=== PATIENT | female | born 2005 | race African-American/Black ===

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

== ENCOUNTER 2025-07-11 02:07 | Emergency (ER) | payer SELFPAY ==
[2025-07-11 02:10] VITALS: BP 130/85; PULSE 83; RESP 16; TEMP 36.4; O2SAT 99
--- NOTE | 2025-07-11 03:34 | ED_ITS ---
HPI - Nausea/Vomiting/Diarrhea General Chief complaint: Nausea/Vomiting/Diarrhea Stated complaint: N/V S/P FINISHING CHEMO FOR LEUKIMIA Time Seen by Provider: 07/11/25 03:14 Source: patient Mode of arrival: ambulatory Limitations: no limitations History of Present Illness HPI Narrative: Patient is a 20-year-old female presents to the emergency department, nausea and vomiting and diarrhea. Patient states she had been feeling too well over the past few days with a nonspecific headache and did not think too much of the until this evening when she started to nausea nonbloody nonbilious emesis, watery diarrhea. Denies any known sick contacts. Denies any no fevers. Notes that she just completed treatment for AML, is known to [facility] and completed chemotherapy at the end of June. Related Data Allergies Allergy/AdvReac Type Severity Reaction Status Date / Time No Known Allergies Allergy Verified 10/02/22 13:20 Review of Systems 2 Review of Systems: A 10 system review of systems was completed on the patient and is negative except for what is stated in the HPI. Nursing and ancillary documentation was reviewed. [facility] Past Medical History Medical History (Updated 07/11/25 @ 06:09 by Sami Simeon DO) No active medical problems Social History Social History (Updated 10/02/22 @ 16:23 by Winter Ashton PA-C) Smoking status: Never smoker Substance use: current Substance use type: marijuana Exam 2 Narrative: CONST: No acute distress. Well nourished. HENMT: Head is normocephalic and atraumatic. Moist mucous membranes. No posterior oropharynx erythema. EYES: No scleral icterus. No conjunctival injection or pallor. PERRL. NECK: No meningeal signs. RESP: Able to speak in full sentences. Normal respiratory effort. CTAB. CARDIO: Regular rate. Regular rhythm. 2+ DP and radial pulses bilaterally. GI: Nondistended. No tenderness to palpation. Soft. : No CVA tenderness to palpation. SKIN: No rashes or lesions noted on exposed skin. NEURO: Oriented x3. Moves all extremities. EXTREM/MSK/BACK: No pedal edema. PSYCH: Normal affect. Course Vital Signs Vital signs: Vital Signs Temperature 97.6 F 07/11/25 02:10 Pulse Rate 83 07/11/25 02:10 Respiratory Rate 16 07/11/25 02:10 Blood Pressure 130/85 07/11/25 02:10 Pulse Oximetry 99 07/11/25 02:10 Oxygen Delivery Room Air 07/11/25 02:10 Temperature 97.6 F 07/11/25 02:10 Pulse Rate 66 07/11/25 06:23 Respiratory Rate 17 07/11/25 06:23 Blood Pressure 121/84 07/11/25 06:23 Pulse Oximetry 100 07/11/25 06:23 Oxygen Delivery Room Air 07/11/25 02:10 [facility] Narrative Medical decision making narrative: Patient presents with the above complaint. Initial vitals are remarkable for no significant abnormalities. Physical examination as noted above. Plan discussed: laboratory analysis, IV fluids, Compazine, Benadryl, Zofran, continues cardiac monitoring, continuous pulse oximetry. Patient was reassessed at the bedside. No changes in physical exam. Patient is in no acute distress. Patient notes her symptoms have resolved, tolerating oral intake, no headache, no abdominal pain, vital signs stable, feels well at this time. The patient has remained stable throughout the entire ED visit. Counseled patient regarding diagnostic results and potential diagnosis. Anticipatory guidance provided. Patient instructed to follow up with PCP within 1 week. Patient counseled on: false reassurance from an emergency department evaluation; no current evidence of a medical emergency; return immediately for any new, recurrent, worsening, concerning, or refractory symptoms. Patient prescribed Zofran, Bentyl. Prescription sent to preferred pharmacy. Medications discussed with patient. Additional verbal and printed discharge instructions were given and discussed with the patient. Patient verbally acknowledges understanding of condition and discharge instructions. All questions were answered to the patient's satisfaction. Patient is in agreement with the plan of care. The patient is stable for discharge and was discharged without incident. Differential Diagnosis Differential Diagnosis: Metabolic derangement, electrolyte derangement, gastroenteritis, food-borne illness, viral syndrome, dehydration, UTI. Medical Records I have reviewed the following patient records and this information was taken into consideration when formulating the assessment and plan.: previous ER visits Lab Data [facility] Lab Attestation statement: I personally reviewed the patient's lab results. Lab results narrative: CBC reveals no significant abnormalities. Comprehensive metabolic panel is without any significant abnormalities. Lactic acid 1.4. Magnesium 2.1. Lipase 111. TSH 3.21. Influenza a and COVID and RSV testing are negative. Urinalysis has a cloudy appearance and otherwise without any significant abnormalities. test is negative. 07/11/25 03:50 07/11/25 03:50 Labs: Lab Results 07/11/25 07/11/25 07/11/25 Range/Units 03:50 03:51 05:22 WBC 6.0 (4.5-10.0) K/mm3 RBC 4.47 (4.2-5.4) M/mm3 Hgb 12.5 (12.0-15.0) g/dL Hct 40.0 (37.0-47.0) % MCV 89.5 (80-100) fl MCH 28.0 (26-34) pg MCHC 31.3 L (32-36) g/dl RDW 13.0 (11.5-14.5) % Plt Count 200 (150-375) k/mm3 MPV 11.6 H (7.4-10.4) fl Immature Gran % (Auto) 0.5 (0-0.5) % Neut % (Auto) 73.9 H (45.5-73.1) % Lymph % (Auto) 15.6 L (18.3-44.2) % [place] % (Auto) 7.5 (2.6-8.5) % Eos % (Auto) 2.5 (0-4.4) % Baso % (Auto) 0.0 L (0.2-1.2) % Lymph # (Auto) 0.94 (0.9-3.2) K/mm3 [place] # (Auto) 0.5 (0.1-0.6) K/mm3 Eos # (Auto) 0.2 (0-0.3) K/mm3 Baso # (Auto) 0.0 (0.0-0.1) K/mm3 Abs Immat Gran (auto) 0.03 (0.00-0.031) K/mm3 Absolute Neuts (auto) 4.5 (1.3-6.7) K/mm3 Absolute Nucleated RBC 0.000 (0.0-0.012) K/mm3 Nucleated RBC % 0.0 (0.0-0.2) % Sodium 138 (137-145) mmol/L Potassium 4.5 (3.4-5.0) mmol/L Chloride 108 H (98-107) mmol/L Carbon Dioxide 24 (22-30) mmol/L Anion Gap 6 (4-12) mmol/L BUN 11 (7-17) mg/dL Creatinine 0.68 L (0.7-1.0) mg/dL Estim Creat Clear Calc 138 ml/min Estimated GFR > 60 (59 - ) Glucose 99 (65-110) mg/dL Lactic Acid 1.4 (0.7-2.0) mmol/L Calcium 9.8 (8.4-10.2) mg/dL Magnesium 2.1 (1.6-2.3) mg/dL Total Bilirubin 0.5 (0.2-1.3) mg/dL AST 25 (14-36) U/L ALT 19 (6-35) U/L Alkaline Phosphatase 94 (38-126) U/L Total Protein 9.2 H (6.3-8.2) g/dL Albumin 4.8 (3.5-5.1) g/dL Lipase 111 (23-300) U/L TSH (Reflex) 3.210 (0.465-4.68) uIU/mL Urine Color (Yellow) Urine Appearance (Clear) Urine pH (5.0-9.0) Ur Specific [place] (1.001-1.035) Urine Protein (Negative) mg/dL Urine Glucose (UA) (Negative) mg/dL Urine Ketones (Negative) mg/dL Ur Blood (Man) (Negative) Urine Nitrate (Negative) Urine Bilirubin (Negative) Urine Urobilinogen (<2.0) mg/dL Leukocyte Esterase Rfl (Negative) MATILDE/UL Urine RBC (0-2) /hpf Urine WBC (0-3) /hpf Ur Squamous Epith Cells (Few) /hpf Urine Bacteria /hpf Urine Casts POC Urine HCG, Qual Negative (Negative) Influenza A (RT-PCR) Negative (Negative) Influenza B (RT-PCR) Negative (Negative) RSV (RT-PCR) Negative (Negative) SARS-CoV-2 RNA (RT-PCR) Negative (Negative) 07/11/25 Range/Units 05:23 WBC (4.5-10.0) K/mm3 RBC (4.2-5.4) M/mm3 Hgb (12.0-15.0) g/dL Hct (37.0-47.0) % MCV (80-100) fl MCH (26-34) pg MCHC (32-36) g/dl RDW (11.5-14.5) % Plt Count (150-375) k/mm3 MPV (7.4-10.4) fl Immature Gran % (Auto) (0-0.5) % Neut % (Auto) (45.5-73.1) % Lymph % (Auto) (18.3-44.2) % [place] % (Auto) (2.6-8.5) % Eos % (Auto) (0-4.4) % Baso % (Auto) (0.2-1.2) % Lymph # (Auto) (0.9-3.2) K/mm3 [place] # (Auto) (0.1-0.6) K/mm3 Eos # (Auto) (0-0.3) K/mm3 Baso # (Auto) (0.0-0.1) K/mm3 Abs Immat Gran (auto) (0.00-0.031) K/mm3 Absolute Neuts (auto) (1.3-6.7) K/mm3 Absolute Nucleated RBC (0.0-0.012) K/mm3 Nucleated RBC % (0.0-0.2) % Sodium (137-145) mmol/L Potassium (3.4-5.0) mmol/L Chloride (98-107) mmol/L Carbon Dioxide (22-30) mmol/L Anion Gap (4-12) mmol/L BUN (7-17) mg/dL Creatinine (0.7-1.0) mg/dL Estim Creat Clear Calc ml/min Estimated GFR (59 - ) Glucose (65-110) mg/dL Lactic Acid (0.7-2.0) mmol/L Calcium (8.4-10.2) mg/dL Magnesium (1.6-2.3) mg/dL Total Bilirubin (0.2-1.3) mg/dL AST (14-36) U/L ALT (6-35) U/L Alkaline Phosphatase (38-126) U/L Total Protein (6.3-8.2) g/dL Albumin (3.5-5.1) g/dL Lipase (23-300) U/L TSH (Reflex) (0.465-4.68) uIU/mL Urine Color Yellow (Yellow) Urine Appearance Cloudy H (Clear) Urine pH 5.0 (5.0-9.0) Ur Specific [place] 1.021 (1.001-1.035) Urine Protein Negative (Negative) mg/dL Urine Glucose (UA) Negative (Negative) mg/dL Urine Ketones Negative (Negative) mg/dL Ur Blood (Man) Negative (Negative) Urine Nitrate Negative (Negative) Urine Bilirubin Negative (Negative) Urine Urobilinogen 0.2 (<2.0) mg/dL Leukocyte Esterase Rfl Negative (Negative) MATILDE/UL Urine RBC 0-2 (0-2) /hpf Urine WBC 0-5 (0-3) /hpf Ur Squamous Epith Cells Moderate (Few) /hpf Urine Bacteria Rare /hpf Urine Casts 0-2 POC Urine HCG, Qual (Negative) Influenza A (RT-PCR) (Negative) Influenza B (RT-PCR) (Negative) RSV (RT-PCR) (Negative) SARS-CoV-2 RNA (RT-PCR) (Negative) Discharge Plan Discharge Clinical Impression: Gastroenteritis Patient Disposition: Home Condition: Stable Instructions: Antibiotic Form, Gastroenteritis (ED), Acute Nausea and Vomiting (ED), Acute Diarrhea (ED) Additional Instructions: Take the nausea medications as needed, Bentyl as needed for any abdominal discomfort in the rise. Follow-up with your primary care physician the next few days for reassessment. Return immediately to the emergency department for any new or concerning symptoms especially fever, needed keep anything down a, weakness, numbness, bloody bowel movements, or any emergent concerns for life, limb, eyesight. Patient Language: Zambian Prescriptions: New dicyclomine 10 mg capsule 10 mg PO QID PRN (Reason: abdominal pain) Qty: 20 0RF ondansetron 4 mg tablet,disintegrating 4 mg PO Q8H PRN (Reason: nausea and vomiting) Qty: 14 0RF Follow-up/Referrals: PHYSICIAN,ADULT SERVICES LIBRARIAN [Primary Care Provider, Internal Medicine] Time of Disposition: 06:15
--- OUTSIDE RECORDS SUMMARY | 2025-07-11 03:34 | XMS_ITS | Encounter Summary ---
Author Organization [facility] Healthcare Address [address] [place] [address] Care Team Providers Care Cotton Farmer Name Role Phone No, Physician Primary Care Provider [phone] Claire Cueva MD Primary Care Provid er Jess Cm INTER [employer] ROLL CUTTER Unavailable [phone] Marycarmen Garibay Unavailable Unavailable Gracy Stevens MD Unavailable Donna Dyson INTER F[employer] ROLL CUTTER Unavailable + Jessica Ayers NP Primary Care Provi natan April Morataya PhD Unavailable [phone] Encounter Details Date Type Department Care Team (Late st Contact Info) Description 07/01/2023 Telephone [facility] Interventional [place] [address] Cecy Bryan RN Social History Tobacco Use Types Packs/Day Years Used Date Smoking Tobacco: Never Smokeless Tobacco: Never Humiliation, Afraid, Rape, and Kick questionnair e Answer Date Recorded Within the last year, have y ou been afraid of your partner or ex-partner? No 03/06/2023 Within the last year, have y ou been humiliated or emotionally abused in other ways by your partner or ex-partner? No Within the last year, have y ou been kicked, hit, slapped, or otherwise physically hurt by your partner or ex-partner? No 03/06/2023 Within the last year, have y ou been raped or forced to have any kind of sexual activity by your partner or ex-partner? No 03/06/2023 AUDIT-C Answer Date Recorded Q1: How often do you have a drink containing alcohol? Never 03/06/2023 Q2: How many drinks containi ng alcohol do you have on a typical day when you are drinking? Patient does not drink Q3: How often do you have si x or more drinks on one occasion? Never 03/06/2023 Overall Financial Resource Strain (CARDIA) Answe r Date Recorded How hard is it for you to pa y for the very basics like food, housing, medical care, and heating? Somewhat hard 06/01/2023 Hunger Vital Sign Answer Date Recorded Within the past 12 months, y ou worried that your food would run out before you got the money to buy more. Sometimes true Within the past 12 months, t he food you bought just didn't last and you didn't have money to get more. Sometimes true PRAPARE - Transportation Answer Date Re corded In the past 12 months, has l ack of transportation kept you from medical appointments or from getting medications? No 05/11 In the past 12 months, has l ack of transportation kept you from meetings, work, or from getting things needed for daily living? Yes 06/01/2023 Housing Stability Vital Sign Answer Grzegorz e Recorded In the last 12 months, was t here a time when you were not able to pay the mortgage or rent on time? Yes 06/01/2023 In the last 12 months, how many places have you lived? 2 06/01/2023 In the last 12 months, was t here a time when you did not have a steady place to sleep or slept in a fdc (including now)? No 06/01/2023 Adolescent Education Answer Date Record ed Getting School Help Needed Yes 03/06 Adolescent Substance Use Answer Date Re corded Problems with Alcohol or Marijuana No 03/06/2023 Use of Non-Prescription Medicines No 03/06/2023 Tobacco or E-Cigarette Use No 03/06 Comments No Sex and Gender Information Value Date Recorded Sex Assigned at Not on file Legal Sex Female 7:37 PM HUMAN RESOURCES LEADER Gender Identity Female 05/09/2024 4:50 PM CDT Sexual Orientation Straight 05/09/2024 4: 50 PM CDT documented as of this encounter Functional Status documented as of this encounter Miscellaneous Notes * Telephone Encounter - Cecy Bryan RN - 02/15/2024 12:38 PM CDT documented in this encounter Plan of Treatment Not on file documented as of this encounter Visit Diagnoses Not on filedocumented in this encounter Additional Health Concerns Infection Onset Date Last Indicated Resolved Time COVID: Suspected 08/22/2023 08/22/2023 08/22/2023 5:59 PM HUMAN RESOURCES LEADER RSV, droplet 08/22/2023 08/22/2023 08/29/2023 3:05 AM HUMAN RESOURCES LEADER Varicella/Zoster, contact + airborne Comment:08/30/2023 IP Review - Pt with possible exposure to chickenpox on 08/22/23. Pt received varizig. Will need airborne and contact isolation through 09/19/23. Jimena Hernandez RN 08/30/2023 08/30/2023 09/20/2023 3:[address] COVID: Suspected 09/24/2023 09/24/2023 09/24/2023 10:47 AM HUMAN RESOURCES LEADER Coronavirus, droplet 09/24/2023 09/24/202310/01/ 024 3:05 AM HUMAN RESOURCES LEADER COVID: Suspected 11/05/2023 11/05/2023 11/05/2023 4:01 PM CDT C. difficile suspected 11/28/2023 11/28/202311/28 9:40 AM CDT COVID: Suspected 12/23/2023 12/23/2023 12/23/2023 3:33 PM CDT Rhino/Enterovirus 12/23/2023 12/23/2023 12/30/2023 3:05 AM CDT COVID: Suspected 01/12/2024 01/12/2024 01/12/2024 10:41 PM CDT Rhino/Enterovirus 01/12/2024 01/12/2024 01/19/2024 3:05 AM CDT Rhino/Enterovirus 01/25/2024 01/25/2024 02/01/2024 3:05 AM CDT Norovirus suspected 02/06/2024 02/06/2024 02/06/20 12:45 PM CDT Rotavirus suspected 02/06/2024 02/06/2024 02/06/20 9:42 PM CDT C. difficile suspected 02/06/2024 02/06/202402/05 2:59 PM CDT C. difficile suspected 02/11/2024 02/11/202402/10 9:44 PM CDT Norovirus suspected 02/11/2024 02/11/2024 02/11/20 7:04 PM CDT Rotavirus suspected 02/12/2024 02/12/2024 02/14/20 3:05 AM CDT COVID: Suspected 09/15/2024 09/15/2024 09/15/2024 1:05 PM HUMAN RESOURCES LEADER Influenza, adult 09/15/2024 09/15/2024 09/22/2024 3:05 AM HUMAN RESOURCES LEADER documented as of this encounter Care Teams Cotton Farmer Relationship Specialty Start Date End Date No, Physician PCP - General 04/07/22 07/16/23 Claire Cueva MD [address] [facility] [place] [address] PCP - General Pediatric Hematology and Oncology 07/17/23 04/20/24 [place] [address] [place] [address] PCP - General Pediatrics 04/21/24 Jess Cm NP [address] [place] [address] Nurse Practitioner Pediatric Hematology and Oncology 07/17/23 10/13/23 Marycarmen Garibay Registered Nurse 07/17/23 Gracy Stevens MD [address] [place] [facility] [address] [place] [address] Fellow Pediatric Hematology and Oncology 07/17/23 Donna Dyson NP [address] [place] [facility] [address] [place] [address] Nurse Practitioner Pediatric Hematology and Oncology 10/06/23 April Morataya, PhD [address] [facility] [id number] [place], [place] [id number] Psychologist Psychology 12/07/24 documented as of this encounter
--- OUTSIDE RECORDS SUMMARY | 2025-07-11 03:35 | XMS_ITS ---
Author Organization [facility], Former[facility] ospital Address [address] [place] [address] Care Team Providers Care Office Service Coordinator Name Role Phone Marycarmen Garibay Unavailable Unavailable Gracy Stevens MD Unavailable Donna Dyson NP Unavailable + Jessica Ayers CLAIM REVIEW MEDICAL DIRECTOR Primary Care Provi natan April Morataya PhD Unavailable [phone] Active Problems Problem Noted Date Diagnosed Date Elevated TSH 06/20/2025 Assessment & Plan (06/20/2025 1:30 PM BEHAVIORAL HEALTH CARE MANAGER): Suyapa has been experiencing weight gain, decreased energy, loss of appetite and depressed mood. Her TSH is slightly elevated today at 4.51 and normal free T4 (1.43). We are going to refer Suyapa to endocrinology. If thyroid supplement were to be started, her main concern will be compliance. Recommendations: - Referral to endocrinology Vitamin B12 deficiency (non anemic) 06/20/2025 Assessment & Plan (06/20/2025 1:33 PM BEHAVIORAL HEALTH CARE MANAGER): Today Suyapa was found to have low vitamin B12 levels at 161. Her vitamin B12 deficiency is most likely from poor diet that is not rich in meat or vegetables. We will start vitamin B12 supplementation. Recommendation: - Start Vitamin B12 supplementation Need for immunization against influenza 05/18/20 25 Acute management of gastrostomy 12/09/2024 Central line complication 09/02/2024 Assessment & Plan (10/03/2024 11:53 AM BEHAVIORAL HEALTH CARE MANAGER): Suyapa's port is not longer functioning and will be taken out. All her chemotherapy will be given through IV. Scheduled for Port Removal on October 19, 2024. Assessment & Plan (09/02/2024 3:08 PM BEHAVIORAL HEALTH CARE MANAGER): Suyapa's port is not giving blood return today. After TPA, it flushes successfully, but still without blood return. Recommend going to IR for a dye study of the port, but Suyapa refuses today. Discussed the importance of having port evaluated soon. Will schedule Suyapa to see IR tomorrow for evaluation of port and dye study; if needed, will consult surgery for further recommendations Sweating increase 08/05/2024 Assessment & Plan (08/05/2024 3:37 PM BEHAVIORAL HEALTH CARE MANAGER): Suyapa continues to report feeling sweatier and warmer than usual. T4 and TSH checked today, which were both normal. Other thought is that these symptoms may be r/t now > 1 year of Lupron use. Suyapa is not interested in other menstrual suppression options that require daily administration. Her exam continues to be reassuring and without signs of infection or illness. Will continue to monitor Consider discussing with [facility] if further workup is indicated Vitamin D deficiency 07/05/2024 Assessment & Plan (05/23/2025 1:45 PM CDT): Suyapa has evidence of osteopenia on MRI of left knee. Vitamin D obtained 07/05 = 19. Suyapa reports that she is not taking the prescribed Vitamin D supplementation. Continue to encourage vitamin D supplementation Consider rechecking level in 3-4 months if Ramesh begins to take supplementation Assessment & Plan (12/03/2024 9:31 PM CDT): Suyapa has evidence of osteopenia on MRI of left knee. Vitamin D obtained 07/05 = 19. Suyapa reports that she is not taking the prescribed Vitamin D supplementation. Continue to encourage vitamin D supplementation Consider rechecking level in 3-4 months Assessment & Plan (11/01/2024 12:44 PM CDT): Suyapa has evidence of osteopenia on MRI of left knee. Vitamin D obtained 07/05 = 19. Suyapa reports that she is not taking the prescribed Vitamin D supplementation. Continue to encourage vitamin D supplementation Consider rechecking level in 3-4 months Assessment & Plan (09/02/2024 2:51 PM BEHAVIORAL HEALTH CARE MANAGER): Suyapa has evidence of osteopenia on MRI of left knee. Vitamin D obtained 07/05 = 19. Suyapa reports that she is not taking the prescribed Vitamin D supplementation. Continue to encourage vitamin D supplementation Recheck level in 3-4 months Assessment & Plan (08/05/2024 3:26 PM BEHAVIORAL HEALTH CARE MANAGER): Suyapa has evidence of osteopenia on MRI of left knee. Vitamin D obtained 07/05 = 19. Suyapa reports that she is not taking the prescribed Vitamin D supplementation. Continue to encourage vitamin D supplementation Recheck level in 3-4 months Assessment & Plan (08/02/2024 7:04 AM BEHAVIORAL HEALTH CARE MANAGER): Suyapa has evidence of osteopenia on MRI of left knee. Vitamin D obtained 07/05 = 19. Continue vitamin D supplementation Recheck level in 3-4 months Assessment & Plan (07/05/2024 11:40 AM BEHAVIORAL HEALTH CARE MANAGER): Suyapa has evidence of osteopenia on MRI of left knee. Vitamin D obtained today, which = 19. Will start vitamin D supplementation Recheck level in 3-4 months Osteopenia 07/05/2024 Assessment & Plan (08/05/2024 3:33 PM BEHAVIORAL HEALTH CARE MANAGER): MRI of left knee shows evidence of osteopenia. Vitamin D low at 19. Continue Vitamin D supplementation Encouraged increasing calcium in diet Assessment & Plan (08/05/2024 11:55 AM BEHAVIORAL HEALTH CARE MANAGER): MRI of left knee shows evidence of osteopenia. Vitamin D low at 19. Continue Vitamin D supplementation Encouraged increasing calcium in diet Assessment & Plan (07/05/2024 11:41 AM BEHAVIORAL HEALTH CARE MANAGER): MRI of left knee shows evidence of osteopenia. Vitamin D low at 19. Started Vitamin D supplementation Encouraged increasing calcium in diet Left knee pain 06/17/2024 Assessment & Plan (09/02/2024 2:57 PM BEHAVIORAL HEALTH CARE MANAGER): Suyapa has reported continued intermittent pain to her left posterior knee. XR obtained 06/17 which showed slight demineralization without definite AVN; however, could obtain MRI if clinical concern for AVN. MRI obtained 06/30 which showed prominent linear focus of T2 signal and associated contrast enhancement in the medial femoral condyle with associated linear low T1 signal - finding is nonspecific and could be normal variant, correlate with point tenderness over medial femoral condyle to r/o femoral insufficiency fracture. Also showed diffuse osteopenia. No MRI evidence of osteonecrosis. Vitamin D obtained which is low at 19. Vitamin D supplementation given in clinic and sent. Encouraged increasing calcium in diet. Suyapa is continuing physical therapy and feels that it is helping. No pain reported today. Continue physical therapy Encouraged intermittent rest of the knee when it is painful Will continue to monitor pain and consider later re-imaging if pain worsens Assessment & Plan (08/05/2024 3:33 PM BEHAVIORAL HEALTH CARE MANAGER): Suyapa has reported continued intermittent pain to her left posterior knee. XR obtained 06/17 which showed slight demineralization without definite AVN; however, could obtain MRI if clinical concern for AVN. MRI obtained 06/30 which showed prominent linear focus of T2 signal and associated contrast enhancement in the medial femoral condyle with associated linear low T1 signal - finding is nonspecific and could be normal variant, correlate with point tenderness over medial femoral condyle to r/o femoral insufficiency fracture. Also showed diffuse osteopenia. No MRI evidence of osteonecrosis. Vitamin D obtained which is low at 19. Vitamin D supplementation given in clinic and sent. Encouraged increasing calcium in diet. Suyapa has also started physical therapy and feels that it is helping. She notes that her pain is much improved. Continue physical therapy Encouraged intermittent rest of the knee when it is painful Will continue to monitor pain and consider later re-imaging if pain worsens Assessment & Plan (08/02/2024 7:26 AM BEHAVIORAL HEALTH CARE MANAGER): Suyapa has reported continued intermittent pain to her left posterior knee. XR obtained 06/17 which showed slight demineralization without definite AVN; however, could obtain MRI if clinical concern for AVN. MRI obtained 06/30 which showed prominent linear focus of T2 signal and associated contrast enhancement in the medial femoral condyle with associated linear low T1 signal - finding is nonspecific and could be normal variant, correlate with point tenderness over medial femoral condyle to r/o femoral insufficiency fracture. Also showed diffuse osteopenia. No MRI evidence of osteonecrosis. Vitamin D obtained which is low at 19. Vitamin D supplementation given in clinic and sent. Encouraged increasing calcium in diet. Suyapa has also started physical therapy (had initial eval today). Continue physical therapy Encouraged intermittent rest of the knee when it is painful Will continue to monitor pain and consider later re-imaging if pain worsens Assessment & Plan (07/05/2024 11:36 AM BEHAVIORAL HEALTH CARE MANAGER): Suyapa has reported continued intermittent pain to her left posterior knee. XR obtained 06/17 which showed slight demineralization without definite AVN; however, could obtain MRI if clinical concern for AVN. MRI obtained 06/30 which showed prominent linear focus of T2 signal and associated contrast enhancement in the medial femoral condyle with associated linear low T1 signal - finding is nonspecific and could be normal variant, correlate with point tenderness over medial femoral condyle to r/o femoral insufficiency fracture. Also showed diffuse osteopenia. No MRI evidence of osteonecrosis. Today, Suyapa has very mild tenderness to palpation to lower lateral aspect of knee. No other tenderness to palpation, and none that correlates with MRI finding. Vitamin D obtained which is low at 19. Vitamin D supplementation given in clinic and sent. Encouraged increasing calcium in diet. Suyapa has also started physical therapy (had initial eval today). Continue physical therapy Encouraged intermittent rest of the knee when it is painful Will continue to monitor pain and consider later re-imaging if pain worsens Assessment & Plan (06/17/2024 4:11 PM BEHAVIORAL HEALTH CARE MANAGER): Suyapa reports continued intermittent pain to her left posterior knee. No swelling or tenderness to palpation. XR obtained today which shows slight demineralization without definite AVN; however, could obtain MRI if clinical concern for AVN. Suyapa is at risk for AVN due to steroid use during therapy. No concern for injury on exam. Suyapa refuses any medication interventions at this time, but she is open to starting physical therapy. Referral in process for physical therapy Encouraged intermittent rest of the knee when it is painful Consider MRI to further evaluate left knee XR findings At moderate risk for venous thromboembolism (VTE ) 05/19/2024 Assessment & Plan (05/19/2024 2:51 PM CDT): -SCD -Ambulate TID At high risk for constipation 01/25/2024 Assessment & Plan (05/19/2024 2:51 PM CDT): - Miralax daily, prn Assessment & Plan (02/12/2024 1:08 PM CDT): Secondary to opioid use. - PRN Miralax Assessment & Plan (02/11/2024 11:06 AM CDT): Secondary to opioid use. - PRN Miralax Assessment & Plan (02/10/2024 12:31 PM CDT): Secondary to opioid use. - PRN Miralax Assessment & Plan (02/09/2024 3:07 PM CDT): Secondary to opioid use. - PRN Miralax Assessment & Plan (02/08/2024 4:02 PM CDT): Secondary to opioid use. - PRN Miralax Assessment & Plan (01/27/2024 2:33 PM CDT): At risk for constipation due to opioid use. - Daily Mirilax Assessment & Plan (01/26/2024 11:33 AM CDT): At risk for constipation due to opioid use. - Daily Mirilax Assessment & Plan (01/25/2024 3:31 PM CDT): At risk for constipation due to opioid use. - Daily Mirilax Generalized pain 11/06/2023 Assessment & Plan (06/17/2024 3:02 PM BEHAVIORAL HEALTH CARE MANAGER): Suyapa has a hx of generalized pain. These were exacerbated during her steroid bursts in DI. She was previously admitted for pain and has required gabapentin, robaxin, oxycodone, and lidocaine infusion. Previous imaging has been reassuring. Previously prescribed medications have all been stopped due to non-compliance. Today she reports some left knee pain that is occasional and not associated with any swelling. No obvious injury, swelling; exam is reassuring. Since Suyapa has previously reported this pain, left knee XR obtained today which shows slight demineralization without definite AVN; however, could obtain MRI if clinical concern for AVN. Her back and head pain are intermittent and overall improved, as she is still able to do most ADLs. When offered pain interventions, Suyapa refused. See left knee pain Will continue to monitor closely Encourage Suyapa to call with worsening pain Encouraged exercise, such as walking Assessment & Plan (05/11/2024 3:55 PM CDT): Suyapa has a hx of generalized pain. These were exacerbated during her steroid bursts in DI. She was previously admitted for pain and has required gabapentin, robaxin, oxycodone, and lidocaine infusion. Previous imaging has been reassuring. Previously prescribed medications have all been stopped due to non-compliance. Today she reports some left leg pain, mostly behind her knee, that is occasional and not associated with any swelling. No obvious injury, swelling; exam is reassuring. Suyapa has been increasing her activity level and reports going to the gym and taking walks. Will continue to monitor closely Encourage Suyapa to call with pain Encouraged exercise, such as walking Assessment & Plan (04/27/2024 12:24 PM CDT): Suyapa has a hx of generalized pain. These were exacerbated during her steroid bursts in DI. She was previously admitted for pain and has required gabapentin, robaxin, oxycodone, and lidocaine infusion. Previous imaging has been reassuring. Previously prescribed medications have all been stopped due to non-compliance. Overall she does not report any aches or pain over the last 2 weeks. Will continue to monitor closely Encourage Suyapa to call with pain Encouraged exercise, such as walking Assessment & Plan (04/13/2024 3:26 PM CDT): Suyapa has a hx of generalized pain. These were exacerbated during her steroid bursts in DI. She was previously admitted for pain and has required gabapentin, robaxin, oxycodone, and lidocaine infusion. Previous imaging has been reassuring. Previously prescribed medications have all been stopped due to non-compliance. Overall she does not report any aches or pain over the last 2 weeks. Will continue to monitor closely Encourage Suyapa to call with pain Encouraged exercise, such as walking Assessment & Plan (03/29/2024 11:23 AM CDT): Suyapa has a hx of generalized pain. These were exacerbated during her steroid bursts in DI. She was previously admitted for pain and has required gabapentin, robaxin, oxycodone, and lidocaine infusion. Previous imaging has been reassuring. Previously prescribed medications have all been stopped due to non-compliance. Suyapa reports recent leg cramps and some generalized aches/pains which she attributes to feeling better and moving around more. Will continue to monitor closely Encourage Suyapa to call if her pain worsens Encouraged exercise, such as walking Assessment & Plan (03/11/2024 2:43 PM CDT): Suyapa continues to have complaints of generalized pain. These were exacerbated during her steroid bursts in DI. She was previously admitted for pain and has required gabapentin, robaxin, oxycodone, and lidocaine infusion. Previous imaging has been reassuring. Previously prescribed medications have all been stopped due to non-compliance. Suyapa continues to report generalized pain today - cramping in her calves, and headaches. Her exam is reassuring. She has previously reported generalized abdominal pain or body aches. She also reports improved energy and appetite. Her Hgb is low today at 7.5 and PRBC transfusion was encouraged, but Suyapa declined due to transportation and notes that it has not improved headache symptoms in the past. Will continue to monitor closely Encourage Suyapa to call if her pain worsens Assessment & Plan (02/26/2024 12:15 PM CDT): Suyapa continues to have complaints of generalized pain. These were exacerbated during her steroid bursts in DI. She was previously admitted and has required gabapentin, robaxin, oxycodone, and lidocaine infusion. Previous imaging has been reassuring. Previously prescribed medications have all been stopped due to non-compliance. Suyapa continues to report generalized pain today - occasional abdominal pain and body aches. Her exam is reassuring. She also reports improved energy and appetite. Will continue to monitor closely Encourage Suyapa to call if her pain worsens Assessment & Plan (02/12/2024 1:14 PM CDT): Suyapa presents with complaints of headache, generalized pain/body aches, and chronic low back pain. Complaints of abdominal pain today, see Diarrhea. - PRN Tylenol, Morphine 2mg Assessment & Plan (02/11/2024 11:05 AM CDT): Suyapa presents with complaints of headache, generalized pain/body aches, and chronic low back pain. - PRN Tylenol, Morphine PRN Assessment & Plan (02/10/2024 12:29 PM CDT): Suyapa presents with complaints of headache, generalized pain/body aches, and chronic low back pain. - PRN Tylenol, Morphine PRN Assessment & Plan (02/09/2024 3:06 PM CDT): Suyapa presents with complaints of headache, generalized pain/body aches, and chronic low back pain. - PRN Tylenol, Morphine PRN Assessment & Plan (02/08/2024 3:57 PM CDT): Suyapa presents today with complaints of headache, generalized pain/body aches, and chronic low back pain. Likely acute on chronic due to recent chemotherapy. - PRN Tylenol, Morphine 2mg - Supportive care as needed Assessment & Plan (12/11/2023 3:42 PM CDT): Suyapa has had complaints of generalized pain, exacerbated during her steroid bursts in DI. She was admitted and required gabapentin, robaxin, oxycodone, and lidocaine infusion. Xrays of lumbar spine, bilateral knees, and hips/pelvis were done, without concerning findings for acute fracture or AVN. Ramesh denies any pain today and has not been compliant with medications at home. 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 Currently presentation similar to recent admission and likely precipitated by steroid pulse. No changes in her neurological status or bowel and bladder function, therefore low concern for new anatomical lesion causing back and leg pain. Pain has previously responded well to scheduled pain medications and rest. Imaging with x-rays during this admission (bilateral knees, hips/pelvis, lumbar spine) reassuring against acute fracture, dislocation, or avascular necrosis. No complaints of pain this AM. No changes to pain regimen today. - For neuropathic pain: continue gabapentin 800 mg BID. Robaxin robles TID. S/p lidocaine infusion x 48 hrs (11/23-). - For migraine-related pain: Received x 1 Mg per migraine protocol on 11/23. Consider repeat dosing. - For musculoskeletal pain (lower extremities/back): oxycodone 7.5 mg PRN Plan: - Robles robaxin, gabapentin 800 mg BID - RFP, Mg - s/p IV Mg x 1. 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 Currently presentation similar to recent admission and likely precipitated by steroid pulse. No changes in her neurological status or bowel and bladder function, therefore low concern for new anatomical lesion causing back and leg pain. Pain has previously responded well to scheduled pain medications and rest. Imaging with x-rays during this admission (bilateral knees, hips/pelvis, lumbar spine) reassuring against acute fracture, dislocation, or avascular necrosis. No complaints of pain this AM. No changes to pain regimen today. - For neuropathic pain: continue gabapentin 800 mg BID. Robaxin robles TID. S/p lidocaine infusion x 48 hrs (11/23-). - For migraine-related pain: Received x 1 Mg per migraine protocol on 11/23. Consider repeat dosing. - For musculoskeletal pain (lower extremities/back): oxycodone 7.5 mg PRN Plan: - Robles robaxin, gabapentin 800 mg BID - RFP, Mg - s/p IV Mg x 1. 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 Currently presentation similar to recent admission and likely precipitated by steroid pulse. No changes in her neurological status or bowel and bladder function, therefore low concern for new anatomical lesion causing back and leg pain. Pain has previously responded well to scheduled pain medications and rest. Imaging with x-rays during this admission (bilateral knees, hips/pelvis, lumbar spine) reassuring against acute fracture, dislocation, or avascular necrosis. No complaints of pain this AM. No changes to pain regimen today. - For neuropathic pain: continue gabapentin 800 mg BID. Robaxin robles TID. S/p lidocaine infusion x 48 hrs (11/23-). - For migraine-related pain: Received x 1 Mg per migraine protocol on 11/23. Consider repeat dosing. - For musculoskeletal pain (lower extremities/back): oxycodone 7.5 mg PRN Plan: - Robles robaxin, gabapentin 800 mg BID - RFP, Mg - s/p IV Mg x 1. 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 Currently presentation similar to recent admission and likely precipitated by steroid pulse. No changes in her neurological status or bowel and bladder function, therefore low concern for new anatomical lesion causing back and leg pain. Pain has previously responded well to scheduled pain medications and rest. Imaging with x-rays during this admission (bilateral knees, hips/pelvis, lumbar spine) reassuring against acute fracture, dislocation, or avascular necrosis. No complaints of pain this AM. No changes to pain regimen today. - For neuropathic pain: continue gabapentin 800 mg BID. Robaxin robles TID. S/p lidocaine infusion x 48 hrs (11/23-). - For migraine-related pain: Received x 1 Mg per migraine protocol on 11/23. Consider repeat dosing. - For musculoskeletal pain (lower extremities/back): oxycodone 7.5 mg PRN Plan: - Robles robaxin, gabapentin 800 mg BID - RFP, Mg - s/p IV Mg x 1. 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 Currently presentation similar to recent admission and likely precipitated by steroid pulse. No changes in her neurological status or bowel and bladder function, therefore low concern for new anatomical lesion causing back and leg pain. Pain has previously responded well to scheduled pain medications and rest. Imaging with x-rays during this admission (bilateral knees, hips/pelvis, lumbar spine) reassuring against acute fracture, dislocation, or avascular necrosis. No complaints of pain this AM. No changes to pain regimen today. - For neuropathic pain: continue gabapentin 800 mg BID. Robaxin robles TID. S/p lidocaine infusion x 48 hrs (11/23-). - For migraine-related pain: Received x 1 Mg per migraine protocol on 11/23. Consider repeat dosing. - For musculoskeletal pain (lower extremities/back): oxycodone 7.5 mg PRN Plan: - Robles robaxin, gabapentin 800 mg BID - RFP, Mg - s/p IV Mg x 1. 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 Currently presentation similar to recent admission and likely precipitated by steroid pulse. No changes in her neurological status or bowel and bladder function, therefore low concern for new anatomical lesion causing back and leg pain. Pain has previously responded well to scheduled pain medications and rest. Imaging with x-rays during this admission (bilateral knees, hips/pelvis, lumbar spine) reassuring against acute fracture, dislocation, or avascular necrosis. No complaints of pain this AM. No changes to pain regimen today. - For neuropathic pain: continue gabapentin 800 mg BID. Robaxin robles TID. S/p lidocaine infusion x 48 hrs (11/23-). - For migraine-related pain: Received x 1 Mg per migraine protocol on 11/23. Consider repeat dosing. - For musculoskeletal pain (lower extremities/back): oxycodone 7.5 mg PRN Plan: - Robles robaxin, gabapentin 800 mg BID - RFP, Mg - s/p IV Mg x 1. 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 Currently presentation similar to recent admission and likely precipitated by steroid pulse. No changes in her neurological status or bowel and bladder function, therefore low concern for new anatomical lesion causing back and leg pain. Pain has previously responded well to scheduled pain medications and rest. Imaging with x-rays during this admission (bilateral knees, hips/pelvis, lumbar spine) reassuring against acute fracture, dislocation, or avascular necrosis. No complaints of pain this AM, besides mucositis-related oral pain which is improved. No changes to pain regimen today. - For neuropathic pain: continue gabapentin 800 mg BID. Robaxin robles TID. S/p lidocaine infusion x 48 hrs (11/23-). - For migraine-related pain: Received x 1 Mg per migraine protocol on 11/23. Consider repeat dosing. - For musculoskeletal pain (lower extremities/back): oxycodone 7.5 mg PRN Plan: - Robles robaxin, gabapentin 800 mg BID - RFP, Mg - s/p IV Mg x 1. 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 Currently presentation similar to recent admission and likely precipitated by steroid pulse. No changes in her neurological status or bowel and bladder function, therefore low concern for new anatomical lesion causing back and leg pain. Pain has previously responded well to scheduled pain medications and rest. Imaging with x-rays during this admission (bilateral knees, hips/pelvis, lumbar spine) reassuring against acute fracture, dislocation, or avascular necrosis. No complaints of pain this AM, besides mucositis-related oral pain. Will consider scheduling magic mouthwash. No changes to pain regimen today. - For neuropathic pain: continue gabapentin 800 mg BID. Robaxin robles TID. S/p lidocaine infusion x 48 hrs (11/23-). - For migraine-related pain: Received x 1 Mg per migraine protocol on 11/23. Consider repeat dosing. - For musculoskeletal pain (lower extremities/back): oxycodone 7.5 mg PRN Plan: - Robles robaxin, gabapentin 800 mg BID - RFP, Mg - s/p IV Mg x 1. 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 Currently presentation similar to recent admission and likely precipitated by steroid pulse. No changes in her neurological status or bowel and bladder function, therefore low concern for new anatomical lesion causing back and leg pain. Pain has previously responded well to scheduled pain medications and rest. Imaging with x-rays during this admission (bilateral knees, hips/pelvis, lumbar spine) reassuring against acute fracture, dislocation, or avascular necrosis. No complaint of pain this AM. No changes to pain regimen today. - For neuropathic pain: continue gabapentin 800 mg BID. Robaxin robles TID. S/p lidocaine infusion x 48 hrs (11/23-). - For migraine-related pain: Received x 1 Mg per migraine protocol on 11/23. Consider repeat dosing. - For musculoskeletal pain (lower extremities/back): oxycodone 7.5 mg PRN Plan: - Robles robaxin, gabapentin 800 mg BID - RFP, Mg - s/p IV Mg x 1. 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 Currently presentation similar to recent admission and likely precipitated by steroid pulse. No changes in her neurological status or bowel and bladder function, therefore low concern for new anatomical lesion causing back and leg pain. Pain has previously responded well to scheduled pain medications and rest. Imaging with x-rays during this admission (bilateral knees, hips/pelvis, lumbar spine) reassuring against acute fracture, dislocation, or avascular necrosis. No complaint of pain this AM. No changes to pain regimen today. - For neuropathic pain: continue gabapentin 800 mg BID. Robaxin orbles TID. S/p lidocaine infusion x 48 hrs (11/23-). - For migraine-related pain: Received x 1 Mg per migraine protocol on 11/23. Consider repeat dosing. - For musculoskeletal pain (lower extremities/back): oxycodone 7.5 mg PRN Plan: - Robles robaxin, gabapentin 800 mg BID - RFP, Mg - s/p IV Mg x 1. 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 Currently presentation similar to recent admission and likely precipitated by steroid pulse. No changes in her neurological status or bowel and bladder function, therefore low concern for new anatomical lesion causing back and leg pain. Pain has previously responded well to scheduled pain medications and rest. Imaging with x-rays during this admission (bilateral knees, hips/pelvis, lumbar spine) reassuring against acute fracture, dislocation, or avascular necrosis. Completed lidocaine infusion (11/23-11/25). No complaint of pain this AM. No changes to pain regimen today. Pain team following, will discuss potential benefit of prolonging duration of lidocaine infusion if needed. - For neuropathic pain: continue gabapentin 800 mg BID. Robaxin robles TID. S/p lidocaine infusion x 48 hrs (11/23-). - For migraine-related pain: Received x 1 Mg per migraine protocol on 11/23. Consider repeat dosing. - For musculoskeletal pain (lower extremities/back): oxycodone 7.5 mg PRN Plan: - Robles robaxin, gabapentin 800 mg BID - RFP, Mg - s/p IV Mg x 1. 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 Currently presentation similar to recent admission and likely precipitated by steroid pulse. No changes in her neurological status or bowel and bladder function, therefore low concern for new anatomical lesion causing back and leg pain. Pain has previously responded well to scheduled pain medications and rest. Imaging with x-rays during this admission (bilateral knees, hips/pelvis, lumbar spine) reassuring against acute fracture, dislocation, or avascular necrosis. Continues on lidocaine infusion (11/23-11/25). Lidocaine level obtained yesterday and within therapeutic range. Overall pain significantly improved. Plan to increase gabapentin to 800 mg BID. Will monitor closely. Pain team following, will discuss potential benefit of prolonging duration of lidocaine infusion per their recommendations. - For neuropathic pain: increased gabapentin to 800 mg BID on 11/25. Robaxin robles TID. Continues on lidocaine infusion x 48 hrs (11/23-). - For migraine-related pain: Received x 1 Mg per migraine protocol on 11/23. Consider repeat dosing. - For musculoskeletal pain (lower extremities/back): oxycodone 7.5 mg PRN Plan: - Robles robaxin, gabapentin 800 mg BID - RFP, Mg - s/p IV Mg x 1. 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 Currently presentation similar to recent admission and likely precipitated by steroid pulse. No changes in her neurological status or bowel and bladder function, therefore low concern for new anatomical lesion causing back and leg pain. Pain has previously responded well to scheduled pain medications and rest. Imaging with x-rays during this admission (bilateral knees, hips/pelvis, lumbar spine) reassuring against acute fracture, dislocation, or avascular necrosis. Received Mg x 1 yesterday and started on lidocaine infusion. Obtain lidocaine level today at 1600. Overall pain significantly improved. No changes to pain management. Will monitor closely. - For neuropathic pain: increased gabapentin to 600 mg BID on 11/22. Robaxin robles TID. Started on lidocaine infusion x 48 hrs (11/23-). - For migraine-related pain: Received x 1 Mg per migraine protocol on 11/23. Consider repeat dosing. - For musculoskeletal pain (lower extremities/back): oxycodone 7.5 mg PRN Plan: - Robles robaxin, gabapentin 600 mg BID - RFP, Mg - s/p IV Mg x 1. 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 Currently presentation similar to recent admission and likely precipitated by steroid pulse. No changes in her neurological status or bowel and bladder function, therefore low concern for new anatomical lesion causing back and leg pain. Pain has previously responded well to scheduled pain medications and rest. Imaging with x-rays during this admission (bilateral knees, hips/pelvis, lumbar spine) reassuring against acute fracture, dislocation, or avascular necrosis. Pain continues to fluctuate both in quality and in severity; likely multifactorial. Pain types include likely neuropathic pain (burning sensation/dysesthesias in bilateral hands, worse with temperature change), frontal headache with migraine features (intermittent blurry vision, prior admission with response to IV Mg), lower back and bilateral leg pain with unclear etiology but possibly musculoskeletal. - For neuropathic pain: increased gabapentin to 600 mg BID on 11/22. Robaxin robles TID. Evaluated by pain team and plan to start lidocaine infusion today. - For migraine-related pain: plan to start IV Mg per migraine protocol. Per chart review, this has been effective in relieving headache symptoms in the past. 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 Currently presentation similar to recent admission and likely precipitated by steroid pulse. No changes in her neurological status or bowel and bladder function, therefore low concern for new anatomical lesion causing back and leg pain. Pain has previously responded well to scheduled pain medications and rest. Will resume previous pain management strategy. X-rays obtained (bilateral knees, hips/pelvis, lumbar spine) reassuring against acute fracture, dislocation, or avascular necrosis. Continues to endorse intermittent bilateral leg pain, lower back pain and frontal headache. Endorses dysesthesias in bilateral hands consistent with likely neuropathic pain. Increased gabapentin to 600 mg BID today. Will transition to oxycodone Q8 PRN from scheduled. Will engage with pain team for further recommendations. 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 Currently presentation similar to recent admission and likely precipitated by steroid pulse. No changes in her neurological status or bowel and bladder function, therefore low concern for new anatomical lesion causing back and leg pain. Pain has previously responded well to scheduled pain medications and rest. Will resume previous pain management strategy. X-rays obtained (bilateral knees, hips/pelvis, lumbar spine) reassuring against acute fracture, dislocation, or avascular necrosis. Continues to endorse bilateral leg pain, intermittent lower back pain and intermittent frontal headache. Endorses dysesthesias in bilateral hands consistent with likely neuropathic pain. increased gabapentin to 300 mg TID on 11/20. Will monitor closely. 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 Currently presentation similar to recent admission and likely precipitated by steroid pulse. No changes in her neurological status or bowel and bladder function, therefore low concern for new anatomical lesion causing back and leg pain. Pain has previously responded well to scheduled pain medications and rest. Will resume previous pain management strategy. X-rays obtained (bilateral knees, hips/pelvis, lumbar spine) reassuring against acute fracture, dislocation, or avascular necrosis. Continues to endorse bilateral leg pain, intermittent lower back pain and intermittent frontal headache. Endorses dysesthesias in bilateral hands consistent with likely neuropathic pain. Plan to increase gabapentin to 300 mg TID. Will monitor closely. Plan: - Robles robaxin, gabapentin, oxycodone - PRN tylenol, lidocaine patches, diclofenac, capsaicin cream - Regular diet, mIVF - Followed by PACT team during previous admissions. 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 Currently presentation similar to recent admission and likely precipitated by steroid pulse. No changes in her neurological status or bowel and bladder function, therefore low concern for new anatomical lesion causing back and leg pain. Pain has previously responded well to scheduled pain medications and rest. Will resume previous pain management strategy. Today with improvement in back pain (rates as 5/10). Continued to also endorse bilateral leg pain (4/10) and mild headache. No changes to pain regimen. Will monitor closely. Plan: - Robles robaxin, gabapentin, oxycodone - PRN tylenol, lidocaine patches, diclofenac - Regular diet, mIVF - Followed by PACT team during previous admissions. 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 Currently presentation similar to recent admission and likely precipitated by steroid pulse. No changes in her neurological status or bowel and bladder function, therefore low concern for new anatomical lesion causing back and leg pain. Pain has previously responded well to scheduled pain medications and rest. Will resume previous pain management strategy and re access. Plan: - Robles robaxin, gabapentin, oxycodone - PRN tylenol, lidocaine patches, diclofenac - Regular diet, mIVF - Followed by PACT team during previous admissions. 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 Currently presentation similar to recent admission and likely precipitated by steroid pulse. No changes in her neurological status or bowel and bladder function, therefore low concern for new anatomical lesion causing back and leg pain. Pain has previously responded well to scheduled pain medications and rest. Will resume previous pain management strategy and re access. Plan: - Robles robaxin, gabapentin, oxycodone - PRN tylenol, lidocaine patches, diclofenac - Regular diet, mIVF - Followed by PACT team during previous admissions. Assessment & Plan (11/19/2023 3:21 PM CDT): Suyapa has had complaints of generalized pain most recently with significant complaints 3 days post her day 1-7 steroid burst in DI. She was initiated on Gabapentin and Robaxin during recent hospital admission (11/06). Over the last 3- 4 days she was having complaints of generalized pain worse in her bilateral lower extremities and lower back that feel similar to the pain experienced with her most recent admission. She just completed another burst of dexamethasone 5mg/m2/dose BID x 14 days. She has been using gabapentin BID and robaxin BID at home although the robaxin is prescribed TID PRN. Yesterday, she received a refill of oxycodone for breakthrough pain which she used last evening around 9pm. She was able to sleep from 10pm-1am but struggled with sleep due to pain after that time. She did not try any other medications overnight. After discussion, Ramesh struggles to manage her pain regimen at home independently when she is as uncomfortable as she has been. Will admit for pain management for pain likely related to recent steroids Continue Gabapentin BID, may consider increasing dosing to TID 3. Give Robaxin TID 4. Oxycodone q4 for breakthrough pain 5. If pain were to continue despite management and with time from previous steroid dosing may consider imaging to rule out compression fractures Assessment & Plan (11/19/2023 9:57 AM CDT): Suyapa has had c/o generalized pain; was initiated on Gabapentin and Robaxin during recent hospital admission (11/06). Today, Suyapa reports pain near G-tube site as well as leg pain and generalized pain. G-tube evaluated by [employer]; no signs of infection. Exam is reassuring - no point tenderness to extremities, swelling, and able to ambulate. She is able to rest comfortably in exam room. She remains afebrile and VSS. Suyapa also notes that she is not taking Robaxin as prescribed - is currently only taking it BID; medication prescribed as TID. Suyapa just completed two 7-day courses of high-dose Dexamethasone, which is the most likely cause of leg pain. Other considerations include generalized body aches (could be caused by viral illness), infection (pt is afebrile), injury. Suyapa is neutropenic and is more susceptible to infection at this time; however, exam is reassuring. CBC, while neutropenic, is also reassuring - no blasts seen. Continue Gabapentin TID, Robaxin TID Oxycodone PRN breakthrough pain Neutropenic precautions Consider additional workup, such as imaging and infectious workup, if pain persists Assessment & Plan (11/08/2023 1:26 PM CDT): Patient presents with generalized pain not localized to a specific region. Not febrile and not neutropenic. Patient did have low blood pressures on admission, treated with antibiotics, fluids, briefly epi, now improved. Cultures negative thus far. Lower concern for sepsis given this picture, but will monitor closely for further signs of infection. Will stop antibiotics today. For pain, patient has not regularly taken pain medications at home before, including gabapentin. However, pain is described similarly to neuropathic pain, so will trial gabapentin and robaxin. She reports significant improvement in pain since starting the Robaxin. Regarding POCUS finding in ED of echogenic material around heart, full echocardiogram without LV dysfunction or findings of effusion. - PO gabapentin BID, IV Robaxin TID (started 11/06) - oxycodone q4h prn - Cefepime (11/04-11/07) - finish 48 hour coverage of vancomycin today (11/04-11/06) - f/u BCx (NGTD) - regular diet - can do morphine for breakthrough pain - no NSAIDs Assessment & Plan (11/07/2023 1:19 PM CDT): Patient presents with generalized pain not localized to a specific region. Not febrile and not neutropenic. Patient did have low blood pressures on admission, treated with antibiotics, fluids, briefly epi, now improved. Cultures negative thus far. Lower concern for sepsis given this picture, but will monitor closely for further signs of infection. For pain, patient has not regularly taken pain medications at home before, including gabapentin. However, pain is described similarly to neuropathic pain, so will trial gabapentin and robaxin Regarding POCUS finding in ED of echogenic material around heart, full echocardiogram without LV dysfunction or findings of effusion. - PO gabapentin BID, IV Robaxin TID (started 11/06) - oxycodone q4h prn - Cefepime (11/04-) - finish 48 hour coverage of vancomycin today (11/04-11/06) - f/u BCx (NGTD) - regular diet - can do morphine for breakthrough pain - no NSAIDs Assessment & Plan (11/06/2023 11:15 AM CDT): Patient presents with generalized pain not localized to a specific region. Not febrile and not neutropenic. Patient did have low blood pressures on admission, treated with antibiotics, fluids, briefly epi, now improved. Cultures negative thus far. Lower concern for sepsis given this picture, but will monitor closely for further signs of infection, otherwise continue antibiotics for 48 hour rule out. Regarding POCUS finding in ED of echogenic material around heart, will obtain full echo. - Follow up echo - Cefepime, vancomycin (11/04-) - f/u BCx (NGTD) - regular diet - oxycodone q4h prn - can do morphine for breakthrough pain - no NSAIDs Gastrostomy tube in place 10/27/2023 Assessment & Plan (06/20/2025 1:33 PM BEHAVIORAL HEALTH CARE MANAGER): Suyapa has a hx of poor medication compliance. G-tube was placed 10/08/23 to assist with medication administration throughout her treatment course, which was then converted to a g-button. Site is without any signs of infection today. Continue g-tube cleaning and care following recs from Surgery team Assessment & Plan (05/23/2025 1:46 PM CDT): Suyapa has a hx of poor medication compliance. G-tube was placed 10/08/23 to assist with medication administration throughout her treatment course, which was then converted to a g-button. Site is without any signs of infection today. Continue g-tube cleaning and care following recs from Surgery team Assessment & Plan (04/28/2025 4:36 PM CDT): Suyapa has a hx of poor medication compliance. G-tube was placed 10/08/23 to assist with medication administration throughout her treatment course, which was then converted to a g-button. Site is without any signs of infection today. Continue g-tube cleaning and care following recs from Surgery team Assessment & Plan (11/01/2024 12:47 PM CDT): Suyapa has a hx of poor medication compliance. G-tube was placed 10/08/23 to assist with medication administration throughout her treatment course, which was then converted to a g-button. She was recently seen by Surgery team who has ordered a larger size G-button for her to be replaced when it arrives. Site is without any signs of infection today. Continue g-tube cleaning and care following recs from Surgery team Assessment & Plan (10/03/2024 11:39 AM BEHAVIORAL HEALTH CARE MANAGER): Suyapa has a hx of poor medication compliance. G-tube was placed 10/08/23 to assist with medication administration throughout her treatment course. Tube was recently converted to a g-button. She had some erythema and tenderness around her G- button today. She has been using Mepilex around the site. GI team will be seeing her today. Continue g-tube cleaning and care following recs from Surgery team Assessment & Plan (09/02/2024 2:52 PM BEHAVIORAL HEALTH CARE MANAGER): Suyapa has a hx of poor medication compliance. G-tube was placed 10/08/23 to assist with medication administration throughout her treatment course. Tube was recently converted to a g-button. She reports no issues with her g-button currently. She has been using Mepilex around the site. No signs of infection. Continue g-tube cleaning and care following recs from Surgery team Assessment & Plan (08/05/2024 3:28 PM BEHAVIORAL HEALTH CARE MANAGER): Suyapa has a hx of poor medication compliance. G-tube was placed 10/08/23 to assist with medication administration throughout her treatment course. Tube was recently converted to a g-button. She reports no issues with her g-button currently. She has been using Mepilex around the site. No overt signs of infection at this time. Continue g-tube cleaning and care following recs from Surgery team Assessment & Plan (08/02/2024 7:04 AM BEHAVIORAL HEALTH CARE MANAGER): Suyapa has a hx of poor medication compliance. G-tube was placed 10/08/23 to assist with medication administration throughout her treatment course. Tube was recently converted to a g-button. She reports no issues with her g-button currently. She has been using Mepilex around the site. No overt signs of infection at this time. Continue g-tube cleaning and care following recs from Surgery team Assessment & Plan (07/05/2024 11:03 AM BEHAVIORAL HEALTH CARE MANAGER): Suyapa has a hx of poor medication compliance. G-tube was placed 10/08/23 to assist with medication administration throughout her treatment course. Tube was recently converted to a g-button. She reports no issues with her g-button currently. She has been using Mepilex around the site but does have some serous drainage at the site. No overt signs of infection at this time. Continue g-tube cleaning and care following recs from Surgery team Assessment & Plan (06/17/2024 2:10 PM BEHAVIORAL HEALTH CARE MANAGER): Suyapa has a hx of poor medication compliance. G-tube was placed 10/08/23 to assist with medication administration throughout her treatment course. Tube was recently converted to a g-button. She reports some itching at the site. Site is clean/dry/intact and without drainage but with a small area of skin irritation. I called [facility], who recommended a thin Mepilex to the site. Continue g-tube cleaning and care following recs from Surgery team Assessment & Plan (04/13/2024 3:08 PM CDT): Suyapa has a hx of poor medication compliance. G-tube was placed 10/08/23 to assist with medication administration throughout her treatment course. Continue g-tube cleaning following recs from Surgery team Continue to encourage g-tube use for medications Plan to convert g-tube to g-button 05/19 Assessment & Plan (03/29/2024 10:06 AM CDT): Suyapa has a hx of poor medication compliance. G-tube was placed 10/08/23 to assist with medication administration throughout her treatment course. Continue g-tube cleaning following recs from Surgery team Continue to encourage g-tube use for medications Plan to convert g-tube to g-button as directed by Surgery Assessment & Plan (03/11/2024 2:10 PM CDT): Suyapa has a hx of poor medication compliance. G-tube was placed 10/08/23 to assist with medication administration throughout her treatment course. Continue g-tube cleaning following recs from Surgery team Continue to encourage g-tube use for medications Plan to convert g-tube to g-button as directed by Surgery Assessment & Plan (02/26/2024 11:35 AM CDT): Suyapa has a hx of poor medication compliance. G-tube was placed 10/08/23 to assist with medication administration throughout her treatment course. Continue g-tube cleaning following recs from Surgery team Continue to encourage g-tube use for medications Plan to convert g-tube to g-button as directed by Surgery Assessment & Plan (02/12/2024 1:08 PM CDT): History of poor medication compliance resulting in gtube placement in 10/08/23. - Encourage medication compliance via gtube - Continue good hygiene per SOC Assessment & Plan (02/11/2024 11:05 AM CDT): History of poor medication compliance resulting in gtube placement in 10/08/23. - Encourage medication compliance via gtube - Continue good hygiene per SOC Assessment & Plan (02/10/2024 12:29 PM CDT): History of poor medication compliance resulting in gtube placement in 10/08/23. - Encourage medication compliance via gtube - Continue good hygiene per SOC Assessment & Plan (02/09/2024 3:06 PM CDT): History of poor medication compliance resulting in gtube placement in 10/08/23. - Encourage medication compliance via gtube - Continue good hygiene per SOC Assessment & Plan (02/08/2024 3:42 PM CDT): History of poor medication compliance resulting in gtube placement in 10/08/23. - Encourage medication compliance via gtube - Continue good hygiene per SOC Assessment & Plan (01/13/2024 2:14 AM CDT): Used for medications only. Does not require supplemental feeds at this time Assessment & Plan (12/25/2023 3:17 PM CDT): Ramesh had poor compliance with medications therefore gtube was placed 10/08/23 to assist with medications through treatment course. She reports using her gtube overall more for medication compliance. Gtube with dried drainage, no active oozing, improved from yesterday. - Continue good hygiene and cleaning per surgery recs - Follow-up gtube culture - Plan to convert gtube to gbutton per surgery reqs (will need to be at 3 month liya and increased counts) Assessment & Plan (12/24/2023 4:33 PM CDT): Ramesh had poor compliance with medications therefore gtube was placed 10/08/23 to assist with medications through treatment course. She reports using her gtube overall more for medication compliance. Gtube with foul-odor, clear drainage. -continue cleaning per surgery reqs -continue g-tube for medications -plan to convert gtube to gbutton per surgery reqs (will need to be at 3 month liya and increased counts) - FU culture Assessment & Plan (12/23/2023 6:22 PM CDT): Ramesh had poor compliance with medications therefore gtube was placed 10/08/23 to assist with medications through treatment course. She reports using her gtube overall more for medication compliance. Gtube with foul-odor drainage- Ramesh reports pain around site. -continue cleaning per surgery reqs -continue g-tube for medications -plan to convert gtube to gbutton per surgery reqs (likely at 3mo liya) - FU culture Assessment & Plan (12/11/2023 3:46 PM CDT): Suyapa has a hx of poor compliance with oral medications; therefore, g-tube placed 10/08/23 to assist with medication administration throughout her treatment course. Chemotherapy was delayed two weeks to promote adequate g-tube site healing. Suyapa is now using G-tube for medication administration and reports overall better compliance. She has been cleaning the g-tube site daily. Continue g-tube cleaning following recs from Surgery team Oxycodone PRN pain Continue g-tube use for medications Plan to convert g-tube to g-button as directed by Surgery Assessment & Plan (11/19/2023 9:33 AM CDT): Suyapa has a hx of poor compliance with oral medications; therefore, g-tube placed 10/08/23 to assist with medication administration throughout her treatment course. Chemotherapy was delayed two weeks to promote adequate g-tube site healing. Suyapa is now using G-tube for medication administration and reports overall better compliance. Today, she reports recent discharge, bleeding, and pain around G- tube site. No signs of cellulitis. G-tube evaluated by MATT who did not see any purulence, induration, or erythema around site. Site cleansed and further teaching provided by MATT. Continue g-tube cleaning following recs from Surgery team Oxycodone PRN pain Continue g-tube use for medications Plan to convert g-tube to g-button as directed by Surgery Assessment & Plan (10/27/2023 10:58 AM CDT): Suyapa has a hx of poor compliance with oral medications; therefore, g-tube placed 10/08/23 to assist with medication administration throughout her treatment course. Chemotherapy was delayed two weeks to promote adequate g-tube site healing. Today, Ramesh reports some abdominal pain (mostly at g-tube site) along with some back pain. Exam reveals some mild tenderness to palpation but an otherwise normal-appearing abdominal exam. Denies any vomiting or tube drainage. G-tube site is non-erythematous, non-edematous, with mild crusted drainage around insertion site. G-tube is tight to the skin of the insertion site. G-tube study obtained which was normal. Surgery saw Ramesh and offered site cleaning recs. Pain is likely related to recent surgery and patient may need more time for continued healing. Continue g-tube cleaning following recs from Surgery team Oxycodone PRN pain Continue g-tube use for medications Plan to convert g-tube to g-button as directed by Surgery Weakness 10/12/2023 Assessment & Plan (10/13/2023 12:47 PM BEHAVIORAL HEALTH CARE MANAGER): Ramesh states that she is having trouble rolling over in bed due to weakness and is concerned that she will need more assistance than available to her once she goes home. - Continue PT/OT - Consult PMNR for evaluation and recommendation of any assistive devices needed for home Assessment & Plan (10/12/2023 2:37 PM BEHAVIORAL HEALTH CARE MANAGER): Ramesh states that she is having trouble rolling over in bed due to weakness and is concerned that she will need more assistance than available to her once she goes home. - Continue PT/OT - Consult PMNR for evaluation and recommendation of any assistive devices needed for home Generalized headaches 10/07/2023 Assessment & Plan (11/01/2024 1:02 PM CDT): Suyapa reports headaches that come and go daily, often around midday, often frontal in nature. She has tried rest, caffeine, and increasing hydration. Often rest helps the headaches go away. Suyapa has previously reported headaches off and on during her treatment. She reports increasing her exercise (walking) but overall feeling well. No vision changes associated with the headaches. Previously CSF studies have not been concerning for [employer] relapse. Given the recurrent nature of these headaches, could consider migraines or tension headaches in differential. Will refer to Neurology (patient in agreement with plan) Encouraged keeping headache diary in preparation for Neuro appointment Call with any worsening headaches or associated symptoms Assessment & Plan (02/12/2024 1:09 PM CDT): No complaints this morning on exam. - Tylenol PRN Assessment & Plan (02/11/2024 11:04 AM CDT): No complaint this morning - Tylenol PRN Assessment & Plan (02/10/2024 12:28 PM CDT): With photophobia. Improved with Tylenol yesterday but recurred today - Tylenol PRN - Magnesium IV x 1 - Consider transfusion Assessment & Plan (02/09/2024 3:05 PM CDT): With photophobia - Tylenol PRN Assessment & Plan (02/08/2024 3:52 PM CDT): See Generalized pain. Assessment & Plan (10/07/2023 11:47 AM BEHAVIORAL HEALTH CARE MANAGER): Ramesh presents today with a one-week hx of headaches with + photophobia/phonophobia. She also endorses abdominal pain and sleepiness. Differential includes migraine (likely given the presence of photophobia and phonophobia), anemia (Hgb is stable at 9.1), dehydration. Need to also consider possible [employer] relapse but less concerned about this currently, as patient has no other neurological symptoms. Give NS bolus Give Tylenol (pt is afebrile), Benadryl and Compazine Plan to d/c home if headache improves; if symptoms return/worsen, will consider additional workup (including possible imaging and LP) Monitor for fevers; thermometer provided for patient to take home Major depressive disorder, r ecurrent episode, moderate with anxious distress 07/15/2023 Assessment & Plan (06/20/2025 1:39 PM BEHAVIORAL HEALTH CARE MANAGER): Suyapa is followed by our Psychology team (Dr. Morataya) for a hx of depression and anxiety. Care team has previously discussed possibility of a SSRI, which Suyapa has refused. Today, she denied any suicidal ideation. Continue to appreciate psychology involvement and recommendations Assessment & Plan (09/02/2024 2:57 PM BEHAVIORAL HEALTH CARE MANAGER): Suyapa is followed by our Psychology team (Dr. Morataya) for a hx of depression and anxiety. Care team has previously discussed possibility of a SSRI, which Suyapa has refused. Continue to appreciate psychology involvement and recommendations Assessment & Plan (08/05/2024 3:32 PM BEHAVIORAL HEALTH CARE MANAGER): Suyapa is followed by our Psychology team (Dr. Morataya) for a hx of depression and anxiety. Care team has previously discussed possibility of a SSRI, which Suyapa has refused. Continue to appreciate psychology involvement and recommendations Assessment & Plan (08/02/2024 7:17 AM BEHAVIORAL HEALTH CARE MANAGER): Suyapa is followed by our Psychology team (Dr. Morataya) for a hx of depression and anxiety. Care team has previously discussed possibility of a SSRI, which Suyapa has refused. Continue to appreciate psychology involvement and recommendations Assessment & Plan (07/05/2024 11:25 AM BEHAVIORAL HEALTH CARE MANAGER): Suyapa is followed by our Psychology team (Dr. Morataya) for a hx of depression and anxiety. Care team has previously discussed possibility of a SSRI, which Suyapa has refused. Continue to appreciate psychology involvement and recommendations Assessment & Plan (06/17/2024 2:54 PM BEHAVIORAL HEALTH CARE MANAGER): Suyapa is followed by our Psychology team (Dr. Morataya) for a hx of depression and anxiety. Care team has previously discussed possibility of a SSRI, which Suyapa has refused. Continue to appreciate psychology involvement and recommendations Assessment & Plan (05/11/2024 3:54 PM CDT): Suyapa is followed by our Psychology team (Dr. Morataya) for a hx of depression and anxiety. Care team has previously discussed possibility of a SSRI, which Suyapa has refused. Continue to appreciate psychology involvement and recommendations Assessment & Plan (04/27/2024 12:24 PM CDT): Suyapa is followed by our Psychology team (Dr. Morataya) for a hx of depression and anxiety. Care team has previously discussed possibility of a SSRI, which Suyapa has refused. Continue to appreciate psychology involvement and recommendations Assessment & Plan (04/13/2024 3:24 PM CDT): Suyapa is followed by our Psychology team (Dr. Morataya) for a hx of depression and anxiety. Care team has previously discussed possibility of a SSRI, which Suyapa has refused. Continue to appreciate psychology involvement and recommendations Assessment & Plan (03/29/2024 11:21 AM CDT): Suyapa is followed by our Psychology team (Dr. Morataya) for a hx of depression and anxiety. Care team has previously discussed possibility of a SSRI, which Suyapa has refused. Today, she notes that she broke a window in her apartment yesterday due to feeling overstimulated about some flies in her apartment. No injury present on exam (except from some mild soreness of her arm). We discussed ways that she can cope with feeling overstimulated or anxious, such as taking deep breaths, calling a friend/family member, or taking a break and resting. Suyapa verbalized understanding. Psychology to see in her in clinic today; appreciate their continued involvement in her care Lump of axilla, left 06/15/2023 Assessment & Plan (08/05/2024 12:00 PM BEHAVIORAL HEALTH CARE MANAGER): Suyapa reported a painful lump noted under her left axilla while taking a shower earlier this week. Denies any redness. She reports that it is now resolved. She denies any other painful lumps. On exam, no palpable lump/bump. Likely a reactive lymph node. Continue to monitor Poor compliance with medication 04/21/2023 Assessment & Plan (06/20/2025 1:24 PM BEHAVIORAL HEALTH CARE MANAGER): Suyapa has struggled significantly with taking oral medications during her therapy. She had a g-tube placed to assist with medication administration but continued with medication non compliance. She has worked with child life and psychology in the past. We have continued to discuss the importance of taking PO chemotherapy and that the team strongly recommends that she take her PO chemotherapy. She has previously verbalized understanding of the risk of relapse associated with not taking her PO 6MP and MTX. Ramesh continues to note poor compliance with taking oral chemotherapy and today notes that she has not taken any of her chemotherapy Will continue to work with psychology to help increase ease of medication administration. Continue to encourage medication administration as prescribed Utilize antiemetics Assessment & Plan (05/23/2025 1:44 PM CDT): Suyapa has struggled significantly with taking oral medications during her therapy. She had a g-tube placed to assist with medication administration but continued with medication non compliance. She has worked with child life and psychology in the past. We have continued to discuss the importance of taking PO chemotherapy and that the team strongly recommends that she take her PO chemotherapy. She has previously verbalized understanding of the risk of relapse associated with not taking her PO 6MP and MTX. Ramesh continues to note poor compliance with taking oral chemotherapy and today notes that she has taken approximately 10 doses of PO chemo within the past month. Will continue to work with psychology to help increase ease of medication administration. Continue to encourage medication administration as prescribed Utilize antiemetics Assessment & Plan (04/28/2025 4:35 PM CDT): Suyapa has struggled significantly with taking oral medications during her therapy. She had a g-tube placed to assist with medication administration but continued with medication non compliance. She has worked with child life and psychology in the past. We have continued to discuss the importance of taking PO chemotherapy and that the team strongly recommends that she take her PO chemotherapy. She has previously verbalized understanding of the risk of relapse associated with not taking her PO 6MP and MTX. Ramesh continues to note poor compliance with taking oral chemotherapy. Will continue to work with psychology to help increase ease of medication administration. Continue to encourage medication administration as prescribed Utilize antiemetics Assessment & Plan (12/03/2024 9:30 PM CDT): Suyapa has struggled significantly with taking oral medications during her therapy. She had a g-tube placed to assist with medication administration but continued with medication non compliance. She has worked with child life and psychology in the past. We have continued to discuss the importance of taking PO chemotherapy and that the team strongly recommends that she take her PO chemotherapy. She has previously verbalized understanding of the risk of relapse associated with not taking her PO 6MP and MTX. Today, Suyapa reports that she has not been taking chemotherapy for the past 3 weeks. We discussed trying new anti nausea medications with her chemotherapy. Will continue to work with psychology to help increase ease of medication administration. Continue to encourage medication administration as prescribed Trying scopolamin patch and Kytril prior to starting chemotherapy Assessment & Plan (11/01/2024 12:38 PM CDT): Suyapa has struggled significantly with taking oral medications during her therapy. She had a g-tube placed to assist with medication administration but continued with medication non compliance. She has worked with child life and psychology in the past. We have continued to discuss the importance of taking PO chemotherapy and that the team strongly recommends that she take her PO chemotherapy. She has previously verbalized understanding of the risk of relapse associated with not taking her PO 6MP and MTX. Today, Suyapa reports that she has been taking her PO Mercaptopurine since last week (date unknown). She is unsure when she last took her PO MTX. Will continue to work with psychology to help increase ease of medication administration. Continue to encourage medication administration as prescribed Assessment & Plan (10/03/2024 11:43 AM BEHAVIORAL HEALTH CARE MANAGER): Suyapa has struggled significantly with taking oral medications during her therapy. She had a g-tube placed to assist with medication administration but continued with medication non compliance. She has worked with child life and psychology in the past. We have continued to discuss the importance of taking PO chemotherapy and that the team strongly recommends that she take her PO chemotherapy. She understands the risk of relapse associated with not taking her PO 6MP and MTX. Suyapa reports that she is not routinely taking her PO chemotherapy. She did not take any PO chemotherapy in the past 2 weeks. Will continue to work with psychology to help increase ease of medication administration. Continue to encourage medication administration as prescribed and discuss the risk of relapse associated with not taking PO chemotherapy Assessment & Plan (09/02/2024 2:51 PM BEHAVIORAL HEALTH CARE MANAGER): Suyapa has struggled significantly with taking oral medications during her therapy. She had a g-tube placed to assist with medication administration but continued with medication non compliance. She has worked with child life and psychology in the past. We have continued to discuss the importance of taking PO chemotherapy and that the team strongly recommends that she take her PO chemotherapy. She understands the risk of relapse associated with not taking her PO 6MP and MTX. Suyapa reports that she is not routinely taking her PO chemotherapy. She did not take any PO chemotherapy in the past 2 weeks. Will continue to work with psychology to help increase ease of medication administration. Continue to encourage medication administration as prescribed and discuss the risk of relapse associated with not taking PO chemotherapy Assessment & Plan (08/05/2024 3:25 PM BEHAVIORAL HEALTH CARE MANAGER): Suyapa has struggled significantly with taking oral medications during her therapy. She had a g-tube placed to assist with medication administration but continued with medication non compliance. She has worked with child life and psychology in the past. We have continued to discuss the importance of taking PO chemotherapy and that the team strongly recommends that she take her PO chemotherapy. She understands the risk of relapse associated with not taking her PO 6MP and MTX. Suyapa reports that she is not routinely taking her PO chemotherapy. She did not take any PO chemotherapy last week. Will continue to work with psychology to help increase ease of medication administration. Continue to encourage medication administration as prescribed and discuss the risk of relapse associated with not taking PO chemotherapy Assessment & Plan (08/02/2024 7:02 AM BEHAVIORAL HEALTH CARE MANAGER): Suyapa has struggled significantly with taking oral medications during her therapy. She had a g-tube placed to assist with medication administration but continued with medication non compliance. She has worked with child life and psychology in the past. We have continued to discuss the importance of taking PO chemotherapy and that the team strongly recommends that she take her PO chemotherapy. She understands the risk of relapse associated with not taking her PO 6MP and MTX. Suyapa reports that she is not routinely taking her PO chemotherapy. She reports taking one dose one week ago and none since. Will continue to work with psychology to help increase ease of medication administration. Continue to encourage medication administration as prescribed Assessment & Plan (07/05/2024 10:57 AM BEHAVIORAL HEALTH CARE MANAGER): Suyapa has struggled significantly with taking oral medications during her therapy. She had a g-tube placed to assist with medication administration but continued with medication non compliance. She has worked with child life and psychology in the past. We have continued to discuss the importance of taking PO chemotherapy and that the team strongly recommends that she take her PO chemotherapy. She understands the risk of relapse associated with not taking her PO 6MP and MTX. Suyapa reports that she began taking her PO chemotherapy approximately one week ago. Will continue to work with child life and psychology to help increase ease of medication administration. Continue to encourage medication administration as prescribed Assessment & Plan (06/17/2024 2:03 PM BEHAVIORAL HEALTH CARE MANAGER): Suyapa has struggled significantly with taking oral medications during her therapy. She had a g-tube placed to assist with medication administration but continued with medication non compliance. She has worked with child life and psychology in the past. Suyapa reports that she is not taking any oral chemotherapy at this time. We discussed the importance of taking PO chemotherapy and that the team strongly recommends that she take her PO chemotherapy. She understands the risk of relapse associated with not taking her PO 6MP and MTX. Will continue to work with child life and psychology to help increase ease of medication administration. Continue to encourage medication administration as prescribed Assessment & Plan (05/19/2024 2:34 PM CDT): G button for meds only due to compliance issues Assessment & Plan (05/11/2024 3:35 PM CDT): Suyapa has struggled significantly with taking oral medications during her therapy. She had a g-tube placed to assist with medication administration but continued with medication non compliance. She has worked with child life and psychology in the past. Today, Suyapa has discussed with her primary team that she no longer wants to take oral chemotherapy. After our care conference, Suyapa has agreed to take her oral chemotherapy for another week. She understands the risk of relapse associated with not taking her PO 6MP and MTX. Will continue to work with child life and psychology to help increase ease of medication administration. Continue to encourage medication administration as prescribed Assessment & Plan (04/13/2024 3:07 PM CDT): Suyapa has struggled significantly with taking oral medications during her therapy. She had a g-tube placed to assist with medication administration but continued with medication non compliance. She has worked with child life and psychology in the past. We had a thorough conversation today about the importance of oral chemotherapy and the risk of relapse if she does not take her oral chemotherapy once Maintenance starts. Suyapa verbalized understanding. Will continue to work with child life and psychology to help increase ease of medication administration. Continue to encourage medication administration as prescribed Assessment & Plan (03/29/2024 10:05 AM CDT): Suyapa has struggled significantly with taking oral medications during her therapy. She had a g-tube placed to assist with medication administration. However, Suyapa reports that she is no longer giving herself any medications. She has worked with child life and psychology in the past. We had a thorough conversation today about the importance of oral chemotherapy and the risk of relapse if she does not take her oral chemotherapy once Maintenance starts. Suyapa verbalized understanding. Will continue to work with child life and psychology to help increase ease of medication administration. Continue to encourage medication administration as prescribed Assessment & Plan (03/11/2024 2:09 PM CDT): Suyapa has struggled significantly with taking oral medications during her therapy. She had a g-tube placed to assist with medication administration. However, Suyapa reports that she is no longer giving herself any medications. She has worked with child life and psychology in the past. Will continue to work with child life and psychology to help increase ease of medication administration. Continue to encourage medication administration as prescribed Assessment & Plan (02/26/2024 11:24 AM CDT): Suyapa has struggled significantly with taking oral medications during her therapy. She had a g-tube placed to assist with medication administration. However, Suyapa reports that she is no longer giving herself any medications. She has worked with child life and psychology in the past. Will continue to work with child life and psychology to help increase ease of medication administration. Continue to encourage medication administration as prescribed Assessment & Plan (02/12/2024 1:11 PM CDT): Suyapa has been non-compliant with taking her medications despite having a G- tube placed. Currently, reports taking no medications at home. - Continue to work with Psychology and Child Life to help increase compliance with medication administration - Psychology consult, appreciate recs Assessment & Plan (02/11/2024 10:54 AM CDT): Suyapa has been non-compliant with taking her medications despite having a G- tube placed. Currently, reports taking no medications at home. - Continue to work with Psychology and Child Life to help increase compliance with medication administration - Psychology consult, appreciate recs Assessment & Plan (02/10/2024 12:24 PM CDT): Suyapa has been non-compliant with taking her medications despite having a G- tube placed. Currently, reports taking no medications at home. - Continue to work with Psychology and Child Life to help increase compliance with medication administration - Psychology consult, appreciate recs Assessment & Plan (02/09/2024 3:02 PM CDT): Suyapa has been non-compliant with taking her medications despite having a G- tube placed. Currently, reports taking no medications at home. - Continue to work with Psychology and Child Life to help increase compliance with medication administration - Psychology consult, appreciate recs Assessment & Plan (02/08/2024 3:36 PM CDT): Suyapa has been non-compliant with taking her medications despite having a G- tube placed. Currently, reports taking no medications at home. - Continue to work with Psychology and Child Life to help increase compliance with medication administration - Psychology consult, appreciate recs Assessment & Plan (02/03/2024 6:48 PM CDT): Ramesh has been noncompliant with taking her medications despite having a G- tube placed. Will continue to work with child life and psychology to help increase ease of medication administration. Continue to encourage medication administration as prescribed Assessment & Plan (01/08/2024 4:46 PM CDT): Suyapa has struggled significantly with taking oral medications during her therapy. She had a g-tube placed to assist with medication administration. However, Suyapa reports that she is no longer giving herself any medications. She has worked with child life and psychology in the past. Will continue to work with child life and psychology to help increase ease of medication administration. Continue to encourage medication administration as prescribed Assessment & Plan (12/25/2023 3:19 PM CDT): Ramesh reports poor compliance with medications largely from fatigue and lack of desire. - Follow-up with psychology Assessment & Plan (12/24/2023 4:32 PM CDT): Ramesh reports poor compliance with medications largely from fatigue and lack of desire -FU with psychology Assessment & Plan (12/23/2023 5:35 PM CDT): Ramesh reports poor compliance with medications largely from fatigue and lack of desire -FU with psychology Assessment & Plan (10/13/2023 12:45 PM BEHAVIORAL HEALTH CARE MANAGER): Ramesh has had difficulty with medication compliance since diagnosis. Given the prolonged requirement for oral chemotherapy, a G-tube was placed 10/08. Bowel regimen started 10/11. Ramesh had a large stool yesterday. - Regular diet with mIVF - Oxy Q4h PRN pain - Morphine Q2h PRN breakthrough pain - Miralax and senna daily - Surgery signed off, will schedule outpatient follow up appointment - Will need G-tube teaching prior to discharge Assessment & Plan (10/12/2023 2:25 PM BEHAVIORAL HEALTH CARE MANAGER): Ramesh has had difficulty with medication compliance since diagnosis. Given the prolonged requirement for oral chemotherapy, a G-tube was placed 10/08. Bowel regimen started 10/11. Ramesh had a large stool this morning. - Regular diet with mIVF - Oxy Q4h PRN pain - Morphine Q2h PRN breakthrough pain - Miralax and senna daily - Surgery signed off, will schedule outpatient follow up appointment - Will need G-tube teaching prior to discharge Assessment & Plan (10/11/2023 11:57 AM BEHAVIORAL HEALTH CARE MANAGER): Ramesh has had difficulty with medication compliance since diagnosis. Given the prolonged requirement for oral chemotherapy, a G-tube was placed 10/08. Will start bowel regimen today given no stool since admission and frequent opioid use. - Regular diet with mIVF - Oxy Q4h PRN pain - Morphine Q2h PRN breakthrough pain - Start Miralax and senna daily - Surgery signed off, will schedule outpatient follow up appointment - Will need G-tube teaching prior to discharge Assessment & Plan (10/10/2023 2:06 PM BEHAVIORAL HEALTH CARE MANAGER): Ramesh has had difficulty with medication compliance since diagnosis. Given the prolonged requirement for oral chemotherapy, a peg tube was placed yesterday. - Regular diet - mIVF - Oxy Q4h PRN pain - Morphine Q2h PRN breakthrough pain - Appreciate surgery recs Assessment & Plan (10/09/2023 3:25 PM BEHAVIORAL HEALTH CARE MANAGER): Ramesh has had difficulty with medication compliance since diagnosis. Given the prolonged requirement for oral chemotherapy, a g-tube was placed yesterday. - Regular diet - mIVF - Oxy Q4h PRN pain - Morphine Q2h PRN breakthrough pain - Appreciate surgery recs Assessment & Plan (10/08/2023 2:10 PM BEHAVIORAL HEALTH CARE MANAGER): Ramesh has had difficulty with medication compliance since diagnosis. Given the prolonged requirement for oral chemotherapy, a g-tube was placed today. - NPO - mIVF - Oxy Q4h PRN pain - Morphine Q2h PRN breakthrough pain - Appreciate surgery recs Assessment & Plan (10/06/2023 2:52 PM BEHAVIORAL HEALTH CARE MANAGER): Suyapa has struggled significantly with taking oral medications. She required multiple IV medications as she was not able to tolerate by mouth. She worked at length during her inpatient stay with psychology and child life to work through these challenges. She has had multiple Ngs placed in the past that are either vomited or pulled. Will continue to work with child life and psychology to help increase ease of medication administration. Scheduled to receive G-tube with general surgery Assessment & Plan (08/27/2023 6:12 PM BEHAVIORAL HEALTH CARE MANAGER): Suyapa has struggled significantly with taking oral medications. She required multiple IV medications as she was not able to tolerate by mouth. She worked at length during her inpatient stay with psychology and child life to work through these challenges. She has had multiple Ngs placed in the past that are either vomited or pulled. Will continue to work with child life and psychology to help increase ease of medication administration. Suyapa has been discussed with surgery and a Gtube will be placed likely after Interim Maintenance May consider NG placement inpatient for administration of medication Assessment & Plan (08/26/2023 1:44 PM BEHAVIORAL HEALTH CARE MANAGER): Suyapa has struggled significantly with taking oral medications. She required multiple IV medications as she was not able to tolerate by mouth. She worked at length during her inpatient stay with psychology and child life to work through these challenges. She has had multiple Ngs placed in the past that are either vomited or pulled. Will continue to work with child life and psychology to help increase ease of medication administration. Suyapa has been discussed with surgery and a Gtube will be placed likely after Interim Maintenance May consider NG placement inpatient for administration of medication Assessment & Plan (08/25/2023 2:01 PM BEHAVIORAL HEALTH CARE MANAGER): Suyapa has struggled significantly with taking oral medications. She required multiple IV medications as she was not able to tolerate by mouth. She worked at length during her inpatient stay with psychology and child life to work through these challenges. She has had multiple Ngs placed in the past that are either vomited or pulled. Will continue to work with child life and psychology to help increase ease of medication administration. Suyapa has been discussed with surgery and a Gtube will be placed likely after Interim Maintenance May consider NG placement inpatient for administration of medication Assessment & Plan (08/24/2023 11:37 AM BEHAVIORAL HEALTH CARE MANAGER): Suyapa has struggled significantly with taking oral medications. She required multiple IV medications as she was not able to tolerate by mouth. She worked at length during her inpatient stay with psychology and child life to work through these challenges. She has had multiple Ngs placed in the past that are either vomited or pulled. Will continue to work with child life and psychology to help increase ease of medication administration. Suyapa has been discussed with surgery and a Gtube will be placed likely after Interim Maintenance May consider NG placement inpatient for administration of medication Assessment & Plan (08/22/2023 10:26 PM BEHAVIORAL HEALTH CARE MANAGER): Suyapa has struggled significantly with taking oral medications. She required multiple IV medications as she was not able to tolerate by mouth. She worked at length during her inpatient stay with psychology and child life to work through these challenges. She has had multiple Ngs placed in the past that are either vomited or pulled. Will continue to work with child life and psychology to help increase ease of medication administration. Suyapa has been discussed with surgery and a Gtube will be placed likely after Interim Maintenance May consider NG placement inpatient for administration of medication Assessment & Plan (08/06/2023 10:56 AM BEHAVIORAL HEALTH CARE MANAGER): Suyapa has struggled significantly with taking oral medications. She required multiple IV medications as she was not able to tolerate by mouth. She worked at length during her inpatient stay with psychology and child life to work through these challenges. She has had multiple Ngs placed in the past that are either vomited or pulled. Will continue to work with child life and psychology to help increase ease of medication administration. Suyapa has been discussed with surgery and a Gtube will be placed likely after Interim Maintenance May consider NG placement inpatient for administration of medication Assessment & Plan (04/21/2023 2:49 PM CDT): Suyapa has struggled significantly with taking oral medications. She required multiple IV medications as she was not able to tolerate by mouth. She worked at length during her inpatient stay with psychology and child life to work through these challenges. Suyapa reports that at home, she has been been compliant with her oral medications and is refusing to begin oral 6MP. She would rather have an NG placed. Discussed with and will place NG tube today for increased medication compliance. Will continue to work with child life and psychology to help increase ease of medication administration. Will continue to monitor closely and may need to consider a [place] High risk social situation 04/08/2023 Assessment & Plan (06/20/2025 1:38 PM BEHAVIORAL HEALTH CARE MANAGER): There has been significant concern for Suyapa's ability to support herself while outpatient in setting of minimal financial and family support and likely inability to immediately return to work. Suyapa had previously been living with paternal grandmother (Beryl) and describes feeling safe and cared for in this living situation previously. Suyapa is now living in an apartment by herself. She has previously reported food insecurity, and social work was engaged in providing resources. She denies any actual safety concerns with her living situation today. Social work continues to remain involved in Suyapa's care; appreciate their support and assistance Psychology remains involved in Suyapa's care; appreciate their recommendations Primary oncology team to remain active and involved in patient's care Assessment & Plan (05/23/2025 1:51 PM CDT): There has been significant concern for Suyapa's ability to support herself while outpatient in setting of minimal financial and family support and likely inability to immediately return to work. Suyapa had previously been living with paternal grandmother (Beryl) and describes feeling safe and cared for in this living situation previously. Suyapa is now living in an apartment by herself. She has previously reported food insecurity, and social work was engaged in providing resources. She reports today having some dreams regarding unsafe situations around her home; however, she denies any actual safety concerns with her living situation today. Social work continues to remain involved in Suyapa's care; appreciate their support and assistance Psychology remains involved in Suyapa's care; appreciate their recommendations Primary oncology team to remain active and involved in patient's care Assessment & Plan (04/29/2025 8:23 AM CDT): There has been significant concern for Suyapa's ability to support herself while outpatient in setting of minimal financial and family support and likely inability to immediately return to work. Suyapa had previously been living with paternal grandmother (Beryl) and describes feeling safe and cared for in this living situation previously. Suyapa is now living in an apartment by herself (she reports today that her sister is no longer living with her.) She has previously reported food insecurity, and social work was engaged in providing resources. No concerns reported today. Social work continues to remain involved in Suyapa's care; appreciate their support and assistance Psychology remains involved in Suyapa's care; appreciate their recommendations Primary oncology team to remain active and involved in patient's care Assessment & Plan (11/01/2024 12:56 PM CDT): There is significant concern for Suyapa's ability to support herself while outpatient in setting of minimal financial and family support and likely inability to immediately return to work. Suyapa had previously been living with paternal grandmother (Beryl) and describes feeling safe and cared for in this living situation previously. Suyapa is now living in an apartment with her sister when she is feeling well. Her sister has recently moved out of her apartment. She has previously reported food insecurity, and social work was engaged in providing resources. Social work continues to remain involved in Suyapa's care; appreciate their support and assistance Psychology remains involved in Rameshanae's care; appreciate their recommendations Primary oncology team to remain active and involved in patient's care Assessment & Plan (10/03/2024 11:41 AM BEHAVIORAL HEALTH CARE MANAGER): There is significant concern for Suyapa's ability to support herself while outpatient in setting of minimal financial and family support and likely inability to immediately return to work. Suyapa had previously been living with paternal grandmother (Beryl) and describes feeling safe and cared for in this living situation previously. Suyapa is now living in an apartment with her sister when she is feeling well. Her sister has recently moved out of her apartment. She has previously reported food insecurity, and social work was engaged in providing resources. No food insecurity reported today. Social work continues to remain involved in Rameshanae's care; appreciate their support and assistance Psychology remains involved in Rajanae's care; appreciate their recommendations Primary oncology team to remain active and involved in patient's care Assessment & Plan (09/02/2024 2:56 PM BEHAVIORAL HEALTH CARE MANAGER): There is significant concern for Suyapa's ability to support herself while outpatient in setting of minimal financial and family support and likely inability to immediately return to work. Suyapa had previously been living with paternal grandmother (Beryl) and describes feeling safe and cared for in this living situation previously. Suyapa is now living in an apartment with her sister when she is feeling well. She has previously reported food insecurity, and social work was engaged in providing resources. Social work continues to remain involved in Rameshanae's care; appreciate their support and assistance Psychology remains involved in Rameshanae's care; appreciate their recommendations Primary oncology team to remain active and involved in patient's care Assessment & Plan (08/05/2024 3:31 PM BEHAVIORAL HEALTH CARE MANAGER): There is significant concern for Suyapa's ability to support herself while outpatient in setting of minimal financial and family support and likely inability to immediately return to work. Suyapa had previously been living with paternal grandmother (Beryl) and describes feeling safe and cared for in this living situation previously. Suyapa is now living in an apartment with her sister when she is feeling well. She has previously reported food insecurity, and social work was engaged in providing resources. Social work continues to remain involved in Rajanae's care; appreciate their support and assistance Psychology remains involved in Rajanae's care; appreciate their recommendations Primary oncology team to remain active and involved in patient's care Assessment & Plan (08/02/2024 7:16 AM BEHAVIORAL HEALTH CARE MANAGER): There is significant concern for Suyapa's ability to support herself while outpatient in setting of minimal financial and family support and likely inability to immediately return to work. Suyapa had previously been living with paternal grandmother (Beryl) and describes feeling safe and cared for in this living situation previously. Suyapa is now living in an apartment with her sister when she is feeling well. She has previously reported food insecurity, and social work was engaged in providing resources. Social work continues to remain involved in [facility]'s care; appreciate their support and assistance Psychology remains involved in Rajanae's care; appreciate their recommendations Primary oncology team to remain active and involved in patient's care Assessment & Plan (07/05/2024 11:25 AM BEHAVIORAL HEALTH CARE MANAGER): There is significant concern for Suyapa's ability to support herself while outpatient in setting of minimal financial and family support and likely inability to immediately return to work. Suyapa had previously been living with paternal grandmother (Beryl) and describes feeling safe and cared for in this living situation previously. Suyapa is now living in an apartment with her sister when she is feeling well. She has previously reported food insecurity, and social work was engaged in providing resources. Social work continues to remain involved in Rajanae's care; appreciate their support and assistance Psychology remains involved in [facility]e's care; appreciate their recommendations Primary oncology team to remain active and involved in patient's care Assessment & Plan (06/17/2024 2:53 PM BEHAVIORAL HEALTH CARE MANAGER): There is significant concern for Suyapa's ability to support herself while outpatient in setting of minimal financial and family support and likely inability to immediately return to work. Suyapa had previously been living with paternal grandmother (Beryl) and describes feeling safe and cared for in this living situation previously. Suyapa is now living in an apartment with her sister when she is feeling well. She has previously reported food insecurity, and social work was engaged in providing resources. Social work continues to remain involved in Suyapa's care; appreciate their support and assistance Psychology remains involved in [facility] care; appreciate their recommendations Primary oncology team to remain active and involved in patient's care Assessment & Plan (05/19/2024 2:29 PM CDT): High risk social situation There is significant concern for Suyapa's ability to support herself while outpatient in setting of minimal financial and family support and likely inability to immediately return to work. Suyapa had previously been living with paternal grandmother (Beryl) and describes feeling safe and cared for in this living situation previously. Suyapa is now living in an apartment by herself when she is feeling well. She has previously reported food insecurity, and social work was engaged in providing resources. Social work continues to remain involved in Suyapa's care; appreciate their support and assistance Primary oncology team to remain active and involved in patient's care Assessment & Plan (05/11/2024 3:47 PM CDT): There is significant concern for Suyapa's ability to support herself while outpatient in setting of minimal financial and family support and likely inability to immediately return to work. Suyapa had previously been living with paternal grandmother (Beryl) and describes feeling safe and cared for in this living situation previously. Suyapa is now living in an apartment by herself when she is feeling well. She has previously reported food insecurity, and social work was engaged in providing resources. Social work continues to remain involved in Suyapa's care; appreciate their support and assistance Psychology remains involved in Suyapa's care; appreciate their recommendations Primary oncology team to remain active and involved in patient's care Assessment & Plan (04/27/2024 12:23 PM CDT): There is significant concern for Suyapa's ability to support herself while outpatient in setting of minimal financial and family support and likely inability to immediately return to work. Suyapa had previously been living with paternal grandmother (Beryl) and describes feeling safe and cared for in this living situation previously. Suyapa is now living in an apartment by herself when she is feeling well. She has previously reported food insecurity, and social work was engaged in providing resources. Social work continues to remain involved in [facility] care; appreciate their support and assistance Psychology remains involved in [facility] care; appreciate their recommendations Primary oncology team to remain active and involved in patient's care Assessment & Plan (04/13/2024 3:24 PM CDT): There is significant concern for Suyapa's ability to support herself while outpatient in setting of minimal financial and family support and likely inability to immediately return to work. Suyapa had previously been living with paternal grandmother (Beryl) and describes feeling safe and cared for in this living situation previously. Suyapa is now living in an apartment by herself when she is feeling well. She has previously reported food insecurity, and social work was engaged in providing resources. Social work continues to remain involved in [facility] care; appreciate their support and assistance Psychology remains involved in [facility] care; appreciate their recommendations Primary oncology team to remain active and involved in patient's care Assessment & Plan (03/29/2024 11:18 AM CDT): There is significant concern for Suyapa's ability to support herself while outpatient in setting of minimal financial and family support and likely inability to immediately return to work. Suyapa had previously been living with paternal grandmother (Beryl) and describes feeling safe and cared for in this living situation previously. Suyapa is now living in an apartment by herself when she is feeling well. She has previously reported food insecurity, and social work was engaged in providing resources. Social work continues to remain involved in [facility] care; appreciate their support and assistance Psychology remains involved in [facility] care; appreciate their recommendations Primary oncology team to remain active and involved in patient's care Assessment & Plan (03/11/2024 2:34 PM CDT): There is significant concern for Suyapa's ability to support herself while outpatient in setting of minimal financial and family support and likely inability to immediately return to work. Suyapa had previously been living with paternal grandmother (Beryl) and describes feeling safe and cared for in this living situation previously. Suyapa is now living in an apartment by herself when she is feeling well. She is at risk for food insecurity and reports today that she is unsure if she has enough food to last until her next set of food stamps. Social work continues to remain involved in Suyapa's care; appreciate their support and assistance Psychology remains involved in Suyapa's care; appreciate their recommendations Gift cards given today in clinic Primary oncology team to remain active and involved in patient's care Assessment & Plan (02/26/2024 12:02 PM CDT): There is significant concern for Suyapa's ability to support herself while outpatient in setting of minimal financial and family support and likely inability to immediately return to work. Suyapa has previously been living with paternal grandmother (Beryl) and describes feeling safe and cared for in this living situation previously. However, Suyapa reports that she has an apartment now that she lives in by herself when she is feeling well. Social work continues to remain involved in Suyapa's care; appreciate their support and assistance Psychology remains involved in Suyapa's care; appreciate their recommendations Primary oncology team to remain active and involved in patient's care Assessment & Plan (02/03/2024 7:09 PM CDT): There is significant concern for Suyapa's ability to support herself while outpatient in setting of minimal financial and family support and likely inability to immediately return to work. Ramesh is currently living with paternal grandmother (Beryl) and describes feeling safe and cared for in this living situation. Social work continues to remain involved in Ramesh's care; appreciate their support and assistance Psychology remains involved in Ramesh's care; appreciate their recommendations Primary oncology team to remain active and involved in patient's care Assessment & Plan (01/13/2024 2:14 AM CDT): Social work consult for transportation and safe discharge planning Assessment & Plan (01/08/2024 4:56 PM CDT): There is significant concern for Suyapa's ability to support herself while outpatient in setting of minimal financial and family support and likely inability to immediately return to work. Ramesh is currently living with paternal grandmother (Beryl) and describes feeling safe and cared for in this living situation. Social work continues to remain involved in Ramesh's care; appreciate their support and assistance Psychology remains involved in Ramesh's care; appreciate their recommendations Primary oncology team to remain active and involved in patient's care Assessment & Plan (12/25/2023 3:17 PM CDT): There is significant concern for Suyapa's ability to support herself while outpatient in setting of minimal financial and family support and likely inability to immediately return to work. She reports depressed mood and does not feel like she wants to wake up day to day. She has been non-compliant with medications. Suyapa is in good spirits this morning upon exam. - Psychology consulted, appreciate recs - Consider SSRI if patient agrees Assessment & Plan (12/24/2023 4:32 PM CDT): There is significant concern for Suyapa's ability to support herself while outpatient in setting of minimal financial and family support and likely inability to immediately return to work. She reports depressed mood and does not feel like she wants to wake up day to day. She has been non-compliant with medications. Suyapa is in good spirits this morning upon exam. -Psychology consulted, appreciate recs -Consider SSRI if patient agrees Assessment & Plan (12/23/2023 5:34 PM CDT): There is significant concern for Suyapa's ability to support herself while outpatient in setting of minimal financial and family support and likely inability to immediately return to work. She reports depressed mood and does not feel like she wants to wake up day to day. She has been non-compliant with medications -phsycology consulted; please follow -consider SSRI if patient agrees Assessment & Plan (12/11/2023 3:44 PM CDT): There is significant concern for Suyapa's ability to support herself while outpatient in setting of minimal financial and family support and likely inability to immediately return to work. Ramesh is currently living with paternal grandmother (Beryl) and describes feeling safe and cared for in this living situation. Social work continues to remain involved in Ramesh's care; appreciate their support and assistance Psychology remains involved in Ramesh's care; appreciate their recommendations Primary oncology team to remain active and involved in patient's care Assessment & Plan (11/19/2023 3:10 PM CDT): There is significant concern for Suyapa's ability to support herself while outpatient in setting of minimal financial and family support and likely inability to immediately return to work. Ramesh is currently living with paternal grandmother (Beryl) and describes feeling safe and cared for in this living situation. Social work continues to remain involved in Ramesh's care; appreciate their support and assistance Psychology remains involved in Ramesh's care; appreciate their recommendations Primary oncology team to remain active and involved in patient's care Assessment & Plan (11/19/2023 9:45 AM CDT): There is significant concern for Suyapa's ability to support herself while outpatient in setting of minimal financial and family support and likely inability to immediately return to work. Ramesh is currently living with paternal grandmother (Beryl) and describes feeling safe and cared for in this living situation. Social work continues to remain involved in Ramesh's care; appreciate their support and assistance Psychology remains involved in Ramesh's care; appreciate their recommendations Primary oncology team to remain active and involved in patient's care Assessment & Plan (10/27/2023 11:03 AM CDT): There is significant concern for Suyapa's ability to support herself while outpatient in setting of minimal financial and family support and likely inability to immediately return to work. Ramesh is currently living with paternal grandmother (Beryl) and describes feeling safe and cared for in this living situation. She does report occasionally staying in hotel rooms when she needs peace but denies feeling unsafe in her current home. Social work continues to remain involved in Ramesh's care; appreciate their support and assistance Psychology remains involved in Ramesh's care; appreciate their recommendations Primary oncology team to remain active and involved in patient's care Assessment & Plan (05/28/2023 12:43 PM CDT): Concern for Suyapa's ability to support herself financially while outpatient in setting of minimal financial support and likely inability to immediately return to work upon discharge. - Social work support appreciated - Will continue to coordinate safe plan for discharge Assessment & Plan (05/27/2023 1:34 PM CDT): Concern for Suyapa's ability to support herself financially while outpatient in setting of minimal financial support and likely inability to immediately return to work upon discharge. - Social work support appreciated - Will continue to coordinate safe plan for discharge Assessment & Plan (05/26/2023 12:07 PM CDT): Concern for Suyapa's ability to support herself financially while outpatient in setting of minimal financial support and likely inability to immediately return to work upon discharge. - Social work support appreciated - Will continue to coordinate safe plan for discharge Assessment & Plan (05/25/2023 12:12 PM CDT): Concern for Suyapa's ability to support herself financially while outpatient in setting of minimal financial support and likely inability to immediately return to work upon discharge. - Social work support appreciated - Will continue to coordinate safe plan for discharge Assessment & Plan (05/24/2023 4:59 AM CDT): Concern for Suyapa's ability to support herself financially while outpatient in setting of minimal financial support and likely inability to immediately return to work upon discharge. - Social work support appreciated - Will continue to coordinate safe plan for discharge Assessment & Plan (05/23/2023 9:04 AM CDT): Concern for Suyapa's ability to support herself financially while outpatient in setting of minimal financial support and likely inability to immediately return to work upon discharge. - Social work support appreciated - Will continue to coordinate safe plan for discharge Assessment & Plan (05/22/2023 8:56 AM CDT): Concern for Suyapa's ability to support herself financially while outpatient in setting of minimal financial support and likely inability to immediately return to work upon discharge. - Social work support appreciated - Will continue to coordinate safe plan for discharge Assessment & Plan (05/21/2023 12:45 PM CDT): Concern for Suyapa's ability to support herself financially while outpatient in setting of minimal financial support and likely inability to immediately return to work upon discharge. - Social work support appreciated - Will continue to coordinate safe plan for discharge Assessment & Plan (05/20/2023 1:46 PM CDT): Concern for Suyapa's ability to support herself financially while outpatient in setting of minimal financial support and likely inability to immediately return to work upon discharge. - Social work support appreciated - Will continue to coordinate safe plan for discharge Assessment & Plan (05/19/2023 11:15 AM CDT): Concern for Suyapa's ability to support herself financially while outpatient in setting of minimal financial support and likely inability to immediately return to work upon discharge. - Social work support appreciated - Will continue to coordinate safe plan for discharge Assessment & Plan (05/18/2023 1:11 PM CDT): Concern for Suyapa's ability to support herself financially while outpatient in setting of minimal financial support and likely inability to immediately return to work upon discharge. - Social work support appreciated - Will continue to coordinate safe plan for discharge Assessment & Plan (05/17/2023 11:14 AM CDT): Concern for Suyapa's ability to support herself financially while outpatient in setting of minimal financial support and likely inability to immediately return to work upon discharge. - Social work support appreciated - Will continue to coordinate safe plan for discharge Assessment & Plan (05/16/2023 8:10 AM CDT): Concern for Rajanae's ability to support herself financially while outpatient in setting of minimal financial support and likely inability to immediately return to work upon discharge. - Social work support appreciated - Will continue to coordinate safe plan for discharge Assessment & Plan (05/15/2023 10:55 AM CDT): Concern for Suyapa's ability to support herself financially while outpatient in setting of minimal financial support and likely inability to immediately return to work upon discharge. - Social work support appreciated - Will continue to coordinate safe plan for discharge Assessment & Plan (05/14/2023 12:32 PM CDT): Concern for Suyapa's ability to support herself financially while outpatient in setting of minimal financial support and likely inability to immediately return to work upon discharge. - Social work support appreciated - Will continue to coordinate safe plan for discharge Assessment & Plan (05/13/2023 11:41 AM CDT): Concern for Suyapa's ability to support herself financially while outpatient in setting of minimal financial support and likely inability to immediately return to work upon discharge. - Social work support appreciated - Will continue to coordinate safe plan for discharge Assessment & Plan (05/12/2023 12:38 PM CDT): Concern for Suyapa's ability to support herself financially while outpatient in setting of minimal financial support and likely inability to immediately return to work upon discharge. - Social work support appreciated - Will continue to coordinate safe plan for discharge Assessment & Plan (05/11/2023 1:35 PM CDT): Concern for Suyapa's ability to support herself financially while outpatient in setting of minimal financial support and likely inability to immediately return to work upon discharge. - Social work support appreciated - Will continue to coordinate safe plan for discharge Assessment & Plan (05/10/2023 6:53 AM CDT): Concern for Suyapa's ability to support herself financially while outpatient in setting of minimal financial support and likely inability to immediately return to work upon discharge. - Social work support appreciated - Will continue to coordinate safe plan for discharge Assessment & Plan (05/09/2023 7:59 AM CDT): Concern for Suyapa's ability to support herself financially while outpatient in setting of minimal financial support and likely inability to immediately return to work upon discharge. - Social work support appreciated - Will continue to coordinate safe plan for discharge Assessment & Plan (05/08/2023 1:11 PM CDT): Concern for Suyapa's ability to support herself financially while outpatient in setting of minimal financial support and likely inability to immediately return to work upon discharge. - Social work support appreciated - Will continue to coordinate safe plan for discharge Assessment & Plan (05/07/2023 9:59 AM CDT): Concern for Suyapa's ability to support herself financially while outpatient in setting of minimal financial support and likely inability to immediately return to work upon discharge. - Social work support appreciated - Will continue to coordinate safe plan for discharge Assessment & Plan (05/06/2023 7:15 PM CDT): Concern for Suyapa's ability to support herself financially while outpatient in setting of minimal financial support and likely inability to immediately return to work upon discharge. - Social work support appreciated - Will continue to coordinate safe plan for discharge Assessment & Plan (05/05/2023 11:13 AM CDT): Concern for Suyapa's ability to support herself financially while outpatient in setting of minimal financial support and likely inability to immediately return to work upon discharge. - Social work support appreciated - Will continue to coordinate safe plan for discharge Assessment & Plan (05/04/2023 7:00 PM CDT): Concern for Suyapa's ability to support herself financially while outpatient in setting of minimal financial support and likely inability to immediately return to work upon discharge. - Social work support appreciated - Will continue to coordinate safe plan for discharge Assessment & Plan (05/03/2023 10:52 AM CDT): Concern for Suyapa's ability to support herself financially while outpatient in setting of minimal financial support and likely inability to immediately return to work upon discharge. - Social work support appreciated - Will continue to coordinate safe plan for discharge Assessment & Plan (05/02/2023 10:29 AM CDT): Concern for Suyapa's ability to support herself financially while outpatient in setting of minimal financial support and likely inability to immediately return to work upon discharge. - Social work support appreciated - Will continue to coordinate safe plan for discharge Assessment & Plan (05/01/2023 12:08 PM CDT): Concern for Suyapa's ability to support herself financially while outpatient in setting of minimal financial support and likely inability to immediately return to work upon discharge. - Social work support appreciated - Will continue to coordinate safe plan for discharge Assessment & Plan (04/30/2023 1:32 PM CDT): Concern for Suyapa's ability to support herself financially while outpatient in setting of minimal financial support and likely inability to immediately return to work upon discharge. - Social work support appreciated - Will continue to coordinate safe plan for discharge Assessment & Plan (04/29/2023 1:25 PM CDT): Concern for Suyapa's ability to support herself financially while outpatient in setting of minimal financial support and likely inability to immediately return to work upon discharge. - Social work support appreciated - Will continue to coordinate safe plan for discharge Assessment & Plan (04/28/2023 2:14 PM CDT): Concern for Suyapa's ability to support herself financially while outpatient in setting of minimal financial support and likely inability to immediately return to work upon discharge. - Social work support appreciated - Will continue to coordinate safe plan for discharge Assessment & Plan (04/27/2023 1:24 PM CDT): Concern for Suyapa's ability to support herself financially while outpatient in setting of minimal financial support and likely inability to immediately return to work upon discharge. - Social work support appreciated - Will continue to coordinate safe plan for discharge Assessment & Plan (04/26/2023 10:18 AM CDT): Concern for Suyapa's ability to support herself financially while outpatient in setting of minimal financial support and likely inability to immediately return to work upon discharge. - Social work support appreciated - Will continue to coordinate safe plan for discharge Assessment & Plan (04/25/2023 9:35 AM CDT): Concern for Suyapa's ability to support herself financially while outpatient in setting of minimal financial support and likely inability to immediately return to work upon discharge. - Social work support appreciated - Will continue to coordinate safe plan for discharge Assessment & Plan (04/24/2023 1:12 PM CDT): Concern for Suyapa's ability to support herself financially while outpatient in setting of minimal financial support and likely inability to immediately return to work upon discharge. - Social work support appreciated - Will continue to coordinate safe plan for discharge Assessment & Plan (04/23/2023 1:19 PM CDT): Concern for Suyapa's ability to support herself financially while outpatient in setting of minimal financial support and likely inability to immediately return to work upon discharge. - Social work support appreciated - Will continue to coordinate safe plan for discharge Assessment & Plan (04/22/2023 12:27 PM CDT): Concern for Suyapa's ability to support herself financially while outpatient in setting of minimal financial support and likely inability to immediately return to work upon discharge. - Social work support appreciated - Will continue to coordinate safe plan for discharge Assessment & Plan (04/21/2023 3:48 PM CDT): Concern for Suyapa's ability to support herself financially while outpatient in setting of minimal financial support and likely inability to immediately return to work upon discharge. - Social work support appreciated - Will continue to coordinate safe plan for discharge Assessment & Plan (04/21/2023 2:50 PM CDT): There is significant concern for Suyapa's ability to support herself while outpatient in setting of minimal financial and family support and likely inability to immediately return to work. Due to Suyapa's chemotherapy regimen, she also will require sick visits, blood/platelet transfusions, and medication support. She has been staying at her mother's place since discharge, but is often alone. Continue to engage social work while admitted Continue psychology consult while admitted Will continue to coordinate safe plan for discharge, and likely keep admitted through high risk periods of therapy Assessment & Plan (04/20/2023 2:57 PM CDT): Concern for Suyapa's ability to support herself financially while outpatient in setting of minimal financial support and likely inability to immediately return to work upon discharge. - Social work support appreciated - Will continue to coordinate safe plan for discharge Assessment & Plan (04/14/2023 3:49 PM CDT): Concern for Suyapa's ability to support herself financially while outpatient in setting of minimal financial support and likely inability to immediately return to work upon discharge. - Social work support appreciated - Will continue to coordinate safe plan for discharge Assessment & Plan (04/13/2023 8:10 AM CDT): Concern for Suyapa's ability to support herself financially while outpatient in setting of minimal financial support and likely inability to immediately return to work upon discharge. - Social work support appreciated - Will continue to coordinate safe plan for discharge Assessment & Plan (04/12/2023 10:11 AM CDT): Concern for Suyapa's ability to support herself financially while outpatient in setting of minimal financial support and likely inability to immediately return to work upon discharge. - Social work support appreciated - Will continue to coordinate safe plan for discharge Assessment & Plan (04/11/2023 9:48 AM CDT): Concern for Suyapa's ability to support herself financially while outpatient in setting of minimal financial support and likely inability to immediately return to work upon discharge. - Social work support appreciated - Will continue to coordinate safe plan for discharge Assessment & Plan (04/10/2023 1:16 PM CDT): Concern for Suyapa's ability to support herself financially while outpatient in setting of minimal financial support and likely inability to immediately return to work upon discharge. - Social work support appreciated - Will continue to coordinate safe plan for discharge Assessment & Plan (2023 9:52 AM CDT): Concern for Suyapa's ability to support herself financially while outpatient in setting of minimal financial support and likely inability to immediately return to work upon discharge. - Social work support appreciated - Will continue to coordinate safe plan for discharge Assessment & Plan (04/08/2023 10:19 AM CDT): Concern for Suyapa's ability to support herself financially while outpatient in setting of minimal financial support and likely inability to immediately return to work upon discharge. 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 Lovenox was initiated with varying levels of compliance over the months. Most recent repeat US in October showed unchanged right subclavian non occlusive thrombus. Quinn was held in the beginning of DI due to history of thrombus and pancreatitis, Day 43 dose of Quinn given due to prescribed Xarelto to mitigate the risk of thrombosis. However, Suyapa no longer wants to take Xarelto. We had a previous discussion regarding the risk of not being on any anticoagulation and her chemotherapy, and Suyapa chose to not restart Xarelto or Lovenox. 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 Lovenox was initiated with varying levels of compliance over the months. Most recent repeat US in October showed unchanged right subclavian non occlusive thrombus. Quinn was held in the beginning of DI due to history of thrombus and pancreatitis, Day 43 dose of Quinn given due to prescribed Xarelto to mitigate the risk of thrombosis. However, Suyapa no longer wants to take Xarelto. We had a previous discussion regarding the risk of not being on any anticoagulation and her chemotherapy, and Suyapa chose to not restart Xarelto or Lovenox. 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 Lovenox was initiated with varying levels of compliance over the months. Most recent repeat US in October showed unchanged right subclavian non occlusive thrombus. Quinn was held in the beginning of DI due to history of thrombus and pancreatitis, Day 43 dose of Quinn given due to prescribed Xarelto to mitigate the risk of thrombosis. However, Suyapa no longer wants to take Xarelto. We had a previous discussion regarding the risk of not being on any anticoagulation and her chemotherapy, and Suyapa chose to not restart Xarelto or Lovenox. Monitor for any signs/symptoms of thrombosis Assessment & Plan (04/13/2024 3:07 PM CDT): RUE venous US on 03/27 revealed deep vein thrombosis of the right subclavian vein extending from the axilla to the junction of the brachiocephalic vein in association with PICC line. Lovenox was initiated with varying levels of compliance over the months. Most recent repeat US in October showed unchanged right subclavian non occlusive thrombus. Quinn was held in the beginning of DI due to history of thrombus and pancreatitis, Day 43 dose of Quinn given due to prescribed Xarelto to mitigate the risk of thrombosis. However, Suyapa no longer wants to take Xarelto. She had a previous discussion with Dr. Stevens regarding the risk of not being on any anticoagulation and her chemotherapy, and Suyapa chose to not restart Xarelto or Lovenox. 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 Lovenox was initiated with varying levels of compliance over the months. Most recent repeat US in October showed unchanged right subclavian non occlusive thrombus. Quinn was held in the beginning of DI due to history of thrombus and pancreatitis, Day 43 dose of Quinn given due to prescribed Xarelto to mitigate the risk of thrombosis. However, Suyapa no longer wants to take Xarelto. She had a previous discussion with Dr. Stevens regarding the risk of not being on any anticoagulation and her chemotherapy, and Suyapa chose to not restart Xarelto or Lovenox. 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 Lovenox was initiated with varying levels of compliance over the months. Most recent repeat US in October showed unchanged right subclavian non occlusive thrombus. Quinn was held in the beginning of DI due to history of thrombus and pancreatitis, Day 43 dose of Quinn given due to prescribed Xarelto to mitigate the risk of thrombosis. However, Suyapa no longer wants to take Xarelto. She had a previous discussion with Dr. Stevens regarding the risk of not being on any anticoagulation and her chemotherapy, and Suyapa chose to not restart Xarelto or Lovenox. Monitor for any signs/symptoms of thrombosis Assessment & Plan (02/12/2024 1:11 PM CDT): History of. Currently not on anticoagulation due to non-adherence to medications. - Monitor for signs/symptoms Assessment & Plan (02/11/2024 10:51 AM CDT): History of. Currently not on anticoagulation due to non-adherence to medications. - Monitor for signs/symptoms Assessment & Plan (02/10/2024 12:23 PM CDT): History of. Currently not on anticoagulation due to non-adherence to medications. - Monitor for signs/symptoms Assessment & Plan (02/09/2024 3:01 PM CDT): History of. Currently not on anticoagulation due to non-adherence to medications. - Monitor for signs/symptoms Assessment & Plan (02/08/2024 3:38 PM CDT): History of. Currently not on anticoagulation due to non-adherence to medications. - Monitor for signs/symptoms Assessment & Plan (02/06/2024 10:42 AM CDT): Not on anticoagulation due to non-adherence to medications. Will start Lovenox while admitted. Can consider Xarelto if she is unwilling to do Lovenox. -Anticoagulation pre-labs -Lovenox 1 mg/kg BID -anti-Xa level 4 hours after 2nd dose Assessment & Plan (02/05/2024 5:47 PM CDT): Not on anticoagulation due to non-adherence to medications. 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 Lovenox was initiated with varying levels of compliance over the months. Most recent repeat US in October showed unchanged right subclavian non occlusive thrombus. Quinn was held in the beginning of DI due to history of thrombus and pancreatitis, Day 43 dose of Quinn given due to prescribed Xarelto to mitigate the risk of thrombosis. However, Ramesh no longer wants to take Xarelto. We had a discussion today regarding the risk of not being on any anticoagulation and her chemotherapy. We also discussed the option of going back to Lovenox. Ramesh understood her risks of clotting and is choosing not to take any anticoagulation including Xarelto or Lovenox. Assessment & Plan (01/27/2024 2:31 PM CDT): Hx of thrombosis of right subclavian vein. Xarelto was discontinued due to issues with compliance. Assessment & Plan (01/26/2024 11:31 AM CDT): Hx of thrombosis of right subclavian vein. Xarelto was discontinued due to issues with compliance. Assessment & Plan (01/25/2024 3:31 PM CDT): Hx of thrombosis of right subclavian vein. Xarelto was discontinued due to issues with compliance. 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 Lovenox was initiated with varying levels of compliance over the months. Most recent repeat US in October showed unchanged right subclavian non occlusive thrombus. Quinn was held in the beginning of DI due to history of thrombus and pancreatitis, however Day 43 dose of Quinn given due to prescribed Xarelto to mitigate the risk of thrombosis. 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 Lovenox was initiated with varying levels of compliance over the months. Most recent repeat US in October showed unchanged right subclavian non occlusive thrombus. - Plan to start Xarelto once platelets >50 - Continue to discuss given noncompliance with meds Assessment & Plan (12/24/2023 4:31 PM CDT): RUE venous US on 03/27 revealed deep vein thrombosis of the right subclavian vein extending from the axilla to the junction of the brachiocephalic vein in association with PICC line. Lovenox was initiated with varying levels of compliance over the months. Most recent repeat US in October showed unchanged right subclavian non occlusive thrombus. -plan was to proceed with xarelto on day 43 of DI and continue for 4 weeks to mitigate risk for thombosis but platelet count less than 50. Continue to discuss given noncompliance with meds Assessment & Plan (12/23/2023 5:29 PM CDT): RUE venous US on 03/27 revealed deep vein thrombosis of the right subclavian vein extending from the axilla to the junction of the brachiocephalic vein in association with PICC line. Lovenox was initiated with varying levels of compliance over the months. Most recent repeat US in October showed unchanged right subclavian non occlusive thrombus. -plan was to proceed with xarelto on day 43 of DI and continue for 4 weeks to mitigate risk for thombosis but platelet count less than 50 at that time. Plan to start tomorrow. Assessment & Plan (12/11/2023 3:47 PM CDT): RUE venous US on 03/27 revealed deep vein thrombosis of the right subclavian vein extending from the axilla to the junction of the brachiocephalic vein in association with PICC line. Lovenox was initiated with varying levels of compliance over the months. Most recent repeat US in October showed unchanged right subclavian non occlusive thrombus. Quinn was held in DI due to history of thrombus and pancreatitis. Plan to begin Xarelto on day 43 of delayed intensification with calaspargase and continue for 4 weeks to mitigate risk of thrombosis; however, her platelet count is <50 and will not be able to begin. Follow platelet count closely. Assessment & Plan (11/19/2023 3:08 PM CDT): RUE venous US on 03/27 revealed deep vein thrombosis of the right subclavian vein extending from the axilla to the junction of the brachiocephalic vein in association with PICC line. Lovenox was initiated with varying levels of compliance over the months. Most recent repeat US in October showed unchanged right subclavian non occlusive thrombus. Quinn was held in DI due to history of thrombus and pancreatitis. Plan to begin Xarelto on day 43 of delayed intensification with calaspargase and continue for 4 weeks to mitigate risk of thrombosis Assessment & Plan (11/19/2023 9:28 AM CDT): Suyapa has a hx of proximal right subclavian vein thrombus initially reported on 03/27, likely due to PICC line at the time. Pt was on Lovenox with varying compliance with administration. Repeat US obtained 10/08 that showed unchanged right subclavian nonocclusive thrombus. Lovenox was discontinued due to poor compliance and stable thrombus. Previous dose of Calaspargase in Delayed Intensification held due to hx of thrombus. Will start Xarelto beginning with Day 43 of Delayed Intensification (with Calaspargase) and continue for 4 weeks after last dose of Calaspargase Assessment & Plan (10/27/2023 10:17 AM CDT): Suyapa has a hx of proximal right subclavian vein thrombus initially reported on 03/27, likely due to PICC line at the time. Pt was on Lovenox with varying compliance with administration. Repeat US obtained 10/08 that showed unchanged right subclavian nonocclusive thrombus. Lovenox was discontinued due to poor compliance and stable thrombus. Will consider repeat ultrasound Assessment & Plan (10/13/2023 12:45 PM BEHAVIORAL HEALTH CARE MANAGER): Suyapa reports being non-compliant with Lovenox at home. The last dose she received was during hospitalization for chemotherapy. Repeat US obtained 10/08 that showed unchanged right subclavian nonocclusive thrombus. - Lovenox discontinued per primary team. Assessment & Plan (10/12/2023 2:24 PM BEHAVIORAL HEALTH CARE MANAGER): Suyapa reports being non-compliant with Lovenox at home. The last dose she received was during hospitalization for chemotherapy. Repeat US obtained 10/08 that showed unchanged right subclavian nonocclusive thrombus. - Lovenox discontinued per primary team. Assessment & Plan (10/11/2023 11:57 AM BEHAVIORAL HEALTH CARE MANAGER): Suyapa reports being non-compliant with Lovenox at home. The last dose she received was during hospitalization for chemotherapy. Repeat US obtained 10/08 that showed unchanged right subclavian nonocclusive thrombus. - Lovenox discontinued per primary team. Assessment & Plan (10/10/2023 2:05 PM BEHAVIORAL HEALTH CARE MANAGER): Suyapa reports being non-compliant with Lovenox at home. The last dose she received was during hospitalization for chemotherapy. Repeat US obtained this AM. - Will discontinue lovenox per primary team Assessment & Plan (10/09/2023 3:24 PM BEHAVIORAL HEALTH CARE MANAGER): Suyapa reports being non-compliant with Lovenox at home. The last dose she received was during hospitalization for chemotherapy. Repeat US obtained this AM. - Will discontinue lovenox per primary team Assessment & Plan (10/08/2023 2:06 PM BEHAVIORAL HEALTH CARE MANAGER): Suyapa reports being non-compliant with Lovenox at home. The last dose she received was during hospitalization for chemotherapy. - Hold Lovenox for 24h post tube placement - Will discuss non-compliance with primary team Assessment & Plan (10/07/2023 10:37 AM BEHAVIORAL HEALTH CARE MANAGER): Hx of a right subclavian thrombus. Ultrasound was last done 08/06, which still showed evidence of thrombus. Currently asymptomatic. Ramesh notes that she has not been doing Lovenox at home. Continue Lovenox 80mg BID with the exception of surgery's instructions for holding prior to G-tube surgery Will plan to repeat ultrasound during G-tube placement Assessment & Plan (09/25/2023 2:02 PM BEHAVIORAL HEALTH CARE MANAGER): Hx of. Currently asymptomatic. - Lovenox 80mg BID Assessment & Plan (09/24/2023 5:41 PM BEHAVIORAL HEALTH CARE MANAGER): Hx of. Currently asymptomatic. - Lovenox 80mg BID Assessment & Plan (09/23/2023 3:18 PM BEHAVIORAL HEALTH CARE MANAGER): Hx of. Currently asymptomatic. - Lovenox 80mg BID Assessment & Plan (09/22/2023 10:16 AM BEHAVIORAL HEALTH CARE MANAGER): Hx of. Lovenox has been held for thrombocytopenia. - Restart Lovenox 80mg BID Assessment & Plan (09/21/2023 2:19 PM BEHAVIORAL HEALTH CARE MANAGER): Hx of. Lovenox has been held for thrombocytopenia. - Restart Lovenox 80mg BID Assessment & Plan (08/27/2023 6:12 PM BEHAVIORAL HEALTH CARE MANAGER): - hx of R subclavian venous thrombus - Continue Lovenox (hold when plts <25; 1/2 dose when 25-50) - level confirmed to be therapeutic on 08/26/23 - intermittent compliance with lovenox at home Assessment & Plan (08/26/2023 1:44 PM BEHAVIORAL HEALTH CARE MANAGER): - hx of R subclavian venous thrombus - Continue holding Lovenox for LP on 08/25/23 (hold when plts <25; 1/2 dose when 25-50) - intermittent compliance with lovenox at home - Will obtain anti-Xa after evening dose d/t single lumen when methotrexate finished Assessment & Plan (08/25/2023 1:59 PM BEHAVIORAL HEALTH CARE MANAGER): - hx of R subclavian venous thrombus - Continue holding Lovenox for LP on 08/25/23 (hold when plts <25; 1/2 dose when 25-50) - intermittent compliance with lovenox at home Assessment & Plan (08/24/2023 11:37 AM BEHAVIORAL HEALTH CARE MANAGER): - hx of R subclavian venous thrombus - Continue holding Lovenox for LP on 08/25/23 (hold when plts <25; 1/2 dose when 25-50) - intermittent compliance with lovenox at home Assessment & Plan (08/22/2023 10:07 PM BEHAVIORAL HEALTH CARE MANAGER): - hx of R subclavian venous thrombus - discuss restarting Lovenox 08/23 given plts >50. (hold when plts <25; 1/2 dose when 25-50) - intermittent compliance with lovenox at home Assessment & Plan (08/14/2023 1:26 PM BEHAVIORAL HEALTH CARE MANAGER): Hx of. - Lovenox 80mg BID; held around LP Assessment & Plan (08/09/2023 1:31 PM BEHAVIORAL HEALTH CARE MANAGER): Hx of. Suyapa only took 2 doses of Lovenox the last 2 weeks at home. No signs or redness, pain, or swelling to site. US RUE obtained yesterday with no changes to thrombus from previous imaging on 06/04. - Continue Lovenox 80mg BID and continue at home, platelets have remained above 50k Assessment & Plan (08/08/2023 10:40 AM BEHAVIORAL HEALTH CARE MANAGER): Hx of. Suyapa only took 2 doses of Lovenox the last 2 weeks at home. No signs or redness, pain, or swelling to site. US RUE obtained yesterday with no changes to thrombus from previous imaging on 06/04. - Continue Lovenox 80mg BID and continue at home, platelets have remained above 50k Assessment & Plan (08/07/2023 12:04 PM BEHAVIORAL HEALTH CARE MANAGER): Hx ofBridgette Dale only took 2 doses of Lovenox the last 2 weeks at home. No signs or redness, pain, or swelling to site. US RUE obtained yesterday with no changes to thrombus from previous imaging on 06/04. - Continue Lovenox 80mg BID and continue at home Assessment & Plan (08/06/2023 11:13 AM BEHAVIORAL HEALTH CARE MANAGER): Hx of. Suyapa only took 2 doses of Lovenox the last 2 weeks at home. No signs or redness, pain, or swelling to site. - Continue Lovenox 80mg BID and continue at home - Discuss with Hematology team regarding next ultrasound of RUE. Last on 06/04. Assessment & Plan (08/06/2023 11:04 AM BEHAVIORAL HEALTH CARE MANAGER): RUE venous US on 03/27 revealed deep vein thrombosis of the right subclavian vein extending from the axilla to the junction of the brachiocephalic vein in association with PICC line. Lovenox was started. Ultrasound 05/27 demonstrated improved but still present thrombus. Suyapa reports taking most doses last week but missing the last 2-3 days of dosing completely. Unsure of how many doses were missed. Continue lovenox BID Consider doppler ultrasound of right upper extremity to re evaluate thrombus Assessment & Plan (08/05/2023 12:33 PM BEHAVIORAL HEALTH CARE MANAGER): Hx of. Dale only took 2 doses of Lovenox the last 2 weeks at home. No signs or redness, pain, or swelling to site. - Restart Lovenox 80mg BID today and continue at home Assessment & Plan (07/15/2023 4:14 PM BEHAVIORAL HEALTH CARE MANAGER): Hx ofBridgette Dale did not take her Lovenox while at home. Anti Xa level on 07/09 at 0100 was 1.05 prompting no interventions or changes. Platelets 13 today. - HOLD Lovenox when plts <25, 1/2 dose when plts 25-50, full dose >/=50 - HOLD Lovenox today due to plt count of 13 - Daily CBC w/ diff Assessment & Plan (07/14/2023 12:33 PM BEHAVIORAL HEALTH CARE MANAGER): Hx of. Dale did not take her Lovenox while at home. Anti Xa level on 07/09 at 0100 was 1.05 prompting no interventions or changes. Platelets 22 today. - Resumed Lovenox 07/07 PM - HOLD Lovenox when plts <25, 1/2 dose when plts 25-50, full dose >/=50 - HOLD Lovenox today due to plt count of 22 - Daily CBC w/ diff Assessment & Plan (07/13/2023 5:41 PM BEHAVIORAL HEALTH CARE MANAGER): Hx of. Dale did not take her Lovenox while at home. Anti Xa level on 07/09 at 0100 was 1.05 prompting no interventions or changes. Platelets 31 today. - Resumed Lovenox 07/07 PM - HOLD Lovenox when plts <25, 1/2 dose when plts 25-50, full dose >/=50 - Lovenox at 1/2 dose d/t platelet count Assessment & Plan (07/12/2023 2:29 PM BEHAVIORAL HEALTH CARE MANAGER): Hx of. Dale did not take her Lovenox while at home. Anti Xa level on 07/09 at 0100 was 1.05 prompting no interventions or changes. Plts on 07/12 59. - Resumed Lovenox 07/07 PM - HOLD Lovenox when plts <25, 1/2 dose when plts 25-50, full dose >/=50 Assessment & Plan (07/11/2023 4:34 PM BEHAVIORAL HEALTH CARE MANAGER): Hx of. Dale did not take her Lovenox while at home. Anti Xa level on 07/09 at 0100 was 1.05 prompting no interventions or changes. - Resumed Lovenox 07/07 PM - HOLD Lovenox when plts <25, 1/2 dose when plts 25-50, full dose >/=50 - Obtain CBC on Thursday or prior to DC Assessment & Plan (07/10/2023 1:24 PM BEHAVIORAL HEALTH CARE MANAGER): Hx of. Dale did not take her Lovenox while at home. Anti Xa level on 07/09 at 0100 was 1.05 prompting no interventions or changes. - Resumed Lovenox 07/07 PM - HOLD Lovenox when plts <25, 1/2 dose when plts 25-50, full dose >/=50 - Obtain CBC on Thursday or prior to DC Assessment & Plan (07/09/2023 1:03 PM BEHAVIORAL HEALTH CARE MANAGER): Kanu did not take her Lovenox while at home. Anti Xa level on 07/09 at 0100 was 1.05 prompting no interventions or changes. - Resumed Lovenox 07/07 PM - HOLD Lovenox when plts <25, 1/2 dose when plts 25-50, full dose >/=50 - Will plan to continue weekly CBCs to monitor plts despite taking oral 6MP Assessment & Plan (07/08/2023 11:17 AM BEHAVIORAL HEALTH CARE MANAGER): Hx of. Dale did not take her Lovenox while at home. - Resumed Lovenox 07/07 PM - HOLD Lovenox when plts <25, 1/2 dose when plts 25-50, full dose >/=50 - Will plan to continue weekly CBCs to monitor plts despite taking oral 6MP [] Obtain anti Xa prior to tonight's PM Lovenox dose (approximately 07/09 at 0100) Assessment & Plan (07/07/2023 1:22 PM BEHAVIORAL HEALTH CARE MANAGER): Hx of. Dale did not take her Lovenox while at home. - Will resume Lovenox 07/07 PM with no further episodes of bloody stools - HOLD Lovenox when plts <25, 1/2 dose when plts 25-50, full dose >/=50 - Will plan to continue weekly CBCs to monitor plts despite taking oral 6MP - Plan to obtain CBC w/ diff prior to discharge Assessment & Plan (07/06/2023 5:28 PM BEHAVIORAL HEALTH CARE MANAGER): Hx of. Dale did not take her Lovenox while at home. - Will resume Lovenox 07/07 PM d/t procedure today - HOLD Lovenox when plts <25, 1/2 dose when plts 25-50, full dose >/=50 Assessment & Plan (06/22/2023 12:45 PM BEHAVIORAL HEALTH CARE MANAGER): Hx of. Lovenox currently held due to current platelet of 15. - HOLD Lovenox when plts <25, 1/2 dose when plts 25-50, full dose >/=50 - Daily CBC w/ diff Assessment & Plan (06/21/2023 11:15 AM BEHAVIORAL HEALTH CARE MANAGER): Hx of. Lovenox currently held due to current platelet of 7. Plan: - HOLD Lovenox when plts <25, 1/2 dose when plts 25-50, full dose >/=50 - Daily CBC w/ diff Assessment & Plan (06/20/2023 11:24 AM BEHAVIORAL HEALTH CARE MANAGER): Hx of. Lovenox currently held due to current platelet of 11. Plan: - HOLD Lovenox when plts <25, 1/2 dose when plts 25-50, full dose >/=50 - Daily CBC w/ diff Assessment & Plan (06/19/2023 10:13 AM BEHAVIORAL HEALTH CARE MANAGER): Hx of. Lovenox currently held. - HOLD Lovenox when plts <25, 1/2 dose when plts 25-50, full dose >/=50 - Daily CBC w/ diff Assessment & Plan (06/18/2023 12:01 PM BEHAVIORAL HEALTH CARE MANAGER): Hx of. Lovenox currently held. - HOLD Lovenox when plts <25, 1/2 dose when plts 25-50, full dose >/=50 - Daily CBC w/ diff Assessment & Plan (06/17/2023 11:36 AM BEHAVIORAL HEALTH CARE MANAGER): Hx of. Lovenox currently held. - HOLD Lovenox when plts <25, 1/2 dose when plts 25-50, full dose >/=50 - Daily CBC w/ diff Assessment & Plan (06/16/2023 2:15 PM BEHAVIORAL HEALTH CARE MANAGER): Hx of. Lovenox currently held. - HOLD Lovenox when plts <25, 1/2 dose when plts 25-50, full dose >/=50 - Daily CBC w/ diff Assessment & Plan (06/15/2023 3:45 PM BEHAVIORAL HEALTH CARE MANAGER): Hx of. Lovenox currently held. - HOLD Lovenox when plts <25, 1/2 dose when plts 25-50, full dose >/=50 - Daily CBC w/ diff Assessment & Plan (06/15/2023 8:18 AM BEHAVIORAL HEALTH CARE MANAGER): Hx of. - HOLD Lovenox when plts <25, 1/2 dose when plts 25-50, full dose >/=50 - Daily CBC w/ diff Assessment & Plan (06/10/2023 1:09 PM CDT): Hx of. Plts 29 today after 2 units of platelets yesterday. - HOLD Lovenox when plts <25, 1/2 dose when plts 25-50, full dose >/=50 - Daily CBC w/ diff Assessment & Plan (06/09/2023 11:44 AM CDT): Platelets 5 today. 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 US performed on 05/27 demonstrated thrombus improved, but still present. 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 US performed on 05/27 demonstrated thrombus improved, but still present. 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 US performed on 05/27 demonstrated thrombus improved, but still present. 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 US performed on 05/27 demonstrated thrombus improved, but still present. 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 US performed on 05/27 demonstrated thrombus improved, but still present. - Lovenox 80mg BID - If platelets <50, give Lovenox 50% q12h - If platelets <25, hold Lovenox Assessment & Plan (05/27/2023 1:34 PM CDT): RUE venous US on 03/27 shows evidence of deep vein thrombosis of the right subclavian vein extending from the axilla to the junction of the brachiocephalic vein. - Lovenox 80mg BID - If platelets <50, give Lovenox 50% q12h - If platelets <25, hold Lovenox - Repeat US today, follow-up results Assessment & Plan (05/26/2023 12:06 PM CDT): RUE venous US on 03/27 shows evidence of deep vein thrombosis of the right subclavian vein extending from the axilla to the junction of the brachiocephalic vein. - Lovenox 80mg BID - If platelets <50, give Lovenox 50% q12h - If platelets <25, hold Lovenox Assessment & Plan (05/25/2023 12:12 PM CDT): RUE venous US on 03/27 shows evidence of deep vein thrombosis of the right subclavian vein extending from the axilla to the junction of the brachiocephalic vein. - Lovenox 80mg BID - If platelets <50, give Lovenox 50% q12h - If platelets <25, hold Lovenox Assessment & Plan (05/24/2023 4:59 AM CDT): RUE venous US on 03/27 shows evidence of deep vein thrombosis of the right subclavian vein extending from the axilla to the junction of the brachiocephalic vein. - Lovenox 80mg BID - If platelets <50, give Lovenox 50% q12h - If platelets <25, hold Lovenox Assessment & Plan (05/23/2023 9:03 AM CDT): RUE venous US on 03/27 shows evidence of deep vein thrombosis of the right subclavian vein extending from the axilla to the junction of the brachiocephalic vein. - Lovenox 80mg BID - If platelets <50, give Lovenox 50% q12h - If platelets <25, hold Lovenox Assessment & Plan (05/22/2023 8:54 AM CDT): RUE venous US on 03/27 shows evidence of deep vein thrombosis of the right subclavian vein extending from the axilla to the junction of the brachiocephalic vein. - Lovenox 80mg BID - If platelets <50, give Lovenox 50% q12h - If platelets <25, hold Lovenox Assessment & Plan (05/21/2023 12:45 PM CDT): RUE venous US on 03/27 shows evidence of deep vein thrombosis of the right subclavian vein extending from the axilla to the junction of the brachiocephalic vein. - Lovenox 80mg BID - If platelets <50, give Lovenox 50% q12h - If platelets <25, hold Lovenox Assessment & Plan (05/20/2023 1:45 PM CDT): RUE venous US on 03/27 shows evidence of deep vein thrombosis of the right subclavian vein extending from the axilla to the junction of the brachiocephalic vein. - Lovenox 80mg BID - If platelets <50, give Lovenox 50% q12h - If platelets <25, hold Lovenox Assessment & Plan (05/19/2023 11:13 AM CDT): RUE venous US on 03/27 shows evidence of deep vein thrombosis of the right subclavian vein extending from the axilla to the junction of the brachiocephalic vein. - Lovenox 80mg BID - If platelets <50, give Lovenox 50% q12h - If platelets <25, hold Lovenox Assessment & Plan (05/18/2023 1:10 PM CDT): RUE venous US on 03/27 shows evidence of deep vein thrombosis of the right subclavian vein extending from the axilla to the junction of the brachiocephalic vein. - Lovenox 80mg BID - If platelets <50, give Lovenox 50% q12h - If platelets <25, hold Lovenox Assessment & Plan (05/17/2023 11:11 AM CDT): RUE venous US on 03/27 shows evidence of deep vein thrombosis of the right subclavian vein extending from the axilla to the junction of the brachiocephalic vein. - Lovenox 80mg BID - If platelets <50, give Lovenox 50% q12h - If platelets <25, hold Lovenox Assessment & Plan (05/16/2023 8:11 AM CDT): RUE venous US on 03/27 shows evidence of deep vein thrombosis of the right subclavian vein extending from the axilla to the junction of the brachiocephalic vein. - Lovenox 80mg BID - If platelets <50, give Lovenox 50% q12h - If platelets <25, hold Lovenox Assessment & Plan (05/15/2023 10:50 AM CDT): RUE venous US on 03/27 shows evidence of deep vein thrombosis of the right subclavian vein extending from the axilla to the junction of the brachiocephalic vein. - Lovenox 80mg BID - If platelets <50, give Lovenox 50% q12h - If platelets <25, hold Lovenox Assessment & Plan (05/14/2023 12:31 PM CDT): RUE venous US on 03/27 shows evidence of deep vein thrombosis of the right subclavian vein extending from the axilla to the junction of the brachiocephalic vein. - Lovenox 80mg BID - If platelets <50, give Lovenox 50% q12h - If platelets <25, hold Lovenox Assessment & Plan (05/13/2023 11:41 AM CDT): RUE venous US on 03/27 shows evidence of deep vein thrombosis of the right subclavian vein extending from the axilla to the junction of the brachiocephalic vein. Platelets 92 this morning without transfusions. - Lovenox 80mg BID - If platelets <50, give Lovenox 50% q12h - If platelets <25, hold Lovenox Assessment & Plan (05/12/2023 12:36 PM CDT): RUE venous US on 03/27 shows evidence of deep vein thrombosis of the right subclavian vein extending from the axilla to the junction of the brachiocephalic vein. Platelets 75 this morning without transfusions. - Restart Lovenox BID this morning at full dose of 80mg - If platelets <50, give Lovenox 50% q12h - If platelets <25, hold Lovenox Assessment & Plan (05/11/2023 1:34 PM CDT): RUE venous US on 03/27 shows evidence of deep vein thrombosis of the right subclavian vein extending from the axilla to the junction of the brachiocephalic vein. Platelets 58 today post 2 units of platelets. - Continue to hold lovenox 24 hours post LP - Lovenox at 40mg (1/2 dose) with platelet count <50 - If platelets <50, give Lovenox 50% q12h - If platelets <25, hold Lovenox Assessment & Plan (05/10/2023 10:56 AM CDT): RUE venous US on 03/27 shows evidence of deep vein thrombosis of the right subclavian vein extending from the axilla to the junction of the brachiocephalic vein. Platelets 27 today. - Continue to hold lovenox for LP on Thursday - Lovenox at 40mg (1/2 dose) with platelet count <50 - If platelets <50, give Lovenox 50% q12h - If platelets <25, hold Lovenox Assessment & Plan (05/09/2023 10:32 AM CDT): RUE venous US on 03/27 shows evidence of deep vein thrombosis of the right subclavian vein extending from the axilla to the junction of the brachiocephalic vein. Platelets 23 today. - Hold lovenox 05/09 due to platelet count of 23; will continue to hold Thursday 05/10 for LP on Thursday morning - Lovenox at 40mg (1/2 dose) with platelet count <50 - If platelets <50, give Lovenox 50% q12h - If platelets <25, hold Lovenox Assessment & Plan (05/08/2023 1:00 PM CDT): RUE venous US on 03/27 shows evidence of deep vein thrombosis of the right subclavian vein extending from the axilla to the junction of the brachiocephalic vein. Platelets 30 today. - Lovenox at 40mg (1/2 dose) with platelet count <50; will plan to hold Thursday 10 for LP on Thursday morning - If platelets <50, give Lovenox 50% q12h - If platelets <25, hold Lovenox Assessment & Plan (05/07/2023 9:59 AM CDT): RUE venous US on 03/27 shows evidence of deep vein thrombosis of the right subclavian vein extending from the axilla to the junction of the brachiocephalic vein. Platelets 30 today. - Lovenox at 40mg (1/2 dose) with platelet count <50 - If platelets <50, give Lovenox 50% q12h - If platelets <25, hold Lovenox Assessment & Plan (05/06/2023 7:11 PM CDT): RUE venous US on 03/27 shows evidence of deep vein thrombosis of the right subclavian vein extending from the axilla to the junction of the brachiocephalic vein. Platelets 36 today. - Lovenox at 40mg (1/2 dose) with platelet count <50 - If platelets <50, give Lovenox 50% q12h - If platelets <25, hold Lovenox Assessment & Plan (05/05/2023 11:11 AM CDT): RUE venous US on 03/27 shows evidence of deep vein thrombosis of the right subclavian vein extending from the axilla to the junction of the brachiocephalic vein. Platelets 36 today. - Restart Lovenox this morning at 40mg (1/2 dose) - If platelets <50, give Lovenox 50% q12h - If platelets <25, hold Lovenox Assessment & Plan (05/04/2023 6:54 PM CDT): RUE venous US on 03/27 shows evidence of deep vein thrombosis of the right subclavian vein extending from the axilla to the junction of the brachiocephalic vein.Platelets 26on today's labs - Lovenox held for 24h following LP - If platelets <50, give Lovenox 50% q12h - If platelets <25, hold Lovenox Assessment & Plan (05/03/2023 10:51 AM CDT): RUE venous US on 03/27 shows evidence of deep vein thrombosis of the right subclavian vein extending from the axilla to the junction of the brachiocephalic vein.Platelets 26on today's labs - Lovenox held this AM and will continue to hold in preparation for LP on 05/04 AM. - If platelets <50, give Lovenox 50% q12h - If platelets <25, hold Lovenox Assessment & Plan (05/02/2023 10:28 AM CDT): RUE venous US on 03/27 shows evidence of deep vein thrombosis of the right subclavian vein extending from the axilla to the junction of the brachiocephalic vein. Anti Xa level therapeutic this AM. Platelets 46 on today's labs - decreased Lovenox 40mg q12hr - If platelets <50, give Lovenox 50% q12h - If platelets <25, hold Lovenox - Hold Lovenox after 924 AM dose in preparation for LP on 05/04 AM. Assessment & Plan (05/01/2023 12:08 PM CDT): RUE venous US on 03/27 shows evidence of deep vein thrombosis of the right subclavian vein extending from the axilla to the junction of the brachiocephalic vein. Anti Xa level therapeutic this AM. - Lovenox 80mg q12hr - If platelets <50, give Lovenox 50mg q12h - If platelets <25, hold Lovenox - Hold Lovenox after 924 AM dose in preparation for LP on 05/04 AM. Assessment & Plan (04/30/2023 1:32 PM CDT): RUE venous US on 03/27 shows evidence of deep vein thrombosis of the right subclavian vein extending from the axilla to the junction of the brachiocephalic vein. Anti Xa level supra-therapeutic on 04/30 at 1.39. - Lovenox 80mg q12hr - If platelets <50, give Lovenox 50mg q12h - If platelets <25, hold Lovenox - Obtain Anti Xa level in AM 4 hours after 04/30 PM dose Assessment & Plan (04/29/2023 1:30 PM CDT): RUE venous US on 03/27 shows evidence of deep vein thrombosis of the right subclavian vein extending from the axilla to the junction of the brachiocephalic vein. - Lovenox 100mg q12hr - If platelets <50, give Lovenox 50mg q12h - If platelets <25, hold Lovenox - Obtain Anti Xa level in AM 4 hours after 20 PM dose Assessment & Plan (04/28/2023 2:09 PM CDT): RUE venous US on 03/27 shows evidence of deep vein thrombosis of the right subclavian vein extending from the axilla to the junction of the brachiocephalic vein. - Lovenox 100mg q12hr - If platelets <50, give Lovenox 50mg q12h - If platelets <25, hold Lovenox Assessment & Plan (04/27/2023 1:21 PM CDT): RUE venous US on 03/27 shows evidence of deep vein thrombosis of the right subclavian vein extending from the axilla to the junction of the brachiocephalic vein. - Lovenox 100mg q12hr - If platelets <50, give Lovenox 50mg q12h - If platelets <25, hold Lovenox - Hold Lovenox for scheduled LP on 04/27 AM, will restart 04/28 AM Assessment & Plan (04/26/2023 10:17 AM CDT): RUE venous US on 03/27 shows evidence of deep vein thrombosis of the right subclavian vein extending from the axilla to the junction of the brachiocephalic vein. - Lovenox 100mg q12hr - If platelets <50, give Lovenox 50mg q12h - If platelets <25, hold Lovenox - Hold Lovenox for scheduled LP on 04/27 AM, currently held Assessment & Plan (04/25/2023 10:16 AM CDT): RUE venous US on 03/27 shows evidence of deep vein thrombosis of the right subclavian vein extending from the axilla to the junction of the brachiocephalic vein. - Lovenox 100mg q12hr - If platelets <50, give Lovenox 50mg q12h - If platelets <25, hold Lovenox - Hold Lovenox after 916 PM dose for scheduled LP on 18 AM Assessment & Plan (04/24/2023 1:11 PM CDT): RUE venous US on 03/27 shows evidence of deep vein thrombosis of the right subclavian vein extending from the axilla to the junction of the brachiocephalic vein. - Lovenox 100mg q12hr - If platelets <50, give Lovenox 50mg q12h - If platelets <25, hold Lovenox Assessment & Plan (04/23/2023 1:18 PM CDT): RUE venous US on 03/27 shows evidence of deep vein thrombosis of the right subclavian vein extending from the axilla to the junction of the brachiocephalic vein. - Lovenox 100mg q12hr - If platelets <50, give Lovenox 50mg q12h - If platelets <25, hold Lovenox Assessment & Plan (04/22/2023 12:27 PM CDT): RUE venous US on 03/27 shows evidence of deep vein thrombosis of the right subclavian vein extending from the axilla to the junction of the brachiocephalic vein. - Lovenox 100mg q12hr - If platelets <50, give Lovenox 50mg q12h - If platelets <25, hold Lovenox Assessment & Plan (04/21/2023 3:17 PM CDT): RUE venous US on 03/27 shows evidence of deep vein thrombosis of the right subclavian vein extending from the axilla to the junction of the brachiocephalic vein. - Lovenox 100mg q12hr - If platelets <50, give Lovenox 50mg q12h - If platelets <25, hold Lovenox Assessment & Plan (04/21/2023 2:22 PM CDT): RUE venous US on 03/27 revealed deep vein thrombosis of the right subclavian vein extending from the axilla to the junction of the brachiocephalic vein. Lovenox was started. Suyapa reports not being given the right supplies at discharge to safely administer injections, and then they were painful. She has not received all intended doses, but it was held for procedure appropriately today. Continue lovenox 100mg q12hrs restarting 12 AM Consider switching to oral medication as subcutaneous medication was difficult for patient Assessment & Plan (04/20/2023 2:46 PM CDT): RUE venous US on 03/27 shows evidence of deep vein thrombosis of the right subclavian vein extending from the axilla to the junction of the brachiocephalic vein. Lovenox held for procedure today. - Lovenox 100mg q12hr; Restart 04/21 AM. - If platelets <50, give Lovenox 50mg q12h - If platelets <25, hold Lovenox Assessment & Plan (04/14/2023 3:51 PM CDT): RUE venous US on 03/27 shows evidence of deep vein thrombosis of the right subclavian vein extending from the axilla to the junction of the brachiocephalic vein. Likely secondary to administration of asparaginase through PICC. Plan: - Lovenox 100mg (inc 03/29), Hold for procedure 04/15 - If platelets <50, give Lovenox 50mg q12h - If platelets <25, hold Lovenox Assessment & Plan (04/13/2023 8:10 AM CDT): RUE venous US on 03/27 shows evidence of deep vein thrombosis of the right subclavian vein extending from the axilla to the junction of the brachiocephalic vein. Likely secondary to administration of asparaginase through PICC. Plan: - Lovenox 100mg (inc 03/29), - If platelets <50, give Lovenox 50mg q12h - If platelets <25, hold Lovenox Assessment & Plan (04/12/2023 10:08 AM CDT): RUE venous US on 03/27 shows evidence of deep vein thrombosis of the right subclavian vein extending from the axilla to the junction of the brachiocephalic vein. Likely secondary to administration of asparaginase through PICC. Plan: - Lovenox 100mg (inc 03/29), - If platelets <50, give Lovenox 50mg q12h - If platelets <25, hold Lovenox Assessment & Plan (04/11/2023 9:49 AM CDT): RUE venous US on 03/27 shows evidence of deep vein thrombosis of the right subclavian vein extending from the axilla to the junction of the brachiocephalic vein. Likely secondary to administration of asparaginase through PICC. Plan: - Lovenox 100mg (inc 03/29), - If platelets <50, give Lovenox 50mg q12h - If platelets <25, hold Lovenox Assessment & Plan (04/10/2023 1:16 PM CDT): RUE venous US on 03/27 shows evidence of deep vein thrombosis of the right subclavian vein extending from the axilla to the junction of the brachiocephalic vein. Likely secondary to administration of asparaginase through PICC. Plan: - Lovenox 100mg (inc 03/29), - If platelets <50, give Lovenox 50mg q12h - If platelets <25, hold Lovenox Assessment & Plan (2023 9:52 AM CDT): RUE venous US on 03/27 shows evidence of deep vein thrombosis of the right subclavian vein extending from the axilla to the junction of the brachiocephalic vein. Likely secondary to administration of asparaginase through PICC. Plan: - Lovenox 100mg (inc 03/29), - If platelets <50, give Lovenox 50mg q12h - If platelets <25, hold Lovenox Assessment & Plan (04/08/2023 10:17 AM CDT): RUE venous US on 03/27 shows evidence of deep vein thrombosis of the right subclavian vein extending from the axilla to the junction of the brachiocephalic vein. Likely secondary to administration of asparaginase through PICC. Plan: - Lovenox 100mg (inc 03/29), - If platelets <50, give Lovenox 50mg q12h - If platelets <25, hold Lovenox Assessment & Plan (04/07/2023 5:01 PM CDT): RUE venous US on 03/27 shows evidence of deep vein thrombosis of the right subclavian vein extending from the axilla to the junction of the brachiocephalic vein. Likely secondary to administration of asparaginase through PICC. Plan: - Lovenox 100mg (inc 03/29), - If platelets <50, give Lovenox 50mg q12h - If platelets <25, hold Lovenox Assessment & Plan (04/06/2023 10:35 AM CDT): RUE venous US on 03/27 shows evidence of deep vein thrombosis of the right subclavian vein extending from the axilla to the junction of the brachiocephalic vein. Likely secondary to administration of asparaginase through PICC. Plan: - Lovenox 100mg (inc 03/29), - If platelets <50, give Lovenox 50mg q12h - If platelets <25, hold Lovenox Assessment & Plan (04/06/2023 10:13 AM CDT): RUE venous US on 03/27 shows evidence of deep vein thrombosis of the right subclavian vein extending from the axilla to the junction of the brachiocephalic vein. Likely secondary to administration of asparaginase through PICC. 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 Likely secondary to administration of asparaginase through PICC. 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 Likely secondary to administration of asparaginase through PICC. 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 Likely secondary to administration of asparaginase through PICC. 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 Likely secondary to administration of asparaginase through PICC. 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 Likely secondary to administration of asparaginase through PICC. 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 Likely secondary to administration of asparaginase through PICC. 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 Likely secondary to administration of asparaginase through PICC. 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 Likely secondary to administration of asparaginase through PICC. Plan: - Lovenox 1 mg/kg q12h for platelets >50 - If platelets <50, give Lovenox 0.5 mg/kg q12h - If platelets <25, hold Lovenox Assessment & Plan (03/27/2023 7:42 AM CDT): Very mild edema to R hand and forearm noted 03/26. Pt's PICC line is in RUE. Neurovascularly intact, not painful. Will continue to monitor. If symptoms worsen, obtain ultrasound to rule out DVT. Assessment & Plan (03/26/2023 10:08 AM CDT): Very mild edema to R hand and forearm noted 03/26. Pt's PICC line is in RUE. Neurovascularly intact, not painful. Will continue to monitor. If symptoms worsen, obtain ultrasound to rule out DVT. Menstrual suppression 03/14/2023 Assessment & Plan (06/20/2025 1:25 PM BEHAVIORAL HEALTH CARE MANAGER): At risk for excessive bleeding due to extended periods of thrombocytopenia. Continue Lupron q3 months (Last given 06/20/25) Assessment & Plan (05/23/2025 1:47 PM CDT): At risk for excessive bleeding due to extended periods of thrombocytopenia. Continue Lupron q3 months (Last given 03/20/25) Assessment & Plan (12/03/2024 9:31 PM CDT): At risk for excessive bleeding due to extended periods of thrombocytopenia. Continue Lupron q3 months (Last given 10/03) Assessment & Plan (11/01/2024 12:51 PM CDT): At risk for excessive bleeding due to extended periods of thrombocytopenia. Continue Lupron q3 months (Last given 10/03) Assessment & Plan (10/03/2024 11:38 AM BEHAVIORAL HEALTH CARE MANAGER): At risk for excessive bleeding due to extended periods of thrombocytopenia. Suyapa had previously reported hot flashes and increased sweatiness, which may be related to Lupron. None noted currently. Will continue to evaluate symptoms. Continue Lupron q3 months (Given today 10/03) Assessment & Plan (09/02/2024 2:52 PM BEHAVIORAL HEALTH CARE MANAGER): At risk for excessive bleeding due to extended periods of thrombocytopenia. Suyapa had previously reported hot flashes and increased sweatiness, which may be related to Lupron. None noted currently. Will continue to evaluate symptoms. Continue Lupron q3 months Assessment & Plan (08/05/2024 3:28 PM BEHAVIORAL HEALTH CARE MANAGER): At risk for excessive bleeding due to extended periods of thrombocytopenia. Suyapa reports some recent hot flashes and increased sweatiness, which may be related to Lupron. Will continue to evaluate symptoms. Continue Lupron q3 months Assessment & Plan (08/02/2024 7:05 AM BEHAVIORAL HEALTH CARE MANAGER): At risk for excessive bleeding due to extended periods of thrombocytopenia. Suyapa reports some recent hot flashes and increased sweatiness, which may be related to Lupron. Will continue to evaluate symptoms. Continue Lupron q3 months Assessment & Plan (07/05/2024 11:14 AM BEHAVIORAL HEALTH CARE MANAGER): At risk for excessive bleeding due to extended periods of thrombocytopenia. Suyapa reports some recent hot flashes, which may be related to Lupron. Will continue to evaluate symptoms. Continue Lupron q3 months (will give today) Assessment & Plan (06/17/2024 2:10 PM BEHAVIORAL HEALTH CARE MANAGER): At risk for excessive bleeding due to extended periods of thrombocytopenia. Continue Lupron q3 months (Last given 03/28) Assessment & Plan (05/19/2024 2:27 PM CDT): Menstrual suppression At risk for excessive bleeding due to extended periods of thrombocytopenia. Continue Lupron q3 months (Last given 03/28) Assessment & Plan (04/27/2024 12:22 PM CDT): At risk for excessive bleeding due to extended periods of thrombocytopenia. Continue Lupron q3 months (Last given 03/28) Assessment & Plan (04/13/2024 3:08 PM CDT): At risk for excessive bleeding due to extended periods of thrombocytopenia. Continue Lupron q3 months (Last given 03/28) Assessment & Plan (03/29/2024 10:07 AM CDT): At risk for excessive bleeding due to extended periods of thrombocytopenia. Continue Lupron q3 months (will give today) Assessment & Plan (03/11/2024 2:10 PM CDT): At risk for excessive bleeding due to extended periods of thrombocytopenia. Continue Lupron q3 months (last given 12/10; will give at next visit) Assessment & Plan (02/26/2024 11:37 AM CDT): At risk for excessive bleeding due to extended periods of thrombocytopenia. Continue Lupron q3 months (last given 12/10) Assessment & Plan (02/12/2024 1:09 PM CDT): At risk for excessive bleeding due to extended periods of thrombocytopenia. - Continue Lupron q3 months (last given 12/10) Assessment & Plan (02/11/2024 11:04 AM CDT): At risk for excessive bleeding due to extended periods of thrombocytopenia. - Continue Lupron q3 months (last given 12/10) Assessment & Plan (02/10/2024 12:27 PM CDT): At risk for excessive bleeding due to extended periods of thrombocytopenia. - Continue Lupron q3 months (last given 12/10) Assessment & Plan (02/09/2024 3:05 PM CDT): At risk for excessive bleeding due to extended periods of thrombocytopenia. - Continue Lupron q3 months (last given 12/10) Assessment & Plan (02/08/2024 3:31 PM CDT): At risk for excessive bleeding due to extended periods of thrombocytopenia. - Continue Lupron q3 months (last given 12/10) Assessment & Plan (02/03/2024 6:52 PM CDT): At risk for excessive bleeding due to extended periods of thrombocytopenia. - Continue Lupron q3 months (last given 12/10) Assessment & Plan (01/13/2024 2:07 AM CDT): Receives leuprolide q3 months Assessment & Plan (01/08/2024 4:57 PM CDT): At risk for excessive bleeding due to extended periods of thrombocytopenia. - Continue Lupron q3 months (last given 12/10) Assessment & Plan (12/25/2023 3:17 PM CDT): At risk for excessive bleeding due to extended periods of thrombocytopenia. - Continue Lupron q3 months (last given 12/23) Assessment & Plan (12/24/2023 4:30 PM CDT): At risk for excessive bleeding due to extended periods of thrombocytopenia -continue lupron q3 months; given today Assessment & Plan (12/23/2023 5:25 PM CDT): At risk for excessive bleeding due to extended periods of thrombocytopenia -continue lupron q3 months; due 12/17; give if hasn't been given yet Assessment & Plan (12/11/2023 3:45 PM CDT): At risk for excessive bleeding due to anticipated frequent periods of thrombocytopenia. No recent bleeding/spotting. Lupron Q3 months; last given on 09/22 - will give 12/17 Assessment & Plan (11/19/2023 3:09 PM CDT): At risk for excessive bleeding due to anticipated frequent periods of thrombocytopenia. No recent bleeding/spotting. Lupron Q3 months; last given on 09/22 Assessment & Plan (11/19/2023 9:34 AM CDT): At risk for excessive bleeding due to anticipated frequent periods of thrombocytopenia. No recent bleeding/spotting. Lupron Q3 months; last given on 09/22 Assessment & Plan (10/27/2023 10:20 AM CDT): At risk for excessive bleeding due to anticipated frequent periods of thrombocytopenia. No recent bleeding/spotting. Lupron Q3 months; last given on 09/22 Assessment & Plan (10/06/2023 3:12 PM BEHAVIORAL HEALTH CARE MANAGER): At risk for excessive bleeding due to anticipated frequent periods of thrombocytopenia. No recent bleeding/spotting. Lupron Q3 months; last given on 09/22 Assessment & Plan (09/25/2023 2:02 PM BEHAVIORAL HEALTH CARE MANAGER): At risk for excessive bleeding due to anticipated frequent periods of thrombocytopenia, none at this time. - Lupron Q3 months; last given on 09/22 Assessment & Plan (09/24/2023 5:42 PM BEHAVIORAL HEALTH CARE MANAGER): At risk for excessive bleeding due to anticipated frequent periods of thrombocytopenia, none at this time. - Lupron Q3 months; last given on 09/22 Assessment & Plan (09/23/2023 3:32 PM BEHAVIORAL HEALTH CARE MANAGER): At risk for excessive bleeding due to anticipated frequent periods of thrombocytopenia, none at this time. - Lupron Q3 months; last given on 09/22 Assessment & Plan (09/22/2023 10:15 AM BEHAVIORAL HEALTH CARE MANAGER): At risk for excessive bleeding due to anticipated frequent periods of thrombocytopenia, none at this time. - Lupron Q3 months; last given on 06/18. Will administer today. Assessment & Plan (09/21/2023 2:18 PM BEHAVIORAL HEALTH CARE MANAGER): At risk for excessive bleeding due to anticipated frequent periods of thrombocytopenia, none at this time. - Lupron Q3 months; last given on 06/18. Will administer today. Assessment & Plan (08/27/2023 6:11 PM BEHAVIORAL HEALTH CARE MANAGER): At risk for excessive bleeding due to anticipated frequent periods of thrombocytopenia, none at this time. - Lupron Q3 months; last given on 06/18 Assessment & Plan (08/26/2023 1:43 PM BEHAVIORAL HEALTH CARE MANAGER): At risk for excessive bleeding due to anticipated frequent periods of thrombocytopenia, none at this time. - Lupron Q3 months; last given on 06/18 Assessment & Plan (08/25/2023 1:59 PM BEHAVIORAL HEALTH CARE MANAGER): At risk for excessive bleeding due to anticipated frequent periods of thrombocytopenia, none at this time. - Lupron Q3 months; last given on 06/18 Assessment & Plan (08/24/2023 11:35 AM BEHAVIORAL HEALTH CARE MANAGER): At risk for excessive bleeding due to anticipated frequent periods of thrombocytopenia, none at this time. - Lupron Q3 months; last given on 06/18 Assessment & Plan (08/22/2023 10:05 PM BEHAVIORAL HEALTH CARE MANAGER): At risk for excessive bleeding due to anticipated frequent periods of thrombocytopenia, none at this time. Lupron Q3 months; last given on 06/18 Assessment & Plan (08/06/2023 11:07 AM BEHAVIORAL HEALTH CARE MANAGER): At risk for excessive bleeding due to anticipated frequent periods of thrombocytopenia, none at this time. Lupron Q3 months; last given on 06/18 Assessment & Plan (07/15/2023 4:19 PM BEHAVIORAL HEALTH CARE MANAGER): At risk for excessive bleeding due to anticipated frequent periods of thrombocytopenia, none at this time. - Lupron Q3 months; last given on 06/18 - Consider Aygestin for breakthrough bleeding Assessment & Plan (07/14/2023 12:30 PM BEHAVIORAL HEALTH CARE MANAGER): At risk for excessive bleeding due to anticipated frequent periods of thrombocytopenia, none at this time. - Lupron Q3 months; last given on 06/18 - Consider Aygestin for breakthrough bleeding Assessment & Plan (07/13/2023 5:40 PM BEHAVIORAL HEALTH CARE MANAGER): At risk for excessive bleeding due to anticipated frequent periods of thrombocytopenia, none at this time. - Lupron Q3 months; last given on 06/18 - Consider Aygestin for breakthrough bleeding Assessment & Plan (07/12/2023 2:31 PM BEHAVIORAL HEALTH CARE MANAGER): At risk for excessive bleeding due to anticipated frequent periods of thrombocytopenia, none at this time. - Lupron Q3 months; last given on 06/18 - Consider Aygestin for breakthrough bleeding Assessment & Plan (07/11/2023 4:34 PM BEHAVIORAL HEALTH CARE MANAGER): At risk for excessive bleeding due to anticipated frequent periods of thrombocytopenia, none at this time. - Lupron Q3 months; last given on 06/18 - Consider Aygestin for breakthrough bleeding Assessment & Plan (07/10/2023 1:22 PM BEHAVIORAL HEALTH CARE MANAGER): At risk for excessive bleeding due to anticipated frequent periods of thrombocytopenia, none at this time. - Lupron Q3 months; last given on 06/18 - Consider Aygestin for breakthrough bleeding Assessment & Plan (07/09/2023 1:05 PM BEHAVIORAL HEALTH CARE MANAGER): At risk for excessive bleeding due to anticipated frequent periods of thrombocytopenia, none at this time. - Lupron Q3 months; last given on 06/18 - Consider Aygestin for breakthrough bleeding Assessment & Plan (07/08/2023 11:19 AM BEHAVIORAL HEALTH CARE MANAGER): At risk for excessive bleeding due to anticipated frequent periods of thrombocytopenia, none at this time. - Lupron Q3 months; last given on 06/18 - Consider Aygestin for breakthrough bleeding Assessment & Plan (07/07/2023 1:17 PM BEHAVIORAL HEALTH CARE MANAGER): At risk for excessive bleeding due to anticipated frequent periods of thrombocytopenia, none at this time. - Lupron Q3 months; last given on 06/18 - Consider Aygestin for breakthrough bleeding Assessment & Plan (07/06/2023 5:27 PM BEHAVIORAL HEALTH CARE MANAGER): At risk for excessive bleeding due to anticipated frequent periods of thrombocytopenia, none at this time. - Lupron Q3 months; last given on 06/18 - Consider Aygestin for breakthrough bleeding Assessment & Plan (06/29/2023 10:36 AM BEHAVIORAL HEALTH CARE MANAGER): At risk for excessive bleeding due to anticipated frequent periods of thrombocytopenia, none at this time. - Lupron Q3 months ( 09/18) - Consider Aygestin for breakthrough bleeding Assessment & Plan (06/22/2023 12:47 PM BEHAVIORAL HEALTH CARE MANAGER): At risk for excessive bleeding due to anticipated frequent periods of thrombocytopenia, none at this time. - Lupron Q3 months; last given on 06/18 - Consider Aygestin for breakthrough bleeding Assessment & Plan (06/21/2023 11:14 AM BEHAVIORAL HEALTH CARE MANAGER): At risk for excessive bleeding due to anticipated frequent periods of thrombocytopenia, none at this time. - Lupron Q3 months; last given on 06/18 - Consider Aygestin for breakthrough bleeding Assessment & Plan (06/20/2023 11:16 AM BEHAVIORAL HEALTH CARE MANAGER): At risk for excessive bleeding due to anticipated frequent periods of thrombocytopenia, none at this time. - Lupron Q3 months; last given on 06/18 - Consider Aygestin for breakthrough bleeding Assessment & Plan (06/19/2023 10:15 AM BEHAVIORAL HEALTH CARE MANAGER): At risk for excessive bleeding due to anticipated frequent periods of thrombocytopenia, none at this time. - Lupron Q3 months; last given on 06/18 - Consider Aygestin for breakthrough bleeding Assessment & Plan (06/18/2023 12:01 PM BEHAVIORAL HEALTH CARE MANAGER): At risk for excessive bleeding due to anticipated frequent periods of thrombocytopenia, none at this time. - Lupron Q3 months - Give Lupron injection today - Consider Aygestin for breakthrough bleeding Assessment & Plan (06/17/2023 11:46 AM BEHAVIORAL HEALTH CARE MANAGER): At risk for excessive bleeding due to anticipated frequent periods of thrombocytopenia, none at this time. - Lupron Q3 months (last given 03/13) - Consider Aygestin for breakthrough bleeding - Will plan to give Lupron injection 06/18 while platelets transfusing Assessment & Plan (06/16/2023 2:20 PM BEHAVIORAL HEALTH CARE MANAGER): At risk for excessive bleeding due to anticipated frequent periods of thrombocytopenia, none at this time. - Lupron Q3 months (last given 03/13) - Consider Aygestin for breakthrough bleeding Assessment & Plan (06/15/2023 3:44 PM BEHAVIORAL HEALTH CARE MANAGER): At risk for excessive bleeding due to anticipated frequent periods of thrombocytopenia, none at this time. - Lupron Q3 months (last given 03/13) - Consider Aygestin for breakthrough bleeding Assessment & Plan (06/04/2023 3:40 PM CDT): At risk for excessive bleeding due to anticipated frequent periods of thrombocytopenia, none at this time. - Lupron Q3 months - Consider Aygestin for breakthrough bleeding Assessment & Plan (06/03/2023 1:06 PM CDT): At risk for excessive bleeding due to anticipated frequent periods of thrombocytopenia, none at this time. - Lupron Q3 months - Consider Aygestin for breakthrough bleeding Assessment & Plan (06/02/2023 1:42 PM CDT): At risk for excessive bleeding due to anticipated frequent periods of thrombocytopenia, none at this time. - Lupron Q3 months - Consider Aygestin for breakthrough bleeding Assessment & Plan (06/01/2023 11:15 AM CDT): At risk for excessive bleeding due to anticipated frequent periods of thrombocytopenia, none at this time. - Lupron Q3 months - Consider Aygestin for breakthrough bleeding Assessment & Plan (05/28/2023 12:42 PM CDT): At risk for excessive bleeding due to anticipated frequent periods of thrombocytopenia, none at this time. - Lupron Q3 months - Consider Aygestin for breakthrough bleeding Assessment & Plan (05/27/2023 1:34 PM CDT): At risk for excessive bleeding due to anticipated frequent periods of thrombocytopenia, none at this time. - Lupron Q3 months - Consider Aygestin for breakthrough bleeding Assessment & Plan (05/26/2023 12:07 PM CDT): At risk for excessive bleeding due to anticipated frequent periods of thrombocytopenia, none at this time. - Lupron Q3 months - Consider Aygestin for breakthrough bleeding Assessment & Plan (05/25/2023 12:12 PM CDT): At risk for excessive bleeding due to anticipated frequent periods of thrombocytopenia, none at this time. - Lupron Q3 months - Consider Aygestin for breakthrough bleeding Assessment & Plan (05/24/2023 4:59 AM CDT): At risk for excessive bleeding due to anticipated frequent periods of thrombocytopenia, none at this time. - Lupron Q3 months - Consider Aygestin for breakthrough bleeding Assessment & Plan (05/23/2023 9:03 AM CDT): At risk for excessive bleeding due to anticipated frequent periods of thrombocytopenia, none at this time. - Lupron Q3 months - Consider Aygestin for breakthrough bleeding Assessment & Plan (05/22/2023 8:56 AM CDT): At risk for excessive bleeding due to anticipated frequent periods of thrombocytopenia, none at this time. - Lupron Q3 months - Consider Aygestin for breakthrough bleeding Assessment & Plan (05/21/2023 12:45 PM CDT): At risk for excessive bleeding due to anticipated frequent periods of thrombocytopenia, none at this time. - Lupron Q3 months - Consider Aygestin for breakthrough bleeding Assessment & Plan (05/20/2023 1:46 PM CDT): At risk for excessive bleeding due to anticipated frequent periods of thrombocytopenia, none at this time. - Lupron Q3 months - Consider Aygestin for breakthrough bleeding Assessment & Plan (05/19/2023 11:15 AM CDT): At risk for excessive bleeding due to anticipated frequent periods of thrombocytopenia, none at this time. - Lupron Q3 months - Consider Aygestin for breakthrough bleeding Assessment & Plan (05/18/2023 1:11 PM CDT): At risk for excessive bleeding due to anticipated frequent periods of thrombocytopenia, none at this time. - Lupron - Consider Aygestin for breakthrough bleeding Assessment & Plan (05/17/2023 11:11 AM CDT): At risk for excessive bleeding due to anticipated frequent periods of thrombocytopenia, none at this time. - Lupron - Consider Aygestin for breakthrough bleeding Assessment & Plan (05/16/2023 8:10 AM CDT): At risk for excessive bleeding due to anticipated frequent periods of thrombocytopenia, none at this time. - Lupron - Consider Aygestin for breakthrough bleeding Assessment & Plan (05/15/2023 10:55 AM CDT): At risk for excessive bleeding due to anticipated frequent periods of thrombocytopenia, none at this time. - Lupron - Consider Aygestin for breakthrough bleeding Assessment & Plan (05/14/2023 12:31 PM CDT): At risk for excessive bleeding due to anticipated frequent periods of thrombocytopenia, none at this time. - Lupron - Consider Aygestin for breakthrough bleeding Assessment & Plan (05/13/2023 11:40 AM CDT): At risk for excessive bleeding due to anticipated frequent periods of thrombocytopenia, none at this time. - Lupron - Consider Aygestin for breakthrough bleeding Assessment & Plan (05/12/2023 12:38 PM CDT): At risk for excessive bleeding due to anticipated frequent periods of thrombocytopenia, none at this time. - Lupron - Consider Aygestin for breakthrough bleeding Assessment & Plan (05/11/2023 1:33 PM CDT): At risk for excessive bleeding due to anticipated frequent periods of thrombocytopenia, none at this time. - Lupron - Consider Aygestin for breakthrough bleeding Assessment & Plan (05/10/2023 6:52 AM CDT): At risk for excessive bleeding due to anticipated frequent periods of thrombocytopenia, none at this time - Lupron - Consider Aygestin for breakthrough bleeding Assessment & Plan (05/09/2023 7:57 AM CDT): At risk for excessive bleeding due to anticipated frequent periods of thrombocytopenia, none at this time - Lupron - Consider Aygestin for breakthrough bleeding Assessment & Plan (05/08/2023 1:10 PM CDT): At risk for excessive bleeding due to anticipated frequent periods of thrombocytopenia, none at this time - Lupron - Consider Aygestin for breakthrough bleeding Assessment & Plan (05/07/2023 9:58 AM CDT): At risk for excessive bleeding due to anticipated frequent periods of thrombocytopenia, none at this time - Lupron - Consider Aygestin for breakthrough bleeding Assessment & Plan (05/06/2023 7:14 PM CDT): At risk for excessive bleeding due to anticipated frequent periods of thrombocytopenia, none at this time - Lupron - Consider Aygestin for breakthrough bleeding Assessment & Plan (05/05/2023 11:13 AM CDT): At risk for excessive bleeding due to anticipated frequent periods of thrombocytopenia, none at this time - Lupron - Consider Aygestin for breakthrough bleeding Assessment & Plan (05/04/2023 7:00 PM CDT): At risk for excessive bleeding due to anticipated frequent periods of thrombocytopenia, none at this time - Lupron - Consider Aygestin for breakthrough bleeding Assessment & Plan (05/03/2023 10:49 AM CDT): At risk for excessive bleeding due to anticipated frequent periods of thrombocytopenia, none at this time - Lupron - Consider Aygestin for breakthrough bleeding Assessment & Plan (05/02/2023 10:26 AM CDT): At risk for excessive bleeding due to anticipated frequent periods of thrombocytopenia, none at this time - Lupron - Consider Aygestin for breakthrough bleeding Assessment & Plan (05/01/2023 12:06 PM CDT): At risk for excessive bleeding due to anticipated frequent periods of thrombocytopenia, none at this time - Lupron - Consider Aygestin for breakthrough bleeding Assessment & Plan (04/30/2023 1:29 PM CDT): At risk for excessive bleeding due to anticipated frequent periods of thrombocytopenia, none at this time - Lupron - Consider Aygestin for breakthrough bleeding Assessment & Plan (04/29/2023 1:24 PM CDT): At risk for excessive bleeding due to anticipated frequent periods of thrombocytopenia, none at this time - Lupron - Consider Aygestin for breakthrough bleeding Assessment & Plan (04/28/2023 2:08 PM CDT): At risk for excessive bleeding due to anticipated frequent periods of thrombocytopenia, none at this time - Lupron - Consider Aygestin for breakthrough bleeding Assessment & Plan (04/27/2023 1:24 PM CDT): At risk for excessive bleeding due to anticipated frequent periods of thrombocytopenia, none at this time - Lupron - Consider Aygestin for breakthrough bleeding Assessment & Plan (04/26/2023 10:16 AM CDT): At risk for excessive bleeding due to anticipated frequent periods of thrombocytopenia, none at this time - Lupron - Consider Aygestin for breakthrough bleeding Assessment & Plan (04/25/2023 9:37 AM CDT): At risk for excessive bleeding due to anticipated frequent periods of thrombocytopenia - Lupron - Consider Aygestin for breakthrough bleeding Assessment & Plan (04/21/2023 2:20 PM CDT): At risk for excessive bleeding to due anticipated frequent periods of thrombocytopenia. Administer Lupron q3 months (last given 03/13) Consider Aygestin for breakthrough bleeding Assessment & Plan (04/20/2023 2:42 PM CDT): At risk for excessive bleeding due to anticipated frequent periods of thrombocytopenia - Lupron - Consider Aygestin for breakthrough bleeding Assessment & Plan (04/14/2023 3:50 PM CDT): Expected to be thrombocytopenic - Lupron - Consider Aygestin if breakthrough bleeding Assessment & Plan (04/13/2023 8:10 AM CDT): Expected to be thrombocytopenic - Lupron - Consider Aygestin if breakthrough bleeding Assessment & Plan (04/12/2023 10:08 AM CDT): Expected to be thrombocytopenic - Lupron - Consider Aygestin if breakthrough bleeding Assessment & Plan (04/11/2023 9:48 AM CDT): Expected to be thrombocytopenic - Lupron - Consider Aygestin if breakthrough bleeding Assessment & Plan (04/10/2023 1:16 PM CDT): Expected to be thrombocytopenic - Lupron - Consider Aygestin if breakthrough bleeding Assessment & Plan (2023 9:52 AM CDT): Expected to be thrombocytopenic - Lupron - Consider Aygestin if breakthrough bleeding Assessment & Plan (04/08/2023 10:16 AM CDT): Expected to be thrombocytopenic - Lupron - Consider Aygestin if breakthrough bleeding Assessment & Plan (04/07/2023 5:01 PM CDT): Expected to be thrombocytopenic - Lupron - Consider Aygestin if breakthrough bleeding Assessment & Plan (04/06/2023 10:34 AM CDT): Expected to be thrombocytopenic - Lupron - Consider Aygestin if breakthrough bleeding Assessment & Plan (04/06/2023 10:13 AM CDT): Expected to be thrombocytopenic - Lupron - Aygestin Assessment & Plan (04/05/2023 9:38 AM CDT): Expected to be thrombocytopenic - Lupron - Aygestin Assessment & Plan (04/04/2023 9:46 AM CDT): See above. Assessment & Plan (04/03/2023 7:04 PM CDT): See above. Assessment & Plan (04/02/2023 2:09 PM CDT): See above. Assessment & Plan (04/01/2023 11:16 AM CDT): See above. Assessment & Plan (03/31/2023 11:16 AM CDT): See above. Assessment & Plan (03/30/2023 11:35 AM CDT): See above. Assessment & Plan (03/29/2023 11:52 AM CDT): See above. Assessment & Plan (03/28/2023 7:13 AM CDT): See above. Assessment & Plan (03/27/2023 7:42 AM CDT): See above. Assessment & Plan (03/26/2023 10:04 AM CDT): See above. Assessment & Plan (03/25/2023 7:13 AM CDT): Menstrual suppression while on chemotherapy. Started Lupron 11.25 mg [id number]. Last dose given 8. Lupron does not effectively prevent , therefore pt will need POC urine tests prior to all chemo treatments. Assessment & Plan (03/24/2023 7:28 AM CDT): Menstrual suppression while on chemotherapy. Started Lupron 11.25 mg [id number]. Last dose given 03/13. Lupron does not effectively prevent , therefore pt will need POC urine tests prior to all chemo treatments. Assessment & Plan (03/23/2023 7:42 AM CDT): Menstrual suppression while on chemotherapy. Started Lupron 11.25 mg [id number]. Last dose given 03/13. Lupron does not effectively prevent , therefore pt will need POC urine tests prior to all chemo treatments. Assessment & Plan (03/22/2023 12:18 PM CDT): Menstrual suppression while on chemotherapy. Started Lupron 11.25 mg [id number]. Last dose given 03/13. Lupron does not effectively prevent , therefore pt will need POC urine tests prior to all chemo treatments. Assessment & Plan (03/21/2023 7:47 AM CDT): Menstrual suppression while on chemotherapy. Started Lupron 11.25 mg [id number]. Last dose given 03/13. Lupron does not effectively prevent , therefore pt will need POC urine tests prior to all chemo treatments. Assessment & Plan (03/20/2023 8:24 AM CDT): Menstrual suppression while on chemotherapy. Started Lupron 11.25 mg [id number]. Last dose given 8. Lupron does not effectively prevent , therefore pt will need POC urine tests prior to all chemo treatments. Assessment & Plan (03/19/2023 11:08 AM CDT): Menstrual suppression while on chemotherapy. Started Lupron 11.25 mg [id number]. Last dose given 03/13. Lupron does not effectively prevent , therefore pt will need POC urine tests prior to all chemo treatments. Assessment & Plan (03/18/2023 7:31 AM CDT): Menstrual suppression while on chemotherapy. Started Lupron 11.25 mg [id number]. Last dose given 03/13. Lupron does not effectively prevent , therefore pt will need POC urine tests prior to all chemo treatments. Assessment & Plan (03/17/2023 7:35 AM CDT): Menstrual suppression while on chemotherapy. Started Lupron 11.25 mg [id number]. Last dose given 03/13. Lupron does not effectively prevent , therefore pt will need POC urine tests prior to all chemo treatments. Assessment & Plan (03/16/2023 9:52 AM CDT): Menstrual suppression while on chemotherapy. Started Lupron 11.25 mg [id number]. Last dose given 03/13. Lupron does not effectively prevent , therefore pt will need POC urine tests prior to all chemo treatments. Assessment & Plan (03/15/2023 12:29 PM CDT): Menstrual suppression while on chemotherapy. Started Lupron 11.25 mg [id number]. Last dose given 03/13. Assessment & Plan (03/14/2023 11:02 AM CDT): Menstrual suppression while on chemotherapy. Started Lupron 11.25 mg [id number]. Last dose given 03/13. Need for pneumocystis prophylaxis 03/14/2023 Assessment & Plan (06/20/2025 1:36 PM BEHAVIORAL HEALTH CARE MANAGER): Suyapa is at risk for PJP due to immunosuppressive chemotherapy. No signs of PJP on exam. Pentamidine monthly (received today 06/20/2025) Assessment & Plan (05/23/2025 1:50 PM CDT): Suyapa is at risk for PJP due to immunosuppressive chemotherapy. No signs of PJP on exam. Pentamidine monthly (received today) Assessment & Plan (04/29/2025 8:21 AM CDT): Suyapa is at risk for PJP due to immunosuppressive chemotherapy. No signs of PJP on exam. Pentamidine monthly (received today) Assessment & Plan (11/01/2024 12:55 PM CDT): Suyapa is at risk for PJP due to immunosuppressive chemotherapy. No signs of PJP on exam. Pentamidine monthly (received today) Assessment & Plan (10/03/2024 11:38 AM BEHAVIORAL HEALTH CARE MANAGER): Suyapa is at risk for PJP due to immunosuppressive chemotherapy. No signs of PJP on exam. Pentamidine monthly (received today) Assessment & Plan (09/02/2024 2:56 PM BEHAVIORAL HEALTH CARE MANAGER): Suyapa is at risk for PJP due to immunosuppressive chemotherapy. No signs of PJP on exam. Pentamidine monthly (received today) Assessment & Plan (08/05/2024 3:30 PM BEHAVIORAL HEALTH CARE MANAGER): Suyapa is at risk for PJP due to immunosuppressive chemotherapy. No signs of PJP on exam. Pentamidine monthly (received today) Assessment & Plan (08/02/2024 7:17 AM BEHAVIORAL HEALTH CARE MANAGER): Suyapa is at risk for PJP due to immunosuppressive chemotherapy. No signs of PJP on exam. Pentamidine monthly (last received 07/05/24) Assessment & Plan (07/05/2024 11:24 AM BEHAVIORAL HEALTH CARE MANAGER): Suyapa is at risk for PJP due to immunosuppressive chemotherapy. No signs of PJP on exam. Pentamidine monthly (will receive today) Assessment & Plan (06/17/2024 2:52 PM BEHAVIORAL HEALTH CARE MANAGER): Suyapa is at risk for PJP due to immunosuppressive chemotherapy. Pentamidine monthly (last received 06/13/24) Assessment & Plan (05/19/2024 2:28 PM CDT): Need for pneumocystis prophylaxis At risk for PJP due to immunosuppressive chemotherapy. No evidence of PJP on exam today. Pentamidine monthly (Last given today 05/19) Assessment & Plan (05/11/2024 3:44 PM CDT): Suyapa is at risk for PJP due to immunosuppressive chemotherapy. No evidence of PJP on exam today. Pentamidine monthly (Last given 04/25) Assessment & Plan (04/27/2024 12:26 PM CDT): At risk for PJP due to immunosuppressive chemotherapy. No evidence of PJP on exam today. Pentamidine monthly (Last given 04/25) Assessment & Plan (04/13/2024 3:23 PM CDT): At risk for PJP due to immunosuppressive chemotherapy. No evidence of PJP on exam today. Continue Pentamidine monthly (Last given 03/28) Assessment & Plan (03/29/2024 10:12 AM CDT): At risk for PJP due to immunosuppressive chemotherapy. No evidence of PJP on exam today. Continue Pentamidine monthly (will give today 03/28) Assessment & Plan (03/11/2024 2:18 PM CDT): At risk for PJP due to immunosuppressive chemotherapy. No evidence of PJP on exam today. Continue Pentamidine monthly (last given 02/25) Assessment & Plan (02/26/2024 11:48 AM CDT): At risk for PJP due to immunosuppressive chemotherapy. No evidence of PJP on exam today. Continue Pentamidine monthly (due today) Assessment & Plan (02/12/2024 1:09 PM CDT): Due to immunocompromised status. - Continue Pentamidine monthly (last given 01/26) Assessment & Plan (02/11/2024 11:03 AM CDT): Due to immunocompromised status. - Continue Pentamidine monthly (last given 01/26) Assessment & Plan (02/10/2024 12:24 PM CDT): Due to immunocompromised status. - Continue Pentamidine monthly (last given 01/26) Assessment & Plan (02/09/2024 3:03 PM CDT): Due to immunocompromised status. - Continue Pentamidine monthly (last given 01/26) Assessment & Plan (02/08/2024 3:32 PM CDT): Due to immunocompromised status. - Continue Pentamidine monthly (last given 01/26) Assessment & Plan (01/08/2024 4:55 PM CDT): Suyapa is at risk for PJP due to immunosupressed status. No concerns for PJP on exam today. Noncompliant with Bactrim so PJP ppx switched to Pentamidine. Pentamidine monthly (last given 12/23) Assessment & Plan (12/25/2023 3:18 PM CDT): At risk due to immunosupressed status. Noncompliant with Bactrim. - Pentamidine monthly (last given 12/23) Assessment & Plan (12/24/2023 4:30 PM CDT): At risk due to immunosupressed status. Noncompliant with Bactrim. -Pentamidine q4 weeks; Give Pentamidine today Assessment & Plan (12/23/2023 5:26 PM CDT): At risk due to immunosupressed status. -bactrim BID on Saturdays and sundays Assessment & Plan (12/11/2023 3:45 PM CDT): No signs/symptoms on ROS or physical exam. Remains at increased risk due to immunosuppressed status. Pentamidine previously administered due to poor medication compliance; however, pt now has g-tube for medication administration. Bactrim BID on Saturdays and Sundays Assessment & Plan (12/07/2023 4:44 PM CDT): Continue home bactrim Thursday/Oscar Assessment & Plan (12/06/2023 10:39 AM CDT): Continue home bactrim Thursday/Oscar Assessment & Plan (12/05/2023 11:25 AM CDT): Continue home bactrim Thursday/Oscar Assessment & Plan (12/04/2023 2:21 PM CDT): Continue home bactrim Thursday/Oscar Assessment & Plan (12/03/2023 6:05 PM CDT): Continue home bactrim Thursday/Oscar Assessment & Plan (12/02/2023 5:22 PM CDT): Continue home bactrim Thursday/Oscar Assessment & Plan (12/01/2023 3:12 PM CDT): Continue home bactrim Thursday/Oscar Assessment & Plan (11/30/2023 11:08 AM CDT): Continue home bactrim Thursday/Oscar Assessment & Plan (11/29/2023 10:50 AM CDT): Continue home bactrim Thursday/Oscar Assessment & Plan (11/28/2023 11:56 AM CDT): Continue home bactrim Thursday/Oscar Assessment & Plan (11/27/2023 11:14 AM CDT): Continue home bactrim day/Oscar Assessment & Plan (11/26/2023 10:43 AM CDT): Continue home bactrim Thursday/Thursday Assessment & Plan (11/25/2023 3:10 PM CDT): Continue home bactrim Thursday/Thursday Assessment & Plan (11/24/2023 11:01 AM CDT): Continue home bactrim Thursday/Thursday Assessment & Plan (11/23/2023 2:27 PM CDT): Continue home bactrim Thursday/Thursday Assessment & Plan (11/22/2023 7:48 AM CDT): Continue home bactrim Thursday/Thursday Assessment & Plan (11/20/2023 11:00 AM CDT): Continue home bactrim Thursday/Thursday Assessment & Plan (11/20/2023 11:00 AM CDT): Continue home bactrim Thursday/Thursday Assessment & Plan (11/19/2023 4:23 PM CDT): Continue home bactrim Thursday/Thursday Assessment & Plan (11/19/2023 3:10 PM CDT): No signs/symptoms on ROS or physical exam. Remains at increased risk due to immunosuppressed status. Pentamidine previously administered due to poor medication compliance; however, pt now has g-tube for medication administration. Bactrim BID on Saturdays and Sundays Assessment & Plan (11/19/2023 9:44 AM CDT): No signs/symptoms on ROS or physical exam. Remains at increased risk due to immunosuppressed status. Pentamidine previously administered due to poor medication compliance; however, pt now has g-tube for medication administration. Bactrim BID on Saturdays and Sundays Assessment & Plan (10/27/2023 10:49 AM CDT): No signs/symptoms on ROS or physical exam. Remains at increased risk due to immunosuppressed status. Pentamidine previously administered due to poor medication compliance; however, pt now has g-tube for medication administration. Start Septra BID on Saturdays and Sundays Assessment & Plan (10/13/2023 12:44 PM BEHAVIORAL HEALTH CARE MANAGER): Due to receiving immunosuppressive therapy - Continue monthly pentamidine - Next due on 10/21 Assessment & Plan (10/12/2023 2:24 PM BEHAVIORAL HEALTH CARE MANAGER): Due to receiving immunosuppressive therapy - Continue monthly pentamidine - Next due on 10/21 Assessment & Plan (10/11/2023 7:55 AM BEHAVIORAL HEALTH CARE MANAGER): Due to receiving immunosuppressive therapy - Continue monthly pentamidine - Next due on 10/21 Assessment & Plan (10/10/2023 2:05 PM BEHAVIORAL HEALTH CARE MANAGER): Receiving immunosuppressive therapy - Continue monthly pentamidine - Next due on 10/21 Assessment & Plan (10/09/2023 3:24 PM BEHAVIORAL HEALTH CARE MANAGER): Receiving immunosuppressive therapy - Continue monthly pentamidine - Next due on 10/21 Assessment & Plan (10/08/2023 2:05 PM BEHAVIORAL HEALTH CARE MANAGER): Receiving immunosuppressive therapy - Continue monthly pentamidine - Next due on 10/21 Assessment & Plan (10/07/2023 10:45 AM BEHAVIORAL HEALTH CARE MANAGER): No signs/symptoms on ROS or physical exam. Remains at increased risk due to immunosuppressed status. Continue pentamidine monthly (last given 09/23) Assessment & Plan (09/25/2023 2:02 PM BEHAVIORAL HEALTH CARE MANAGER): Receiving immunosuppressive chemotherapy. - Pentam monthly last given 09/23. Assessment & Plan (09/24/2023 5:42 PM BEHAVIORAL HEALTH CARE MANAGER): Receiving immunosuppressive chemotherapy. - Pentam monthly last given 09/23. Assessment & Plan (09/23/2023 3:32 PM BEHAVIORAL HEALTH CARE MANAGER): Receiving immunosuppressive chemotherapy. - Pentam monthly last given 08/24. Will administer prior to discharge. Assessment & Plan (09/22/2023 10:15 AM BEHAVIORAL HEALTH CARE MANAGER): Receiving immunosuppressive chemotherapy. - Pentam monthly last given 08/24. Will administer prior to discharge. Assessment & Plan (09/21/2023 2:18 PM BEHAVIORAL HEALTH CARE MANAGER): Receiving immunosuppressive chemotherapy. - Pentam monthly last given 08/24. Will administer prior to discharge. Assessment & Plan (08/27/2023 6:11 PM BEHAVIORAL HEALTH CARE MANAGER): Continue pentamidine monthly. Last received 08/25/23 Assessment & Plan (08/26/2023 1:43 PM BEHAVIORAL HEALTH CARE MANAGER): Continue pentamidine monthly. Last received 08/25/23 Assessment & Plan (08/25/2023 1:59 PM BEHAVIORAL HEALTH CARE MANAGER): Continue pentamidine monthly. Last received 08/25/23 Assessment & Plan (08/24/2023 11:35 AM BEHAVIORAL HEALTH CARE MANAGER): Continue pentamidine monthly. Last received 07/14, will receive injection today Assessment & Plan (08/23/2023 12:10 AM BEHAVIORAL HEALTH CARE MANAGER): Continue pentamidine monthly. Last received 07/14 per chart review and should receive prior to discharge. Assessment & Plan (08/14/2023 1:25 PM BEHAVIORAL HEALTH CARE MANAGER): Receiving immunosuppressive chemotherapy. - Pentam due 08/17 Assessment & Plan (08/09/2023 1:31 PM BEHAVIORAL HEALTH CARE MANAGER): Receiving immunosuppressive chemotherapy. Continue monthly pentamidine - Last dose given on 07/14. Next dose due on 08/14. Will administer prior to discharge. Assessment & Plan (08/08/2023 10:40 AM BEHAVIORAL HEALTH CARE MANAGER): Receiving immunosuppressive chemotherapy. Continue monthly pentamidine - Last dose given on 07/14. Next dose due on 08/14. Will administer prior to discharge. Assessment & Plan (08/07/2023 12:04 PM BEHAVIORAL HEALTH CARE MANAGER): Receiving immunosuppressive chemotherapy. - Last dose given on 07/14. Next dose due on 08/14. Will administer prior to discharge. Assessment & Plan (08/06/2023 11:13 AM BEHAVIORAL HEALTH CARE MANAGER): Receiving immunosuppressive chemotherapy. - Last dose given on 07/14. Next dose due on 08/14. Assessment & Plan (08/06/2023 11:09 AM BEHAVIORAL HEALTH CARE MANAGER): No signs/symptoms on ROS or physical exam. Remains at increased risk due to immunosuppressed status. Continue pentamidine monthly. Next due 08/14. Will give prior to discharge. Assessment & Plan (08/05/2023 12:31 PM BEHAVIORAL HEALTH CARE MANAGER): Receiving immunosuppressive chemotherapy. - Last dose given on 07/14. Next dose due on 08/14. Assessment & Plan (07/15/2023 4:17 PM BEHAVIORAL HEALTH CARE MANAGER): Receiving immunosuppressive chemotherapy. - Pentamidine last dose given 07/14 - Give every 4 weeks Assessment & Plan (07/14/2023 12:30 PM BEHAVIORAL HEALTH CARE MANAGER): Receiving immunosuppressive chemotherapy. - Pentamidine last dose given 06/04 - Give every 4 weeks; Will give today Assessment & Plan (07/13/2023 5:40 PM BEHAVIORAL HEALTH CARE MANAGER): Receiving immunosuppressive chemotherapy. - Pentamidine last dose given 06/04 - Give every 4 weeks; Will plan to give after clears MTX prior to discharge after MTX clears. Assessment & Plan (07/12/2023 2:30 PM BEHAVIORAL HEALTH CARE MANAGER): Receiving immunosuppressive chemotherapy. - Last dose given 06/04 - Give every 4 weeks; Will plan to give after clears MTX prior to discharge after MTX clears. Assessment & Plan (07/11/2023 4:34 PM BEHAVIORAL HEALTH CARE MANAGER): Receiving immunosuppressive chemotherapy. - Last dose given 06/04. - Give every 4 weeks; Will plan to give after clears MTX prior to discharge after MTX clears. Assessment & Plan (07/10/2023 1:22 PM BEHAVIORAL HEALTH CARE MANAGER): Receiving immunosuppressive chemotherapy. - Last dose given 06/04. - Give every 4 weeks; Will plan to give after clears MTX prior to discharge after MTX clears. Assessment & Plan (07/09/2023 1:05 PM BEHAVIORAL HEALTH CARE MANAGER): Receiving immunosuppressive chemotherapy. - Last dose given 06/04. - Give every 4 weeks; Will plan to give after clears MTX prior to discharge after MTX clears. Assessment & Plan (07/08/2023 11:19 AM BEHAVIORAL HEALTH CARE MANAGER): Receiving immunosuppressive chemotherapy. - Last dose given 06/04. - Give every 4 weeks; Will plan to give after clears MTX prior to discharge after MTX clears. Assessment & Plan (07/07/2023 1:17 PM BEHAVIORAL HEALTH CARE MANAGER): Receiving immunosuppressive chemotherapy. - Last dose given 06/04. - Give every 4 weeks; Will plan to give after clears MTX prior to discharge after MTX clears. Assessment & Plan (07/06/2023 5:27 PM BEHAVIORAL HEALTH CARE MANAGER): Receiving immunosuppressive chemotherapy. - Last dose given 06/04. - Give every 4 weeks; Will plan to give after clears MTX prior to discharge Assessment & Plan (06/22/2023 12:45 PM BEHAVIORAL HEALTH CARE MANAGER): Receiving immunosuppressive chemotherapy. - Last dose given 06/04. Next due 07/05. Assessment & Plan (06/21/2023 11:15 AM BEHAVIORAL HEALTH CARE MANAGER): Receiving immunosuppressive chemotherapy. - Last dose given 06/04. Next due 07/05. Assessment & Plan (06/20/2023 11:16 AM BEHAVIORAL HEALTH CARE MANAGER): Receiving immunosuppressive chemotherapy. - Last dose given 06/04. Next due 07/05. Assessment & Plan (06/19/2023 10:14 AM BEHAVIORAL HEALTH CARE MANAGER): Receiving immunosuppressive chemotherapy. - Last dose given 06/04. Next due 07/05. Assessment & Plan (06/18/2023 12:01 PM BEHAVIORAL HEALTH CARE MANAGER): Receiving immunosuppressive chemotherapy. - Last dose given 06/04. Next due 07/05. Assessment & Plan (06/17/2023 11:36 AM BEHAVIORAL HEALTH CARE MANAGER): Receiving immunosuppressive chemotherapy. - Last dose given 06/04. Next due 07/05. Assessment & Plan (06/16/2023 2:17 PM BEHAVIORAL HEALTH CARE MANAGER): Receiving immunosuppressive chemotherapy. - Last dose given 06/04. Next due 07/05. Assessment & Plan (06/15/2023 3:44 PM BEHAVIORAL HEALTH CARE MANAGER): Receiving immunosuppressive chemotherapy. - Last dose given 06/04. Next 07/05. Assessment & Plan (06/15/2023 8:18 AM BEHAVIORAL HEALTH CARE MANAGER): Receiving immunosuppressive chemotherapy. - Last dose given 06/04. Next due 07/05. Assessment & Plan (06/10/2023 1:07 PM CDT): Receiving immunosuppressive chemotherapy. - Last dose given 06/04. Next due 07/05. Assessment & Plan (06/09/2023 11:47 AM CDT): Receiving immunosuppressive chemotherapy. - Last dose given 06/04. Next 07/05. Assessment & Plan (06/04/2023 3:40 PM CDT): Receiving immunosuppressive chemotherapy - Pentamidine [id number]; Next 06/04 Assessment & Plan (06/03/2023 1:06 PM CDT): Receiving immunosuppressive chemotherapy - Pentamidine [id number]; Next 06/04 Assessment & Plan (06/02/2023 1:42 PM CDT): Receiving immunosuppressive chemotherapy - Pentamidine [id number]; Next 06/04 Assessment & Plan (06/01/2023 11:13 AM CDT): Receiving immunosuppressive chemotherapy - Pentamidine [id number]; Next due 06/04 Assessment & Plan (05/28/2023 12:42 PM CDT): Receiving immunosuppressive chemotherapy - Pentamidine [id number]; Next due 06/10 Assessment & Plan (05/27/2023 1:34 PM CDT): Receiving immunosuppressive chemotherapy - Pentamidine [id number]; Next due 06/10 Assessment & Plan (05/26/2023 12:07 PM CDT): Receiving immunosuppressive chemotherapy - Pentamidine [id number]; Next due 06/10 Assessment & Plan (05/25/2023 12:12 PM CDT): Receiving immunosuppressive chemotherapy - Pentamidine [id number]; Next due 06/10 Assessment & Plan (05/24/2023 4:59 AM CDT): Receiving immunosuppressive chemotherapy - Pentamidine [id number]; Next due 06/10 Assessment & Plan (05/23/2023 9:03 AM CDT): Receiving immunosuppressive chemotherapy - Pentamidine [id number]; Next due 06/10 Assessment & Plan (05/22/2023 8:56 AM CDT): Receiving immunosuppressive chemotherapy - Pentamidine [id number]; Next due 06/10 Assessment & Plan (05/21/2023 12:45 PM CDT): Receiving immunosuppressive chemotherapy - Pentamidine [id number]; Next due 06/10 Assessment & Plan (05/20/2023 1:46 PM CDT): Receiving immunosuppressive chemotherapy - Pentamidine [id number]; Next due 06/10 Assessment & Plan (05/19/2023 11:15 AM CDT): Receiving immunosuppressive chemotherapy - Pentamidine [id number]; Next due 06/10 Assessment & Plan (05/18/2023 1:11 PM CDT): Receiving immunosuppressive chemotherapy - Pentamidine [id number]; Next due 06/10 Assessment & Plan (05/17/2023 11:11 AM CDT): Receiving immunosuppressive chemotherapy - Pentamidine [id number]; Next due 06/10 Assessment & Plan (05/16/2023 8:10 AM CDT): Receiving immunosuppressive chemotherapy - Pentamidine [id number]; Next due 06/10 Assessment & Plan (05/15/2023 10:52 AM CDT): Receiving immunosuppressive chemotherapy - Pentamidine [id number]; Next due 06/10 Assessment & Plan (05/14/2023 12:31 PM CDT): Receiving immunosuppressive chemotherapy - Pentamidine [id number]; Next due 06/10 Assessment & Plan (05/13/2023 11:40 AM CDT): Receiving immunosuppressive chemotherapy - Pentamidine [id number]; Next due 06/10 Assessment & Plan (05/12/2023 12:37 PM CDT): Receiving immunosuppressive chemotherapy - Pentamidine [id number]; Next due 06/10 Assessment & Plan (05/11/2023 1:34 PM CDT): Receiving immunosuppressive chemotherapy - Pentamidine [id number]; Next due 06/10 Assessment & Plan (05/10/2023 6:53 AM CDT): Receiving immunosuppressive chemotherapy - Pentamidine today; Next due 06/10 Assessment & Plan (05/09/2023 7:57 AM CDT): Receiving immunosuppressive chemotherapy - Continue monthly pentamidine; Last dose given 04/10, next due 05/10 Assessment & Plan (05/08/2023 1:10 PM CDT): Receiving immunosuppressive chemotherapy - Continue monthly pentamidine; Last dose given 04/10, next due 05/10 Assessment & Plan (05/07/2023 9:59 AM CDT): Receiving immunosuppressive chemotherapy - Continue monthly pentamidine; Last dose given 04/10 Assessment & Plan (05/06/2023 7:13 PM CDT): Receiving immunosuppressive chemotherapy - Continue monthly pentamidine; Last dose given 04/10 Assessment & Plan (05/05/2023 11:12 AM CDT): Receiving immunosuppressive chemotherapy - Continue monthly pentamidine; Last dose given 04/10 Assessment & Plan (05/04/2023 6:59 PM CDT): Receiving immunosuppressive chemotherapy - Continue monthly pentamidine; Last dose given 04/10 Assessment & Plan (05/03/2023 10:49 AM CDT): Receiving immunosuppressive chemotherapy - Continue monthly pentamidine; Last dose given 04/10 Assessment & Plan (05/02/2023 10:26 AM CDT): Receiving immunosuppressive chemotherapy - Continue monthly pentamidine; Last dose given 04/10 Assessment & Plan (05/01/2023 12:06 PM CDT): Receiving immunosuppressive chemotherapy - Continue monthly pentamidine; Last dose given 04/10 Assessment & Plan (04/30/2023 1:29 PM CDT): Receiving immunosuppressive chemotherapy - Continue monthly pentamidine; Last dose given 04/10 Assessment & Plan (04/29/2023 1:24 PM CDT): Receiving immunosuppressive chemotherapy - Continue monthly pentamidine; Last dose given 04/10 Assessment & Plan (04/28/2023 2:09 PM CDT): Receiving immunosuppressive chemotherapy - Continue monthly pentamidine; Last dose given 04/10 Assessment & Plan (04/27/2023 1:24 PM CDT): Receiving immunosuppressive chemotherapy - Continue monthly pentamidine; Last dose given 04/10 Assessment & Plan (04/26/2023 10:17 AM CDT): Receiving immunosuppressive chemotherapy - Continue monthly pentamidine; Last dose given 04/10 Assessment & Plan (04/25/2023 9:34 AM CDT): Receiving immunosuppressive chemotherapy - Continue monthly pentamidine; Last dose given 04/10 Assessment & Plan (04/24/2023 1:11 PM CDT): Receiving immunosuppressive chemotherapy - Continue monthly pentamidine; Last dose given 04/10 Assessment & Plan (04/23/2023 1:18 PM CDT): Receiving immunosuppressive chemotherapy - Continue monthly pentamidine; Last dose given 04/10 Assessment & Plan (04/22/2023 12:26 PM CDT): Receiving immunosuppressive chemotherapy - Continue monthly pentamidine; Last dose given 04/10 Assessment & Plan (04/21/2023 3:38 PM CDT): Receiving immunosuppressive chemotherapy - Continue monthly pentamidine; Last dose given 04/10 Assessment & Plan (04/21/2023 2:19 PM CDT): No evidence on exam or history of active PJP. Remains at increased risk due to immunosuppressed status. 1. Continue monthly pentamidine; last dose given 04/10 Assessment & Plan (04/20/2023 2:18 PM CDT): Receiving immunosuppressive chemotherapy - Continue monthly pentamidine; Last dose given 04/10 Assessment & Plan (04/14/2023 3:50 PM CDT): Receiving immunosuppressive therapy - Continue monthly pentamidine, last 04/10 Assessment & Plan (04/13/2023 8:10 AM CDT): Receiving immunosuppressive therapy - Continue monthly pentamidine, last 04/10 Assessment & Plan (04/12/2023 10:08 AM CDT): Receiving immunosuppressive therapy - Continue monthly pentamidine, last 04/10 Assessment & Plan (04/11/2023 9:48 AM CDT): Receiving immunosuppressive therapy - Continue monthly pentamidine, last 04/10 Assessment & Plan (04/10/2023 1:16 PM CDT): Receiving immunosuppressive therapy - Continue monthly pentamidine, last 04/10 Assessment & Plan (2023 9:52 AM CDT): Receiving immunosuppressive therapy - Continue monthly pentamidine, last 03/14 Assessment & Plan (04/08/2023 10:17 AM CDT): Receiving immunosuppressive therapy - Continue monthly pentamidine, last 03/14 Assessment & Plan (04/07/2023 5:01 PM CDT): Receiving immunosuppressive therapy - Continue monthly pentamidine, last 03/14 Assessment & Plan (04/06/2023 10:34 AM CDT): Receiving immunosuppressive therapy - Continue monthly pentamidine, last 03/14 Assessment & Plan (04/06/2023 10:13 AM CDT): Receiving immunosuppressive therapy - Continue monthly pentamidine, last 03/14 Assessment & Plan (04/05/2023 9:37 AM CDT): Receiving immunosuppressive therapy - Continue monthly pentamidine, last 03/14 Assessment & Plan (04/04/2023 9:46 AM CDT): See above. Assessment & Plan (04/03/2023 7:04 PM CDT): See above. Assessment & Plan (04/02/2023 2:09 PM CDT): See above. Assessment & Plan (04/01/2023 11:16 AM CDT): See above. Assessment & Plan (03/31/2023 11:16 AM CDT): See above. Assessment & Plan (03/30/2023 11:35 AM CDT): See above. Assessment & Plan (03/29/2023 11:52 AM CDT): See above. Assessment & Plan (03/28/2023 7:13 AM CDT): See above. Assessment & Plan (03/27/2023 7:42 AM CDT): See above. Assessment & Plan (03/26/2023 10:04 AM CDT): See above. Assessment & Plan (03/25/2023 7:13 AM CDT): Pt did not tolerate PO TMP-SMX. S/p pentamidine 8/5. Will encourage pt adherence with PO meds. Assessment & Plan (03/24/2023 7:29 AM CDT): Pt did not tolerate PO TMP-SMX. S/p pentamidine 8/5. Will encourage pt adherence with PO meds. Assessment & Plan (03/23/2023 7:42 AM CDT): Pt did not tolerate PO TMP-SMX. S/p pentamidine 8/5. Will encourage pt adherence with PO meds. Assessment & Plan (03/22/2023 12:18 PM CDT): Pt did not tolerate PO TMP-SMX. S/p pentamidine 8/5. Will encourage pt adherence with PO meds. Assessment & Plan (03/21/2023 7:47 AM CDT): Pt did not tolerate PO TMP-SMX. S/p pentamidine 8/5. Will encourage pt adherence with PO meds. Assessment & Plan (03/20/2023 8:25 AM CDT): Pt did not tolerate PO TMP-SMX. S/p pentamidine 8/5. Will encourage pt adherence with PO meds. Assessment & Plan (03/19/2023 11:08 AM CDT): Pt did not tolerate PO TMP-SMX. S/p pentamidine 8/5. Will encourage pt adherence with PO meds. Assessment & Plan (03/18/2023 7:31 AM CDT): Pt did not tolerate PO TMP-SMX. S/p pentamidine 8/5. Will encourage pt adherence with PO meds. Assessment & Plan (03/17/2023 7:35 AM CDT): Pt did not tolerate PO TMP-SMX. S/p pentamidine 8/5. Will encourage pt adherence with PO meds. Assessment & Plan (03/16/2023 9:53 AM CDT): Pt did not tolerate PO TMP-SMX. S/p pentamidine 8/5. Will encourage pt adherence with PO meds. Assessment & Plan (03/15/2023 12:30 PM CDT): Pt did not tolerate PO TMP-SMX. S/p pentamidine 8/5. Assessment & Plan (03/14/2023 11:03 AM CDT): Pt did not tolerate PO TMP-SMX. Will administer pentamidine 8/5. 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 She is here today for Maintenance Cycle 6 Day 1. She has not been taking her PO chemotherapy routinely during Maintenance. Today, she reports taking no chemotherapy in the past month. Labs today - WBC 6.09, Hgb 12.2, plts 185k, ANC 3710. 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 She is here today for Maintenance Cycle 5 Day 57. She has not been taking her PO chemotherapy routinely during Maintenance. Today, she reports taking approximately 10 doses of chemotherapy in the past month. Labs today - WBC 5.64, Hgb 11.9, plts 191, ANC 3429. 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 She is here today for Maintenance Cycle 5 Day 29. She has not been taking her PO chemotherapy routinely during Maintenance. Today, she reports taking one known dose of chemotherapy and then taking it off and on. Labs today - WBC 5.38, Hgb 12, plts 183, ANC 3658. 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 She is here today for Maintenance Cycle 3 Day 57 She has not been taking her PO chemotherapy routinely during Maintenance but does report taking her Mercaptopurine for approximately one week. She has not recently taken her PO MTX. Labs today - WBC Hgb , plts , ANC . 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 She is here today for Maintenance Cycle 3 Day 29. She has not been taking her PO chemotherapy routinely during Maintenance but does report taking her Mercaptopurine for approximately one week. She has not recently taken her PO MTX. Labs today - WBC 5, Hgb 11.8, plts 162, ANC 3560. 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 She is here today for Maintenance Cycle 2 Day 57. She is not taking her PO chemotherapy routinely. Labs today - WBC 4.4, Hgb 11.3, plts 157, ANC 3137. 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 She is here today for Maintenance Cycle 2 Day 29. She is not taking her PO chemotherapy routinely. Labs today - WBC 3.5, Hgb 11.4, plts 170, ANC 2054. 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 She is here today for an interval visit due to recent complaints of a bar under her left armpit. She is not routinely taking her PO chemotherapy. 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 She is here today for Maintenance 2 Day 1. Suyapa is doing overall well today. She was not taking PO chemotherapy until sometime last week, when she began taking it again. Labs today - WBC 3.6, Hgb 10.4, plts 133, ANC 2412, Cr 0.61, ALT 10, AST 23, total bili 0.3. 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 She is currently Maintenance 1 Day 68 but reports that she is not taking any PO Mercaptopurine or PO MTX at this time. She presents today for evaluation of left knee pain and ongoing back pain. 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 She is here today for Maintenance Cycle 1 Day 29. She is doing well today but reports that she had significant nausea and fatigue while taking her PO 6MP and PO MTX, so she did not take her PO chemotherapy last week. She expresses wanting to stop PO chemotherapy but has agreed to take PO chemotherapy for another week with a dose reduction in 6MP and omitting steroids. Labs today - WBC 2.3, Hgb 9.1, plts 67, ANC 1702. Labs and exam ok to proceed with chemotherapy today Will decrease PO Mercaptopurine to 18.75mg/m2/dose (25% dosing) after care conference and discussion with Dr. 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 She is here today to begin Maintenance Cycle 1 Day 15. Suyapa has returned from a cruise trip to [facility], [place] and [place] which she took against medical advice. Suyapa verbalized her understanding of the risk of travel. She was given Maintenance 1, day 1 Vincristine 1.5mg/m2 and we delayed the initiation of oral chemotherapy, and IT Methotrexate until return from [facility]. Discussed the risk of delay in therapy with Suyapa. Her CBC today shows WBC count of 3.8, Hgb 9.2 and plts of 102k. ANC is 3000. She meets counts to receive chemotherapy today. PO MTX 20mg/m2/dose weekly PO Mercaptapurine 37.5mg/m2. Plan to stat 6MP at 50% of dosing due to her history of elevated 6MMP. 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 She is here today to begin Maintenance Cycle 1 Day 1(delayed from 03/24 d/t counts and patient schedule). WBC 3.5, Hgb 8.7, Platelets 150K, ANC 2891 Suyapa discussed today her intent to travel on a cruise to [facility] from 04/17- 04/24. We discussed in detail the risk and that it was not medically recommended to travel due to remote location and unknown access to healthcare. Suyapa verbalized her understanding of the risk of travel in this situation and her intent to pursue her travel plans beginning on 04/17. Discussed with Dr. Pal and Dr. Stevens the risk of starting new oral chemotherapy which already are requiring modification due to previous metabolism poses an unacceptable level of risk. Will give Maintenance 1, day 1 Vincristine 1.5mg/m2 and delay the initiation of oral chemotherapy, oral steroid burst, and IT Methotrexate until return from [facility]. Discussed the risk of delay in therapy with Suyapa. She stated understanding of risk of relapsed disease. 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 She is here today to begin Maintenance Cycle 1 Day 1. She is doing well today. Labs today - WBC 1.9, Hgb 6.8, plts 122, ANC 670. Suyapa does not make counts to begin Maintenance today. 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 She is doing overall well today. Labs today - WBC 1.8, Hgb 7.5, plts 65, ANC 649, total bili 0.6, creatinine 0.64, ALT 59, AST 52. Was due to receive make-up LP with IT MTX today from Day 31; however, will be unable to give today due to scheduling and patient transportation challenges. 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 She is doing overall well today. Labs today - WBC 2, Hgb 8.1, plts 96, ANC 1192. Cr 0.77, AST 55, ALT 72, total bili 0.5. Labs and clinical status OK to proceed with chemotherapy today Vincristine 1.5mg/m2 IV, Methotrexate 150mg/m2 IV HOLD IT MTX today due to patient eating prior to appointment; will reschedule to Day 41 Continue supportive care measures as needed Return to clinic in 10 days for IM II Day 41 Assessment & Plan (02/12/2024 1:11 PM CDT): Suyapa English is an 18 y/o female with VHR pre-B ALL receiving chemotherapy per [id number], currently in Maintenance. Today is Day 28. 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 - Due for Day 31 on 02/14 Assessment & Plan (02/06/2024 10:41 AM CDT): Suyapa is an 18 y.o. 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 She presents from clinic after having vomiting and lower back pain. Upon arrival to the floor, she was resting comfortably. Vitals normal. Her back pain is likely acute on chronic due to her chemotherapy. She was admitted ~1 week ago for similar pain. She also has had a 10 pound weight loss in the past week. She said that she feels like she gets full quickly. She has been afebrile, making infection or serious cause of back pain, like epidural abscess, less likely. She will remain admitted for calaspargase today. Will treat her nausea and pain supportively. -mIVF -pain 1st line tylenol prn q6 -2nd line: oxy 5 mg prn q4 -morphine PRN -zofran, benadryl/compazine prn for nausea -calaspargase today: monitor for side effects (has had pancreatitis with it before) -send stool cultures -daily CBC Assessment & Plan (02/05/2024 5:43 PM CDT): Suyapa is an 18 y.o. 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 She presents today from clinic after having vomiting and lower back pain. Upon arrival to the floor, she was resting comfortably. Vitals normal. Her back pain is likely acute on chronic due to her chemotherapy. She was admitted ~1 week ago for similar pain. She also has had a 10 pound weight loss in the past week. She has been afebrile, making infection or serious cause of back pain, like epidural abscess, less likely. Her counts are all stable. She is s/p vincristine and methotrexate. Will admit for pain and nausea management. She will also get calaspargase tomorrow. -mIVF -pain 1st line tylenol prn q6 -2nd line: oxy 5 mg prn q4 -zofran prn for nausea -calaspargase tomorrow Assessment & Plan (02/03/2024 6:51 PM CDT): Suyapa is an 18 year old with VHR pre-B ALL, being treated off study according to [id number], presenting today for Interim Maintenance II Day 11. She is doing overall well today. Labs and clinical status OK to proceed with chemotherapy today Vincristine 1.5mg/m2 IV, Methotrexate 150mg/m2 IV Continue supportive care measures as needed Return to clinic tomorrow for IM II day 21 Assessment & Plan (01/27/2024 2:31 PM CDT): On [id number] off therapy on interim maintenance II. Last chemo was on 01/17. She is scheduled for chemo 01/27. This will be pushed back to at least 01/31, as platelet count is below 50k. Assessment & Plan (01/26/2024 11:31 AM CDT): On [id number] off therapy on interim maintenance II. Last chemo was on 01/17. Assessment & Plan (01/25/2024 2:24 PM CDT): On [id number] off therapy on interim maintenance II. Last chemo was on 01/17. Assessment & Plan (01/13/2024 2:12 AM CDT): On interim maintenance II per [id number] VHR arm. - due on 01/14 for day 11 vincristine and low dose methotrexate Assessment & Plan (01/08/2024 4:54 PM CDT): Suyapa is an 18 year old with VHR pre-B ALL, being treated off study according to [id number], presenting today for Interim Maintenance II Day 1. She is doing overall well today. Labs - WBC 2.2, Hgb 8.7, plts 137, ANC 1590, Cr 0.61, AST 47, ALT 56, total bili 0.6. Labs and clinical status OK to proceed with chemotherapy today Vincristine 1.5mg/m2 IV, Methotrexate 100mg/m2 IV IT MTX 15mg in IR Continue supportive care measures as needed Return to clinic tomorrow for IM II day 2 Assessment & Plan (12/25/2023 3:19 PM CDT): History of VHR MAURICE who completed day 50 of delayed intensification on 12/20 being treated off study on AALL 1131. Due for Interim Maintenance on 12/27. - Monitor daily CBC - Plan to start IM on 01/04 (delayed d/t scheduling) Assessment & Plan (12/24/2023 4:29 PM CDT): History of VHR MAURICE who completed day 50 of delayed intensification on 12/20 being treated off study on AALL 113. Due for interim maintenance 12/28/23. - Follow daily CBC Assessment & Plan (12/23/2023 5:23 PM CDT): History of VHR MAURICE who completed day 50 of delayed intensification on 12/20 being treated off study on AALL 1131. Due for interim maintenance 12/28/23. 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 Labs and clinical status OK to proceed with chemotherapy today Vincristine IV x 1, Quinn-asparaginase IV w/pre-meds prior Continue supportive care measures as needed Return to clinic in 1 week for labs and chemotherapy Assessment & Plan (12/07/2023 4:44 PM CDT): Currently receiving therapy per [id number]. She is in delayed intensification today is day 39. CBC with Hgb 7.4, Plt 67. ANC stable at 727. - Days 36-39: Abbi-C - Daily CBC - s/p x 1 RBC (11/19) Assessment & Plan (12/06/2023 10:38 AM CDT): Currently receiving therapy per [id number]. She is in delayed intensification today is day 38. CBC with Hgb 7.4, Plt 67. ANC stable at 727. - Days 36-39: Abbi-C - Daily CBC - s/p x 1 RBC (11/19) Assessment & Plan (12/05/2023 11:25 AM CDT): Currently receiving therapy per [id number]. She is in delayed intensification today is day 37. CBC with Hgb 7.4, Plt 67. ANC stable at 727. - Days 36-39: Abbi-C - Daily CBC - s/p x 1 RBC (11/19) Assessment & Plan (12/04/2023 2:20 PM CDT): Currently receiving therapy per [id number]. She is in delayed intensification today is day 36. CBC with stable Hgb 7.7 and Plt 78. ANC down-trending at 723. - Days 36-39: Abbi-C - Daily CBC - s/p x 1 RBC (11/19) Assessment & Plan (12/03/2023 6:05 PM CDT): Currently receiving therapy per [id number]. She is in delayed intensification today is day 35. CBC with down-trending Hgb 7.8 (from 8.4) and Plt 80 (from 90). ANC 920 - Day 31: Abbi-C, PO 6TG daily x 14 days - Daily CBC - s/p x 1 RBC (11/19) Assessment & Plan (12/02/2023 5:22 PM CDT): Currently receiving therapy per [id number]. She is in delayed intensification today is day 34. - Day 31: Abbi-C, PO 6TG daily x 14 days - Daily CBC - s/p x 1 RBC (11/19) Assessment & Plan (12/01/2023 3:11 PM CDT): Currently receiving therapy per [id number]. She is in delayed intensification today is day 33. CBC today with up-trending Hgb, Plt, and stable ANC. - Day 31: Abbi-C, PO 6TG daily x 14 days - Daily CBC - s/p x 1 RBC (11/19) Assessment & Plan (11/30/2023 11:10 AM CDT): Currently receiving therapy per [id number]. She is in delayed intensification today is day 32. CBC today with Hgb 8.8, Plt 79, WBC 2.1. Overall stable with up-trending ANC. - Day 31: Abbi-C, PO 6TG daily x 14 days - Daily CBC - s/p x 1 RBC (11/19) Assessment & Plan (11/29/2023 10:48 AM CDT): Currently receiving therapy per [id number]. She is in delayed intensification today is day 31. CBC today with Hgb 8.8, Plt 79, WBC 2.1. Overall stable with up-trending ANC. - Day 31: Abbi-C, PO 6TG daily x 14 days - Daily CBC - s/p x 1 RBC (11/19) Assessment & Plan (11/28/2023 11:57 AM CDT): Currently receiving therapy per [id number]. She is in delayed intensification today is day 33. CBC today with Hgb 8.5, Plt 99, WBC 2.0, ANC 1448. Overall stable with up- trending ANC. - Day 29: IT MTX, Cytoxan, Abbi-C, PO 6TG daily x 14 days - For chemotherapy treatment: Must have ANC > 750, Plt >75 - Daily CBC - s/p x 1 RBC (11/19) Assessment & Plan (11/27/2023 11:10 AM CDT): Currently receiving therapy per [id number]. She is in delayed intensification today is day 33. This AM, LP/IT MTX without complications. CBC today with Hgb 9.2, Plt 84, WBC 1.9, ANC 982. Overall stable. - Day 29: IT MTX, Cytoxan, Abbi-C, PO 6TG daily x 14 days - For chemotherapy treatment: Must have ANC > 750, Plt >75 - Daily CBC - s/p x 1 RBC (11/19) Assessment & Plan (11/26/2023 10:43 AM CDT): Currently receiving therapy per [id number]. She is in delayed intensification today is day 32. CBC today with Hgb 10.1, Plt 113, WBC 1.8, ANC 769. Overall stable. - Next scheduled chemo on day 29, 11/08 - HELD - Must have ANC > 750, Plt >75 - Daily CBC - s/p x 1 RBC (11/19) - LP scheduled 11/26 8 AM, NPO @ 0000 Assessment & Plan (11/25/2023 3:10 PM CDT): Currently receiving therapy per [id number]. She is in delayed intensification today is day 30. CBC today with Hgb 9.4, Plt 76, WBC 1.6, ANC 779. Overall stable with up- trending counts. - Next scheduled chemo on day 29, 11/08 - HELD - Must have ANC > 750, Plt >75 - Daily CBC - s/p x 1 RBC (11/19) Assessment & Plan (11/24/2023 11:01 AM CDT): Currently receiving therapy per [id number]. She is in delayed intensification today is day 30. CBC today with Hgb 9.6, Plt 65, WBC 1.5, ANC 700. Overall stable with up- trending counts from yesterday. - Next scheduled chemo on day 29, 11/08 - HELD - Must have ANC > 750, Plt >75 - Daily CBC - s/p x 1 RBC (11/19) Assessment & Plan (11/23/2023 2:27 PM CDT): Currently receiving therapy per [id number]. She is in delayed intensification today is day 29. CBC today with Hgb 8.4, Plt 46, WBC 1.1, ANC 400. Overall stable from yesterday. - Next scheduled chemo on day 29, 11/08 - HELD - Must have ANC > 750, Plt >75 - Daily CBC - s/p x 1 RBC (11/19) Assessment & Plan (11/22/2023 7:48 AM CDT): Currently receiving therapy per [id number]. She is in delayed intensification today is day 28. CBC today with Hgb 8.3, Plt 41, WBC 1.2, ANC 300. Overall stable from yesterday. - Next scheduled chemo on day 11/22 - Must have ANC > 750, Plt >75 - Daily CBC - s/p x 1 RBC (11/19) Assessment & Plan (11/21/2023 5:07 PM CDT): Currently receiving therapy per [id number]. She is in delayed intensification today is day 27. CBC today with Hgb 8.5, Plt 33, WBC 0.9, ANC 200. Overall stable from yesterday. - Next scheduled chemo on day 11/22 - Must have ANC > 750, Plt >75 - Daily CBC - s/p x 1 RBC (11/19) Assessment & Plan (11/20/2023 1:02 PM CDT): Currently receiving therapy per [id number]. She is in delayed intensification today is day 26. Hgb 7.2, decreased from from 8.7 yesterday. VSS. Will plan to transfuse with x 1 RBCs. Plt 35 (stable). WBC 1.0 with ANC 200. - Next scheduled chemo on day 11/22 - Must have ANC > 750, Plt >75 - Daily CBC - T&S Assessment & Plan (11/20/2023 11:01 AM CDT): Currently receiving therapy per [id number]. She is in delayed intensification today is day 26. - Next scheduled chemo on day 11/22 - Must have ANC > 750, Plt >75 - Daily CBC Assessment & Plan (11/19/2023 4:22 PM CDT): Currently receiving therapy per [id number]. She is in delayed intensification today is day 25. - Next scheduled chemo on day 11/22 - Must have ANC > 750, Plt >75 - Daily CBC Assessment & Plan (11/19/2023 2:56 PM CDT): Suyapa English is a 18 year old with VHR pre B ALL currently receiving therapy per [id number], presenting today for a sick visit. She is currently Delayed Intensification day 25 of therapy. Will plan to delay Delayed Intensification day 29 of therapy admission until 11/26 pending counts (due to counts and logistics for Abbi-C/6TG administration) Assessment & Plan (11/19/2023 9:43 AM CDT): Suyapa English is a 18 year old with VHR pre B ALL currently receiving therapy per [id number], currently in Delayed Intensification Day 24. She presents today after an interval visit and pre-chemotherapy labs for Day 29. She is reporting mild leg pain, which is likely attributed to recent high-dose steroids. Labs today - WBC 1.5, Hgb 8.9, plts 42, ANC 297. Pt does not make parameters for Day 29 chemotherapy. Will delay Delayed Intensification Day 29 to 11/29 Obtain pre-chemo labs Sunday 11/26 Supportive care as needed Plan continues to be to admit for Cytarabine doses Assessment & Plan (10/27/2023 10:48 AM CDT): Suyapa English is a 18 year old with VHR pre B ALL currently receiving therapy per [id number], presenting today Delayed Intensification Day 1. Chemotherapy was delayed due to pt's recent G-tube insertion to allow adequate time for healing. WBC 4.7, Hgb 9.9, plts 144, ANC 3929. ALT 16, AST 20, total bili 0.3. Labs and exam okay to proceed with chemotherapy today Vincristine 1.5mg/m2, Doxorubicin 25mg/m2 with Zinecard 250mg/m2 prior IT MTX 15mg today in IR Start Dexamethasone 5mg/m2/dose BID days 1-7 Supportive care as needed Return 10/28 for DI Day 4 (Calaspargase) Assessment & Plan (10/13/2023 12:44 PM BEHAVIORAL HEALTH CARE MANAGER): Suyapa has high risk pre B cell ALL and is being treated per [id number]. - DI has been delayed 2 weeks to allow healing post G-tube placement Assessment & Plan (10/12/2023 2:24 PM BEHAVIORAL HEALTH CARE MANAGER): Suyapa has high risk pre B cell ALL and is being treated per [id number]. - DI has been delayed 2 weeks to allow healing post G-tube placement Assessment & Plan (10/11/2023 7:55 AM BEHAVIORAL HEALTH CARE MANAGER): Suyapa has high risk pre B cell ALL and is being treated per [id number]. - DI has been delayed 2 weeks to allow healing post G-tube placement Assessment & Plan (10/10/2023 2:05 PM BEHAVIORAL HEALTH CARE MANAGER): Suyapa has high risk pre B cell ALL and is being treated per [id number] - DI has been delayed 2 weeks to allow healing post G-tube placement Assessment & Plan (10/09/2023 3:24 PM BEHAVIORAL HEALTH CARE MANAGER): Suyapa has high risk pre B cell ALL and is being treated per [id number] - DI has been delayed 2 weeks to allow healing post G-tube placement Assessment & Plan (10/08/2023 2:04 PM BEHAVIORAL HEALTH CARE MANAGER): Suyapa has high risk pre B cell ALL and is being treated per [id number] - DI has been delayed 2 weeks to allow healing post G-tube placement Assessment & Plan (10/06/2023 3:25 PM BEHAVIORAL HEALTH CARE MANAGER): Suyapa English is a 18 year old with VHR pre B ALL currently receiving therapy per [id number], recently completed Interim Maintenance I Day 43 (HD MTX). Ramesh was admitted 09/21- for HD MTX but also for fever rule out. She received CTX. Her RVP + coronavirus OC43 at the time. Ramesh stopped her 6MP as prescribed. She is scheduled to receive a g-tube on . She is scheduled to begin Delayed Intensification on 10/25. Supportive care as needed Return after pt recovers from g-tube placement for DI on 10/25 Assessment & Plan (09/25/2023 2:02 PM BEHAVIORAL HEALTH CARE MANAGER): Suyapa English is an 18 y.o. female with VHR pre-B ALL admitted for scheduled chemotherapy per [id number], Interim Maintenance I, HD MTX, Day 43, off study. She cleared at hour 48. - [id number], Interm Maintenance I, Day 43, HD MTX, off study (Day 1= 09/21) Day 43: VCR, HD MTX (+leucovorin starting @ hr 42) Days 43-56: 6MP - PT/OT consults - ECHO/EKG obtained - Will delay start of DI to 318 to allow healing after G-Tube placement Assessment & Plan (09/24/2023 5:44 PM BEHAVIORAL HEALTH CARE MANAGER): Suyapa English is an 18 y.o. female with VHR pre-B ALL admitted for scheduled chemotherapy per [id number], Interim Maintenance I, HD MTX, Day 43, off study. She cleared at hour 48. - [id number], Interm Maintenance I, Day 43, HD MTX, off study (Day 1= 09/21) Day 43: VCR, HD MTX (+leucovorin starting @ hr 42) Days 43-56: 6MP - PT/OT consults - ECHO/EKG obtained - Will delay start of DI to 10/25 to allow healing after G-Tube placement Assessment & Plan (09/23/2023 3:30 PM BEHAVIORAL HEALTH CARE MANAGER): Suyapa English is an 18 y.o. female with VHR pre-B ALL admitted for scheduled chemotherapy per [id number], Interim Maintenance I, HD MTX, Day 43, off study. She will have her 42 hour MTX level this afternoon. - [id number], Interm Maintenance I, Day 43, HD MTX, off study (Day 1= 09/21) Day 43: VCR, HD MTX (+leucovorin starting @ hr 42) Days 43-56: 6MP - Will give 6MP at 43% dosing (10.75mg/m2/dose) concurrently with allopurinol 100mg daily d/t elevated 6MP levels - Hyperhydration 200ml/m2/hr continue at least 48 hours and clears MTX - MTX level at hr 24, (36), 42, 48, then q12hr - BMP with every MTX level - Begin leucovorin rescue starting at hr 42 per protocol - strict I/O; Monitor UOP 2ml/kg/hr every 4 hours; UA for SG and pH Q4 - Antiemetics per standard of care - PT/OT consults - ECHO/EKG obtained Assessment & Plan (09/22/2023 10:16 AM BEHAVIORAL HEALTH CARE MANAGER): Suyapa English is an 18 y.o. female with VHR pre-B ALL admitted for scheduled chemotherapy per [id number], Interim Maintenance I, HD MTX, Day 43, off study. She will have her 24 hour MTX level at 2115 tonight. - [id number], Interm Maintenance I, Day 43, HD MTX, off study (Day 1= 09/21) Day 43: VCR, HD MTX (+leucovorin starting @ hr 42) Days 43-56: 6MP - Will give 6MP at 43% dosing (10.75mg/m2/dose) concurrently with allopurinol 100mg daily d/t elevated 6MP levels - Hyperhydration 200ml/m2/hr continue at least 48 hours and clears MTX - MTX level at hr 24, (36), 42, 48, then q12hr - BMP with every MTX level - Begin leucovorin rescue starting at hr 42 per protocol - strict I/O; Monitor UOP 2ml/kg/hr every 4 hours; UA for SG and pH Q4 - Antiemetics per standard of care - PT/OT consults - ECHO/EKG prior to discharge for Delayed Intensification Assessment & Plan (09/21/2023 2:01 PM BEHAVIORAL HEALTH CARE MANAGER): Suyapa English is an 18 y.o. female with VHR pre-B ALL admitted for scheduled chemotherapy per [id number], Interim Maintenance I, HD MTX, Day 43, off study. - [id number], Interm Maintenance I, Day 43, HD MTX, off study (Day 1= 09/21) Day 43: VCR, HD MTX (+leucovorin starting @ hr 42) Days 43-56: 6MP - Will give 6MP at 43% dosing (10.75mg/m2/dose) concurrently with allopurinol 100mg daily d/t elevated 6MP levels - Hyperhydration 200ml/m2/hr continue at least 48 hours and clears MTX - MTX level at hr 24, (36), 42, 48, then q12hr - BMP with every MTX level - Begin leucovorin rescue starting at hr 42 per protocol - strict I/O; Monitor UOP 2ml/kg/hr every 4 hours; UA for SG and pH Q4 - Antiemetics per standard of care - PT/OT consults Assessment & Plan (08/23/2023 1:44 AM BEHAVIORAL HEALTH CARE MANAGER): See Oncology History for details. Assessment & Plan (08/06/2023 10:51 AM BEHAVIORAL HEALTH CARE MANAGER): Suyapa English is a 18 year old with VHR pre B ALL currently receiving therapy per [id number], presenting today for admission for Interim Maintenance I, day 15 HDMTX (delayed 17 days due to counts and further delayed for patient request). WBC 7.2, Hgb 10.2,Platelets 127K, ANC 6235 Ok to proceed with Interim Maintenance day 15 of therapy once urine parameters are met Vincristine 1.5mg/m2 HD MTX 5000mg/m2 Leucovorin beginning at hour 42 and continuing q6 hours until Methotrexate cleared per protocol Continue hydration at 200ml/m2/hour until urine parameters are met and post methotrexate until drug cleared per protocol Restart mercaptopurine at 10.75mg/m2/dose due to history of elevated 6MMP levels and now concurrent allopurinol use Return to clinic 08/17 for Interim Maintenance I, day 29 of therapy Assessment & Plan (07/27/2023 3:58 PM BEHAVIORAL HEALTH CARE MANAGER): Ramesh English is an 18 y/o female diagnosed with VHR pre B ALL currently receiving chemotherapy per protocol [id number]. She was due to receive HD MTX Day 15 today; however, declined admission due to grandmother's out of town on Sunday 07/29. - Plan to delay chemotherapy to next Sunday 08/05 Assessment & Plan (07/15/2023 4:16 PM BEHAVIORAL HEALTH CARE MANAGER): Suyapa English is an 18 y.o. female with pre-B ALL admitted for scheduled chemotherapy per [id number], Interim Maintenance I, HD MTX, Day 1, off study. Hour 192 MTX level at was 0.08. - [id number], Interm Maintenance I, Day 1, HD MTX, off study (Day 1= 07/06/23) Day 1: IT MTX, VCR, HD MTX Days 1-56: 6MP - Will give 6MP at 43% dosing (10.75mg/m2/dose) concurrently with allopurinol 100mg daily d/t elevated 6MP levels - HELD - Missed 6-MP and allopurinol 07/10, 07/11, 07/12 - now HELD due to counts - Discontinue hyperhydration, urine parameters and leucovorin - Antiemetics per standard of care - PT/OT/Psych consults - Consult psychiatry today Assessment & Plan (07/14/2023 12:30 PM BEHAVIORAL HEALTH CARE MANAGER): Suyapa English is an 18 y.o. female with pre-B ALL admitted for scheduled chemotherapy per [id number], Interim Maintenance I, HD MTX, Day 1, off study. Hour 180 MTX level at 0600 was 0.11. Her 192 hour level will be at 1800 tonight. She needs to be <0.1 to clear. - [id number], Interm Maintenance I, Day 1, HD MTX, off study (Day 1= 07/06/23) Day 1: IT MTX, VCR, HD MTX Days 1-56: 6MP - Will give 6MP at 43% dosing (10.75mg/m2/dose) concurrently with allopurinol 100mg daily d/t elevated 6MP levels - HELD - Missed 6-MP and allopurinol 07/10, 07/11, 07/12 - now HELD due to counts - Continue increased hyperhydration IVFs @ 200ml/m2/hr until clears MTX - MTX level at hr 24, (36), 42, 48, then q12hr - BMP with every MTX level - Begin leucovorin rescue starting at hr 42, then Q3h (increased to Q3h d/t MTX levels) - Antiemetics per standard of care - Strict I/O; Monitor UOP every 4 hours, SG/pH - PT/OT/Psych consults Assessment & Plan (07/13/2023 5:39 PM BEHAVIORAL HEALTH CARE MANAGER): Suyapa English is an 18 y.o. female with pre-B ALL admitted for scheduled chemotherapy per [id number], Interim Maintenance I, HD MTX, Day 1, off study. Hour 144 MTX level 0.16, creatinine 0.86, Hour 156 MTX 0.16, creatinine 0.87. She needs to be <0.1 to clear. - [id number], Interm Maintenance I, Day 1, HD MTX, off study (Day 1= 07/06/23) Day 1: IT MTX, VCR, HD MTX Days 1-56: 6MP - Will give 6MP at 43% dosing (10.75mg/m2/dose) concurrently with allopurinol 100mg daily d/t elevated 6MP levels - HELD - Missed 6-MP and allopurinol 07/10, 07/11, 07/12 - now HELD due to counts - Continue increased hyperhydration IVFs @ 200ml/m2/hr until clears MTX - MTX level at hr 24, (36), 42, 48, then q12hr - BMP with every MTX level - Begin leucovorin rescue starting at hr 42, then Q3h (increased to Q3h d/t MTX levels) - Antiemetics per standard of care - Strict I/O; Monitor UOP every 4 hours, SG/pH - PT/OT/Psych consults Assessment & Plan (07/12/2023 2:33 PM BEHAVIORAL HEALTH CARE MANAGER): Suyapa English is an 18 y.o. female with pre-B ALL admitted for scheduled chemotherapy per [id number], Interim Maintenance I, HD MTX, Day 1, off study. 120h MTX level 0.23, Cr 0.8. 132h MTX level 0.2, Cr 0.86. Ramesh will have her hour 144 MTX level at 1800 this evening. She needs to be <0.1 to clear. - [id number], Interm Maintenance I, Day 1, HD MTX, off study (Day 1= 07/06/23) Day 1: IT MTX, VCR, HD MTX Days 1-56: 6MP - Will give 6MP at 43% dosing (10.75mg/m2/dose) concurrently with allopurinol 100mg daily d/t elevated 6MMP levels - Missed 6-MP and allopurinol 07/10, 07/11 - Continue increased hyperhydration IVFs @ 200ml/m2/hr until clears MTX - MTX level at hr 24, (36), 42, 48, then q12hr - BMP with every MTX level - Begin leucovorin rescue starting at hr 42, then Q3h (increased to Q3h d/t MTX levels) - Antiemetics per standard of care - Strict I/O; Monitor UOP every 4 hours, SG/pH - PT/OT/Psych consults Assessment & Plan (07/11/2023 7:07 PM BEHAVIORAL HEALTH CARE MANAGER): Suyapa English is an 18 y.o. female with pre-B ALL admitted for scheduled chemotherapy per [id number], Interim Maintenance I, HD MTX, Day 1, off study. Hour 72 level 0.78 and hour 84 level 0.55. 96 hour level was .36 and 108 hour level was .30. She needs to be <0.1 to clear. - [id number], Interm Maintenance I, Day 1, HD MTX, off study (Day 1= 07/06/23) Day 1: IT MTX, VCR, HD MTX Days 1-56: 6MP - Will give 6MP at 43% dosing (10.75mg/m2/dose) concurrently with allopurinol 100mg daily d/t elevated 6MMP levels -Missed 6-MP and allopurinol 07/10 - Continue increased hyperhydration IVFs @ 200ml/m2/hr until clears MTX; will continue IVFs through at least hour 54 despite clearance prior to - MTX level at hr 24, (36), 42, 48, then q12hr - BMP with every MTX level - Begin leucovorin rescue starting at hr 42, then Q3h (increased to Q3h d/t MTX levels) - Antiemetics per standard of care - Strict I/O; Monitor UOP every 4 hours, SG/pH - PT/OT/Psych consults Assessment & Plan (07/10/2023 1:22 PM BEHAVIORAL HEALTH CARE MANAGER): Suyapa English is an 18 y.o. female with pre-B ALL admitted for scheduled chemotherapy per [id number], Interim Maintenance I, HD MTX, Day 1, off study. Hour 72 level 0.78 and hour 84 level 0.55. She will have hour 96 level this evening at 1800. She needs to be <0.1 to clear. - [id number], Interm Maintenance I, Day 1, HD MTX, off study (Day 1= 07/06/23) Day 1: IT MTX, VCR, HD MTX Days 1-56: 6MP - Will give 6MP at 43% dosing (10.75mg/m2/dose) concurrently with allopurinol 100mg daily d/t elevated 6MMP levels - Continue increased hyperhydration IVFs @ 200ml/m2/hr until clears MTX; will continue IVFs through at least hour 54 despite clearance prior to - MTX level at hr 24, (36), 42, 48, then q12hr - BMP with every MTX level - Begin leucovorin rescue starting at hr 42, then Q3h (increased to Q3h d/t MTX levels) - Antiemetics per standard of care - Strict I/O; Monitor UOP every 4 hours, SG/pH - PT/OT/Psych consults Assessment & Plan (07/09/2023 1:04 PM BEHAVIORAL HEALTH CARE MANAGER): Suyapa English is an 18 y.o. female with pre-B ALL admitted for scheduled chemotherapy per [id number], Interim Maintenance I, HD MTX, Day 1, off study. Her 60 hour MTX level at 0600 this morning was 1.03, Cr 0.98. No changes were made. She will have a 72 hour MTX level with BMP at 1800 this evening. She needs to be <0.1 to clear. - [id number], Interm Maintenance I, Day 1, HD MTX, off study (Day 1= 07/06/23) Day 1: IT MTX, VCR, HD MTX Days 1-56: 6MP - Will give 6MP at 43% dosing (10.75mg/m2/dose) concurrently with allopurinol 100mg daily d/t elevated 6MMP levels - Continue increased hyperhydration IVFs @ 200ml/m2/hr until clears MTX; will continue IVFs through at least hour 54 despite clearance prior to - MTX level at hr 24, (36), 42, 48, then q12hr - BMP with every MTX level - Begin leucovorin rescue starting at hr 42, then Q3h (increased to Q3h d/t MTX levels) - Antiemetics per standard of care - Strict I/O; Monitor UOP every 4 hours, SG/pH - PT/OT/Psych consults Assessment & Plan (07/08/2023 11:19 AM BEHAVIORAL HEALTH CARE MANAGER): 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 Her 24h MTX level was 120, Cr 0.75. 36h MTX level was 10.8, Cr 1. She will have her 42h level at ~1200 and 48h level at ~1800. - [id number], Interm Maintenance I, Day 1, HD MTX, off study (Day 1= 07/06/23) Day 1: IT MTX, VCR, HD MTX Days 1-56: 6MP - Will give 6MP at 43% dosing (10.75mg/m2/dose) concurrently with allopurinol 100mg daily d/t elevated 6MMP levels - Continue increased hyperhydration IVFs @ 200ml/m2/hr until clears MTX; will continue IVFs through at least hour 54 despite clearance prior to - MTX level at hr 24, (36), 42, 48, then q12hr - BMP with every MTX level - Begin leucovorin rescue starting at hr 42, then Q6h; will have IV Leucovorin through at least hour 54 - Antiemetics per standard of care - Strict I/O; Monitor UOP every 4 hours, SG/pH - PT/OT/Psych consults Assessment & Plan (07/07/2023 1:17 PM BEHAVIORAL HEALTH CARE MANAGER): 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 She will have a 24 hour MTX level at 1810 tonight. 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 Today is Day 1. - Labs & Exam OK to proceed with chemotherapy today - [id number], Interm Maintenance I, Day 1, HD MTX, off study (Day 1= 07/06/23) Day 1: IT MTX, VCR, HD MTX Days 1-56: 6MP - Will give 6MP concurrently with allopurinol 100mg daily d/t elevated 6MMP levels - Hyperhydration IVFs @ 125ml/m2/hr until clears MTX - MTX level at hr 24, 42, 48, then q12hr - BMP with every MTX level - Begin leucovorin rescue starting at hr 42 - Antiemetics per standard of care - Strict I/O; Monitor UOP every 4 hours, SG/pH - PT/OT consults Assessment & Plan (06/22/2023 12:45 PM BEHAVIORAL HEALTH CARE MANAGER): Today is day 57 of consolidation per [id number], off study. - Next chemotherapy due 06/22, IM 1 Day 1; Delay one week to 06/29, will need to meet count parameters Assessment & Plan (06/21/2023 11:13 AM BEHAVIORAL HEALTH CARE MANAGER): Today is day 55 of consolidation per [id number], off study. - Next chemotherapy due 06/22, IM 1 Day 1; Delay one week to 06/29, will need to meet count parameters Assessment & Plan (06/20/2023 7:50 PM BEHAVIORAL HEALTH CARE MANAGER): Suyapa English is [facility] BALLL who presente Assessment & Plan (06/20/2023 11:14 AM BEHAVIORAL HEALTH CARE MANAGER): Today is day 54 of consolidation per [id number], off study. - Next chemotherapy due 06/22, IM 1 Day 1; Delay one week to 06/29, will need to meet count parameters Assessment & Plan (06/19/2023 10:13 AM BEHAVIORAL HEALTH CARE MANAGER): Today is day 54 of consolidation per [id number], off study. - Next chemotherapy due 06/22, IM 1 Day 1; Delay one week to 06/29, will need to meet count parameters Assessment & Plan (06/18/2023 11:59 AM BEHAVIORAL HEALTH CARE MANAGER): Today is day 53 of consolidation per [id number], off study. - Next chemotherapy due 06/22, IM 1 Day 1; Delay one week to 06/29, will need to meet count parameters Assessment & Plan (06/17/2023 11:35 AM BEHAVIORAL HEALTH CARE MANAGER): Today is day 52 of consolidation per [id number], off study. - Next chemotherapy due 06/22, IM 1 Day 1; Delay one week to 06/29, will need to meet count parameters Assessment & Plan (06/16/2023 2:16 PM BEHAVIORAL HEALTH CARE MANAGER): Today is day 51 of consolidation per [id number], off study. - Next chemotherapy due 06/22, IM 1 Day 1; Will need to meet count parameters Assessment & Plan (06/15/2023 3:43 PM BEHAVIORAL HEALTH CARE MANAGER): Today is day 50 of consolidation per [id number], off study. - Next chemotherapy due 06/22, IM 1 Day 1; Will need to meet count parameters Assessment & Plan (06/15/2023 8:18 AM BEHAVIORAL HEALTH CARE MANAGER): Today is day 46 of consolidation per [id number] - Continue nightly 6MP through day 46 to make up for missed doses. - Next chemotherapy due Day 50 VCR on Friday 06/15. Assessment & Plan (06/10/2023 1:07 PM CDT): Today is day 45 of consolidation per [id number] - Continue nightly 6MP through day 46 to make up for missed doses. - Next chemotherapy due Day 50 VCR on Friday 06/15. Assessment & Plan (06/09/2023 11:40 AM CDT): Today is day 44 of consolidation per [id number] - Continue nightly 6MP through day 46 to make up for missed doses. - Next chemotherapy due Day 50 VCR on Friday 06/15. Assessment & Plan (06/08/2023 2:29 PM CDT): Today is day 43 of consolidation per [id number] - Continue nightly 6MP through day 46 to make up for missed doses. - OK to proceed with VCR today Assessment & Plan (06/07/2023 8:34 PM CDT): Continue chemotherapy with daily 6-MP Assessment & Plan (04/21/2023 2:11 PM CDT): 17 year old with newly diagnosed HR pre-B ALL, [employer], being treated off study according to [id number], presenting today for Consolidation Day 1 of therapy. Her end of Induction MRD was negative. Labs and clinical status OK to proceed with chemotherapy admission today LP with IT MTX Cyclophosphamide IV x1, Cytarabine IV x 4 days Begin oral nightly 6MP x 14 doses Continue supportive care medications as needed Will remain admitted through day 4 chemotherapy d/t social concerns; re-admit on 04/27 for day 8 through count recovery Assessment & Plan (04/14/2023 3:48 PM CDT): Suyapa English is a 17 y.o. 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 Undergoing induction chemotherapy via [id number] protocol. Day 1 was 03/12. CSF x3 without blasts. Peripheral blood without blasts 03/20. Neuro: - Pain team following - Pain plan: Oxycodone 5mg q4h prn PO first line, IV morphine 2mg prn q4h if not tolerating PO - PACT c/s, appreciate recs - Gabapentin 300mg TID - Diclofenac gel prn - Tylenol PRN - Robaxin - Hydroxyzine prn Resp: JANNETH CV: HDS FEN/GI: - Reg diet as tolerated - NPO at WI for chemo; run MIVF overnight - Monitor symptoms of hyponatremia, improving - Encourage PO salt packets - Miralax daily/docusate PRN - benadryl/reglan PRN, ativan PRN, Heme: - Transfuse to keep Hgb > 7, plt > 10; consider until of blood if symptomatic - S/p 2 units pRBCs 04/03 with improved counts - Orthostatic hypotension/POTS; adjust fluid management as above - R subclavian DVT; Continue Lovenox dosing at 100mg BID (goal 0.6-1.0) (if plt <50, give 50mg, if plt < 25 HOLD) - Hold lovenox prior to chemo 04/15 ID: - Pentamidine ppx (last dose 04/10) - Encourage PO Bactrim when due - If febrile, obtain blood cx and start CTX (cefepime if ANC <500) : - Menstrual suppression with leuprolide (Lupron) 11.25 mg q12w (last dose 03/13) - Consider adding Agestin if periods persist despite Lupron - Needs UPT prior to all chemo Onc: Induction per [id number], Day 1=03/12 - Day 29 IT Methotrexate rescheduled for 04/15/23 - Port placed 04/03 - Day 1: VCR, Dauno with Zinecard, prednisone x 56 doses - Day 4: Calasparagase - Days 8, 15, 22: VCR, Dauno with Zinecard - Day 29: IT MTX - LP x3 with CSF clear: 03/16, 03/19, 03/24 - Prednisone IV q12h (3 missed doses to be made up at end of induction) (completed) Lines: Single Lumen Broviac Labs: Daily AM CBC, qMon RFP, qThurs CMP Assessment & Plan (04/13/2023 10:02 AM CDT): Suyapa English is a 17 y.o. 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 Undergoing induction chemotherapy via [id number] protocol. Day 1 was 03/12. CSF x3 without blasts. Peripheral blood without blasts 03/20. Neuro: - Pain team following - Pain plan: Oxycodone 5mg q4h prn PO first line, IV morphine 2mg prn q4h if not tolerating PO - PACT c/s, appreciate recs - Gabapentin 300mg TID - Diclofenac gel prn - Tylenol PRN - Robaxin - Hydroxyzine prn Resp: JANNETH CV: HDS FEN/GI: - Reg diet as tolerated - Continue IV fluids, titrate to fluid goal of 1.5L/m2/d - Monitor symptoms of hyponatremia - Encourage PO salt packets - Miralax daily/docusate PRN - benadryl/reglan PRN, ativan PRN, Heme: - Transfuse to keep Hgb > 7, plt > 10; consider until of blood if symptomatic - S/p 2 units pRBCs 04/03 with improved counts - Orthostatic hypotension/POTS; adjust fluid management as above - R subclavian DVT; Continue Lovenox dosing at 100mg BID (goal 0.6-1.0) (if plt <50, give 50mg, if plt < 25 HOLD) ID: - Pentamidine ppx (last dose 04/10) - Encourage PO Bactrim when due - If febrile, obtain blood cx and start CTX (cefepime if ANC <500) - Consider C diff testing if diarrhea persists : - Menstrual suppression with leuprolide (Lupron) 11.25 mg q12w (last dose 03/13) - Consider adding Agestin if periods persist despite Lupron - Needs UPT prior to all chemo Onc: Induction per [id number], Day 1=03/12 - Day 29 IT Methotrexate rescheduled for 04/15/23 - Port placed 04/03 - Day 1: VCR, Dauno with Zinecard, prednisone x 56 doses - Day 4: Calasparagase - Days 8, 15, 22: VCR, Dauno with Zinecard - Day 29: IT MTX - LP x3 with CSF clear: 03/16, 03/19, 03/24 - Prednisone IV q12h (3 missed doses to be made up at end of induction) (completed) Lines: Single Lumen Broviac Labs: Daily AM CBC, qMon RFP, qThurs CMP Assessment & Plan (04/12/2023 10:12 AM CDT): Suyapa English is a 17 y.o. 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 Undergoing induction chemotherapy via [id number] protocol. Day 1 was 03/12. CSF x3 without blasts. Peripheral blood without blasts 03/20. Neuro: - Pain team following - Pain plan: Oxycodone 5mg q4h prn PO first line, IV morphine 2mg prn q4h if not tolerating PO - PACT c/s, appreciate recs - Gabapentin 300mg TID - Diclofenac gel prn - Tylenol PRN - Robaxin - Hydroxyzine prn Resp: JANNETH CV: HDS FEN/GI: - Reg diet as tolerated - Restart IV fluids, titrate to fluid goal of 1.5L/m2/d - Monitor symptoms of hyponatremia, recheck electrolytes 04/13 am - Encourage PO salt packets - Miralax daily/docusate PRN - benadryl/reglan PRN, ativan PRN, Heme: - Transfuse to keep Hgb > 7, plt > 10; consider until of blood if symptomatic - S/p 2 units pRBCs 04/03 with improved counts - Orthostatic hypotension/POTS; adjust fluid management as above - R subclavian DVT; Continue Lovenox dosing at 100mg BID (goal 0.6-1.0) (if plt <50, give 50mg, if plt < 25 HOLD) ID: - Pentamidine ppx (last dose 03/14) - Encourage PO Bactrim when due - If febrile, obtain blood cx and start CTX (cefepime if ANC <500) - Consider C diff testing if diarrhea persists : - Menstrual suppression with leuprolide (Lupron) 11.25 mg q12w (last dose 03/13) - Consider adding Agestin if periods persist despite Lupron - Needs UPT prior to all chemo Onc: Induction per [id number], Day 1=03/12 - Day 29 IT Methotrexate rescheduled for 04/15/23 - Port placed 04/03 - Day 1: VCR, Dauno with Zinecard, prednisone x 56 doses - Day 4: Calasparagase - Days 8, 15, 22: VCR, Dauno with Zinecard - Day 29: IT MTX - LP x3 with CSF clear: 03/16, 03/19, 03/24 - Prednisone IV q12h (3 missed doses to be made up at end of induction) (completed) Lines: Single Lumen Broviac Labs: Daily AM CBC, qMon RFP, qThurs CMP Assessment & Plan (04/11/2023 9:35 AM CDT): Suyapa English is a 17 y.o. 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 Undergoing induction chemotherapy via [id number] protocol. Day 1 was 03/12. CSF x3 without blasts. Peripheral blood without blasts 03/20. Neuro: - Pain team following - Pain plan: Oxycodone 5mg q4h prn PO first line, IV morphine 2mg prn q4h if not tolerating PO - PACT c/s, appreciate recs - Gabapentin 300mg TID - Diclofenac gel prn - Tylenol PRN - Robaxin - Hydroxyzine prn Resp: JANNETH CV: HDS FEN/GI: - Reg diet as tolerated - Restart IV fluids, titrate to fluid goal of 1.5L/m2/d - Monitor symptoms of hyponatremia, recheck electrolytes 04/12 am - Encourage PO salt packets - Miralax daily/docusate PRN - benadryl/reglan PRN, ativan PRN, Heme: - Transfuse to keep Hgb > 7, plt > 10; consider until of blood if symptomatic - S/p 2 units pRBCs 04/03 with improved counts - Orthostatic hypotension/POTS; adjust fluid management as above - R subclavian DVT; Continue Lovenox dosing at 100mg BID (goal 0.6-1.0) (if plt <50, give 50mg, if plt < 25 HOLD) ID: - Pentamidine ppx (last dose 03/14) - Encourage PO Bactrim when due - If febrile, obtain blood cx and start CTX (cefepime if ANC <500) - Consider C diff testing if diarrhea persists : - Menstrual suppression with leuprolide (Lupron) 11.25 mg q12w (last dose 03/13) - Consider adding Agestin if periods persist despite Lupron - Needs UPT prior to all chemo Onc: Induction per [id number], Day 1=03/12 - Day 29 IT Methotrexate rescheduled for 04/15/23 - Port placed 04/03 - Day 1: VCR, Dauno with Zinecard, prednisone x 56 doses - Day 4: Calasparagase - Days 8, 15, 22: VCR, Dauno with Zinecard - Day 29: IT MTX - LP x3 with CSF clear: 03/16, 03/19, 03/24 - Prednisone IV q12h (3 missed doses to be made up at end of induction) (completed) Lines: Single Lumen Broviac Labs: Daily AM CBC, qMon RFP, qThurs CMP Assessment & Plan (04/10/2023 1:14 PM CDT): Suyapa English is a 17 y.o. 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 Undergoing induction chemotherapy via [id number] protocol. Day 1 was 03/12. CSF x3 without blasts. Peripheral blood without blasts 03/20. Neuro: - Pain team following - Pain plan: Oxycodone 5mg q4h prn PO first line, IV morphine 2mg prn q4h if not tolerating PO - PACT c/s, appreciate recs - Gabapentin 300mg TID - Diclofenac gel prn - Tylenol PRN - Robaxin - Hydroxyzine prn Resp: JANNETH CV: HDS FEN/GI: - Reg diet as tolerated - Restart IV fluids, titrate to fluid goal of 1.5L/m2/d - Monitor symptoms of hyponatremia, recheck electrolytes 04/11 am - Encourage PO salt packets - Miralax daily/docusate PRN - benadryl/reglan PRN, ativan PRN, Will consider scheduling zofran q6h on 04/10 given increase in nausea and vomiting today - D/c pepcid Heme: - Transfuse to keep Hgb > 7, plt > 10; consider until of blood if symptomatic - S/p 2 units pRBCs 04/03 with improved counts - Orthostatic hypotension/POTS; adjust fluid management as above - R subclavian DVT; Continue Lovenox dosing at 100mg BID (goal 0.6-1.0) (if plt <50, give 50mg, if plt < 25 HOLD) ID: - Pentamidine ppx (last dose 03/14) - Encourage PO Bactrim when due - If febrile, obtain blood cx and start CTX (cefepime if ANC <500) - Consider C diff testing if diarrhea persists : - Menstrual suppression with leuprolide (Lupron) 11.25 mg q12w (last dose 03/13) - Consider adding Agestin if periods persist despite Lupron - Needs UPT prior to all chemo Onc: Induction per [id number], Day 1=03/12 - Day 29 IT Methotrexate rescheduled for 04/15/23 - Port placed 04/03 - Day 1: VCR, Dauno with Zinecard, prednisone x 56 doses - Day 4: Calasparagase - Days 8, 15, 22: VCR, Dauno with Zinecard - Day 29: IT MTX - LP x3 with CSF clear: 03/16, 03/19, 03/24 - Prednisone IV q12h (3 missed doses to be made up at end of induction) (completed) Lines: Single Lumen Broviac Labs: Daily AM CBC, qMon RFP, qThurs CMP Assessment & Plan (2023 9:51 AM CDT): Suyapa English is a 17 y.o. 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 Undergoing induction chemotherapy via [id number] protocol. Day 1 was 03/12. CSF x3 without blasts. Peripheral blood without blasts 03/20. Neuro: - Pain team following - Pain plan: Oxycodone 5mg q4h prn PO first line, IV morphine 2mg prn q4h if not tolerating PO - PACT c/s, appreciate recs - Gabapentin 300mg TID - Diclofenac gel prn - Tylenol PRN - Robaxin - Hydroxyzine prn Resp: JANNETH CV: HDS FEN/GI: - Reg diet as tolerated - Hep lock line, POAL - Encourage PO salt packets - Miralax daily/docusate PRN - PRN zofran, benadryl/reglan PRN, ativan PRN - Pepcid BID Heme: - Transfuse to keep Hgb > 7, plt > 10; consider until of blood if symptomatic - S/p 2 units pRBCs 04/03 with improved counts - Orthostatic hypotension/POTS; adjust fluid management as above - R subclavian DVT; Continue Lovenox dosing at 100mg BID (goal 0.6-1.0) (if plt <50, give 50mg, if plt < 25 HOLD) ID: - Pentamidine ppx (last dose 03/14) - Encourage PO Bactrim when due - If febrile, obtain blood cx and start CTX (cefepime if ANC <500) - Consider C diff testing if diarrhea persists : - Menstrual suppression with leuprolide (Lupron) 11.25 mg q12w (last dose 03/13) - Consider adding Agestin if periods persist despite Lupron - Needs UPT prior to all chemo Onc: Induction per [id number], Day 1=03/12 - Day 29 IT Methotrexate rescheduled for 04/15/23 - Port placed 04/03 - Day 1: VCR, Dauno with Zinecard, prednisone x 56 doses - Day 4: Calasparagase - Days 8, 15, 22: VCR, Dauno with Zinecard - Day 29: IT MTX - LP x3 with CSF clear: 03/16, 03/19, 03/24 - Prednisone IV q12h (3 missed doses to be made up at end of induction) steroid course completes 04/10 Lines: Single Lumen Broviac Labs: Daily AM CBC, qMon RFP, qThurs CMP Assessment & Plan (04/08/2023 10:15 AM CDT): Suyapa English is a 17 y.o. 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 Undergoing induction chemotherapy via [id number] protocol. Day 1 was 03/12. CSF x3 without blasts. Peripheral blood without blasts 03/20. Neuro: - Pain team following - Pain plan: Oxycodone 5mg q4h prn PO first line, IV morphine 2mg prn q4h if not tolerating PO - PACT c/s, appreciate recs - Gabapentin 300mg TID - Diclofenac gel prn - Tylenol PRN - Robaxin - Hydroxyzine prn Resp: JANNETH CV: HDS FEN/GI: - Reg diet as tolerated - Hep lock line, POAL - Encourage PO salt packets - Miralax daily/docusate PRN - PRN zofran, benadryl/reglan PRN, ativan PRN - Pepcid BID Heme: - Transfuse to keep Hgb > 7, plt > 10; consider until of blood if symptomatic - S/p 2 units pRBCs 04/03 with improved counts - Orthostatic hypotension/POTS; adjust fluid management as above - R subclavian DVT; Continue Lovenox dosing at 100mg BID (goal 0.6-1.0) (if plt <50, give 50mg, if plt < 25 HOLD) ID: - Pentamidine ppx (last dose 03/14) - Encourage PO Bactrim when due - If febrile, obtain blood cx and start CTX (cefepime if ANC <500) - Consider C diff testing if diarrhea persists : - Menstrual suppression with leuprolide (Lupron) 11.25 mg q12w (last dose 03/13) - Consider adding Agestin if periods persist despite Lupron - Needs UPT prior to all chemo Onc: Induction per [id number], Day 1=03/12 - Declining day 29 IT chemo per plan. Will tentatively plan to reschedule for week of 04/13 - Port placed 04/03 - Day 1: VCR, Dauno with Zinecard, prednisone x 56 doses - Day 4: Calasparagase - Days 8, 15, 22: VCR, Dauno with Zinecard - Day 29: IT MTX - LP x3 with CSF clear: 03/16, 03/19, 03/24 - Prednisone IV q12h (3 missed doses to be made up at end of induction) steroid course completes 04/10 Lines: Single Lumen Broviac Labs: Daily AM CBC, qMon RFP, qThurs CMP Assessment & Plan (04/07/2023 5:00 PM CDT): Suyapa English is a 17 y.o. 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 Undergoing induction chemotherapy via [id number] protocol. Day 1 was 03/12. CSF x3 without blasts. Peripheral blood without blasts 03/20. Neuro: - Pain team following - Pain plan: Oxycodone 5mg q4h prn PO first line, IV morphine 2mg prn q4h if not tolerating PO - PACT c/s, appreciate recs - Gabapentin 300mg TID - Diclofenac gel prn - Tylenol PRN - Robaxin - Hydroxyzine prn Resp: JANNETH CV: HDS FEN/GI: - Reg diet as tolerated - Consider NG during sedation 04/09 if not tolerating PO - Fluid goal of 1.5L/m2/d, titrate IV fluids as needed - Encourage PO salt packets - Miralax daily/docusate PRN - PRN zofran, benadryl/reglan PRN, ativan PRN - Pepcid BID Heme: - Transfuse to keep Hgb > 7, plt > 10; consider until of blood if symptomatic - S/p 2 units pRBCs 04/03 with improved counts - Orthostatic hypotension/POTS; adjust fluid management as above - R subclavian DVT; Continue Lovenox dosing at 100mg BID (goal 0.6-1.0) (if plt <50, give 50mg, if plt < 25 HOLD) ID: - Pentamidine ppx (last dose 03/14) - Encourage PO Bactrim when due - If febrile, obtain blood cx and start CTX (cefepime if ANC <500) - Consider C diff testing if diarrhea persists : - Menstrual suppression with leuprolide (Lupron) 11.25 mg q12w (last dose 03/13) - Consider adding Agestin if periods persist despite Lupron - Needs UPT prior to all chemo Onc: Induction per [id number], Day 1=03/12 - Port placed 04/03 - Day 1: VCR, Dauno with Zinecard, prednisone x 56 doses - Day 4: Calasparagase - Days 8, 15, 22: VCR, Dauno with Zinecard - Day 29: IT MTX - LP x3 with CSF clear: 03/16, 03/19, 03/24 - Prednisone IV q12h (3 missed doses to be made up at end of induction) Lines: Single Lumen Broviac Labs: Daily AM CBC, qMon RFP, qThurs CMP Assessment & Plan (04/06/2023 10:30 AM CDT): Rodlos Marly English is a 17 y.o. 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 Undergoing induction chemotherapy via [id number] protocol. Day 1 was 03/12. CSF x3 without blasts. Peripheral blood without blasts 03/20. Neuro: - Pain team following - D/c scheduled morphine - prn plan: Oxycodone 5mg q4h PO first line, IV morphine 2mg q4h if not tolerating PO - PACT c/s, appreciate recs - Gabapentin 300mg TID - Diclofenac gel prn - Tylenol PRN - Robaxin - Hydroxyzine prn Resp: JANNETH CV: HDS FEN/GI: - Reg diet as tolerated - Did not tolerate NG placement - Fluid goal of 1.5L/m2/d, titrate IV fluids as needed - Encourage PO salt packets - Miralax daily/docusate PRN - PRN zofran, benadryl/reglan PRN, ativan PRN - Pepcid BID Heme: - Transfuse to keep Hgb > 7, plt > 10; consider until of blood if symptomatic - S/p 2 units pRBCs 04/03 with improved counts - Orthostatic hypotension/POTS; adjust fluid management as above - R subclavian DVT; Continue Lovenox dosing at 100mg BID (goal 0.6-1.0) (if plt <50, give 50mg, if plt < 25 HOLD) - Lovenox ID: - Pentamidine ppx (last dose 03/14) - Encourage PO Bactrim when due - If febrile, obtain blood cx and start CTX (cefepime if ANC <500) - Consider C diff testing if diarrhea persists : - Menstrual suppression with leuprolide (Lupron) 11.25 mg q12w (last dose 03/13) - Consider adding Agestin if periods persist despite Lupron - Needs UPT prior to all chemo Onc: Induction per [id number], Day 1=03/12 - Port placed 04/03 - Day 1: VCR, Dauno with Zinecard, prednisone x 56 doses - Day 4: Calasparagase - Days 8, 15, 22: VCR, Dauno with Zinecard - Day 29: IT MTX - LP x3 with CSF clear: 03/16, 03/19, 03/24 - Prednisone IV q12h (3 missed doses to be made up at end of induction) Lines: Single Lumen Broviac Labs: Daily AM CBC, qMon RFP, qThurs CMP Assessment & Plan (04/06/2023 10:11 AM CDT): Suyapa English is a 17 y.o. 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 Undergoing induction chemotherapy via [id number] protocol. Day 1 was 03/12. CSF x3 without blasts. Peripheral blood without blasts 03/20. Neuro: - Pain team following - D/c scheduled morphine - prn plan: Oxycodone 5mg q4h PO first line, IV morphine 2mg q4h if not tolerating PO - PACT c/s, appreciate recs - Gabapentin 300mg TID - Diclofenac gel prn - Tylenol PRN - Robaxin - Hydroxyzine prn Resp: JANNETH CV: HDS FEN/GI: - Reg diet as tolerated - Did not tolerate NG placement - Fluid goal of 1.5L/m2/d, titrate IV fluids as needed - Encourage PO salt packets - Miralax daily/docusate PRN - PRN zofran, benadryl/reglan PRN, ativan PRN - Pepcid BID Heme: - Transfuse to keep Hgb > 7, plt > 10; consider until of blood if symptomatic - S/p 2 units pRBCs 04/03 with improved counts - Orthostatic hypotension/POTS; adjust fluid management as above - R subclavian DVT; Continue Lovenox dosing at 100mg BID (goal 0.6-1.0) (if plt <50, give 50mg, if plt < 25 HOLD) - Lovenox ID: - Pentamidine ppx (last dose 03/14) - Encourage PO Bactrim when due - If febrile, obtain blood cx and start CTX (cefepime if ANC <500) - Consider C diff testing if diarrhea persists : - Menstrual suppression with leuprolide (Lupron) 11.25 mg q12w (last dose 03/13) - Consider adding Agestin if periods persist despite Lupron - Needs UPT prior to all chemo Onc: Induction per [id number], Day 1=03/12 - Port placed 04/03 - Day 1: VCR, Dauno with Zinecard, prednisone x 56 doses - Day 4: Calasparagase - Days 8, 15, 22: VCR, Dauno with Zinecard - Day 29: IT MTX - LP x3 with CSF clear: 03/16, 03/19, 03/24 - Prednisone IV q12h (3 missed doses to be made up at end of induction) Lines: Single Lumen Broviac Labs: Daily AM CBC, qMon RFP, qThurs CMP Assessment & Plan (04/05/2023 9:41 AM CDT): Suyapa English is a 17 y.o. 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 Undergoing induction chemotherapy via [id number] protocol. Day 1 was 03/12. CSF x3 without blasts. Peripheral blood without blasts 03/20. Neuro: - Pain team following - Continue morphine 2mg q8h and prn - PACT c/s, appreciate recs - Gabapentin 300mg TID - Diclofenac gel prn - Tylenol PRN - Robaxin - Hydroxyzine prn Resp: JANNETH CV: HDS FEN/GI: - Reg diet as tolerated - Did not tolerate NG placement - Fluid goal of 1.5L/m2/d, titrate IV fluids as needed - Encourage PO salt packets - Miralax daily/docusate PRN - PRN zofran, benadryl/reglan PRN, ativan PRN - Pepcid BID Heme: - Transfuse to keep Hgb > 7, plt > 10; consider until of blood if symptomatic - S/p 2 units pRBCs 04/03 with improved counts - Orthostatic hypotension/POTS; adjust fluid management as above - R subclavian DVT; Continue Lovenox dosing at 100mg BID (goal 0.6-1.0) (if plt <50, give 0.5 mg/kg, if plt < 25 HOLD) - Lovenox ID: - Pentamidine ppx (last dose 03/14) - Encourage PO Bactrim when due - If febrile, obtain blood cx and start CTX (cefepime if ANC <500) - Consider C diff testing if diarrhea persists : - Menstrual suppression with leuprolide (Lupron) 11.25 mg q12w (last dose 03/13) - Consider adding Agestin if periods persist despite Lupron - Needs UPT prior to all chemo Onc: Induction per [id number], Day 1=03/12 - Port placed 04/03 - Day 1: VCR, Dauno with Zinecard, prednisone x 56 doses - Day 4: Calasparagase - Days 8, 15, 22: VCR, Dauno with Zinecard - Day 29: IT MTX - LP x3 with CSF clear: 03/16, 03/19, 03/24 - Prednisone IV q12h (3 missed doses to be made up at end of induction) Lines: Single Lumen Broviac Labs: Daily AM CBC, qMon RFP, qThurs CMP Assessment & Plan (04/04/2023 9:41 AM CDT): On treatment per [id number] protocol. Day 03/12. Assessment & Plan (04/03/2023 7:00 PM CDT): On treatment per [id number] protocol. Day 03/12. Assessment & Plan (04/02/2023 1:50 PM CDT): On treatment per [id number] protocol. Day 03/12. Assessment & Plan (04/01/2023 11:13 AM CDT): On treatment per [id number] protocol. Day 03/12. Assessment & Plan (03/31/2023 11:14 AM CDT): On treatment per [id number] protocol. Day 03/12. Assessment & Plan (03/30/2023 11:34 AM CDT): On treatment per [id number] protocol. 03/12. Assessment & Plan (03/29/2023 11:51 AM CDT): On treatment per [id number] protocol. Day 03/12. Assessment & Plan (03/28/2023 7:13 AM CDT): On treatment per [id number] protocol. Day 03/12. Assessment & Plan (03/27/2023 7:41 AM CDT): On treatment per [id number] protocol. 03/12. Assessment & Plan (03/26/2023 7:49 AM CDT): On treatment per [id number] protocol. 03/12. Assessment & Plan (03/25/2023 7:12 AM CDT): On treatment per [id number] protocol. 03/12. Assessment & Plan (03/24/2023 7:28 AM CDT): On treatment per [id number] protocol. 03/12. Assessment & Plan (03/21/2023 7:47 AM CDT): On treatment per [id number] protocol. 03/12. Assessment & Plan (03/20/2023 8:24 AM CDT): On treatment per [id number] protocol. 03/12. Assessment & Plan (03/18/2023 7:31 AM CDT): On treatment per [id number] protocol. 03/12. Assessment & Plan (03/17/2023 7:34 AM CDT): On treatment per [id number] protocol. 03/12. Assessment & Plan (03/16/2023 7:21 AM CDT): On treatment per [id number] protocol. 03/12. Assessment & Plan (03/15/2023 12:29 PM CDT): On treatment per [id number] protocol. 03/12. Assessment & Plan (03/14/2023 7:47 AM CDT): On treatment per [id number] protocol. 03/12. Assessment & Plan (03/13/2023 8:12 AM CDT): On day 1 of treatment per [id number] protocol. Assessment & Plan (03/12/2023 1:10 PM CDT): See leukocytosis. Assessment & Plan (03/11/2023 7:31 AM CDT): See leukocytosis. Assessment & Plan (03/10/2023 8:05 AM CDT): See leukocytosis. Assessment & Plan (03/09/2023 1:57 PM CDT): See leukocytosis. 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) Treatment Medications Current Day (Day 2 9, Maintenance 6 - Planned for 07/17/2025) Next Day (Day 57, Maintenance 6 - Planned for 08/14/2025) mercaptopurine 20 mg/mLmethotrexatemethotrexate (PF) intrathecalmethotrexate (XATMEP) 2.5 mg/mLprednisoLONE (ORAPRED) 3 mg/mLvinCRIStinevinCRIStine (ONCOVIN) IVPB in 25 mL mercaptopurine 20 mg/mLmethotrexate 2.5 mg tablet mercaptopurine 20 mg/mLmethotrexate (Xatmep) 2.5 mg/mL PED Central Line Care* Plan Start Date:06/15/2023 Plan Provider:Kiarra Bazan MD Linked Problems 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 Other Current Plans PED Pentamidine* Plan Start Date:01/18/2024 Plan Provider:Donna Dyson NP Linked Problems Need for pneumocystis prophy laxis Treatment Medications No medications scheduled. PEDIATRIC INFLUENZA VACCINE* Plan Start Date:05/22/2025 Plan Provider:Claire Cueva MD Linked Problems Need for immunization agains t influenza Treatment Medications No medications scheduled. Past Treatment and Therapy Plans Oncology Chemotherapy Treatment Plan Name Start Date Discontinue Date Treatment Medications Discontinue Reason Plan Provider Cycles PED [id number] Post Induction - VHR B-ALL Control Arm 04/20/20 23 03/21/2024 calaspargase pegol-mknL (ASPARLAS) IVPBcycloPHOSphamide (CYTOXAN)cycloPHOSphamid e (CYTOXAN) IVPB 8 mg/mL (J9075)cytarabine (ABBI-C) IV syringe 8 mg/mLcytarabine (ABBI-C,CYTOSAR-U)dexrazo xane (ZINECARD) 3 mg/mL (PEDIATRICS)DOXOrubicin (ADRIAMYCIN)DOXOrubicin (ADRIAMYCIN) 2 mg/mLleucovorinleucovori n 10 mg/mLmercaptopurine (PURINETHOL)mercaptopuri ne 20 mg/mLmethotrexatemethotr exate (PF) intrathecalmethotrexate 25 mg/mLmethotrexate and sodium bicarbonate IVPB (pediatric)thioguanine (TABLOID)thioguanine (TABLOID) 40 mg/mLvinCRIStinevinCRISt ine (ONCOVIN) IVPB in 25 mL Provider Discretion Jess Cm NP 4 of 16 cycles started PED [id number] Induction (< 10 yrs - Dexamethasone ) / (>/= 10 yrs - Prednisone) 3 04/16/2023 calaspargase pegol-mknL (ASPARLAS) IVPBcytarabine (CYTOSAR-U) intrathecal (CYTOSAR-U)DAUNOrubicin (CERUBIDINE) 5 mg/mLdexrazoxane (ZINECARD) 3 mg/mL (PEDIATRICS)methotrexate (PF) intrathecalprednisoLONE (ORAPRED) 3 mg/mLvinCRIStine (ONCOVIN) IVPB in 25 mL Therapy Complete Geovanny Pena NP 1 of 1 cycle started PED Intrathecal Cytarabine 3 03/12/2023 cytarabine (CYTOSAR-U) intrathecal (CYTOSAR-U) Therapy Complete Winter Springer, CLAIM REVIEW MEDICAL DIRECTOR 1 of 1 cycle started Lifetime Dose Tracking * Chemical Lifetime Dose Automatic Entry Manual Entr y doxorubicin 72.425 mg/m2 (145.8 mg) 72.425 mg/m2 (145.8 mg) 0 mg/m2 (0 mg) daunorubicin 98.878 mg/m2 (196 mg) 98.878 mg/m2 (196 mg) 0 mg/m2 (0 mg) Fluoro Time 10.057 minutes 10.057 minutes 0 minutes cyclophosphamide 3,007.732 mg/m2 (5,920 mg) 3,007.732 mg/m2 (5,920 mg) 0 mg/m2 (0 mg) doxorubicin isotoxic equivalent (Please manually verify calculation) 171.303 mg/m2 (341.8 mg) 171.303 mg/m2 (341.8 mg) 0 mg/m2 (0 mg) Air kerma at the reference point (Ka,r) 1,097.087 mGy 1,097.087 mGy 0 mGy DLP 3,570 mGycm 3,570 mGycm 0 mGycm Resolved Problems Problem Noted Date Diagnosed Date Resolved Date Gastrostomy complication 10/03/202409/2024 Acute lymphoblastic leukemia (ALL) in remission 09/06/2024 04/29/2025 ALL (acute lymphoid leukemia) in remission 05/19/2024 04/29/2025 Post-operative pain 05/19/2024 07/05/20 Assessment & Plan (05/19/2024 2:39 PM CDT): 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 Plan: - Robles tylenol q6h - Oxycodone prn - PT consult Sunburn 04/27/2024 07/05/2024 Assessment & Plan (04/27/2024 12:35 PM CDT): Suyapa has a peeling sunburn rash on the upper back, chest, shoulder and neck. 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 She is here today for Maintenance Cycle 3 Day 1. She is not taking her PO chemotherapy routinely. Labs today - WBC 3.8, Hgb 11.5, plts 160, ANC 2300. Ramesh is refusing to take any steroids because of her previous side effects of muscle pain, nausea and weight gain. I reviewed how important steroids are to her treatment and she declined. 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 Today is maintenance day 38. Continue chemotherapy Continue supportive care as indicated: zofran 1st line, benadryl and reglan prn for nausea Daily RFP, Mg, CBC Diarrhea 02/12/2024 02/26/2024 Assessment & Plan (02/12/2024 1:14 PM CDT): Developed diarrhea on 02/10. Stool studies sent. Complaints of abdominal pain and continued diarrhea today. - f/u stool studies: culture, c diff (neg), noro (neg), adeno, rota - DFG 1.5L/m2/day - Strict I&O B-cell acute lymphoblastic leukemia (ALL) 02/08/2024 02/26/2024 Complication of chemotherapy 02/08/2024 02/26/2024 Weight loss 02/05/2024 02/26/2024 Assessment & Plan (02/06/2024 10:42 AM CDT): She has had a 10lb weight loss over the past week. See Ph-like B-cell acute lymphoblastic leukemia (ALL) in remission. Assessment & Plan (02/05/2024 5:46 PM CDT): She has had a 10lb weight loss over the past week. See Ph-like B-cell acute lymphoblastic leukemia (ALL) in remission. Itching 01/26/2024 02/26/2024 Assessment & Plan (01/27/2024 2:33 PM CDT): Developed diffuse skin itching, likely due to oxycodone, as she has had itching with it before. Will give benadryl and nalbuphine. - Nalbuphine q2h PRN - Benadryl PRN Assessment & Plan (01/26/2024 11:39 AM CDT): Developed diffuse skin itching, likely due to oxycodone, as she has had itching with it before. Will give benadryl and nalbuphine. - Nalbuphine q2h PRN - Benadryl PRN Chronic low back pain 01/25/20242023 Assessment & Plan (02/12/2024 1:08 PM CDT): See Generalized pain. Assessment & Plan (02/11/2024 11:05 AM CDT): See Generalized pain. Assessment & Plan (02/10/2024 12:30 PM CDT): See Generalized pain. Assessment & Plan (02/09/2024 3:06 PM CDT): See Generalized pain. Assessment & Plan (02/08/2024 3:52 PM CDT): See Generalized pain. Assessment & Plan (02/06/2024 10:42 AM CDT): See Ph-like B-cell acute lymphoblastic leukemia (ALL) in remission. Assessment & Plan (02/05/2024 5:47 PM CDT): See Ph-like B-cell acute lymphoblastic leukemia (ALL) in remission. 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 Woke from sleep with 10/10 lower back pain. No red flag symptoms, such as fever, numbness/tingling, or lack of control of bowel/bladder. Radiographs of the spine, hips, and pelvis negative for fractures. Did have a self reported fever on 01/19 that has resolved. Appears to be acute worsening of her chronic back pain. While more serious etiologies like epidural abscess can't be ruled out, it is unlikely given she is overall well-appearing with normal neuro exam, pain is responsive to morphine, and white count is at her baseline. Acute back pain improved, but continues to have diffuse body pain that is unresponsive to oxy. Will treat with scheduled IV morphine. 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 Woke from sleep with 10/10 lower back pain. No red flag symptoms, such as fever, numbness/tingling, or lack of control of bowel/bladder. Radiographs of the spine, hips, and pelvis negative for fractures. Did have a self reported fever on 01/19 that has resolved. Appears to be acute worsening of her chronic back pain. While more serious etiologies like epidural abscess can't be ruled out, it is unlikely given she is overall well-appearing with normal neuro exam, pain is responsive to morphine, and white count is at her baseline. Pain is much improved this morning with scheduled oxycodone. Will continue this and determine dispo based on her pain throughout the day. 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 Woke from sleep with 10/10 lower back pain. No red flag symptoms, such as fever, numbness/tingling, or lack of control of bowel/bladder. Radiographs of the spine, hips, and pelvis negative for fractures. Did have a self reported fever on 01/19 that has resolved. Appears to be acute worsening of her chronic back pain. While more serious etiologies like epidural abscess can't be ruled out, it is unlikely given she is overall well-appearing with normal neuro exam, pain is responsive to morphine, and white count is at her baseline. Will admit for further pain control. -Pain control: -1st line: Robles oxycodone 5 mg q4h -2nd line: IV Morphine q4 PRN -Regular diet -Zofran, benadryl, compazine PRN for nausea Increased frequency of urination 01/25/2024 02/26/2024 Assessment & Plan (01/27/2024 2:33 PM CDT): Continue oxybutynin BID. Assessment & Plan (01/26/2024 11:33 AM CDT): Continue oxybutynin BID. Assessment & Plan (01/25/2024 3:32 PM CDT): Continue oxybutynin BID. Rhinovirus 01/13/2024 02/26/2024 Assessment & Plan (01/13/2024 2:09 AM CDT): 18 year old female with B ALL presenting with generalized malaise and one episode of non-bloody non-bilious emesis. Found to be rhino/entero positive. - obtain blood cultures - will give ceftriaxone x1 for possible fever at home. Viral syndrome 12/27/2023 02/26/2024 Pancytopenia due to antineop lastic chemotherapy 12/24/2023 02/26/2024 Assessment & Plan (12/25/2023 3:18 PM CDT): See CBC. - No transfusions required today - Transfuse to keep Hgb >7 and Plt >10 Assessment & Plan (12/24/2023 4:35 PM CDT): See CBC. -Transfuse PRBCs today -Transfuse to keep Hgb >7 and Plt >10 Fever in child 12/23/2023 02/26/2024 Assessment & Plan (12/25/2023 3:15 PM CDT): Febrile on admission. Received Cefepime x1 (12/22) and started on Ceftriaxone (12/22-12/24). Afebrile for over 24 hours. - Discontinue Ceftriaxone - Follow-up blood cultures - If febrile, obtain blood cultures and start Cefepime; if ill-appearing, add Vancomycin Assessment & Plan (12/24/2023 4:34 PM CDT): Febrile overnight to 38.1 after receiving a dose of Tylenol. - Ceftriaxone Q24hr - Follow-up blood cultures - If febrile, obtain blood cultures and consider adding Vanc if ill-appearing Mucositis 11/30/2023 02/26/2024 Assessment & Plan (02/12/2024 1:09 PM CDT): Ramesh has pale mucous membranes with ridging to bilateral buccal mucosa. Improving. - Biotene BID - PRN MMW QID - Morphine PRN Assessment & Plan (02/11/2024 11:03 AM CDT): Ramesh has pale mucous membranes with ridging to bilateral buccal mucosa. Exam continues to improve. - Biotene BID - PRN MMW QID - Morphine PRN Assessment & Plan (02/10/2024 12:27 PM CDT): Ramesh has pale mucous membranes with ridging to bilateral buccal mucosa. Exam improved slightly from yesterday with less pallor. She has pain that is improved from yesterday. - Biotene BID - PRN MMW QID - Morphine PRN Assessment & Plan (02/09/2024 3:04 PM CDT): Ramesh has pale mucous membranes with ridging to bilateral buccal mucosa. She has complaint of pain that is improved with IV morphine. - Biotene BID - PRN MMW QID - Morphine PRN Assessment & Plan (02/08/2024 4:03 PM CDT): Complaints of mouth pain, likely mucositis r/t chemotherapy. Ramesh refused oral exam today. - Biotene BID - PRN MMW QID Assessment & Plan (12/07/2023 4:43 PM CDT): -Continue Magic mouthwash -Continue oral Biotene BID Assessment & Plan (12/06/2023 10:39 AM CDT): -Continue Magic mouthwash -Continue oral Biotene BID Assessment & Plan (12/05/2023 11:25 AM CDT): -Continue Magic mouthwash -Continue oral Biotene BID Assessment & Plan (12/04/2023 2:21 PM CDT): -Continue Magic mouthwash -Continue oral Biotene BID Assessment & Plan (12/03/2023 6:05 PM CDT): Will schedule magic mouthwash. -Continue oral Biotene BID Assessment & Plan (12/02/2023 5:22 PM CDT): Consider scheduling magic mouthwash. -Continue oral Biotene BID Assessment & Plan (12/01/2023 3:12 PM CDT): Consider scheduling magic mouthwash. -Continue oral Biotene BID Assessment & Plan (11/30/2023 11:14 AM CDT): Consider scheduling magic mouthwash. -Continue oral Biotene BID At risk for constipation 11/28/202308/2023 Overview (11/28/2023): 1 day of loose stools. Plan to hold bowel regimen (Miralax, Senna BID) and send C.diff testing. Assessment & Plan (01/13/2024 2:10 AM CDT): - continue miralax daily - senna prn constipation Assessment & Plan (12/07/2023 4:43 PM CDT): - Miralax, senna PRN Assessment & Plan (12/06/2023 10:40 AM CDT): - Miralax, senna PRN Assessment & Plan (12/05/2023 12:43 PM CDT): - Miralax, senna PRN Pre B-cell acute lymphoblastic leukemia (ALL) 11/19/19 24 11/19/2023 Insomnia 11/19/2023 07/05/2024 Assessment & Plan (05/19/2024 2:35 PM CDT): Melatonin nightly Assessment & Plan (12/07/2023 4:43 PM CDT): - Melatonin nightly Assessment & Plan (12/06/2023 10:39 AM CDT): - Melatonin nightly Assessment & Plan (12/05/2023 11:25 AM CDT): - Melatonin nightly Assessment & Plan (12/04/2023 2:21 PM CDT): - Melatonin nightly Assessment & Plan (12/03/2023 6:05 PM CDT): - Melatonin nightly Assessment & Plan (12/02/2023 5:22 PM CDT): - Melatonin nightly Assessment & Plan (12/01/2023 3:12 PM CDT): - Melatonin nightly Assessment & Plan (11/30/2023 11:08 AM CDT): - Melatonin nightly Assessment & Plan (11/29/2023 10:51 AM CDT): Likely due to pain and steroid burst. Plan: - Melatonin nightly Assessment & Plan (11/28/2023 11:57 AM CDT): Likely due to pain and steroid burst. Plan: - Melatonin nightly Assessment & Plan (11/27/2023 11:11 AM CDT): Likely due to pain and steroid burst. Plan: - Melatonin nightly Assessment & Plan (11/26/2023 10:43 AM CDT): Likely due to pain and steroid burst. Plan: - Melatonin nightly Assessment & Plan (11/25/2023 3:10 PM CDT): Likely due to pain and steroid burst. Plan: - Melatonin nightly Assessment & Plan (11/24/2023 11:01 AM CDT): Likely due to pain and steroid burst. Plan: - Melatonin nightly Assessment & Plan (11/23/2023 2:27 PM CDT): Likely due to pain and steroid burst. Plan: - Melatonin nightly Assessment & Plan (11/22/2023 7:50 AM CDT): Likely due to pain and steroid burst. Plan: - Melatonin nightly Assessment & Plan (11/21/2023 5:11 PM CDT): Likely due to pain and steroid burst. Plan: - Melatonin nightly Assessment & Plan (11/20/2023 10:59 AM CDT): Likely due to pain and steroid burst. Plan: - Melatonin nightly Assessment & Plan (11/20/2023 10:59 AM CDT): Likely due to pain and steroid burst. Plan: - Melatonin nightly Assessment & Plan (11/19/2023 4:23 PM CDT): Likely due to pain and steroid burst. Plan: - Melatonin nightly Shock 11/05/2023 11/06/2023 Urinary urgency 10/12/2023 12/03/2023 Assessment & Plan (12/01/2023 3:14 PM CDT): Pt endorsing sensation of urinary urgency for 3-4 days. Plan to send UA w/reflex to urine culture. - F/u UA - Continue home oxybutynin BID Assessment & Plan (11/19/2023 9:35 AM CDT): Ramesh reported recent urinary incontinence during recent admission, workup was reassuring (UA on 3/2 WNL; MRI total spine WNL). Pt was started on Oxybutynin and continues to deny any further urinary urgency/incontinence. Continue Oxybutynin F/u with Urology Assessment & Plan (10/27/2023 10:32 AM CDT): Ramesh reported recent urinary incontinence during recent admission, workup was reassuring (UA on 3/2 WNL; MRI total spine WNL). Pt was started on Oxybutynin and reports significant improvement today. She reports only waking once nightly to void and reports that she is able to make it to the bathroom without incontinence. Continue Oxybutynin F/u with Urology Assessment & Plan (10/13/2023 12:47 PM BEHAVIORAL HEALTH CARE MANAGER): Ramesh is complaining of urinary urgency, not being able to get to the bathroom in time when feeling she needs to void, and has had several episodes of urinary incontinence on the floor over the past couple days. She denies any dysuria. UA on 10/09 was normal. - Consult urology, appreciate recommendations - Continue oxybutynin, will f/u outpatient for urodynamic studies - Obtain MRI total spine w/ & w/o contrast, follow-up results - Consult PT for pelvic muscle exercises Assessment & Plan (10/12/2023 2:35 PM BEHAVIORAL HEALTH CARE MANAGER): Ramesh is complaining of urinary urgency, not being able to get to the bathroom in time when feeling she needs to void, and has had several episodes of urinary incontinence on the floor over the past couple days. She denies any dysuria. UA on 10/09 was normal. - Consult urology - Consult PT for pelvic muscle exercises Abdominal pain 10/07/2023 02/26/2024 Assessment & Plan (10/07/2023 11:47 AM BEHAVIORAL HEALTH CARE MANAGER): Ramesh endorses one week of abdominal pain and has some mild abdominal tenderness in RUQ and LUQ on exam, otherwise exam is reassuring. Pt is able to ambulate without pain. Denies vomiting/diarrhea. She endorses some mild constipation, which could be the cause of the abd pain. Other considerations include UTI (no urinary symptoms), viral process (pt is afebrile, no vomiting/diarrhea, does endorse URI symptoms and was RVP + coronavirus from previous hospital admission), typhlitis (pt is afebrile, not neutropenic), menstrual symptoms (no current spotting/bleeding). Other surgical differential for abdominal pain less likely. Obtain UA and urine cx NS bolus Tylenol, Benadryl, and Compazine Encouraged Miralax to have one soft bowel movement per day Monitor for fevers; thermometer provided for patient to take home Viral upper respiratory tract infection 09/24/2023 10/27/2023 Assessment & Plan (09/25/2023 2:02 PM BEHAVIORAL HEALTH CARE MANAGER): New runny nose and congestion with fever. Viral panel positive for corono virus OC43 - Supportive care - Contact and droplet isolation Assessment & Plan (09/24/2023 5:43 PM BEHAVIORAL HEALTH CARE MANAGER): New runny nose and congestion with fever. 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 There was approximately 45 minutes of overlap time with the positive case. Given patient's immunocompromised state, ID team recommending starting Varizig for post-exposure ppx. Signs and symptoms of chickenpox can develop anywhere from 10-21 days after being exposed (up to 28 days if you get varizig), Since the exposure date was 08/22/23, this means Suyapa could develop symptoms between 09/01/23-09/19/23. Patient should be placed on isolation starting 08/30/23, as patient's can be contagious as early as 48 hours before symptoms. Given the prolonged incubation period and infectivity of no concern until 08/30/23, no additional concerns for exposures on the floor since admission. At this time, patient continues to remain asymptomatic. Plan - s/p Varizig 08/25/23 - Isolation precautions on 08/30/23 if still admitted Assessment & Plan (08/25/2023 11:51 AM BEHAVIORAL HEALTH CARE MANAGER): Patient was potentially exposed to Varicella in the ED waiting room on 08/22/23. There was approximately 45 minutes of overlap time with the positive case. Given patient's immunocompromised state, ID team recommending starting Varizig for post-exposure ppx. Signs and symptoms of chickenpox can develop anywhere from 10-21 days after being exposed (up to 28 days if you get varizig), Since the exposure date was 08/22/23, this means Suyapa could develop symptoms between 09/01/23-09/19/23. Patient should be placed on isolation starting 08/30/23, as patient's can be contagious as early as 48 hours before symptoms. Given the prolonged incubation period and infectivity of no concern until 08/30/23, no additional concerns for exposures on the floor since admission. At this time, patient continues to remain asymptomatic. 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 Presenting with 6 days of subjective fevers, SEE, URI symptoms, night sweats. In ED, found to be (+)RSV but afebrile. Labs notable for ANC of 547. Given empiric CTX and cefepime. Although afebrile and ANC borderline, given her symptoms and subjective fevers/night sweats at home, she is admitted for neutropenic fever. CRP reassuring against systemic bacterial infection.CXR reassuring against pneumonia. Possible her symptoms are all due to active RSV infection. She has also had dysuria and we will obtain UA with microscopic, culture upon next urination to assess for UTI. Suyapa has continued to improve since admit. She has remained afebrile throughout duration of admission and her ANC has recovered. Additionally, her BCx remain NGTD and she is now taking PO well with appropriate UOP. Methotrexate level recorded at 0.27, so patient has cleared. However, due to lack of oral medication compliance, patient will remain inpatient for leucovorin treatment s/p methotrexate. 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 Presenting with 6 days of subjective fevers, SEE, URI symptoms, night sweats. In ED, found to be (+)RSV but afebrile. Labs notable for ANC of 547. Given empiric CTX and cefepime. Although afebrile and ANC borderline, given her symptoms and subjective fevers/night sweats at home, she is admitted for neutropenic fever. CRP reassuring against systemic bacterial infection.CXR reassuring against pneumonia. Possible her symptoms are all due to active RSV infection. She has also had dysuria and we will obtain UA with microscopic, culture upon next urination to assess for UTI. Suyapa has continued to improve since admit. She has remained afebrile throughout duration of admission and her ANC has recovered. Additionally, her BCx remain NGTD and she is now taking PO well with appropriate UOP. LP obtained yesterday for ongoing maintenance therapy so will remain inpatient for observation s/p procedure. Methotrexate level and accompanying labs to be obtained this evening. 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 Presenting with 6 days of subjective fevers, SEE, URI symptoms, night sweats. In ED, found to be (+)RSV but afebrile. Labs notable for ANC of 547. Given empiric CTX and cefepime. Although afebrile and ANC borderline, given her symptoms and subjective fevers/night sweats at home, she is admitted for neutropenic fever. CRP reassuring against systemic bacterial infection.CXR reassuring against pneumonia. Possible her symptoms are all due to active RSV infection. She has also had dysuria and we will obtain UA with microscopic, culture upon next urination to assess for UTI. Suyapa has continued to improve since admit. She has remained afebrile throughout duration of admission and her ANC has recovered to 1.2. Additionally, her BCx remain NGTD and she is now taking PO well with appropriate UOP. LP obtained this morning for ongoing maintenance therapy so will remain inpatient for observation s/p procedure. 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 Presenting with 6 days of subjective fevers, SEE, URI symptoms, night sweats. In ED, found to be (+)RSV but afebrile. Labs notable for ANC of 547. Given empiric CTX and cefepime. Although afebrile and ANC borderline, given her symptoms and subjective fevers/night sweats at home, she is admitted for neutropenic fever. CRP reassuring against systemic bacterial infection.CXR reassuring against pneumonia. Possible her symptoms are all due to active RSV infection. She has also had dysuria and we will obtain UA with microscopic, culture upon next urination to assess for UTI. Suyapa has continued to improve since admit. She has remained afebrile throughout duration of admission and her ANC has recovered to 0.88. Additionally, her BCx remain NGTD and she is now taking PO well with appropriate UOP. Given count recovery, negative BCx, and improve symptoms, patient is eligible for DC. However, patient is scheduled to obtain LP tomorrow morning for ongoing maintenance therapy so will remain inpatient for observation prior to procedure. 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 Presenting today with 6 days of subjective fevers, SEE, URI symptoms, night sweats. Found to have RSV infection in the ED. Was afebrile. Notes notable for ANC of 547. Blood culture sent and pending. Ramesh received a dose of ctx while awaiting labs and a dose of cefepime in the ED after her ANC resulted. Although afebrile here and ANC is borderline, given her symptoms and subjective fevers/night sweats at home, she is admitted for neutropenic fever. CRP reassuring against systemic bacterial infection.CXR reassuring against pneumonia. Possible her symptoms are all due to active RSV infection. She has also had dysuria and we will obtain UA with microscopic, culture upon next urination to assess for UTI. Additionally, electrolytes nml in ED, but patient did appear dehydrated. She received a fluid bolus and was started on IV hydration which we will continue on the floor. Plan: Neuro: at baseline - tylenol q6h PRN Resp: JANNETH CV: HDS FEN/GI - regular diet, mIVF ID: +RSV - f/u 08/22 blood cx - s/p ctx x1, cefepime x1 08/22 [] f/u UA [] If still neutropenic on 4am labs 08/23, order cefepime q8h Heme: - restart lovenox 80mg BID (hold when plts <25; 1/2 dose when 25-50) - hx of R subclavian venous thrombus Onc - Hold oral chemo until ANC >700 Labs: AM CBC, RFP Lines: single lumen port Fever 08/22/2023 10/07/2023 Assessment & Plan (09/25/2023 2:03 PM BEHAVIORAL HEALTH CARE MANAGER): Resolved Plan for discharge home when safe transportation has been obtained. Assessment & Plan (09/24/2023 5:42 PM BEHAVIORAL HEALTH CARE MANAGER): T Max 38.5 - F/U blood cultures - Ceftriaxone Q24h Assessment & Plan (08/22/2023 10:08 PM BEHAVIORAL HEALTH CARE MANAGER): As above Facial swelling 08/08/2023 08/09/2023 Assessment & Plan (08/08/2023 10:44 AM BEHAVIORAL HEALTH CARE MANAGER): Symmetric facial swelling without airway edema. Unclear etiology but exaccerbated by hyperhydration. - continue hyperhydration at current rates which is essential for MTX clearance. Discontinue fluids when MTX less than 0.1 - will give benadryl 50mg IV x1 over 30 minutes - famotidine 20mg IV x1 - Suyapa would like to avoid additional PO meds if possible Pancytopenia due to antineop lastic chemotherapy 07/23/2023 02/26/2024 Assessment & Plan (02/12/2024 1:11 PM CDT): See CBC. - Daily CBC w/ diff - Transfuse to keep Hgb >7, Plt >10, or if symptomatic Assessment & Plan (02/11/2024 11:03 AM CDT): See CBC. - Daily CBC w/ diff - Transfuse to keep Hgb >7, Plt >10, or if symptomatic Assessment & Plan (02/10/2024 12:24 PM CDT): See CBC. - Daily CBC w/ diff - Transfuse to keep Hgb >7, Plt >10, or if symptomatic - No transfusions required today though can consider blood if headache persists or worsens Assessment & Plan (02/09/2024 3:03 PM CDT): See CBC. - Daily CBC w/ diff - Transfuse to keep Hgb >7, Plt >10, or if symptomatic - No transfusions required today Assessment & Plan (02/08/2024 3:54 PM CDT): See CBC. - Daily CBC w/ diff - Transfuse to keep Hgb >7, Plt >10, or if symptomatic - Transfuse PRBCs today Pre B-cell acute lymphoblast ic leukemia in remission 07/17/2023 08/23/2023 Pre B-cell acute lymphoblast ic leukemia in remission 07/17/2023 09/21/2023 Pre B-cell acute lymphoblast ic leukemia in remission 07/17/2023 11/19/2023 Assessment & Plan (11/08/2023 1:24 PM CDT): Patient on [id number], Post-Induction. - last received dexrazoxane, doxorubicin, vincristine 11/01 - next: 4/1 doxorubicin, vincristine, 7 day dexamethasone (CMP 4/1, monitor stool before giving vincristine) - Bactrim Sat/Sun - Lovenox prophylaxis while admitted Assessment & Plan (11/07/2023 1:19 PM CDT): Patient on [id number], Post-Induction. - last received dexrazoxane, doxorubicin, vincristine 11/01 - next: 4/1 doxorubicin, vincristine, 7 day dexamethasone (CMP 4/1, monitor stool before giving vincristine) - Bactrim Sat/Sun - Lovenox prophylaxis while admitted Assessment & Plan (11/06/2023 11:12 AM CDT): Patient on [id number], Post-Induction. - last received dexrazoxane, doxorubicin, vincristine 11/01 - next: 4/1 doxorubicin, vincristine, 7 day dexamethasone (CMP 4/1, monitor stool before giving vincristine) - Bactrim Sat/Sun - Lovenox prophylaxis while admitted Acute kidney injury 07/09/2023 10/06/19 24 Assessment & Plan (07/15/2023 4:24 PM BEHAVIORAL HEALTH CARE MANAGER): Due to chemotherapy. Peak 1.0 on 07/08. Creatinine improving at 0.78. - Continue mIVF - Strict I/Os - Daily weights Assessment & Plan (07/14/2023 12:32 PM BEHAVIORAL HEALTH CARE MANAGER): Due to chemotherapy. Peak 1.0 on 07/08. Her hyperhydration IVFs were increased at hour 24 given a 31% increase from her creatinine baseline. Most recent level this morning 0.79. UOP 3.4ml/kg/hr. - Continue hyperhydration IVFs at 200ml/m2/hr - Continue Leucovorin 15mg/m2 Q3h - Strict I/Os - Daily weights Assessment & Plan (07/13/2023 5:45 PM BEHAVIORAL HEALTH CARE MANAGER): Due to chemotherapy. Peak 1.0 on 07/08. Her hyperhydration IVFs were increased at hour 24 given a 31% increase from her creatinine baseline. Most recent level this morning 0.87. UOP 3ml/kg/hr. - Continue hyperhydration IVFs at 200ml/m2/hr - Continue Leucovorin 15mg/m2 Q3h - Strict I/Os - Daily weights Assessment & Plan (07/12/2023 2:33 PM BEHAVIORAL HEALTH CARE MANAGER): Due to chemotherapy. Peak 1.0 on 07/08. Her hyperhydration IVFs were increased at hour 24 given a 31% increase from her creatinine baseline. Most recent level this morning 0.86. UOP 2.8ml/kg. - Continue hyperhydration IVFs at 200ml/m2/hr - Continue Leucovorin 15mg/m2 Q3h - Strict I/Os - Daily weights Assessment & Plan (07/11/2023 7:10 PM BEHAVIORAL HEALTH CARE MANAGER): Due to chemotherapy. Peak 1.0 on 07/08. Her hyperhydration IVFs were increased at hour 24 given a 31% increase from her creatinine baseline. Most recent level this morning 0.91. UOP adequate at 3.09ml/kg/hr. - Continue hyperhydration IVFs at 200ml/m2/hr - Continue Leucovorin 15mg/m2 Q3h - Strict I/Os - Daily weights Assessment & Plan (07/10/2023 1:27 PM BEHAVIORAL HEALTH CARE MANAGER): Due to chemotherapy. Peak 1.0 on 07/08. Her hyperhydration IVFs were increased at hour 24 given a 31% increase from her creatinine baseline. Most recent level this morning 0.55. UOP adequate at 4.89ml/kg/hr. - Continue hyperhydration IVFs at 200ml/m2/hr - Continue Leucovorin 15mg/m2 Q3h - Strict I/Os - Daily weights Assessment & Plan (07/09/2023 1:07 PM BEHAVIORAL HEALTH CARE MANAGER): Due to chemotherapy. Peak 1.0 on 07/08. Her hyperhydration IVFs were increased at hour 24 given a 31% increase from her creatinine baseline. Most recent level this morning 0.98. UOP adequate at 3.9ml/kg/hr. - Continue hyperhydration IVFs at 200ml/m2/hr - Continue Leucovorin 15mg/m2 Q3h - Strict I/Os - Daily weights Fever 07/09/2023 10/27/2023 Assessment & Plan (10/13/2023 12:45 PM BEHAVIORAL HEALTH CARE MANAGER): Ramesh spiked a fever yesterday morning to 101.3F in the setting of abdominal pain and new G-tube. Abdomen tender, KUB without free air or focality. Has been afebrile x24 hours. Fever was likely post-surgical and she has no other signs of infection. - S/p cefepime (10/09-10/10) - Follow blood cultures from 10/09 - NGTD Assessment & Plan (10/12/2023 2:32 PM BEHAVIORAL HEALTH CARE MANAGER): Ramesh spiked a fever yesterday morning to 101.3F in the setting of abdominal pain and new G-tube. Abdomen tender, KUB without free air or focality. Has been afebrile x24 hours. Fever was likely post-surgical and she has no other signs of infection. - S/p cefepime (10/09-10/10) - Follow blood cultures from 10/09 - NGTD Assessment & Plan (10/11/2023 11:55 AM BEHAVIORAL HEALTH CARE MANAGER): Ramesh spiked a fever yesterday morning to 101.3F in the setting of abdominal pain and new G-tube. Abdomen tender, KUB without free air or focality. Has been afebrile x24 hours. Fever was likely post-surgical and she has no other signs of infection. Will d/c cefepime today. - Stop cefepime (10/09-10/10) - Follow blood cultures from 10/09. Assessment & Plan (10/10/2023 2:07 PM BEHAVIORAL HEALTH CARE MANAGER): Ramesh spiked a fever in the setting of abdominal pain and new peg tube. Abdomen tender, KUB without free air or focality. Ped surg following [] FU blood cultures - ped surg consulted, appreciate recs Assessment & Plan (07/15/2023 4:21 PM BEHAVIORAL HEALTH CARE MANAGER): Ramesh was febrile overnight on 07/08-07/09 to 38.2 and 38.1. She was tachycardic with fevers but otherwise well-appearing on exam, BPs WNL. Blood cultures were drawn from her PAC and peripherally and Cefepime was started. She has been afebrile since 07/09 at 7:29 pm. - Cefepime (07/09--5) - blood cultures no growth - Tylenol PRN for fevers Assessment & Plan (07/14/2023 12:31 PM BEHAVIORAL HEALTH CARE MANAGER): Ramesh was febrile overnight on 07/08-07/09 to 38.2 and 38.1. She was tachycardic with fevers but otherwise well-appearing on exam, BPs WNL. Blood cultures were drawn from her PAC and peripherally and Cefepime was started. She has been afebrile since 07/09 at 7:29 pm. We will continue blood cultures and follow her ANC to determine duration of cefepime. - Cefepime (07/09-*5) - blood cultures no growth - Tylenol PRN for fevers Assessment & Plan (07/13/2023 5:45 PM BEHAVIORAL HEALTH CARE MANAGER): Ramesh was febrile overnight on 07/08-07/09 to 38.2 and 38.1. She was tachycardic with fevers but otherwise well-appearing on exam, BPs WNL. Blood cultures were drawn from her PAC and peripherally and Cefepime was started. She has been afebrile since 07/09 at 7:29 pm. We will continue blood cultures and follow her ANC to determine duration of cefepime. - Cefepime (07/09-) [] obtain daily blood cultures with fevers - Tylenol PRN for fevers Assessment & Plan (07/12/2023 2:32 PM BEHAVIORAL HEALTH CARE MANAGER): Ramesh was febrile overnight on 07/08-07/09 to 38.2 and 38.1. She was tachycardic with fevers but otherwise well-appearing on exam, BPs WNL. Blood cultures were drawn from her PAC and peripherally and Cefepime was started. She has been afebrile since 07/09 at 7:29 pm. We will continue blood cultures and follow her ANC to determine duration of cefepime. - Cefepime (07/09-) [] obtain daily blood cultures with fevers - Tylenol PRN for fevers Assessment & Plan (07/11/2023 7:11 PM BEHAVIORAL HEALTH CARE MANAGER): Ramesh was febrile overnight on 07/08-07/09 to 38.2 and 38.1. She was tachycardic with fevers but otherwise well-appearing on exam, BPs WNL. Blood cultures were drawn from her PAC and peripherally and Cefepime was started. She has been afebrile since 06/29 at 7:29 pm. We will continue blood cultures and follow her ANC to determine duration of cefepime. - Cefepime (07/09-) [] obtain daily blood cultures - daily CBC - Tylenol PRN for fevers Assessment & Plan (07/10/2023 1:27 PM BEHAVIORAL HEALTH CARE MANAGER): Ramesh was febrile overnight on 07/08-07/09 to 38.2 and 38.1. She was tachycardic with fevers but otherwise well-appearing on exam, BPs WNL. Blood cultures were drawn from her PAC and peripherally and Cefepime was started. She has been afebrile this morning. - Cefepime (07/09-) [] F/U 07/09 blood cultures - Obtain new blood cultures (just from central line) every 24 hours with fevers - Tylenol PRN for fevers Assessment & Plan (07/09/2023 1:09 PM BEHAVIORAL HEALTH CARE MANAGER): Ramesh was febrile overnight on 07/08-07/09 to 38.2 and 38.1. She was tachycardic with fevers but otherwise well-appearing on exam, BPs WNL. Blood cultures were drawn from her PAC and peripherally and Cefepime was started. She has been afebrile this morning. - Cefepime (07/09-) [] F/U 07/09 blood cultures - Obtain new blood cultures (just from central line) every 24 hours with fevers - Tylenol PRN for fevers Anemia due to antineoplastic chemotherapy 07/08/2023 07/14/2023 Assessment & Plan (07/14/2023 12:32 PM BEHAVIORAL HEALTH CARE MANAGER): Hgb 8.5 today. - Cbc in am d/t dropping plt count Assessment & Plan (07/13/2023 5:44 PM BEHAVIORAL HEALTH CARE MANAGER): Hgb 8.5 today. - Cbc in am d/t dropping plt count Assessment & Plan (07/12/2023 2:33 PM BEHAVIORAL HEALTH CARE MANAGER): Hgb 6.7 on 07/08. This AM CBC Hgb 6.1. - Transfuse 2 units CBCs today - Do not obtain another CBC until 1 week from now or if symptomatic Assessment & Plan (07/11/2023 7:09 PM BEHAVIORAL HEALTH CARE MANAGER): Hgb 6.7 on 07/08. Will check CBC and blood culture in the AM 07/12. - Plan to transfuse PRBCs prior to discharge or sooner if symptomatic. -CBC daily -blood cultures Assessment & Plan (07/10/2023 1:26 PM BEHAVIORAL HEALTH CARE MANAGER): Hgb 6.7 on 07/08. - Plan to transfuse PRBCs prior to discharge or sooner if symptomatic. Assessment & Plan (07/09/2023 1:06 PM BEHAVIORAL HEALTH CARE MANAGER): Hgb 6.7 on 07/08. - Plan to transfuse PRBCs prior to discharge or sooner if symptomatic. Assessment & Plan (07/08/2023 11:21 AM BEHAVIORAL HEALTH CARE MANAGER): Hgb 6.7 on 07/08. - Plan to transfuse PRBCs prior to discharge Hemorrhoid 07/08/2023 10/07/2023 Assessment & Plan (07/15/2023 4:21 PM BEHAVIORAL HEALTH CARE MANAGER): Continues to have pain from hemorrhoid. - Ensure Ramesh is having regular, normal Bms - currently having loose stools - Symptom management (hydrocortisone 2.5% no more than BID, lidocaine cream, sitz bath, witch ronn) Assessment & Plan (07/14/2023 12:30 PM BEHAVIORAL HEALTH CARE MANAGER): Continues to have pain from hemorrhoid. - Ensure Ramesh is having regular, normal Bms - currently having loose stools - Symptom management (hydrocortisone 2.5% no more than BID, lidocaine cream, sitz bath, witch ronn) Assessment & Plan (07/13/2023 5:45 PM BEHAVIORAL HEALTH CARE MANAGER): Continues to have pain from hemorrhoid. - Ensure Ramesh is having regular, normal Bms - currently having loose stools - Symptom management (hydrocortisone 2.5% no more than BID, lidocaine cream, sitz bath, witch ronn) Assessment & Plan (07/12/2023 2:31 PM BEHAVIORAL HEALTH CARE MANAGER): Continues to have pain from hemorrhoid. - Ensure Ramesh is having regular, normal BMs - Symptom management (hydrocortison 2.5% no more than BID, lidocaine cream, sitz bath, witch ronn) - Added Lidocaine 4% external solution today Assessment & Plan (07/11/2023 7:09 PM BEHAVIORAL HEALTH CARE MANAGER): Continues to have pain from hemorrhoid. - Ensure Ramesh is having regular, normal BMs - Symptom management (hydrocortison 2.5% no more than BID, lidocaine cream, sitz bath, witch ronn) Assessment & Plan (07/10/2023 1:27 PM BEHAVIORAL HEALTH CARE MANAGER): Small hemorrhoid noted to on rectal exam 07/07. No fissures or bleeding noted. Could be related to small bloody stool on 07/07. Increase pain overnight. - Ensure Ramesh is having regular, normal BMs - Symptom management (hydrocortison 2.5% no more than BID, lidocaine cream, sitz bath, witch ronn) Assessment & Plan (07/09/2023 1:05 PM BEHAVIORAL HEALTH CARE MANAGER): Small hemorrhoid noted to on rectal exam 07/07. No fissures or bleeding noted. Could be related to small bloody stool on 07/07. Some pain overnight. - Ensure Ramesh is having regular, normal BMs - Symptom management Assessment & Plan (07/08/2023 11:22 AM BEHAVIORAL HEALTH CARE MANAGER): Small hemorrhoid noted to on rectal exam 07/07. No fissures or bleeding noted. Could be related to small bloody stool on 07/07. No current complains of pain. - Ensure Ramesh is having regular, normal BMs - Symptom management Hematochezia 07/07/2023 07/12/2023 Assessment & Plan (07/12/2023 2:31 PM BEHAVIORAL HEALTH CARE MANAGER): No recent hematochezia. Pain with passing stool. - 07/08 F/U stool samples: c diff, noro, rotavirus, guaiac stool - negative/no growth - Begin Pepcid after MTX has cleared prior to discharge -prep H burned with application so Ramesh is refusing. Will try hydrocortisone 2.5% cream to area BID prn . This can be use with lidocaine cream as well. - Witch ronn pads ordered Assessment & Plan (07/11/2023 7:08 PM BEHAVIORAL HEALTH CARE MANAGER): No recent hematochezia. Pain with passing stool. - 07/08 F/U stool samples: c diff, noro, rotavirus, guaiac stool - negative/no growth - Begin Pepcid after MTX has cleared prior to discharge -prep H burned with application so Ramesh is refusing. Will try hydrocortisone 2.5% cream to area BID prn . This can be use with lidocaine cream as well. - Witch ronn pads ordered Assessment & Plan (07/10/2023 1:26 PM BEHAVIORAL HEALTH CARE MANAGER): Ramesh had one loose, bright red, bloody stool overnight 07/07 accompanied by generalized abdominal cramping. KUB obtained and normal. Small- pea sized external hemorrhoid on exam today. No fissures or bleeding present. Now resolved on 07/09. - 07/08 F/U stool samples: c diff, noro, rotavirus, guaiac stool - negative/no growth - Begin Pepcid after MTX has cleared prior to discharge -prep H burned with application so Ramesh is refusing. Will try hydrocortisone 2.5% cream to area BID prn (ensure cream not left in room because we do not want application more than BID). This can be use with lidocaine cream as well. - Witch ronn pads ordered Assessment & Plan (07/09/2023 1:05 PM BEHAVIORAL HEALTH CARE MANAGER): Ramesh had one loose, bright red, bloody stool overnight 07/07 accompanied by generalized abdominal cramping. KUB obtained and normal. Small external hemorrhoid on exam today. No fissures or bleeding present. Now resolved on 07/09. - 07/08 F/U stool samples: c diff, noro, rotavirus, guaiac stool - negative/no growth - Begin Pepcid after MTX has cleared prior to discharge Assessment & Plan (07/08/2023 11:19 AM BEHAVIORAL HEALTH CARE MANAGER): Ramesh had one loose, bright red, bloody stool overnight 07/07 accompanied by generalized abdominal cramping. KUB obtained and normal. Small external hemorrhoid on exam today. No fissures or bleeding present. - 07/08 F/U stool samples: c diff, noro, rotavirus, guaiac stool - Begin Pepcid after MTX has cleared prior to discharge Assessment & Plan (07/07/2023 1:20 PM BEHAVIORAL HEALTH CARE MANAGER): Ramesh had one loose, bright red, bloody stool overnight accompanied by generalized abdominal cramping. KUB obtained and normal. Small external hemorrhoid on exam today. No fissures or bleeding present. - Obtain and F/U stool samples: c diff, noro, rotavirus, guaiac stool - Obtain H/H at 24 hour MTX level to monitor Hgb - Begin Pepcid after MTX has cleared prior to discharge Electrolyte abnormality 07/07/202308/10 Assessment & Plan (07/15/2023 4:22 PM BEHAVIORAL HEALTH CARE MANAGER): Potassium normalized. Likely related to hyperhydration with bicarb containing IVF. - continue KCL in IVFs Assessment & Plan (07/14/2023 12:31 PM BEHAVIORAL HEALTH CARE MANAGER): Potassium normalized. - continue KCL in IVFs - Obtain BMP with each MTX level Assessment & Plan (07/13/2023 5:42 PM BEHAVIORAL HEALTH CARE MANAGER): Potassium normalized - continue KCL in IVFs - Obtain BMP with each MTX level Assessment & Plan (07/12/2023 2:32 PM BEHAVIORAL HEALTH CARE MANAGER): Potassium normalized today. - continue KCL in IVFs - Obtain BMP with each MTX level Assessment & Plan (07/11/2023 7:08 PM BEHAVIORAL HEALTH CARE MANAGER): Potassium normalized today. - continue KCL in IVFs - Obtain BMP with each MTX level Assessment & Plan (07/10/2023 1:26 PM BEHAVIORAL HEALTH CARE MANAGER): K 2.8 this morning. - increase KCL to IVFs today - Obtain BMP with each MTX level Assessment & Plan (07/09/2023 1:06 PM BEHAVIORAL HEALTH CARE MANAGER): K 2.8 this morning. - Add KCL to IVFs today - Obtain BMP with each MTX level Assessment & Plan (07/08/2023 11:20 AM BEHAVIORAL HEALTH CARE MANAGER): K 2.9 again this morning. Na 147. - Oral KCL 20mEq today - Obtain BMP with each MTX level Assessment & Plan (07/07/2023 1:21 PM BEHAVIORAL HEALTH CARE MANAGER): K 2.9 this morning. - Oral KCL 20mEq today - Obtain BMP with each MTX level Nodule of skin of left upper extremity 06/15/2023 06/16/2023 Chemotherapy induced nausea and vomiting 05/31/2023 02/26/2024 Assessment & Plan (02/12/2024 1:08 PM CDT): No emesis in the past 24 hours. - Continue scheduled Zofran - PRN Benadryl/Compazine - Supportive care as needed Assessment & Plan (02/11/2024 11:06 AM CDT): Emesis once yesterday morning - Continue scheduled Zofran - PRN Benadryl/Compazine - Supportive care as needed Assessment & Plan (02/10/2024 12:31 PM CDT): Emesis x 2 - Schedule Zofran - PRN Benadryl/Compazine - Supportive care as needed Assessment & Plan (02/09/2024 3:06 PM CDT): History of. Complaints of nausea on exam today, no vomiting. - PRN Zofran, Benadryl/Compazine - Supportive care as needed Assessment & Plan (02/08/2024 3:37 PM CDT): History of. Complaints of nausea on exam today, no vomiting. - PRN Zofran, Benadryl/Compazine - Supportive care as needed Assessment & Plan (02/06/2024 10:42 AM CDT): -Zofran, benadryl/compazine prn Assessment & Plan (02/05/2024 5:47 PM CDT): -Zofran prn Assessment & Plan (01/13/2024 2:09 AM CDT): - continue home ondansetron - continue home benadryl/reglan - continue home scopalamine patch Assessment & Plan (08/14/2023 1:25 PM BEHAVIORAL HEALTH CARE MANAGER): Hx of. - Schedule Zofran and Scopolamine patch while admitted and receiving chemotherapy - Benadryl/Reglan PRN - May titrate anti-emetic regimen to efficacy Assessment & Plan (08/09/2023 1:32 PM BEHAVIORAL HEALTH CARE MANAGER): Hx of. - Schedule Zofran and Scopolamine patch while admitted and receiving chemotherapy - Benadryl/Reglan PRN - May titrate anti-emetic regimen to efficacy Assessment & Plan (08/08/2023 10:40 AM BEHAVIORAL HEALTH CARE MANAGER): Hx of. - Schedule Zofran and Scopolamine patch while admitted and receiving chemotherapy - Benadryl/Reglan PRN - May titrate anti-emetic regimen to efficacy Assessment & Plan (08/07/2023 12:03 PM BEHAVIORAL HEALTH CARE MANAGER): Hx of. - Schedule Zofran and Scopolamine patch while admitted and receiving chemotherapy - Benadryl/Reglan PRN - May titrate anti-emetic regimen to efficacy Assessment & Plan (08/06/2023 11:13 AM BEHAVIORAL HEALTH CARE MANAGER): Hx of. - Schedule Zofran and Scopolamine patch while admitted and receiving chemotherapy - Benadryl/Reglan PRN - May titrate anti-emetic regimen to efficacy Assessment & Plan (08/05/2023 12:32 PM BEHAVIORAL HEALTH CARE MANAGER): Hx of. 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 Admitted for management of nausea/vomiting, replacement of N/G tube and administration of chemotherapy medication. 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 Admitted for management of nausea/vomiting, replacement of N/G tube and administration of chemotherapy medication. 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 Admitted for management of nausea/vomiting, replacement of N/G tube and administration of chemotherapy medication. 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 Admitted for management of nausea/vomiting, replacement of N/G tube and administration of chemotherapy medication. 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 Admitted overnight for management of nausea/vomiting, replacement of N/G tube and administration of chemotherapy medication. - monitor symptoms of nausea - replaced N/G tube (patient asked for 8 fr) - continue home medications - HOLD 6-MP and resume after N/G tube is placed Sleeping difficulty 05/22/2023 10/27/19 24 Assessment & Plan (05/28/2023 12:46 PM CDT): Ramesh reported difficulty sleeping. Mom reported concerns that Ramesh had been more out of it over the past several days which was concerning for delirium. Delirium precautions started 05/21. - Continue delirium precautions - Hold Trazodone 50mg nightly (05/22) due to complains of hot and cold concerning for side effects - Melatonin nightly Assessment & Plan (05/27/2023 1:43 PM CDT): Ramesh reported difficulty sleeping. Mom reported concerns that Ramesh had been more out of it over the past several days which was concerning for delirium. Delirium precautions started 05/21. - Continue delirium precautions - Hold Trazodone 50mg nightly (05/22) due to complains of hot and cold concerning for side effects - Melatonin nightly Assessment & Plan (05/26/2023 12:06 PM CDT): Ramesh reported difficulty sleeping. Mom reported concerns that Ramesh had been more out of it over the past several days which was concerning for delirium. Delirium precautions started 05/21. - Continue delirium precautions - Hold Trazodone 50mg nightly (05/22) due to complains of hot and cold concerning for side effects - Melatonin nightly Assessment & Plan (05/25/2023 12:24 PM CDT): Ramesh reported difficulty sleeping. Mom reported concerns that Ramesh had been more out of it over the past several days which was concerning for delirium. Delirium precautions started 05/21. - Continue delirium precautions - Hold Trazodone 50mg nightly (05/22) due to complains of hot and cold concerning for side effects - Melatonin nightly Assessment & Plan (05/24/2023 11:28 AM CDT): Ramesh reported difficulty sleeping last night. Mom reported concerns that Ramesh had been more out of it over the past several days which was concerning for delirium. Delirium precautions started 05/21. - Continue delirium precautions - Hold Trazodone 50mg nightly (05/22) due to complains of hot and cold concerning for side effects - Will obtain Thyroid function labs tomorrow 05/25 Assessment & Plan (05/23/2023 9:07 AM CDT): Ramesh reported difficulty sleeping last night. Mom reported concerns that Ramesh had been more out of it over the past several days which was concerning for delirium. Delirium precautions started 05/21. - Continue delirium precautions - Continue Trazodone 50mg nightly (05/22-) for sleep Assessment & Plan (05/22/2023 9:40 AM CDT): Ramesh reported difficulty sleeping last night. Mom reported concerns that Ramesh had been more out of it over the past several days which was concerning for delirium. Delirium precautions started yesterday - Continue delirium precautions - Start Trazodone 50mg nightly for sleep Reflux esophagitis 05/13/2023 Assessment & Plan (05/28/2023 12:45 PM CDT): Suyapa complains of throat pain that is consistent with reflux. Worse after she eats spicy foods. - Continue Lansoprazole Assessment & Plan (05/27/2023 1:43 PM CDT): Suyapa complains of throat pain that is consistent with reflux. Worse after she eats spicy foods. - Continue Lansoprazole Assessment & Plan (05/26/2023 12:06 PM CDT): Suyapa complains of throat pain that is consistent with reflux. Worse after she eats spicy foods. - Change Pepcid to Lansoprazole today Assessment & Plan (05/25/2023 12:22 PM CDT): Suyapa complains of throat pain that is consistent with reflux. Worse after she eats spicy foods. - Pepcid IV BID Assessment & Plan (05/24/2023 5:03 AM CDT): Suyapa complains of throat pain that is consistent with reflux. Worse after she eats spicy foods. - Pepcid IV BID Assessment & Plan (05/23/2023 9:06 AM CDT): Suyapa complains of throat pain that is consistent with reflux. Worse after she eats spicy foods. - Pepcid IV BID Assessment & Plan (05/22/2023 8:54 AM CDT): Suyapa complains of throat pain that is consistent with reflux. Worse after she eats spicy foods. - Pepcid IV BID Assessment & Plan (05/21/2023 12:50 PM CDT): Suyapa complains of throat pain that is consistent with reflux. Worse after she eats spicy foods. - Pepcid IV BID Assessment & Plan (05/20/2023 1:45 PM CDT): Suyapa complains of throat pain that is consistent with reflux. Worse after she eats spicy foods. - Pepcid IV BID Assessment & Plan (05/19/2023 11:13 AM CDT): Suyapa complains of throat pain that is consistent with reflux. Worse after she eats spicy foods. - Pepcid IV BID Assessment & Plan (05/18/2023 1:10 PM CDT): Suyapa complains of throat pain that is consistent with reflux. Worse after she eats spicy foods. - Pepcid IV BID Assessment & Plan (05/17/2023 11:45 AM CDT): Suyapa complains of throat pain that is consistent with reflux. Worse after she eats spicy foods. She is currently NPO with ice chips per surgery's recommendations. - Pepcid IV BID Assessment & Plan (05/16/2023 8:11 AM CDT): Suyapa complains of throat pain that is consistent with reflux. Worse after she eats spicy foods. She is currently NPO per surgery's recommendations. - Pepcid IV BID Assessment & Plan (05/15/2023 10:51 AM CDT): Suyapa complains of throat pain that is consistent with reflux. Worse after she eats spicy foods. She is currently NPO per surgery's recommendations. - Pepcid IV BID Assessment & Plan (05/14/2023 12:35 PM CDT): Suyapa complains of throat pain that is consistent with reflux. Worse after she eats spicy foods. She is currently NPO per surgery's recommendations. - Pepcid IV BID Assessment & Plan (05/13/2023 11:56 AM CDT): Suyapa complains of throat pain that is consistent with reflux. Worse after she eats spicy foods. She is currently NPO per surgery's recommendations. - Pepcid IV BID Constipation 05/08/2023 10/07/2023 Assessment & Plan (05/08/2023 1:13 PM CDT): Last BM on 05/07; however, states that she strains when trying to stool. No fissures or hemorrhoids on rectal exam. - Add daily Miralax today Fluid overload 05/05/2023 05/12/2023 Assessment & Plan (05/16/2023 8:10 AM CDT): +600mL today. Lungs CTAB and no edema on exam. Weight 84.8kg today, s/p albumin and lasix x1 yesterday. - Strict I/O - Daily weights Assessment & Plan (05/12/2023 12:38 PM CDT): +600mL today. Lungs CTAB and no edema on exam. Weight 84.8kg today, s/p albumin and lasix x1 yesterday. - Strict I/O - Daily weights Assessment & Plan (05/11/2023 1:53 PM CDT): +600mL today. Lungs CTAB and no edema on exam. Weight 84.8kg today, s/p albumin and lasix x1 yesterday. - Strict I/O - Daily weights Assessment & Plan (05/10/2023 11:01 AM CDT): Weight up 900 grams today and net +1.5L with hypoalbuminemia. Lungs CTAB and no edema on exam. - Albumin + lasix x1 - Continue monitorig UOP, weights, clinical exam Assessment & Plan (05/09/2023 8:07 AM CDT): I/Os, weight up 400 grams today. - Continue monitorig UOP, weights, clinical exam Assessment & Plan (05/08/2023 1:11 PM CDT): I/Os, weight stable today. - Continue monitorig UOP, weights, clinical exam Assessment & Plan (05/07/2023 10:14 AM CDT): I>O 1164 mL this morning. Weight up 1.5 kg. Lasix given after PRBCs. - Continue monitorig UOP, weights, clinical exam Assessment & Plan (05/06/2023 7:16 PM CDT): S/P lasix yesterday. Net negative 495 this morning - Continue monitorig UOP, weights, clinical exam Assessment & Plan (05/05/2023 11:16 AM CDT): C/O swelling to hands and feet this morning. Weight up to 85kg from 83.9kg yesterday. +1.4L net; however, UOP 1.3ml/kg. - Lasix 20mg today - Continue monitoring UOP, weights, clinical exam Febrile neutropenia 04/29/2023 05/26/20 Assessment & Plan (05/26/2023 12:07 PM CDT): Initially febrile on 04/29 AM. Blood cultures obtained and started on Ceftriaxone. Suyapa has a nodule to her R outer thigh with surrounding erythema with US right thigh performed 05/01/23 with concern for small fluid collection. Nodule continues to improve and non-tender. New fevers started on 05/11. RVP still +R/E. CT on 05/12 concerning for appendicitis and pyelonephritis. Afebrile since 05/16. - Zosyn Q6h (05/19-05/25) - s/p Cefepime (05/03-05/19), Vancomycin (05/01-05/18); Flagyl (05/12-05/19) - Blood cultures no growth; obtain new set of blood cultures every 24 hours with fevers - Consult ICID, appreciate recommendations and follow-up labwork from 05/15 - all pending or negative; urine culture negative - 05/18 CT a/p showing no change in appendicitis with continued c/f perforation - ICID's recommendation to change Cefe/Flagyl to Zosyn since Ramesh is now non-neutropenic Assessment & Plan (05/25/2023 12:18 PM CDT): Initially febrile on 920 AM. Blood cultures obtained and started on Ceftriaxone. Suyapa has a nodule to her R outer thigh with surrounding erythema with US right thigh performed 05/01/23 with concern for small fluid collection. Nodule continues to improve and non-tender. New fevers started on 05/11. RVP still +R/E. CT on 05/12 concerning for appendicitis and pyelonephritis. Afebrile since 05/16. - Zosyn Q6h (05/19-05/25)- will complete course today - s/p Cefepime (05/03-05/19), Vancomycin (05/01-05/18); Flagyl (05/12-05/19) - Blood cultures no growth; obtain new set of blood cultures every 24 hours with fevers - Consult ICID, appreciate recommendations and follow-up labwork from 05/15 - all pending or negative; urine culture negative - 05/18 CT a/p showing no change in appendicitis with continued c/f perforation - ICID's recommendation to change Cefe/Flagyl to Zosyn since Ramesh is now non-neutropenic Assessment & Plan (05/24/2023 5:01 AM CDT): Initially febrile on 920 AM. Blood cultures obtained and started on Ceftriaxone. Suyapa has a tender nodule to her R outer thigh with surrounding erythema with US right thigh performed 05/01/23 with concern for small fluid collection. Nodule continues to improve. New fevers started on 05/11 and continues to be febrile, however fever curve improving. Afebrile in the last day. RVP still +R/E. CT on 05/12 concerning for appendicitis and pyelonephritis. Afebrile since 05/16. - Zosyn Q6h (05/19-05/25) - s/p Cefepime (05/03-05/19), Vancomycin (05/01-05/18); Flagyl (05/12-05/19) - Blood cultures no growth; obtain new set of blood cultures every 24 hours with fevers - Consult ICID, appreciate recommendations and follow-up labwork from 05/15 - all pending or negative; urine culture negative - 05/18 CT a/p showing no change in appendicitis with continued c/f perforation - ICID's recommendation to change Cefe/Flagyl to Zosyn since Ramesh is now non-neutropenic - Will speak with Surgery today regarding unchanged CT scan on 05/18 - if expected, ICID recommends to continue antibiotics for another week from 05/18 thru 05/25. If not normal imaging, how might they recommend moving forward. Surgery originally only recommended keeping antibiotics on through Friday 05/18 per note. Assessment & Plan (05/23/2023 9:05 AM CDT): Initially febrile on 04/29 AM. Blood cultures obtained and started on Ceftriaxone. Suyapa has a tender nodule to her R outer thigh with surrounding erythema with US right thigh performed 05/01/23 with concern for small fluid collection. Nodule continues to improve. New fevers started on 05/11 and continues to be febrile, however fever curve improving. Afebrile in the last day. RVP still +R/E. CT on 05/12 concerning for appendicitis and pyelonephritis. Afebrile since 05/16. - Zosyn Q6h (05/19-05/25) - s/p Cefepime (05/03-05/19), Vancomycin (05/01-05/18); Flagyl (05/12-05/19) - Blood cultures no growth; obtain new set of blood cultures every 24 hours with fevers - Consult ICID, appreciate recommendations and follow-up labwork from 05/15 - all pending or negative; urine culture negative - 05/18 CT a/p showing no change in appendicitis with continued c/f perforation - ICID's recommendation to change Cefe/Flagyl to Zosyn since Ramesh is now non-neutropenic - Will speak with Surgery today regarding unchanged CT scan on 05/18 - if expected, ICID recommends to continue antibiotics for another week from 05/18 thru 05/25. If not normal imaging, how might they recommend moving forward. Surgery originally only recommended keeping antibiotics on through Friday 05/18 per note. Assessment & Plan (05/22/2023 8:57 AM CDT): Initially febrile on 04/29 AM. Blood cultures obtained and started on Ceftriaxone. Suyapa has a tender nodule to her R outer thigh with surrounding erythema with US right thigh performed 05/01/23 with concern for small fluid collection. Nodule continues to improve. New fevers started on 05/11 and continues to be febrile, however fever curve improving. Afebrile in the last day. RVP still +R/E. CT on 05/12 concerning for appendicitis and pyelonephritis. Afebrile since 05/16. - Zosyn Q6h (05/19-05/25) - s/p Cefepime (05/03-05/19), Vancomycin (05/01-05/18); Flagyl (05/12-05/19) - Blood cultures no growth; obtain new set of blood cultures every 24 hours with fevers - Consult ICID, appreciate recommendations and follow-up labwork from 05/15 - all pending or negative; urine culture negative - 05/18 CT a/p showing no change in appendicitis with continued c/f perforation - ICID's recommendation to change Cefe/Flagyl to Zosyn since Ramesh is now non-neutropenic - Will speak with Surgery today regarding unchanged CT scan on 05/18 - if expected, ICID recommends to continue antibiotics for another week from 05/18 thru 05/25. If not normal imaging, how might they recommend moving forward. Surgery originally only recommended keeping antibiotics on through Friday 05/18 per note. Assessment & Plan (05/21/2023 12:49 PM CDT): Initially febrile on 04/29 AM. Blood cultures obtained and started on Ceftriaxone. Suyapa has a tender nodule to her R outer thigh with surrounding erythema with US right thigh performed 05/01/23 with concern for small fluid collection. Nodule continues to improve. New fevers started on 05/11 and continues to be febrile, however fever curve improving. Tmax of 100.8 over the last 24 hours. RVP still +R/E. CT on 05/12 concerning for appendicitis and pyelonephritis. Afebrile since 05/16. - Zosyn Q6h (05/19-05/25) - s/p Cefepime (05/03-05/19), Vancomycin (05/01-05/18); Flagyl (05/12-05/19) - Blood cultures no growth; obtain new set of blood cultures every 24 hours with fevers - Consult ICID, appreciate recommendations and follow-up labwork from 05/15 - all pending or negative; urine culture negative - 05/18 CT a/p showing no change in appendicitis with continued c/f perforation - ICID's recommendation to change Cefe/Flagyl to Zosyn since Ramesh is now non-neutropenic - Will speak with Surgery today regarding unchanged CT scan on 05/18 - if expected, ICID recommends to continue antibiotics for another week from 05/18 thru 05/25. If not normal imaging, how might they recommend moving forward. Surgery originally only recommended keeping antibiotics on through Friday 05/18 per note. Assessment & Plan (05/20/2023 1:47 PM CDT): Initially febrile on 04/29 AM. Blood cultures obtained and started on Ceftriaxone. Suyapa has a tender nodule to her R outer thigh with surrounding erythema with US right thigh performed 05/01/23 with concern for small fluid collection. Nodule continues to improve. New fevers started on 05/11 and continues to be febrile, however fever curve improving. Tmax of 100.8 over the last 24 hours. RVP still +R/E. CT on 05/12 concerning for appendicitis and pyelonephritis. Afebrile since 05/16. - Zosyn Q6h (05/19-05/25) - s/p Cefepime (05/03-05/19), Vancomycin (05/01-05/18); Flagyl (05/12-05/19) - Blood cultures no growth; obtain new set of blood cultures every 24 hours with fevers - Consult ICID, appreciate recommendations and follow-up labwork from 05/15 - all pending or negative; urine culture negative - 05/18 CT a/p showing no change in appendicitis with continued c/f perforation - ICID's recommendation to change Cefe/Flagyl to Zosyn since Ramesh is now non-neutropenic - Will speak with Surgery today regarding unchanged CT scan on 05/18 - if expected, ICID recommends to continue antibiotics for another week from 05/18 thru 05/25. If not normal imaging, how might they recommend moving forward. Surgery originally only recommended keeping antibiotics on through Friday 05/18 per note. Assessment & Plan (05/19/2023 11:19 AM CDT): Initially febrile on 04/29 AM. Blood cultures obtained and started on Ceftriaxone. Suyapa has a tender nodule to her R outer thigh with surrounding erythema with US right thigh performed 05/01/23 with concern for small fluid collection. Nodule continues to improve. New fevers started on 05/11 and continues to be febrile, however fever curve improving. Tmax of 100.8 over the last 24 hours. RVP still +R/E. CT on 05/12 concerning for appendicitis and pyelonephritis. Afebrile since 05/16. - Change to Zosyn Q6h today (05/19-) - s/p Cefepime (05/03-05/19), Vancomycin (05/01-05/18); Flagyl (05/12-05/19) - Blood cultures no growth; obtain new set of blood cultures every 24 hours with fevers - Consult ICID, appreciate recommendations and follow-up labwork from 05/15 - all pending or negative; urine culture negative - 05/18 CT a/p showing no change in appendicitis with continued c/f perforation - ICID's recommendation to change Cefe/Flagyl to Zosyn since Ramesh is now non-neutropenic - Will speak with Surgery today regarding unchanged CT scan on 05/18 - if expected, ICID recommends to continue antibiotics for another week from 05/18 thru 05/25. If not normal imaging, how might they recommend moving forward. Surgery originally only recommended keeping antibiotics on through Friday 05/18 per note. Assessment & Plan (05/18/2023 1:14 PM CDT): Initially febrile on 04/29 AM. Blood cultures obtained and started on Ceftriaxone. Suyapa has a tender nodule to her R outer thigh with surrounding erythema with US right thigh performed 05/01/23 with concern for small fluid collection. Nodule continues to improve. New fevers started on 05/11 and continues to be febrile, however fever curve improving. Tmax of 100.8 over the last 24 hours. RVP still +R/E. CT on 05/12 concerning for appendicitis and pyelonephritis. 05/18: Afebrile >48 hours. - Cefepime (05/03-), Vancomycin (05/01-05/18); Flagyl (05/12- ) - surgery would like to continue Cefe/Flagyl for appendicitis through at least Friday 05/18 - urine culture negative - Obtain blood cultures every 24 hours with fevers - NGTD - Consult ICID, appreciate recommendations and follow-up labwork from 05/15- all negative or pending at this time Acute hepatitis panel-negative RPR-negative HIV 1/2 ab + p24 antigen-negative Urine GC/CT-negative Aspergillus galactomannan-pending Histoplasma antibodies-pending Blastomyces antibodies-pending Urine histoplasma antigen-pending Cryptococcal antigen-negative [] 05/18 CT a/p - ICID's recommendation prior to pulling on Cefe/Flagyl on 05/19 Assessment & Plan (05/17/2023 11:27 AM CDT): Initially febrile on 04/29 AM. Blood cultures obtained and started on Ceftriaxone. Suyapa has a tender nodule to her R outer thigh with surrounding erythema with US right thigh performed 05/01/23 with concern for small fluid collection. Nodule continues to improve. New fevers started on 05/11 and continues to be febrile, however fever curve improving. Tmax of 100.8 over the last 24 hours. RVP still +R/E. CT on 05/12 concerning for appendicitis and pyelonephritis. - Cefepime (05/03-), Vancomycin (05/01-); Flagyl (05/12- ) - surgery would like to continue Cefe/Flagyl for appendicitis through at least Friday 05/18 - urine culture negative. - Obtain blood cultures every 24 hours with fevers- obtained on 05/16 - RFP daily while receiving Vancomycin - Consult ICID, appreciate recommendations and follow-up labwork from 05/15- Acute hepatitis panel-negative RPR-negative HIV 1/2 ab + p24 antigen-negative Urine GC/CT-negative Aspergillus galactomannan-pending Histoplasma antibodies-pending Blastomyces antibodies-pending Urine histoplasma antigen-pending Cryptococcal antigen-negative [] Vanc trough Friday 05/18 prior to 0200 dose, goal 10-15 Assessment & Plan (05/16/2023 8:10 AM CDT): Initially febrile on 04/29 AM. Blood cultures obtained and started on Ceftriaxone. Suyapa has a tender nodule to her R outer thigh with surrounding erythema with US right thigh performed 05/01/23 with concern for small fluid collection. Nodule continues to improve. Last febrile 05/13 at 1600. New fevers started on 05/11 and continues to be febrile, tmax 38.9 in the last 24 hours. RVP still +R/E. CT on 05/12 concerning for appendicitis and pyelonephritis. Temp to 38.4 on 05/15 overnight, but normal on rechecks. However difficult to evaluate on scheduled Tylenol. - Cefepime (05/03-), Vancomycin (05/01-); Flagyl (05/12- ) - surgery would like to continue Cefe/Flagyl for appendicitis through at least Friday 05/18 - urine culture negative. - Obtain blood cultures every 24 hours with fevers- obtained on 05/16 - RFP daily while receiving Vancomycin - Consult ICID, appreciate recommendations and follow-up labwork from 05/15 [] Vanc trough Friday 05/18 prior to 0200 dose Assessment & Plan (05/15/2023 10:57 AM CDT): Initially febrile on 04/29 AM. Blood cultures obtained and started on Ceftriaxone. Suyapa has a tender nodule to her R outer thigh with surrounding erythema with US right thigh performed 05/01/23 with concern for small fluid collection. Nodule continues to improve. Last febrile 05/13 at 1600. New fevers started on 05/11 and continues to be febrile, tmax 38.9 in the last 24 hours. RVP still +R/E. CT on 05/12 concerning for appendicitis and pyelonephritis. - Cefepime (05/03-), Vancomycin (05/01-); Flagyl (05/12- ) - surgery would like to continue Cefe/Flagyl for appendicitis through at least Friday 05/18 - Follow-up urine culture results - NGTD - Obtain blood cultures every 24 hours with fevers - RFP daily while receiving Vancomycin - Consult ICID, appreciate recommendations and follow-up labwork from 05/15 [] Vanc trough Friday 05/18 prior to 0200 dose Assessment & Plan (05/14/2023 12:33 PM CDT): Initially febrile on 920 AM. Blood cultures obtained and started on Ceftriaxone. Suyapa has a tender nodule to her R outer thigh with surrounding erythema with US right thigh performed 05/01/23 with concern for small fluid collection. Nodule continues to improve. New fevers started on 05/11 and continues to be febrile, tmax 38.9 in the last 24 hours. RVP still +R/E. CT on 05/12 concerning for appendicitis and pyelonephritis. - Cefepime (05/03-), Vancomycin (05/01-); Flagyl (05/12- ) - Follow-up urine culture results - Obtain blood cultures every 24 hours with fevers - RFP daily while receiving Vancomycin - Consult ICID, appreciate recommendations Assessment & Plan (05/13/2023 11:49 AM CDT): Initially febrile on 04/29 AM. Blood cultures obtained and started on Ceftriaxone. Suyapa has a tender nodule to her R outer thigh with surrounding erythema with US right thigh performed 05/01/23 with concern for small fluid collection. Nodule continues to improve. New fevers started on 05/11 and continues to be febrile, tmax 38.9 in the last 24 hours. RVP still +R/E. CT on 05/12 concerning for appendicitis and pyelonephritis. - Cefepime (05/03-), Vancomycin (05/01-); Flagyl (05/12- ) - Obtain UA and follow up results - Obtain blood cultures every 24 hours with fevers - RFP daily while receiving Vancomycin - Consult ICID, appreciate recommendations Assessment & Plan (05/12/2023 12:40 PM CDT): Initially febrile on 920 AM. Blood cultures obtained and started on Ceftriaxone. Suyapa has a tender nodule to her R outer thigh with surrounding erythema with US right thigh performed 05/01/23 with concern for small fluid collection. Nodule continues to improve. New fevers started on 05/11 and continues to be febrile today to tmax 38.9. RVP still +R/E. No new infectious symptoms. - Cefepime (05/03-), Vancomycin (05/01-); consider adding Micafungin today if fevers continue with negative imaging - CT sinus/chest/abdomen/pelvis today - Obtain blood cultures every 24 hours with fevers - RFP daily while receiving Vancomycin - Consider consulting ICID with persistent fevers and pending imaging results Assessment & Plan (05/11/2023 1:52 PM CDT): Initially febrile on 9 AM. Blood cultures obtained and started on Ceftriaxone. Suyapa has a tender nodule to her R outer thigh with surrounding erythema with US right thigh performed 05/01/23 with concern for small fluid collection. Nodule continues to improve. Febrile overnight, blood cultures obtained. - Cefepime (05/03-), Vancomycin (05/01-); may consider d/c'ing with count recovery - Obtain blood cultures every 24 hours with fevers - RFP daily while receiving Vancomycin Assessment & Plan (05/10/2023 6:56 AM CDT): Initially febrile on 04/29 AM. Blood cultures obtained and started on Ceftriaxone. Afebrile overnight. Suyapa has a tender nodule to her R outer thigh with surrounding erythema with US right thigh performed 05/01/23 with concern for small fluid collection. Nodule continues to improve. Now afebrile for several days with blood cultures no growth. - Cefepime (05/03-), Vancomycin (05/01-); may consider d/c'ing with count recovery - Obtain blood cultures every 24 hours with fevers - RFP daily while receiving Vancomycin - Vanc trough Friday 05/11 prior to 0230 dose Assessment & Plan (05/09/2023 8:06 AM CDT): Initially febrile on 04/29 AM. Blood cultures obtained and started on Ceftriaxone. Afebrile overnight. Suyapa has a tender nodule to her R outer thigh with surrounding erythema with US right thigh performed 05/01/23 with concern for small fluid collection. Nodule continues to improve. Now afebrile for several days with blood cultures no growth. - Cefepime (05/03-), Vancomycin (05/01-); may consider d/c'ing with count recovery - Obtain blood cultures every 24 hours with fevers - RFP daily while receiving Vancomycin - Follow-up blood cultures-NGTD - Vanc trough Friday 05/11 prior to 0230 dose Assessment & Plan (05/08/2023 1:12 PM CDT): Initially febrile on 04/29 AM. Blood cultures obtained and started on Ceftriaxone. Afebrile overnight. Suyapa has a new tender nodule to her R outer thigh with surrounding erythema with US right thigh performed 05/01/23 with concern for small fluid collection. Now afebrile for several days with blood cultures no growth. - Cefepime (05/03-), Vancomycin (05/01-); may consider d/c'ing with count recovery - Obtain blood cultures every 24 hours with fevers - RFP daily while receiving Vancomycin - Follow-up blood cultures-NGTD - Vanc trough Friday 05/11 prior to 0230 dose; if Creatinine continues to increase, please obtain trough on Thursday - see Rx note Assessment & Plan (05/07/2023 10:13 AM CDT): Initially febrile on 04/29 AM. Blood cultures obtained and started on Ceftriaxone. Afebrile overnight. Suyapa has a new tender nodule to her R outer thigh with surrounding erythema with US right thigh performed 05/01/23 with concern for small fluid collection. Now afebrile. - Cefepime (05/03-), Vancomycin (05/01-) - Obtain blood cultures every 24 hours with fevers - RFP daily while receiving Vancomycin - Follow-up blood cultures-NGTD Assessment & Plan (05/06/2023 7:16 PM CDT): Initially febrile on 04/29 AM. Blood cultures obtained and started on Ceftriaxone. Afebrile overnight. Suyapa has a new tender nodule to her R outer thigh with surrounding erythema with US right thigh performed 05/01/23 with concern for small fluid collection. Now afebrile. - Cefepime (05/03-), Vancomycin (05/01-) - Obtain blood cultures every 24 hours with fevers - RFP daily while receiving Vancomycin - Follow-up blood cultures-NGTD Assessment & Plan (05/05/2023 11:14 AM CDT): Initially febrile on 9 AM. Blood cultures obtained and started on Ceftriaxone. Afebrile overnight. Suyapa has a new tender nodule to her R outer thigh with surrounding erythema with US right thigh performed 05/01/23 with concern for small fluid collection. Now afebrile. - Cefepime (05/03-), Vancomycin (05/01-) - Obtain blood cultures every 24 hours with fevers - RFP daily while receiving Vancomycin - Follow-up blood cultures-NGTD Assessment & Plan (05/04/2023 7:00 PM CDT): Initially febrile on 9 AM. Blood cultures obtained and started on Ceftriaxone. Afebrile overnight. Suyapa has a new tender nodule to her R outer thigh with surrounding erythema with US right thigh performed 05/01/23 with concern for small fluid collection. Now afebrile - Obtain blood cultures every 24 hours with fever and Continue Cefepime (05/03-) - Vancomycin q8hr - RFP daily while receiving vancomycin - Follow-up blood cultures-NGTD Assessment & Plan (05/03/2023 11:00 AM CDT): Initially febrile on 9 AM. Blood cultures obtained and started on Ceftriaxone. Afebrile overnight. Suyapa has a new tender nodule to her R outer thigh with surrounding erythema with US right thigh performed 05/01/23 with concern for small fluid collection. - Obtain blood cultures every 24 hours with fever and Continue Cefepime (05/03-) - Vancomycin q8hr - RFP daily while receiving vancomycin - Follow-up blood cultures Assessment & Plan (05/02/2023 10:33 AM CDT): Initially febrile on 9 AM. Blood cultures obtained and started on Ceftriaxone. Febrile overnight, Tmax 38.7. ANC 653 today. Suyapa has a new tender nodule to her R outer thigh with surrounding erythema with US right thigh performed yesterday with concern for small fluid collection. - Obtain blood cultures every 24 hours with fever and give Ceftriaxone if ANC >500 and Cefepime if <500 - Ceftriaxone q24hr - Vancomycin q8hr; Obtain vanc trough prior to 4th dose today at 10am and will adjust accordingly - RFP daily while receiving vancomycin - Follow-up blood cultures Assessment & Plan (05/01/2023 12:22 PM CDT): Initially febrile on 9 AM. Blood cultures obtained and started on Ceftriaxone. Febrile overnight, Tmax 38.7. ANC 1097 today. Suyapa has a new tender nodule to her R outer thigh with surrounding erythema. - Obtain blood cultures every 24 hours with fever and give Ceftriaxone if ANC >500 and Cefepime if <500 - Ceftriaxone q24hr - Vancomycin q8hr; Obtain vanc trough prior to 4th dose - RFP daily while receiving vancomycin - Follow-up blood cultures - Obtain US of R thigh today, follow-up results Assessment & Plan (04/30/2023 1:42 PM CDT): Initially febrile on 9 AM. Blood cultures obtained and started on Ceftriaxone. Febrile overnight, Tmax 38.4. ANC 1766 today. - Obtain blood cultures every 24 hours with fever and give Ceftriaxone if ANC >500 and Cefepime if <500 - Ceftriaxone q24hr - Follow-up blood cultures Assessment & Plan (04/29/2023 1:29 PM CDT): Initially febrile on 9 AM. Blood cultures obtained and started on Ceftriaxone. ANC 2863 today. - Obtain blood cultures every 24 hours with fever and give Ceftriaxone if ANC >500 and Cefepime if <500 - Ceftriaxone x1 on 04/29 - Follow-up blood cultures Productive cough 04/24/2023 05/28/2023 Assessment & Plan (05/28/2023 12:45 PM CDT): Suyapa reports a dry cough that started on 04/23. R/E+ on 04/24, 05/12, 05/21 RVP. CXR from 05/02 clear. RVP continues to be positive for R/E - Contact/droplet isolation - Supportive respiratory care measures - Guaifenesin Q4h PRN - MMW prn for throat pain Assessment & Plan (05/27/2023 1:40 PM CDT): Suyapa reports a dry cough that started on 04/23. R/E+ on 04/24, 05/12, 05/21 RVP. CXR from 05/02 clear. RVP continues to be positive for R/E - Contact/droplet isolation - Supportive respiratory care measures - Guaifenesin Q4h PRN - MMW prn for throat pain Assessment & Plan (05/26/2023 12:06 PM CDT): Suyapa reports a dry cough that started on 04/23. R/E+ on 04/24, 05/12, 05/21 RVP. CXR from 05/02 clear. RVP continues to be positive for R/E - Contact/droplet isolation - Supportive respiratory care measures - Guaifenesin Q4h PRN - MMW prn for throat pain Assessment & Plan (05/25/2023 12:16 PM CDT): Suyapa reports a dry cough that started on 04/23. R/E+ on 04/24, 05/12, 05/21 RVP. CXR from 05/02 clear. RVP continues to be positive for R/E - Contact/droplet isolation - Supportive respiratory care measures - Guaifenesin Q4h PRN - MMW prn for throat pain Assessment & Plan (05/24/2023 5:00 AM CDT): Suyapa reports a dry cough that started on 04/23. R/E+ on 04/24, 05/12, 05/21 RVP. CXR from 05/02 clear. RVP continues to be positive for R/E - Contact/droplet isolation - Supportive respiratory care measures - Guaifenesin Q4h PRN - MMW prn for throat pain Assessment & Plan (05/23/2023 9:05 AM CDT): Suyapa reports a dry cough that started on 04/23. R/E+ on 04/24, 05/12, 05/21 RVP. CXR from 05/02 clear. RVP continues to be positive for R/E - Contact/droplet isolation - Supportive respiratory care measures - Guaifenesin Q4h PRN - MMW prn for throat pain Assessment & Plan (05/22/2023 8:55 AM CDT): Suyapa reports a dry cough that started on 04/23. R/E+ on 04/24, 05/12, 05/21 RVP. CXR from 05/02 clear. RVP continues to be positive for R/E - Contact/droplet isolation - Supportive respiratory care measures - Guaifenesin Q4h PRN - MMW prn for throat pain Assessment & Plan (05/21/2023 12:48 PM CDT): Suyapa reports a dry cough that started on 04/23. R/E+ on 04/24, 05/12, 05/21 RVP. CXR from 05/02 clear. - Contact/droplet isolation - Supportive respiratory care measures - Guaifenesin Q4h PRN - MMW prn for throat pain Assessment & Plan (05/20/2023 1:46 PM CDT): Suyapa reports a dry cough that started on 04/23. R/E+ on 04/24, 05/12 RVP. CXR from 05/02 clear. - Contact/droplet isolation - Supportive respiratory care measures - Guaifenesin Q4h PRN - MMW prn for throat pain Assessment & Plan (05/19/2023 11:13 AM CDT): Suyapa reports a dry cough that started on 04/23. R/E+ on 04/24, 05/12 RVP. CXR from 05/02 clear. - Contact/droplet isolation - Supportive respiratory care measures - Guaifenesin Q4h PRN - MMW prn for throat pain Assessment & Plan (05/18/2023 1:10 PM CDT): Suyapa reports a dry cough that started on 04/23. R/E+ on 04/24, 05/12 RVP. CXR from 05/02 clear. - Contact/droplet isolation - Supportive respiratory care measures - Guaifenesin Q4h PRN - MMW prn for throat pain Assessment & Plan (05/17/2023 11:19 AM CDT): Suyapa reports a dry cough that started on 04/23. R/E+ on 04/24, 10/ RVP. CXR from 05/02 clear. - Contact/droplet isolation - Supportive respiratory care measures - Guaifenesin Q4h PRN - MMW prn for throat pain Assessment & Plan (05/16/2023 8:11 AM CDT): Suyapa reports a dry cough that started on 04/23. R/E+ on 04/24, 10/ RVP. CXR from 05/02 clear. - Contact/droplet isolation - Supportive respiratory care measures - Guaifenesin Q4h PRN - MMW prn for throat pain Assessment & Plan (05/15/2023 10:51 AM CDT): Suyapa reports a dry cough that started on 04/23. R/E+ on 04/24, 10/ RVP. CXR from 05/02 clear. - Contact/droplet isolation - Supportive respiratory care measures - Guaifenesin Q4h PRN - MMW prn for throat pain Assessment & Plan (05/14/2023 12:33 PM CDT): Suyapa reports a dry cough that started on 04/23. R/E+ on 04/24, 10/3 RVP. CXR from 05/02 clear. - Contact/droplet isolation - Supportive respiratory care measures - Guaifenesin Q4h PRN - MMW prn for throat pain Assessment & Plan (05/13/2023 11:43 AM CDT): Suyapa reports a dry cough that started on 04/23. R/E+ on 04/24, 10/3 RVP. CXR from 05/02 clear. - Contact/droplet isolation - Supportive respiratory care measures - Guaifenesin Q4h PRN - MMW prn for throat pain Assessment & Plan (05/12/2023 12:36 PM CDT): Suyapa reports a dry cough that started on 04/23. R/E+ on 04/24, 10/ RVP. CXR from 05/02 clear. - Contact/droplet isolation - Supportive respiratory care measures - Guaifenesin Q4h PRN - MMW prn for throat pain Assessment & Plan (05/11/2023 1:50 PM CDT): Suyapa reports a dry cough that started on 04/23. R/E+ on 04/24 RVP. CXR from 05/02 clear. - Contact/droplet isolation - Supportive respiratory care measures - Guaifenesin Q4h PRN - MMW prn for throat pain Assessment & Plan (05/10/2023 10:57 AM CDT): Suyapa reports a dry cough that started on 04/23. R/E+ on 04/24 RVP. CXR from 05/02 clear. - Contact/droplet isolation - Supportive respiratory care measures - Guaifenesin Q4h PRN - MMW prn for throat pain Assessment & Plan (05/09/2023 8:04 AM CDT): Suyapa reports a dry cough that started on 04/23. R/E+ on 04/24 RVP. CXR from 05/02 clear. She continues to have a spontaneous cough with secondary sore throat. - Contact/droplet isolation - Supportive respiratory care measures - Guaifenesin Q4h PRN - MMW prn for throat pain Assessment & Plan (05/08/2023 1:07 PM CDT): Suyapa reports a dry cough that started on 04/23. R/E+ on 04/24 RVP. CXR from 05/02 clear. She continues to have a spontaneous cough with secondary sore throat. - Contact/droplet isolation - Supportive respiratory care measures - Guaifenesin Q4h PRN - MMW prn for throat pain Assessment & Plan (05/07/2023 10:12 AM CDT): Suyapa reports a dry cough that started on 04/23. R/E+ on 04/24 RVP. CXR from 05/02 clear. She continues to have a spontaneous cough with secondary sore throat. - Contact/droplet isolation - Supportive respiratory care measures - Guaifenesin Q4h PRN - MMW prn for throat pain Assessment & Plan (05/06/2023 7:12 PM CDT): Suyapa reports a dry cough that started on 04/23. R/E+ on 04/24 RVP. CXR from 05/02 clear. No respiratory symptoms noted on exam this morning. - Contact/droplet isolation - Supportive respiratory care measures - Guaifenesin Q4h PRN Assessment & Plan (05/05/2023 11:11 AM CDT): Suyapa reports a dry cough that started on 04/23. R/E+ on 04/24 RVP. CXR from 05/02 clear. Cough improved today; however, c/o sneezing, although not present on exam this morning. - Contact/droplet isolation - Supportive respiratory care measures - Guaifenesin Q4h PRN Assessment & Plan (05/04/2023 6:55 PM CDT): Suyapa reports a dry cough that started on 04/23. R/E+ on 04/24 RVP. CXR from 05/02 clear. Cough improved today - Contact/droplet isolation - Supportive respiratory care measures - Guaifenesin Q4h PRN Assessment & Plan (05/03/2023 10:58 AM CDT): Suyapa reports a dry cough that started on 04/23. R/E+ on 04/24 RVP. CXR from 05/02 clear. - Contact/droplet isolation - Supportive respiratory care measures - Guaifenesin Q4h PRN Assessment & Plan (05/02/2023 10:31 AM CDT): Suyapa reports a dry cough that started on 04/23. R/E+ on 915 RVP. - Contact/droplet isolation - Supportive respiratory care measures - Guaifenesin Q4h PRN - CXR today Assessment & Plan (05/01/2023 12:19 PM CDT): Suyapa reports a dry cough that started on 04/23. R/E+ on 915 RVP. - Contact/droplet isolation - Supportive respiratory care measures - Guaifenesin Q4h PRN Assessment & Plan (04/30/2023 1:34 PM CDT): Suyapa reports a dry cough that started on 04/23. R/E+ on 915 RVP. - Contact/droplet isolation - Supportive respiratory care measures - Guaifenesin Q4h PRN Assessment & Plan (04/29/2023 1:27 PM CDT): Suyapa reports a dry cough that started on 04/23. R/E+ on 915 RVP. - Contact/droplet isolation - Supportive respiratory care measures - Guaifenesin Q4h PRN Assessment & Plan (04/28/2023 2:18 PM CDT): Suyapa reports a dry cough that started on 04/23. R/E+ on 15 RVP. - Contact/droplet isolation - Supportive respiratory care measures - Guaifenesin Q4h PRN Assessment & Plan (04/27/2023 1:25 PM CDT): Suyapa reports a dry cough that started on 04/23. R/E+ on 9/15 RVP. - Contact/droplet isolation - Supportive respiratory care measures - Guaifenesin Q4h PRN Assessment & Plan (04/26/2023 10:19 AM CDT): Suyapa reports a dry cough that started on 04/23. R/E+ on 9/15 RVP. - Contact/droplet isolation - Supportive respiratory care measures Assessment & Plan (04/25/2023 9:36 AM CDT): Suyapa reports a dry cough that started on 04/23. R/E+ on 04/24 RVP. - Contact/droplet isolation - Supportive respiratory care measures Assessment & Plan (04/24/2023 1:13 PM CDT): Suyapa reports a dry cough that started on 04/23. Worsening in the last 24 hours. 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 Remains admitted to receive Consolidation chemotherapy per [id number], off study. Today is Day 39. 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 Remains admitted to receive Consolidation chemotherapy per [id number], off study. Today is Day 38. 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 Remains admitted to receive Consolidation chemotherapy per [id number], off study. Today is Day 37. 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 Remains admitted to receive Consolidation chemotherapy per [id number], off study. Today is Day 36. 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 Received IT MTX on 04/21 upon admit; cytoxan and cytarabine delayed one day due to acute pancreatitis. Today is Day 32. Delayed one week due to not meeting counts and acute illness. 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 Received IT MTX on 04/21 upon admit; cytoxan and cytarabine delayed one day due to acute pancreatitis. Today is Day 31. Delayed one week due to not meeting counts and acute illness. 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 Received IT MTX on 04/21 upon admit; cytoxan and cytarabine delayed one day due to acute pancreatitis. Today is Day 30. Delayed one week due to not meeting counts and acute illness. 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 Received IT MTX on 04/21 upon admit; cytoxan and cytarabine delayed one day due to acute pancreatitis. Today is Day 29. Delayed one week due to not meeting counts and acute illness. 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 Received IT MTX on 04/21 upon admit; cytoxan and cytarabine held due to acute pancreatitis. Today is Day 34. - [id number], s/p Consolidation Part 1 - Due for Day 29 Consolidation on Friday 05/18; will delay 1 week to Friday 05/25 due to not meeting count parameters and current medical complications. 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 Received IT MTX on 04/21 upon admit; cytoxan and cytarabine held due to acute pancreatitis. Today is Day 33. - [id number], s/p Consolidation Part 1 - Due for Day 29 Consolidation on Friday 05/18; will delay 1 week to Friday 05/25 due to not meeting count parameters and current medical complications. 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 Received IT MTX on 04/21 upon admit; cytoxan and cytarabine held due to acute pancreatitis. Today is Day 32. - [id number], s/p Consolidation Part 1 - Due for Day 29 Consolidation on Friday 05/18; will delay 1 week to Friday 05/25 due to not meeting count parameters and current medical complications. 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 Received IT MTX on 04/21 upon admit; cytoxan and cytarabine held due to acute pancreatitis. Today is Day 32. - [id number], s/p Consolidation Part 1 - Due for Day 29 Consolidation on Friday 05/18; will delay 1 week to Friday 05/25 due to not meeting count parameters and current medical complications. 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 Received IT MTX on 04/21 upon admit; cytoxan and cytarabine held due to acute pancreatitis. Today is Day 31. - [id number], s/p Consolidation Part 1 - Due for Day 29 Consolidation on Friday 05/18; will delay 1 week to Friday 05/25 due to not meeting count parameters and current medical complications. Due to have next set of count parameters drawn on 05/21. 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 Received IT MTX on 04/21 upon admit; cytoxan and cytarabine held due to acute pancreatitis. Today is Day 30. - [id number], s/p Consolidation Part 1 - Due for Day 29 Consolidation on Friday 05/18; will delay 1 week to Friday 05/25 due to not meeting count parameters and current medical complications. Due to have next set of count parameters drawn on 05/21. 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 Received IT MTX on 04/21 upon admit; cytoxan and cytarabine held due to acute pancreatitis. Today is Day 29. 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 Received IT MTX on 04/21 upon admit; cytoxan and cytarabine held due to acute pancreatitis. Today is Day 28. 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 Received IT MTX on 04/21 upon admit; cytoxan and cytarabine held due to acute pancreatitis. Today is Day 27. 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 Received IT MTX on 04/21 upon admit; cytoxan and cytarabine held due to acute pancreatitis. Today is Day 26. 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 Received IT MTX on 04/21 upon admit; cytoxan and cytarabine held due to acute pancreatitis. Today is Day 25. 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 Received IT MTX on 04/21 upon admit; cytoxan and cytarabine held due to acute pancreatitis. Today is Day 24. - [id number], Consolidation, off study (Day 1= 04/21) Admit Day: IT MTX Day 1: Cytoxan, Cytarabine Days 2-4: Cytarabine Days 1-14: 6MP Day 8: Cytarabine, IT MTX Days 9-11: Cytarabine Day 15: VCR, IT MTX, PEG Day 22: VCR, IT MTX - Due for Day 29 Consolidation on Friday 05/18 - Daily Fluid Goal - CBC w/ diff daily - CMP, Mg, Phos QMon - RFP daily Assessment & Plan (05/12/2023 12:37 PM CDT): Suyapa Enlgish is a 18 y.o. 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 Received IT MTX on 04/21 upon admit; cytoxan and cytarabine held due to acute pancreatitis. Today is Day 23. 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 Received IT MTX on 04/21 upon admit; cytoxan and cytarabine held due to acute pancreatitis. Today is Day 22. 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 Received IT MTX on 04/21 upon admit; cytoxan and cytarabine held due to acute pancreatitis. Today is Day 21. 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 Received IT MTX on 04/21 upon admit; cytoxan and cytarabine held due to acute pancreatitis. Today is Day 20. 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 Received IT MTX on 04/21 upon admit; cytoxan and cytarabine held due to acute pancreatitis. Today is Day 19. 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 Received IT MTX on 04/21 upon admit; cytoxan and cytarabine held due to acute pancreatitis. Today is Day 18. 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 Received IT MTX on 04/21 upon admit; cytoxan and cytarabine held due to acute pancreatitis - now resolving. Today is Day 17. 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 Received IT MTX on 04/21 upon admit; cytoxan and cytarabine held due to acute pancreatitis - now resolving. Today is Day 16. 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 Received IT MTX on 04/21 upon admit; cytoxan and cytarabine held due to acute pancreatitis - now resolving. Today is Day 15. 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 Received IT MTX on 04/21 upon admit; cytoxan and cytarabine held due to acute pancreatitis - now resolving. Today is Day 14. 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 Received IT MTX on 04/21 upon admit; cytoxan and cytarabine held due to acute pancreatitis - now resolving. Today is Day 13. 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 Received IT MTX on 04/21 upon admit; cytoxan and cytarabine held due to acute pancreatitis - now resolving. Today is Day 12. 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 Received IT MTX on 04/21 upon admit; cytoxan and cytarabine held due to acute pancreatitis - now resolving. Today is Day 11. 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 Received IT MTX on 04/21 upon admit; cytoxan and cytarabine held due to acute pancreatitis - now resolving. Today is Day 10. 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 Received IT MTX on 04/21 upon admit; cytoxan and cytarabine held due to acute pancreatitis - now resolving. Today is Day 9. 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 Received IT MTX on 04/21 upon admit; cytoxan and cytarabine held due to acute pancreatitis - now resolving. Today is Day 8. 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 Received IT MTX on 04/21 upon admit; cytoxan and cytarabine held due to acute pancreatitis - now resolving. Today is Day 7. 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 Received IT MTX on 04/21 upon admit; cytoxan and cytarabine held due to acute pancreatitis - now resolving. Today is Day 5. 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 Received IT MTX on 04/21 upon admit; cytoxan and cytarabine held due to acute pancreatitis - now resolving. Today is Day 4. 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 Received IT MTX on 04/21 upon admit; cytoxan and cytarabine held due to acute pancreatitis - now resolving. Today is Day 3. 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 Received IT MTX on 04/21 upon admit; cytoxan and cytarabine held due to acute pancreatitis - now resolving. Today is Day 2. 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 Received IT MTX on 04/21 upon admit; cytoxan and cytarabine held due to acute pancreatitis - now resolving. Today is Day 1. 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 Today is Day 1. - [id number], Consolidation, off study (Day 1= 04/20) Day 1: IT MTX, Cytoxan, Cytarabine Days 2-4: Cytarabine Days 1-14: 6MP Day 8: Cytarabine, IT MTX Days 9-11: Cytarabine Day 15: VCR, IT MTX, PEG Day 22: VCR, IT MTX - Hydration at 125ml/m2/hr until 12 hours post Cytoxan, then daily fluid goal - CBC twice weekly - CMP, Mg, Phos Qmonday; RFP, Mg QTh Drug-induced acute pancreatitis 04/20/2023 07/07/2023 Assessment & Plan (05/28/2023 12:44 PM CDT): Abdominal pain and emesis with Lipase elevated at [address] showed acute pancreatitis, mild. RUQ US with normal gallbladder, no stone. Lipase remains elevated, but overall decreased from peak level on 05/06 (468). No abdominal pain on exam this morning. - Daily weights - Q Thursday/ lipase - Will omit PEG during 2nd half of Consolidation therapy Assessment & Plan (05/27/2023 1:36 PM CDT): Abdominal pain and emesis with Lipase elevated at [address] showed acute pancreatitis, mild. RUQ US with normal gallbladder, no stone. Lipase remains elevated, but overall decreased from peak level on 05/06 (468). No abdominal pain on exam this morning. - Daily weights - Q Thursday/ lipase - Will omit PEG during 2nd half of Consolidation therapy Assessment & Plan (05/26/2023 12:07 PM CDT): Abdominal pain and emesis with Lipase elevated at [address] showed acute pancreatitis, mild. RUQ US with normal gallbladder, no stone. Lipase remains elevated, 198 today, but overall decreased from peak level on 05/06 (468). Epigastric pain has improved since increasing morphine. - Daily weights - Q Thursday/ lipase - Will omit PEG during 2nd half of Consolidation therapy Assessment & Plan (05/25/2023 12:16 PM CDT): Abdominal pain and emesis with Lipase elevated at [address] showed acute pancreatitis, mild. RUQ US with normal gallbladder, no stone. Lipase remains elevated, 198 today, but overall decreased from peak level on 05/06 (468). Epigastric pain has improved since increasing morphine. - Daily weights - Q Thursday/ lipase - Will omit PEG during 2nd half of Consolidation therapy Assessment & Plan (05/24/2023 5:00 AM CDT): Abdominal pain and emesis with Lipase elevated at [address] showed acute pancreatitis, mild. RUQ US with normal gallbladder, no stone. Lipase remains elevated, 199 today, but overall decreased from peak level on 05/06 (468). Epigastric pain has improved since increasing morphine. - Daily weights - Q Thursday/ lipase - Will omit PEG during 2nd half of Consolidation therapy Assessment & Plan (05/23/2023 9:05 AM CDT): Abdominal pain and emesis with Lipase elevated at [address] showed acute pancreatitis, mild. RUQ US with normal gallbladder, no stone. Lipase remains elevated, 199 today, but overall decreased from peak level on 05/06 (468). Epigastric pain has improved since increasing morphine. - Daily weights - Q Thursday/ lipase - Will omit PEG during 2nd half of Consolidation therapy Assessment & Plan (05/22/2023 8:57 AM CDT): Abdominal pain and emesis with Lipase elevated at [address] showed acute pancreatitis, mild. RUQ US with normal gallbladder, no stone. Lipase remains elevated, 199 today, but overall decreased from peak level on 05/06 (468). Epigastric pain has improved since increasing morphine. - Daily weights - Q Thursday/ lipase - Will omit PEG during 2nd half of Consolidation therapy Assessment & Plan (05/21/2023 12:48 PM CDT): Abdominal pain and emesis with Lipase elevated at [address] showed acute pancreatitis, mild. RUQ US with normal gallbladder, no stone. Lipase remains elevated, 199 today, but overall decreased from peak level on 05/06 (468). Epigastric pain has improved since increasing morphine. - Daily weights - Q Thursday/ lipase - Will omit PEG during 2nd half of Consolidation therapy Assessment & Plan (05/20/2023 1:47 PM CDT): Abdominal pain and emesis with Lipase elevated at [address] showed acute pancreatitis, mild. RUQ US with normal gallbladder, no stone. Lipase remains elevated, 195 today, but overall decreased from peak level on 05/06 (468). Epigastric pain has improved since increasing morphine. - Daily weights - Q Thursday/ lipase - Will omit PEG during 2nd half of Consolidation therapy Assessment & Plan (05/19/2023 11:19 AM CDT): Abdominal pain and emesis with Lipase elevated at [address] showed acute pancreatitis, mild. RUQ US with normal gallbladder, no stone. Lipase remains elevated, 195 today, but overall decreased from peak level on 05/06 (468). Epigastric pain has improved since increasing morphine. - Daily weights - Q Thursday/ lipase - Will omit PEG during 2nd half of Consolidation therapy Assessment & Plan (05/18/2023 1:14 PM CDT): Abdominal pain and emesis with Lipase elevated at [address] showed acute pancreatitis, mild. RUQ US with normal gallbladder, no stone. Lipase remains elevated, 195 today, but overall decreased from peak level on 05/06 (468). Epigastric pain has improved since increasing morphine. - Daily weights - Daily lipase - Will omit PEG during 2nd half of Consolidation therapy Assessment & Plan (05/17/2023 11:16 AM CDT): Abdominal pain and emesis with Lipase elevated at [address] showed acute pancreatitis, mild. RUQ US with normal gallbladder, no stone. Lipase remains elevated, 195 today, but overall decreased from peak level on 05/06 (468). Epigastric pain has improved since increasing morphine. - Daily weights - Daily lipase Assessment & Plan (05/16/2023 8:07 AM CDT): Abdominal pain and emesis with Lipase elevated at [address] showed acute pancreatitis, mild. RUQ US with normal gallbladder, no stone. Lipase remains elevated but overall decreased from peak level on 05/06. Epigastric pain has improved since increasing morphine. - Daily weights - Daily lipase Assessment & Plan (05/15/2023 10:57 AM CDT): Abdominal pain and emesis with Lipase elevated at [address] showed acute pancreatitis, mild. RUQ US with normal gallbladder, no stone. Lipase remains elevated but overall decreased from peak level on 05/06. Epigastric pain has improved since increasing morphine. - Hold tube feeds- NPO - Morphine 2mg Q8hr, may titrate to efficacy - Daily weights - Daily lipase Assessment & Plan (05/14/2023 12:32 PM CDT): Abdominal pain and emesis with Lipase elevated at [address] showed acute pancreatitis, mild. RUQ US with normal gallbladder, no stone. Lipase remains elevated but overall decreased from peak level on 05/06. Epigastric pain has improved since increasing morphine. - Hold tube feeds- NPO - Morphine 2mg Q6hr, may titrate to efficacy - Daily weights - Daily lipase Assessment & Plan (05/13/2023 11:42 AM CDT): Abdominal pain and emesis with Lipase elevated at [address] showed acute pancreatitis, mild. RUQ US with normal gallbladder, no stone. Lipase remains elevated but overall decreased from peak level on 05/06. Epigastric pain has improved since increasing morphine. - Hold tube feeds- NPO - Morphine 4mg Q6hr, may titrate to efficacy - Daily weights - Daily lipase Assessment & Plan (05/12/2023 12:40 PM CDT): Abdominal pain and emesis with Lipase elevated at [address] showed acute pancreatitis, mild. RUQ US with normal gallbladder, no stone. Lipase remains elevated but overall decreased from peak level on 05/06. Epigastric pain has improved since increasing morphine. - Hold tube feeds but may continue to take PO ad veena - Low fat diet (patient regulated, intake as tolerated) - Morphine 4mg wean to Q6h today - Daily weights - Daily lipase Assessment & Plan (05/11/2023 1:35 PM CDT): Abdominal pain and emesis with Lipase elevated at [address] showed acute pancreatitis, mild. RUQ US with normal gallbladder, no stone. Lipase remains elevated but overall decreased from peak level on 05/06. Epigastric pain has improved since increasing morphine. - Hold tube feeds but may continue to take PO ad veena - Low fat diet (patient regulated, intake as tolerated) - Morphine 4mg q4h ROBLES - Daily weights - Daily lipase Assessment & Plan (05/10/2023 10:56 AM CDT): Abdominal pain and emesis with Lipase elevated at [address] showed acute pancreatitis, mild. RUQ US with normal gallbladder, no stone. Lipase remains elevated but overall decreased from peak level on 05/06. Epigastric pain has improved since increasing morphine. - Hold tube feeds but may continue to take PO ad veena - Low fat diet (patient regulated, intake as tolerated) - Morphine 4mg q4h ROBLES - Daily weights - Daily lipase Assessment & Plan (05/09/2023 10:34 AM CDT): Abdominal pain and emesis with Lipase elevated at [address] showed acute pancreatitis, mild. RUQ US with normal gallbladder, no stone. Lipase remains elevated but overall decreased from peak level on 05/06. She continues to have epigastric pain that has been minimally responsive to morphine thus far. - Hold tube feeds but may continue to take PO ad veena - Low fat diet (patient regulated, intake as tolerated) - Increase Morphine q4h to 4mg ROBLES - Daily weights - Daily lipase Assessment & Plan (05/08/2023 1:12 PM CDT): Abdominal pain and emesis with Lipase elevated at [address] showed acute pancreatitis, mild. RUQ US with normal gallbladder, no stone. Lipase rechecked (150). Received Calasparagase on Friday 05/04. Now with abdominal pain and vomiting. Lipase on 05/06 was 468. Abdominal US 05/06 showing heterogenous echotexture of pancreas which can be seen in pancreatitis. No peripancreatic fluid collection identified. - Hold tube feeds but may continue to take PO ad veena - Low fat diet (patient regulated, intake as tolerated) - Morphine q4h ROBLES x 24 hours then can consider going back to prn - Daily weights - Will reconsult GI team if further recommendations are needed - Will consider starting TPN over the weekend if she is not able to take enough po - Daily lipase - Triglycerides 05/08 - 155 Assessment & Plan (05/07/2023 10:57 AM CDT): Abdominal pain and emesis with Lipase elevated at [address] showed acute pancreatitis, mild. RUQ US with normal gallbladder, no stone. Lipase rechecked (150). Received Calasparagase on Friday 05/04. Now with abdominal pain and vomiting. Lipase on 05/06 was 468. Abdominal US 05/06 showing heterogenous echotexture of pancreas which can be seen in pancreatitis. No peripancreatic fluid collection identified. - Hold tube feeds but may continue to take PO ad veena - Low fat diet (patient regulated, intake as tolerated) - Morphine q4h ROBLES x 24 hours then can consider going back to prn - Daily weights - Will reconsult GI team if further recommendations are needed - Will consider starting TPN over the weekend if she is not able to take enough po Assessment & Plan (05/06/2023 7:20 PM CDT): Abdominal pain and emesis with Lipase elevated at 277 on admit, now downtrending. CT showed acute pancreatitis, mild. RUQ US with normal gallbladder, no stone. Lipase rechecked (150). Received Calasparagase on Friday 05/04. No w with abdominal pain and vomiting. Lipase added to albs this am was 468. - GI consulted, appreciate recommendations - Obtain abdominal ultrasound - hold tube feeds but may continue to take PO ad veena - If fluid collection or cyst present on ultrasound, obtain methotrexate level - Daily weights - Oxy PRN Assessment & Plan (05/05/2023 11:14 AM CDT): Abdominal pain and emesis with Lipase elevated at 277 on admit, now downtrending. CT showed acute pancreatitis, mild. RUQ US with normal gallbladder, no stone. Lipase rechecked (150). Scheduled to receive calaspargase with known complication of pancreatitis. - GI consulted, appreciate recommendations - Obtain lipase with clinical symptoms of pancreatitis - transition to regular diet given resolution. - Continue to monitor for n/v, abdominal pain - Daily weights - Oxy PRN Assessment & Plan (05/04/2023 7:02 PM CDT): Abdominal pain and emesis with Lipase elevated at 277 on admit, now downtrending. CT showed acute pancreatitis, mild. RUQ US with normal gallbladder, no stone. Lipase rechecked (150). Scheduled to receive calaspargase with known complication of pancreatitis. - GI consulted, appreciate recommendations - Obtain lipase with clinical symptoms of pancreatitis -transition to regular diet given resolution. - Continue to monitor for n/v, abdominal pain - Daily weights - Oxy PRN Assessment & Plan (05/03/2023 10:54 AM CDT): Abdominal pain and emesis with Lipase elevated at 277 on admit, now downtrending. CT showed acute pancreatitis, mild. RUQ US with normal gallbladder, no stone. Lipase rechecked (150). - GI consulted, appreciate recommendations -transition to regular diet given resolution. - Continue to monitor for n/v, abdominal pain - Daily weights - Oxy PRN Assessment & Plan (05/02/2023 10:30 AM CDT): Abdominal pain and emesis with Lipase elevated at 277 on admit, now downtrending. CT showed acute pancreatitis, mild. RUQ US with normal gallbladder, no stone. Lipase rechecked (150). - GI consulted, appreciate recommendations - Low fat diet - Continue to monitor for n/v, abdominal pain - Daily weights - Oxy PRN Assessment & Plan (05/01/2023 12:09 PM CDT): Abdominal pain and emesis with Lipase elevated at 277 on admit, now downtrending. CT showed acute pancreatitis, mild. RUQ US with normal gallbladder, no stone. Lipase rechecked (150). - GI consulted, appreciate recommendations - Low fat diet - Continue to monitor for n/v, abdominal pain - Daily weights - Oxy PRN Assessment & Plan (04/30/2023 1:33 PM CDT): Abdominal pain and emesis with Lipase elevated at 277 on admit, now downtrending. CT showed acute pancreatitis, mild. RUQ US with normal gallbladder, no stone. Lipase rechecked (150). - GI consulted, appreciate recommendations - Low fat diet - Continue to monitor for n/v, abdominal pain - Daily weights - Oxy PRN Assessment & Plan (04/29/2023 1:25 PM CDT): Abdominal pain and emesis with Lipase elevated at 277 on admit, now downtrending. CT showed acute pancreatitis, mild. RUQ US with normal gallbladder, no stone. No c/o nausea this morning. Lipase rechecked (150). - GI consulted, appreciate recommendations - Low fat diet - Continue to monitor for n/v, abdominal pain - Daily weights - Oxy PRN Assessment & Plan (04/28/2023 2:16 PM CDT): Abdominal pain and emesis with Lipase elevated at 277 on admit, now downtrending. CT showed acute pancreatitis, mild. RUQ US with normal gallbladder, no stone. C/o nausea this morning. Lipase rechecked (150). - GI consulted, appreciate recommendations - Low fat diet - Continue to monitor for n/v, abdominal pain - Daily weights - Oxy PRN Assessment & Plan (04/27/2023 1:25 PM CDT): Abdominal pain and emesis with Lipase elevated at 277 on admit, now downtrending. CT showed acute pancreatitis, mild. RUQ US with normal gallbladder, no stone. Denies nausea/vomiting today, but reports intermittent abdominal pain. Follow up lipid panel largely normal. - GI consulted, appreciate recommendations - Low fat diet - Continue to monitor for n/v, abdominal pain - Daily weights - Oxy PRN Assessment & Plan (04/26/2023 10:19 AM CDT): Abdominal pain and emesis with Lipase elevated at 277 on admit, now downtrending. CT showed acute pancreatitis, mild. RUQ US with normal gallbladder, no stone. Denies nausea/vomiting today, but reports intermittent abdominal pain. No tenderness or distension on exam. Follow up lipid panel largely normal. - GI consulted, appreciate recommendations - Low fat diet - Continue to monitor for n/v, abdominal pain - Daily weights - Oxy PRN Assessment & Plan (04/25/2023 9:36 AM CDT): Abdominal pain and emesis with Lipase elevated at 277 on admit, now downtrending. CT showed acute pancreatitis, mild. RUQ US with normal gallbladder, no stone. Denies nausea/vomiting today, but reports intermittent abdominal cramping that is improving compared to yesterday. No tenderness or distension on exam. Follow up lipid panel largely normal. - GI consulted, appreciate recommendations - Low fat diet - Continue to monitor for n/v, abdominal pain - Daily weights - Oxy PRN Assessment & Plan (04/24/2023 1:12 PM CDT): Abdominal pain and emesis with Lipase elevated at 277 on admit, now downtrending. CT showed acute pancreatitis, mild. RUQ US with normal gallbladder, no stone. Denies nausea/vomiting today, but reports intermittent abdominal cramping. No tenderness or distension on exam. Follow up lipid panel largely normal. - GI consulted, appreciate recommendations - Low fat diet - Continue to monitor for n/v, abdominal pain - Daily weights - Oxy PRN Assessment & Plan (04/23/2023 1:20 PM CDT): Abdominal pain and emesis with Lipase elevated at 277 on admit, now downtrending. CT showed acute pancreatitis, mild. RUQ US with normal gallbladder, no stone. Denies n/v, abdominal pain today. Follow up lipid panel largely normal. - GI consulted, appreciate recommendations - Low fat diet - Continue to monitor for n/v, abdominal pain - Daily weights - Oxy PRN Assessment & Plan (04/22/2023 12:29 PM CDT): Abdominal pain and emesis with Lipase elevated at 277 on admit, now downtrending. CT showed acute pancreatitis, mild. RUQ US with normal gallbladder, no stone. Denies n/v, abdominal pain today. Lipid panel largely normal this AM. - GI consulted, appreciate recommendations - Low fat diet - Continue to monitor for n/v, abdominal pain - Daily weights - Oxy PRN Assessment & Plan (04/21/2023 3:51 PM CDT): Abdominal pain and emesis with Lipase elevated at 277 on admit, now downtrending. CT showed acute pancreatitis, mild. RUQ US with normal gallbladder, no stone. Denies n/v, abdominal pain today. - GI consulted - Lipid panel 04/22 AM - Low fat diet - Continue to monitor for n/v, abdominal pain - Daily weights - Oxy PRN Assessment & Plan (04/20/2023 2:58 PM CDT): Lipase elevated at 277 today. Vomiting multiple times on exam. - CT abdomen/pelvis with contrast - Follow-up read prior to initiating chemotherapy Cramping of hands 04/13/2023 04/21/2023 Assessment & Plan (04/14/2023 3:49 PM CDT): Likely related to decreased movement over prior days. Electrolytes wnl. Improving - Encourage stretching, ice and movement as needed for symptomatic relief Assessment & Plan (04/13/2023 10:04 AM CDT): Likely related to decreased movement over prior days vs. Mild electrolyte abnormality. 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 She was initiated on gabapentin BID for these symptoms and then her dose was increased during her latest admission. However, she has been non-compliant with taking her medications. - Encourage her to continue gabapentin as prescribed Assessment & Plan (12/24/2023 4:31 PM CDT): Suyapa has a history of numbness in her hands and feet and complaints with steroids of all over body aching. She was initiated on gabapentin BID for these symptoms and then her dose was increased during her latest admission. However, she has been non-compliant with taking her medications. -Encourage her to continue gabapentin as prescribed Assessment & Plan (12/23/2023 5:32 PM CDT): Suyapa has a history of numbness in her hands and feet and complaints with steroids of all over body aching. She was initiated on gabapentin BID for these symptoms and then her dose was increased during her latest admission. However, she has been non-compliant with taking her medications. -encourage her to continue gabapentin as prescribed Assessment & Plan (12/11/2023 3:44 PM CDT): Suyapa has a history of numbness in her hands and feet and complaints with steroids of all over body aching. She was initiated on gabapentin BID for these symptoms and then her dose was increased during her latest admission. However, she has been non-compliant with taking her medications. Encouraged to continue gabapentin as prescribed Assessment & Plan (11/19/2023 3:11 PM CDT): Suyapa has a history of numbness in her hands and feet and complaints with steroids of all over body aching. She was initiated on gabapentin BID for these symptoms. Continue gabapentin BID. May consider titrating to TID if symptoms continue Assessment & Plan (07/15/2023 4:24 PM BEHAVIORAL HEALTH CARE MANAGER): Suyapa has a history of numbness in her hands and feet. She denies any current numbness/ tingling. She did not take her prescribed gabapentin while at home and she has refused while in the hospital. She also complained of jaw pain since VCR- reinforced use to gabapentin. Will continue to work on encouraging her to take her medications. - D/C gabapentin - Appreciate PT/OT/Psych recs Assessment & Plan (07/14/2023 12:32 PM BEHAVIORAL HEALTH CARE MANAGER): Suyapa has a history of numbness in her hands and feet. She denies any current numbness/ tingling. She did not take her prescribed gabapentin while at home and she is refusing to take it today. She also complained of jaw pain since VCR- reinforced use to gabapentin. Will continue to work on encouraging her to take her medications. - Gabapentin 600mg TID - May titrate to efficacy - Appreciate PT/OT/Psych recs Assessment & Plan (07/13/2023 5:41 PM BEHAVIORAL HEALTH CARE MANAGER): Suyapa has a history of numbness in her hands and feet. She denies any current numbness/ tingling. She did not take her prescribed gabapentin while at home and she is refusing to take it today. She also complained of jaw pain since VCR- reinforced use to gabapentin. Will continue to work on encouraging her to take her medications. - Gabapentin 600mg TID - May titrate to efficacy - Appreciate PT/OT/Psych recs Assessment & Plan (07/12/2023 2:32 PM BEHAVIORAL HEALTH CARE MANAGER): Suyapa has a history of numbness in her hands and feet. She denies any current numbness/ tingling. She did not take her prescribed gabapentin while at home and she is refusing to take it today. She also complained of jaw pain since VCR- reinforced use to gabapentin. Will continue to work on encouraging her to take her medications. - Gabapentin 600mg TID - May titrate to efficacy - Appreciate PT/OT/Psych recs Assessment & Plan (07/11/2023 4:37 PM BEHAVIORAL HEALTH CARE MANAGER): Suyapa has a history of numbness in her hands and feet. She denies any current numbness/ tingling. She did not take her prescribed gabapentin while at home and she is refusing to take it today. She also complained of jaw pain since VCR- reinforced use to gabapentin. Will continue to work on encouraging her to take her medications. - Gabapentin 600mg TID - May titrate to efficacy - Appreciate PT/OT/Psych recs Assessment & Plan (07/10/2023 1:25 PM BEHAVIORAL HEALTH CARE MANAGER): Suyapa has a history of numbness in her hands and feet. She denies any current numbness/ tingling. She did not take her prescribed gabapentin while at home and will sometimes refuse here as well. She also complaining of jaw pain since VCR- reinforced use to gabapentin. - Gabapentin 600mg TID - May titrate to efficacy - Appreciate PT/OT/Psych recs Assessment & Plan (07/09/2023 1:06 PM BEHAVIORAL HEALTH CARE MANAGER): Suyapa has a history of numbness in her hands and feet. She denies any current numbness/ tingling. She did not take her prescribed gabapentin while at home and will sometimes refuse here as well. - Gabapentin 600mg TID - May titrate to efficacy - Appreciate PT/OT/Psych recs Assessment & Plan (07/08/2023 11:20 AM BEHAVIORAL HEALTH CARE MANAGER): Suyapa has a history of numbness in her hands and feet. She denies any current numbness/ tingling. She did not take her prescribed gabapentin while at home and will sometimes refuse here as well. - Gabapentin 600mg TID - May titrate to efficacy - Appreciate PT/OT/Psych recs Assessment & Plan (07/07/2023 1:17 PM BEHAVIORAL HEALTH CARE MANAGER): Suyapa has a history of numbness in her hands and feet. She denies any current numbness/ tingling. She did not take her prescribed gabapentin while at home and will sometimes refuse here as well. - Gabapentin 600mg TID - May titrate to efficacy - Appreciate PT/OT/Psych recs Assessment & Plan (07/06/2023 5:31 PM BEHAVIORAL HEALTH CARE MANAGER): Suyapa has a history of numbness in her hands and feet. She denies any current numbness/ tingling. She did not take her prescribed gabapentin while at home and will sometimes refuse here as well. - Gabapentin 600mg TID - May titrate to efficacy - Appreciate PT/OT/Psych recs Assessment & Plan (06/29/2023 10:36 AM BEHAVIORAL HEALTH CARE MANAGER): Suyapa endorses numbness in her hands and feet. She did not take her prescribed gabapentin while at home - Gabapentin 600mg TID - May titrate to efficacy Assessment & Plan (06/22/2023 12:48 PM BEHAVIORAL HEALTH CARE MANAGER): Suyapa reports numbness in her hands and feet. She did not take her prescribed gabapentin while at home and will sometimes refuse here as well. - Gabapentin 600mg TID - May titrate to efficacy - Appreciate PT/OT/Psych recs Assessment & Plan (06/21/2023 11:16 AM BEHAVIORAL HEALTH CARE MANAGER): Suyapa reports numbness in her hands and feet. She did not take her prescribed gabapentin while at home and will sometimes refuse here as well. - Gabapentin 600mg TID - May titrate to efficacy - Appreciate PT/OT/Psych recs Assessment & Plan (06/20/2023 11:19 AM BEHAVIORAL HEALTH CARE MANAGER): Suyapa reports numbness in her hands and feet. She did not take her prescribed gabapentin while at home and will sometimes refuse here as well. - Gabapentin 600mg TID - May titrate to efficacy - Appreciate PT/OT/Psych recs Assessment & Plan (06/19/2023 10:21 AM BEHAVIORAL HEALTH CARE MANAGER): Suyapa reports numbness in her hands and feet. She did not take her prescribed gabapentin while at home and will sometimes refuse here as well. - Gabapentin 600mg TID - May titrate to efficacy Assessment & Plan (06/18/2023 12:03 PM BEHAVIORAL HEALTH CARE MANAGER): Suyapa reports numbness in her hands and feet. She did not take her prescribed gabapentin while at home and will sometimes refuse here as well. - Gabapentin 600mg TID - May titrate to efficacy Assessment & Plan (06/17/2023 11:36 AM BEHAVIORAL HEALTH CARE MANAGER): Suyapa reports numbness in her hands and feet. She did not take her prescribed gabapentin while at home and will sometimes refuse here as well. - Gabapentin 600mg TID - May titrate to efficacy Assessment & Plan (06/16/2023 2:20 PM BEHAVIORAL HEALTH CARE MANAGER): Suyapa reports numbness in her hands and feet. She did not take her prescribed gabapentin while at home and will sometimes refuse here as well. - Gabapentin 600mg TID - May titrate to efficacy Assessment & Plan (06/15/2023 3:46 PM BEHAVIORAL HEALTH CARE MANAGER): Suyapa reports numbness in her hands and feet. She did not take her prescribed gabapentin while at home and will sometimes refuse here as well. - Gabapentin 600mg TID - May titrate to efficacy Assessment & Plan (06/04/2023 3:40 PM CDT): Suyapa reports numbness in her hands and feet. She did not take her prescribed gabapentin while at home and will sometimes refuse here as well. - Gabapentin 600mg TID - May titrate to efficacy Assessment & Plan (06/03/2023 1:06 PM CDT): Suyapa reports numbness in her hands and feet. She did not take her prescribed gabapentin while at home and will sometimes refuse here as well. - Gabapentin 600mg TID - May titrate to efficacy Assessment & Plan (06/02/2023 1:42 PM CDT): Suyapa reports numbness in her hands and feet. She did not take her prescribed gabapentin while at home and will sometimes refuse here as well. - Gabapentin 600mg TID - May titrate to efficacy Assessment & Plan (06/01/2023 11:11 AM CDT): Suyapa reports numbness in her hands and feet. She did not take her prescribed gabapentin while at home and will sometimes refuse here as well. - Increase gabapentin dose to 600mg TID - May titrate to efficacy Assessment & Plan (05/31/2023 5:00 AM CDT): Continue home gabapentin Assessment & Plan (05/28/2023 12:43 PM CDT): Suyapa reports numbness in her hands. She did not take her prescribed gabapentin while at home and will sometimes refuse here as well. - Continue gabapentin TID - 300mg/300mg/600mg - May titrate to efficacy Assessment & Plan (05/27/2023 1:34 PM CDT): Suyapa reports numbness in her hands. She did not take her prescribed gabapentin while at home and will sometimes refuse here as well. - Continue gabapentin TID - 300mg/300mg/600mg - May titrate to efficacy Assessment & Plan (05/26/2023 12:07 PM CDT): Suyapa reports numbness in her hands. She did not take her prescribed gabapentin while at home and will sometimes refuse here as well. - Continue gabapentin TID - 300mg/300mg/600mg - May titrate to efficacy Assessment & Plan (05/25/2023 12:12 PM CDT): Suyapa reports numbness in her hands. She did not take her prescribed gabapentin while at home and will sometimes refuse here as well. - Continue gabapentin TID - 300mg/300mg/600mg - May titrate to efficacy Assessment & Plan (05/24/2023 4:59 AM CDT): Suyapa reports numbness in her hands. She did not take her prescribed gabapentin while at home and will sometimes refuse here as well. - Continue gabapentin TID - 300mg/300mg/600mg - May titrate to efficacy Assessment & Plan (05/23/2023 9:04 AM CDT): Suyapa reports numbness in her hands. She did not take her prescribed gabapentin while at home and will sometimes refuse here as well. - Continue gabapentin TID - 300mg/300mg/600mg - May titrate to efficacy Assessment & Plan (05/22/2023 8:57 AM CDT): Suyapa reports numbness in her hands. She did not take her prescribed gabapentin while at home and will sometimes refuse here as well. - Continue gabapentin TID - 300mg/300mg/600mg - May titrate to efficacy Assessment & Plan (05/21/2023 12:45 PM CDT): Suyapa reports numbness in her hands. She did not take her prescribed gabapentin while at home and will sometimes refuse here as well. - Continue gabapentin TID - 300mg/300mg/600mg - May titrate to efficacy Assessment & Plan (05/20/2023 1:47 PM CDT): Suyapa reports numbness in her hands. She did not take her prescribed gabapentin while at home and will sometimes refuse here as well. - Continue gabapentin TID - 300mg/300mg/600mg - May titrate to efficacy Assessment & Plan (05/19/2023 12:03 PM CDT): Suyapa reports numbness in her hands. She did not take her prescribed gabapentin while at home and will sometimes refuse here as well. - Continue gabapentin TID - 300mg/300mg/600mg - May titrate to efficacy Assessment & Plan (05/18/2023 1:14 PM CDT): Suyapa reports numbness in her hands. She did not take her prescribed gabapentin while at home and will sometimes refuse here as well. - Continue gabapentin TID - 300mg/300mg/600mg - May titrate to efficacy Assessment & Plan (05/17/2023 11:14 AM CDT): Suyapa reports numbness in her hands. She did not take her prescribed gabapentin while at home and will sometimes refuse here as well. - Continue gabapentin TID - 300mg/300mg/600mg - May titrate to efficacy Assessment & Plan (05/16/2023 8:06 AM CDT): Suyapa reports numbness in her hands. She did not take her prescribed gabapentin while at home and will sometimes refuse here as well. - Continue gabapentin TID - 300mg/300mg/600mg - May titrate to efficacy Assessment & Plan (05/15/2023 10:57 AM CDT): Suyapa reports numbness in her hands. She did not take her prescribed gabapentin while at home and will sometimes refuse here as well. - Continue gabapentin TID - 300mg/300mg/600mg - May titrate to efficacy Assessment & Plan (05/14/2023 12:32 PM CDT): Suyapa reports numbness in her hands. She did not take her prescribed gabapentin while at home and will sometimes refuse here as well. - Continue gabapentin TID - 300mg/300mg/600mg - May titrate to efficacy Assessment & Plan (05/13/2023 11:41 AM CDT): Suyapa reports numbness in her hands. She did not take her prescribed gabapentin while at home and will sometimes refuse here as well. - Continue gabapentin TID - 300mg/300mg/600mg - May titrate to efficacy Assessment & Plan (05/12/2023 12:40 PM CDT): Suyapa reports numbness in her hands. She did not take her prescribed gabapentin while at home and will sometimes refuse here as well. - Continue gabapentin TID - 300mg/300mg/600mg - May titrate to efficacy Assessment & Plan (05/11/2023 1:35 PM CDT): Suyapa reports numbness in her hands. She did not take her prescribed gabapentin while at home and will sometimes refuse here as well. - Continue gabapentin TID - 300mg/300mg/600mg - May titrate to efficacy Assessment & Plan (05/10/2023 6:53 AM CDT): Suyapa reports numbness in her hands. She did not take her prescribed gabapentin while at home and will sometimes refuse here as well. - Continue gabapentin TID - 300mg/300mg/600mg - May titrate to efficacy Assessment & Plan (05/09/2023 7:59 AM CDT): Suyapa reports numbness in her hands. She did not take her prescribed gabapentin while at home and will sometimes refuse here as well. - Continue gabapentin TID - 300mg/300mg/600mg - May titrate to efficacy Assessment & Plan (05/08/2023 1:12 PM CDT): Suyapa reports numbness in her hands. She did not take her prescribed gabapentin while at home and will sometimes refuse here as well. - Continue gabapentin TID - 300mg/300mg/600mg - May titrate to efficacy Assessment & Plan (05/07/2023 9:59 AM CDT): Suyapa reports numbness in her hands. She did not take her prescribed gabapentin while at home and will sometimes refuse here as well. - Continue gabapentin TID - 300mg/300mg/600mg - May titrate to efficacy Assessment & Plan (05/06/2023 7:20 PM CDT): Suyapa reports numbness in her hands. She did not take her prescribed gabapentin while at home and will sometimes refuse here as well. - Continue gabapentin TID - 300mg/300mg/600mg - May titrate to efficacy Assessment & Plan (05/05/2023 11:14 AM CDT): Suyapa reports numbness in her hands. She did not take her prescribed gabapentin while at home and will sometimes refuse here as well. - Continue gabapentin TID - 300mg/300mg/600mg - May titrate to efficacy Assessment & Plan (05/04/2023 7:02 PM CDT): Suyapa reports numbness in her hands. She did not take her prescribed gabapentin while at home and will sometimes refuse here as well. - Continue gabapentin TID - 300mg/300mg/600mg - May titrate to efficacy Assessment & Plan (05/03/2023 10:52 AM CDT): Suyapa reports numbness in her hands. She did not take her prescribed gabapentin while at home and will sometimes refuse here as well. - Continue gabapentin TID - 300mg/300mg/600mg - May titrate to efficacy Assessment & Plan (05/02/2023 10:28 AM CDT): Suyapa reports numbness in her hands. She did not take her prescribed gabapentin while at home and will sometimes refuse here as well. - Continue gabapentin TID - 300mg/300mg/600mg - May titrate to efficacy Assessment & Plan (05/01/2023 12:08 PM CDT): Suyapa reports numbness in her hands. She did not take her prescribed gabapentin while at home and will sometimes refuse here as well. - Continue gabapentin TID - 300mg/300mg/600mg - May titrate to efficacy Assessment & Plan (04/30/2023 1:32 PM CDT): Suyapa reports numbness in her hands. She did not take her prescribed gabapentin while at home and will sometimes refuse here as well. - Continue gabapentin TID - 300mg/300mg/600mg - May titrate to efficacy Assessment & Plan (04/29/2023 1:25 PM CDT): Suyapa reports numbness in her hands. She did not take her prescribed gabapentin while at home and will sometimes refuse here as well. - Continue gabapentin TID - 300mg/300mg/600mg - May titrate to efficacy Assessment & Plan (04/28/2023 2:14 PM CDT): Suyapa reports numbness in her hands. She did not take her prescribed gabapentin while at home and will sometimes refuse here as well. Her finger numbness is bothering her this morning but she is still not wanting to take her gabapentin due to nausea. - Continue gabapentin 300mg TID - increase nighttime dose to 600mg - May titrate to efficacy Assessment & Plan (04/27/2023 1:25 PM CDT): Suyapa reports numbness in hands. She did not take her prescribed gabapentin while at home. No pain reported this AM - Continue gabapentin 300mg TID - May titrate to efficacy Assessment & Plan (04/26/2023 10:17 AM CDT): Suyapa reports numbness in hands. She did not take her prescribed gabapentin while at home. No pain reported this AM - Continue gabapentin 300mg TID - May titrate to efficacy Assessment & Plan (04/25/2023 9:35 AM CDT): Suyapa reports numbness in hands. She did not take her prescribed gabapentin while at home. This morning, she also reports jaw pain. - Continue gabapentin 300mg TID - May titrate to efficacy Assessment & Plan (04/24/2023 1:12 PM CDT): Suyapa reports numbness in hands. She did not take her prescribed gabapentin while at home. - Continue gabapentin 300mg TID - May titrate to efficacy Assessment & Plan (04/23/2023 1:19 PM CDT): Suyapa reports numbness in hands. She did not take her prescribed gabapentin while at home. - Continue gabapentin 300mg TID - May titrate to efficacy Assessment & Plan (04/22/2023 12:27 PM CDT): Suyapa reports numbness in hands. She did not take her prescribed gabapentin while at home. - Continue gabapentin 300mg TID - May titrate to efficacy Assessment & Plan (04/21/2023 3:51 PM CDT): Suyapa reports numbness in hands. She did not take her prescribed gabapentin while at home. 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 She was initiated on gabapentin, with some relief. However, once discharged, she did not take her gabapentin as prescribed d/t difficulty taking medications. She reports continued numbness in hands. Continue gabapentin 300mg TID, increase as needed Reinforced necessity of taking medications as prescribed for full effect Assessment & Plan (04/20/2023 2:50 PM CDT): Suyapa reports numbness in hands. She did not take her prescribed gabapentin while at home. - Continue gabapentin 300mg TID - May titrate to efficacy Assessment & Plan (04/14/2023 3:48 PM CDT): See above Assessment & Plan (04/13/2023 8:10 AM CDT): See above Assessment & Plan (04/12/2023 10:11 AM CDT): See above Assessment & Plan (04/11/2023 9:48 AM CDT): See above Assessment & Plan (04/10/2023 1:15 PM CDT): See above Assessment & Plan (2023 9:51 AM CDT): See above Assessment & Plan (04/08/2023 10:16 AM CDT): See above Assessment & Plan (04/07/2023 5:01 PM CDT): See above Assessment & Plan (04/06/2023 10:32 AM CDT): See above Assessment & Plan (04/06/2023 10:12 AM CDT): See above Assessment & Plan (04/04/2023 9:45 AM CDT): See above Assessment & Plan (04/03/2023 7:04 PM CDT): See above Assessment & Plan (04/02/2023 2:10 PM CDT): See above Pancytopenia 03/31/2023 08/23/2023 Assessment & Plan (06/22/2023 12:45 PM BEHAVIORAL HEALTH CARE MANAGER): Due to chemotherapy. See CBC. No transfusions required today. - Daily CBC w/ diff - Transfuse for Plts<10, Hgb<7, or if symptomatic Assessment & Plan (06/21/2023 11:16 AM BEHAVIORAL HEALTH CARE MANAGER): Due to chemotherapy. See CBC. She had 1 unit of platelet transfusion this morning for platelet of 7. Plan: - Daily CBC w/ diff - Transfuse for Plts<10, Hgb<7, or if symptomatic Assessment & Plan (06/20/2023 11:17 AM BEHAVIORAL HEALTH CARE MANAGER): Due to chemotherapy. See CBC. No transfusions needed today. Plan: - Daily CBC w/ diff - Transfuse for Plts<10, Hgb<7, or if symptomatic Assessment & Plan (06/19/2023 10:14 AM BEHAVIORAL HEALTH CARE MANAGER): Due to chemotherapy. See CBC. No transfusions needed today. - Daily CBC w/ diff - Transfuse for Plts<10, Hgb<7, or if symptomatic Assessment & Plan (06/18/2023 12:03 PM BEHAVIORAL HEALTH CARE MANAGER): Due to chemotherapy. See CBC. Dale received a unit of platelets today for a platelet count of 18 in preparation for an IM injection. - Transfuse for Plts<10, Hgb<7, or if symptomatic Assessment & Plan (06/17/2023 11:45 AM BEHAVIORAL HEALTH CARE MANAGER): Due to chemotherapy. See CBC. Dale received a unit of platelets today for a platelet count of 6. - Transfuse for Plts<10, Hgb<7, or if symptomatic - Will plan to infuse platelets tomorrow while receiving IM Lupron injection Assessment & Plan (06/16/2023 2:16 PM BEHAVIORAL HEALTH CARE MANAGER): Due to chemotherapy. See CBCBridgette Dale received a unit of platelets today for a platelet count of 5. - Transfuse for Plts<10, Hgb<7, or if symptomatic Assessment & Plan (06/15/2023 3:45 PM BEHAVIORAL HEALTH CARE MANAGER): Due to chemotherapy. See CBCBridgette Dale received a unit of platelets today for a platelet count of 2. - Transfuse for Plts<10, Hgb<7, or if symptomatic Assessment & Plan (06/15/2023 8:18 AM BEHAVIORAL HEALTH CARE MANAGER): Due to chemotherapy. See CBC. - Transfuse for Plts<10, Hgb<7, or if symptomatic - Transfuse PRBCs and Plts today prior to potential discharge Assessment & Plan (06/10/2023 1:07 PM CDT): Due to chemotherapy. See CBC. - Transfuse for Plts<10, Hgb<7, or if symptomatic - Transfuse PRBCs today Assessment & Plan (06/09/2023 11:45 AM CDT): Due to chemotherapy. See CBC. - Transfuse for Plts<10, Hgb<7, or if symptomatic - Transfuse 2 units plts today Assessment & Plan (05/28/2023 12:43 PM CDT): Secondary to chemotherapy. See CBC. No transfusions needed today. - CBC w/ diff every Thursday/ - Transfuse to keep Hgb >8 and Plt >30 or >50 on days of LP Assessment & Plan (05/27/2023 1:34 PM CDT): Secondary to chemotherapy. See CBC. No transfusions needed today. - CBC w/ diff every Thursday/ - Transfuse to keep Hgb >8 and Plt >30 or >50 on days of LP Assessment & Plan (05/26/2023 12:07 PM CDT): Secondary to chemotherapy. See CBC. No transfusions needed today. - CBC w/ diff every Thursday/ - Transfuse to keep Hgb >8 and Plt >30 or >50 on days of LP Assessment & Plan (05/25/2023 12:12 PM CDT): Secondary to chemotherapy. See CBC. No transfusions needed today. - CBC w/ diff every Thursday/ - Transfuse to keep Hgb >8 and Plt >30 or >50 on days of LP Assessment & Plan (05/24/2023 4:59 AM CDT): Secondary to chemotherapy. See CBC. No transfusions needed today. - CBC w/ diff every Thursday/ - Transfuse to keep Hgb >8 and Plt >30 or >50 on days of LP Assessment & Plan (05/23/2023 9:04 AM CDT): Secondary to chemotherapy. See CBC. No transfusions needed today. - CBC w/ diff every Thursday/ - Transfuse to keep Hgb >8 and Plt >30 or >50 on days of LP Assessment & Plan (05/22/2023 8:56 AM CDT): Secondary to chemotherapy. See CBC. No transfusions needed today. - CBC w/ diff every Thursday/ - Transfuse to keep Hgb >8 and Plt >30 or >50 on days of LP Assessment & Plan (05/21/2023 12:45 PM CDT): Secondary to chemotherapy. See CBC. No transfusions needed today. - CBC w/ diff every Thursday/ - Transfuse to keep Hgb >8 and Plt >30 or >50 on days of LP Assessment & Plan (05/20/2023 1:46 PM CDT): Secondary to chemotherapy. See CBC. No transfusions needed today. - CBC w/ diff every Thursday/ - Transfuse to keep Hgb >8 and Plt >30 or >50 on days of LP Assessment & Plan (05/19/2023 11:15 AM CDT): Secondary to chemotherapy. See CBC. No transfusions needed today. - CBC w/ diff every Thursday/ - Transfuse to keep Hgb >8 and Plt >30 or >50 on days of LP Assessment & Plan (05/18/2023 1:11 PM CDT): Secondary to chemotherapy. See CBC. NO transfusions needed today. - CBC w/ diff daily - Transfuse to keep Hgb >8 and Plt >30 or >50 on days of LP Assessment & Plan (05/17/2023 11:14 AM CDT): Secondary to chemotherapy. See CBC. Transfuse PRBC today for hemoglobin of 7.4 - CBC w/ diff daily - Transfuse to keep Hgb >8 and Plt >30 or >50 on days of LP Assessment & Plan (05/16/2023 8:10 AM CDT): Secondary to chemotherapy. See CBC. No transfusions required today. - CBC w/ diff daily - Transfuse to keep Hgb >8 and Plt >30 or >50 on days of LP Assessment & Plan (05/15/2023 10:52 AM CDT): Secondary to chemotherapy. See CBC. No transfusions required today. - CBC w/ diff daily - Transfuse to keep Hgb >8 and Plt >30 or >50 on days of LP Assessment & Plan (05/14/2023 12:32 PM CDT): Secondary to chemotherapy. See CBC. No transfusions required today. - CBC w/ diff daily - Transfuse to keep Hgb >8 and Plt >30 or >50 on days of LP Assessment & Plan (05/13/2023 11:41 AM CDT): Secondary to chemotherapy. See CBC. - CBC w/ diff daily - Transfuse to keep Hgb >8 and Plt >30 or >50 on days of LP Assessment & Plan (05/12/2023 12:37 PM CDT): Secondary to chemotherapy. See CBC. - PRBCs today - CBC w/ diff daily - Transfuse to keep Hgb >7 and Plt >10 or >50 on days of LP Assessment & Plan (05/11/2023 1:35 PM CDT): Secondary to chemotherapy. See CBC. [place] received 2 units of platelets overnight. - CBC w/ diff daily - Transfuse to keep Hgb >7 and Plt >10 or >50 on days of LP Assessment & Plan (05/10/2023 11:05 AM CDT): Secondary to chemotherapy. - Transfuse 1U plt at MN in anticipation for LP. - CBC w/ diff daily - Transfuse to keep Hgb >7 and Plt >10 or >50 on days of LP Assessment & Plan (05/09/2023 7:59 AM CDT): Secondary to chemotherapy. - CBC w/ diff daily - Transfuse to keep Hgb >7 and Plt >10 or >50 on days of LP Assessment & Plan (05/08/2023 1:10 PM CDT): Secondary to chemotherapy. - CBC w/ diff daily - Transfuse to keep Hgb >7 and Plt >10 or >50 on days of LP Assessment & Plan (05/07/2023 9:59 AM CDT): Secondary to chemotherapy. - CBC w/ diff daily - Transfuse to keep Hgb >7 and Plt >10 or >50 on days of LP Assessment & Plan (05/06/2023 7:13 PM CDT): Secondary to chemotherapy. - CBC w/ diff daily - Transfuse to keep Hgb >7 and Plt >10 or >50 on days of LP Assessment & Plan (05/05/2023 11:12 AM CDT): Secondary to chemotherapy. - CBC w/ diff daily - Transfuse to keep Hgb >7 and Plt >10 or >50 on days of LP Assessment & Plan (05/04/2023 6:59 PM CDT): Secondary to chemotherapy. - CBC w/ diff daily - Transfuse to keep Hgb >7 and Plt >10 or >50 on days of LP Assessment & Plan (05/03/2023 10:51 AM CDT): Secondary to chemotherapy. - CBC w/ diff daily - Transfuse to keep Hgb >7 and Plt >10 or >50 on days of LP -transfuse platelets tonight Assessment & Plan (05/02/2023 10:28 AM CDT): Secondary to chemotherapy. - CBC w/ diff daily - Transfuse to keep Hgb >7 and Plt >10 Assessment & Plan (05/01/2023 12:08 PM CDT): Secondary to chemotherapy. - CBC w/ diff Mon/Th - Transfuse PRBCs today - Transfuse to keep Hgb >7 and Plt >10 Assessment & Plan (04/30/2023 1:32 PM CDT): Secondary to chemotherapy. - CBC w/ diff Mon/Th - No transfusions needed today - Transfuse to keep Hgb >7 and Plt >10 Assessment & Plan (04/29/2023 1:24 PM CDT): Secondary to chemotherapy. - CBC w/ diff Mon/Th - No transfusions needed today - Transfuse to keep Hgb >7 and Plt >10 Assessment & Plan (04/28/2023 2:10 PM CDT): Secondary to chemotherapy. - CBC w/ diff Mon/Th - No transfusions needed today - Transfuse to keep Hgb >7 and Plt >10 Assessment & Plan (04/27/2023 1:24 PM CDT): Secondary to chemotherapy. - CBC w/ diff Mon/Th - No transfusions needed today - Transfuse to keep Hgb >7 and Plt >10 Assessment & Plan (04/26/2023 10:17 AM CDT): Secondary to chemotherapy. - CBC Tues/Thurs - Transfuse to keep Hgb >7 and Plt >10 Assessment & Plan (04/25/2023 9:35 AM CDT): Secondary to chemotherapy. - CBC Tues/Thurs - Transfuse to keep Hgb >7 and Plt >10 Assessment & Plan (04/24/2023 1:12 PM CDT): Secondary to chemotherapy - CBC Tues/Thurs - Transfuse PRBCs today for symptomatic anemia - Transfuse to keep Hgb >7 and Plt >10 Assessment & Plan (04/23/2023 1:19 PM CDT): Secondary to chemotherapy - CBC Tues/Thurs - No transfusions required today - Transfuse to keep Hgb >7 and Plt >10 Assessment & Plan (04/22/2023 12:27 PM CDT): Secondary to chemotherapy - CBC Tues/Thurs - No transfusions required today - Transfuse to keep Hgb >7 and Plt >10 Assessment & Plan (04/21/2023 3:52 PM CDT): Secondary to chemotherapy - CBC Tues/Thurs - PRBCs tonight, Hgb 7.5 Assessment & Plan (04/14/2023 3:48 PM CDT): Experiencing mild dizziness, especially with standing. S/p 2 units pRBCs 8/25. - Daily CBC Assessment & Plan (04/13/2023 8:09 AM CDT): Experiencing mild dizziness, especially with standing. S/p 2 units pRBCs 8/25. - Daily CBC Assessment & Plan (04/12/2023 10:11 AM CDT): Experiencing mild dizziness, especially with standing. S/p 2 units pRBCs 8/25. - Daily CBC Assessment & Plan (04/11/2023 9:47 AM CDT): Experiencing mild dizziness, especially with standing. S/p 2 units pRBCs 8/25. - Daily CBC Assessment & Plan (04/10/2023 1:14 PM CDT): Experiencing mild dizziness, especially with standing. S/p 2 units pRBCs 8/25. - Daily CBC Assessment & Plan (2023 9:51 AM CDT): Experiencing mild dizziness, especially with standing. S/p 2 units pRBCs 8/25. - Daily CBC Assessment & Plan (04/08/2023 10:16 AM CDT): Experiencing mild dizziness, especially with standing. S/p 2 units pRBCs 8/25. - Daily CBC Assessment & Plan (04/07/2023 5:01 PM CDT): Experiencing mild dizziness, especially with standing. S/p 2 units pRBCs 8/25. - Daily CBC Assessment & Plan (04/06/2023 10:31 AM CDT): Experiencing mild dizziness, especially with standing. S/p 2 units pRBCs 8/25. - Daily CBC Assessment & Plan (04/06/2023 10:12 AM CDT): Experiencing mild dizziness, especially with standing. S/p 2 units pRBCs 04/03. - Daily CBC Assessment & Plan (04/04/2023 9:45 AM CDT): Experiencing mild dizziness, especially with standing. S/p 2 units pRBCs 04/03, recheck Hgb 10.6 today. - Daily CBC Assessment & Plan (04/03/2023 7:04 PM CDT): Most recent Hgb 7.8. Experiencing mild dizziness, especially with standing. - 2 units pRBC transfusion 04/03 Assessment & Plan (04/02/2023 2:09 PM CDT): Most recent Hgb 7.8. Experiencing mild dizziness, especially with standing. - Defer transfusion for now Assessment & Plan (04/01/2023 11:15 AM CDT): Most recent Hgb 7.8. Experiencing mild dizziness, especially with standing. - Defer transfusion for now Assessment & Plan (03/31/2023 11:10 AM CDT): Most recent Hgb 7.8. Experiencing mild dizziness, especially with standing. 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 ANC 1666 today. Assessment & Plan (04/13/2023 8:10 AM CDT): Continue to monitor for fevers or signs of infection. ANC 2412 today. Assessment & Plan (04/12/2023 10:11 AM CDT): Continue to monitor for fevers or signs of infection. ANC 580 today. Assessment & Plan (04/11/2023 9:48 AM CDT): Continue to monitor for fevers or signs of infection. ANC 1563 today. Assessment & Plan (04/10/2023 1:16 PM CDT): Continue to monitor for fevers or signs of infection. ANC 1265 today. Assessment & Plan (2023 9:52 AM CDT): Continue to monitor for fevers or signs of infection. ANC 1170 today. Assessment & Plan (04/08/2023 10:16 AM CDT): Continue to monitor for fevers or signs of infection. ANC 1350 today. Assessment & Plan (04/07/2023 5:01 PM CDT): Continue to monitor for fevers or signs of infection. ANC 988 today. Assessment & Plan (04/06/2023 10:33 AM CDT): Continue to monitor for fevers or signs of infection. ANC 664 today. Assessment & Plan (04/06/2023 10:12 AM CDT): Continue to monitor for fevers or signs of infection. ANC 664 today. Assessment & Plan (04/05/2023 9:36 AM CDT): Continue to monitor for fevers or signs of infection. ANC today. Assessment & Plan (04/04/2023 9:46 AM CDT): Continue to monitor for fevers or signs of infection. ANC 931 today. Assessment & Plan (04/03/2023 7:04 PM CDT): Continue to monitor for fevers or signs of infection. ANC 812 today. Assessment & Plan (04/02/2023 2:09 PM CDT): Continue to monitor for fevers or signs of infection. ANC 802 today. Assessment & Plan (04/01/2023 11:15 AM CDT): Continue to monitor for fevers or signs of infection. ANC 802 today. Assessment & Plan (03/31/2023 11:10 AM CDT): Continue to monitor for fevers or signs of infection. ANC 935 today. Low back pain 03/20/2023 04/21/2023 Assessment & Plan (04/14/2023 3:50 PM CDT): Pain team consulted. Pain improved today. - Continue Oxy PRN Assessment & Plan (04/13/2023 8:10 AM CDT): Pain team consulted. Pain improved today. - Continue Oxy PRN Assessment & Plan (04/12/2023 10:09 AM CDT): Pain team consulted. Pain improved today. - Continue Oxy PRN Assessment & Plan (04/11/2023 9:48 AM CDT): Pain team consulted. Pain improved today. - Continue Oxy PRN Assessment & Plan (04/10/2023 1:16 PM CDT): Pain team consulted. Pain improved today. - Continue Oxy PRN Assessment & Plan (2023 9:52 AM CDT): Pain team consulted. Pain improved today. - Continue Oxy PRN Assessment & Plan (04/08/2023 10:16 AM CDT): Pain team consulted. Pain improved today. - Continue Oxy PRN Assessment & Plan (04/07/2023 5:01 PM CDT): Pain team consulted. Pain improved today. - D/c morphine scheduled - Continue Oxy PRN Assessment & Plan (04/06/2023 10:33 AM CDT): Pain team consulted. Pain improved today. - D/c morphine scheduled - Continue Oxy PRN Assessment & Plan (04/06/2023 10:13 AM CDT): Pain team consulted. Pain improved today. - D/c morphine scheduled - Continue Oxy PRN Assessment & Plan (04/05/2023 9:39 AM CDT): Pain team consulted. Pain improved today. - Change morphine to Q12h - Continue Oxy PRN Assessment & Plan (04/04/2023 9:46 AM CDT): Pain team consulted. See above. Assessment & Plan (04/03/2023 7:04 PM CDT): Pain team consulted. See above. Assessment & Plan (04/02/2023 2:09 PM CDT): Pain team consulted. See above. Assessment & Plan (04/01/2023 11:16 AM CDT): Pain team consulted. See above. Assessment & Plan (03/31/2023 11:16 AM CDT): Pain team consulted. See above. Assessment & Plan (03/30/2023 11:35 AM CDT): Pain team consulted. See above. Assessment & Plan (03/29/2023 11:52 AM CDT): Pain team consulted. See above. Assessment & Plan (03/28/2023 7:13 AM CDT): Pain team consulted. See above. Assessment & Plan (03/27/2023 7:42 AM CDT): Pain team consulted. See above. Assessment & Plan (03/26/2023 10:04 AM CDT): Pain team consulted. See above. Assessment & Plan (03/25/2023 7:13 AM CDT): Based on exam seems musculoskeletal in nature; pain consulted and meds optimized for pain control. Encourage patient to participate in PT. Assessment & Plan (03/24/2023 7:29 AM CDT): Based on exam seems musculoskeletal in nature; Robaxin PRN, encourage patient to participate in PT. Improving with IV morphine. Assessment & Plan (03/23/2023 7:43 AM CDT): Based on exam seems musculoskeletal in nature; Robaxin PRN, encourage patient to participate in PT. Assessment & Plan (03/22/2023 12:18 PM CDT): Based on exam seems musculoskeletal in nature; Robaxin PRN, encourage patient to participate in PT. Assessment & Plan (03/21/2023 11:31 AM CDT): Based on exam seems musculoskeletal in nature; Robaxin PRN, encourage patient to participate in PT. Assessment & Plan (03/20/2023 1:01 PM CDT): Based on exam seems musculoskeletal in nature; consider PO Robaxin if persists, encourage patient to participate in PT. Urticaria 03/10/2023 03/16/2023 Assessment & Plan (03/15/2023 12:29 PM CDT): Pt with urticaria for the last several days. Pt has requested to discontinue allopurinol therapy due to itching. Will continue to monitor tumor lysis labs and can administer rasburicase if clinically indicated for hyperuricemia. -Benadryl PRN - Consider Atarax - Consider Nubain infusion if itching persists Assessment & Plan (03/14/2023 7:47 AM CDT): Pt with urticaria for the last several days. Pt has requested to discontinue allopurinol therapy due to itching. Will continue to monitor tumor lysis labs and can administer rasburicase if clinically indicated for hyperuricemia. -Benadryl PRN - Consider Atarax - Consider Nubain infusion if itching persists Assessment & Plan (03/13/2023 8:14 AM CDT): Pt with urticaria for the last several days. Pt has requested to discontinue allopurinol therapy due to itching. Will continue to monitor tumor lysis labs and can administer rasburicase if clinically indicated for hyperuricemia. -Benadryl PRN - Consider Atarax - Consider Nubain infusion if itching persists Assessment & Plan (03/12/2023 1:09 PM CDT): Pt with urticaria for the last several days. Pt has requested to discontinue allopurinol therapy due to itching. Will continue to monitor tumor lysis labs and can administer rasburicase if clinically indicated for hyperuricemia. -Benadryl PRN - Consider Nubain infusion if itching persists Assessment & Plan (03/11/2023 11:30 AM CDT): Pt with urticaria for the last several days. Pt has requested to discontinue allopurinol therapy due to itching. Will continue to monitor tumor lysis labs and can administer rasburicase if clinically indicated for hyperuricemia. Assessment & Plan (03/10/2023 10:29 AM CDT): Pt with urticaria for the last several days. Skin irritant vs allopurinol use. Will continue to monitor and consider discontinuation of allopurinol if clinically indicated. Localized edema due to fluid overload 03/08/2023 04/24/2023 Assessment & Plan (05/16/2023 8:10 AM CDT): Bilateral periorbital edema and bilateral lower extremity edema noted on exam 04/22. Received hyperhydration fluids overnight post chemotherapy. Albumin 2.2, received albumin and lasix. Net negative 2.5L today, edema resolved. - Strict I/O - Daily weights Assessment & Plan (04/24/2023 1:11 PM CDT): Bilateral periorbital edema and bilateral lower extremity edema noted on exam 04/22. Received hyperhydration fluids overnight post chemotherapy. Albumin 2.2, received albumin and lasix. Net negative 2.5L today, edema resolved. - Strict I/O - Daily weights Assessment & Plan (04/23/2023 1:18 PM CDT): Bilateral periorbital edema and bilateral lower extremity edema noted on exam 04/22. Received hyperhydration fluids overnight post chemotherapy. Albumin 2.2, received albumin and lasix. Net negative 2.5L today, edema resolved. - Strict I/O - Daily weights Assessment & Plan (04/22/2023 12:31 PM CDT): Bilateral periorbital edema and bilateral lower extremity edema noted on exam this morning. Received hyperhydration fluids overnight post chemotherapy. Albumin 2.2 today. - Give Albumin followed by Lasix today - Strict I/O - Daily weights Assessment & Plan (04/01/2023 11:16 AM CDT): Lungs clear, BPs are appropriate. Continue to trend weights. Lasix d/c 04/01. Resolved Assessment & Plan (03/31/2023 11:16 AM CDT): Lungs clear, BPs are appropriate. Continue to trend weights, continue Lasix dosing as clinically appropriate. Assessment & Plan (03/30/2023 11:34 AM CDT): Lungs clear, BPs are appropriate. Continue to trend weights, continue Lasix dosing as clinically appropriate. Assessment & Plan (03/29/2023 11:51 AM CDT): Lungs clear, BPs are appropriate. Continue to trend weights, continue Lasix dosing as clinically appropriate. Assessment & Plan (03/28/2023 7:12 AM CDT): Lungs clear, BPs are ok. Continue to trend weights, continue Lasix dosing as clinically appropriate. Assessment & Plan (03/27/2023 7:41 AM CDT): Lungs clear, BPs are ok. Continue to trend weights, spot doses of Lasix as needed. Assessment & Plan (03/26/2023 10:03 AM CDT): Lungs clear, BPs are ok. Continue to trend weights, spot doses of Lasix as needed. Assessment & Plan (03/25/2023 7:12 AM CDT): Weight down trending. Continue to monitor. Some UOP not documented in Is/Os as pt does not always urinate in hat. Assessment & Plan (03/24/2023 7:28 AM CDT): Weight down trending. Continue to monitor. Some UOP not documented in Is/Os as pt does not always urinate in hat. Assessment & Plan (03/23/2023 7:42 AM CDT): Weight down trending. Continue to monitor. Some UOP not documented in Is/Os as pt does not always urinate in hat. Assessment & Plan (03/22/2023 12:19 PM CDT): Weight is down-trending. Continue to monitor. - Continue to monitor Is/Os Assessment & Plan (03/21/2023 7:47 AM CDT): Weight is down-trending. Continue to monitor. - Continue to monitor Is/Os - Consider additional Lasix dosing if clinically appropriate Assessment & Plan (03/20/2023 8:24 AM CDT): Weight is down-trending. Continue to monitor. - Continue to monitor Is/Os - Consider additional Lasix dosing if clinically appropriate Assessment & Plan (03/19/2023 11:08 AM CDT): Weight is down-trending. Continue to monitor. - Continue to monitor Is/Os - Consider additional Lasix dosing if clinically appropriate Assessment & Plan (03/18/2023 9:56 AM CDT): Patient is at risk for hypervolemia. Positive 264 ml in last 24 hours (up approx 9.8 L since admission). Continue to monitor. - Continue to monitor Is/Os - Consider additional Lasix dosing if clinically appropriate Assessment & Plan (03/17/2023 7:34 AM CDT): Patient is at risk for hypervolemia. Positive 2362ml in last 24 hours; will give lasix dose this AM. Continue to monitor. - Continue to monitor Is/Os - Consider additional Lasix dosing if clinically appropriate Assessment & Plan (03/16/2023 7:21 AM CDT): Patient is at risk for hypervolemia. Positive 188ml in last 24 hours (up 2.3 L from admission). Continue to monitor. - Continue to monitor Is/Os - Consider additional Lasix dosing if clinically appropriate Assessment & Plan (03/15/2023 12:28 PM CDT): Patient is at risk for hypervolemia. Positive 188ml in last 24 hours (up 2.3 L from admission). Continue to monitor. - Continue to monitor Is/Os - Consider additional Lasix dosing if clinically appropriate Assessment & Plan (03/14/2023 7:46 AM CDT): Patient is at risk for hypervolemia. Negative 1663 ml in last 24 hours (up 6.9 L from admission). Continue to monitor. - Continue to monitor Is/Os - Consider additional Lasix dosing if clinically appropriate Assessment & Plan (03/13/2023 8:13 AM CDT): Patient is at risk for hypervolemia. Net positive approx 8 L since admission. - Continue to monitor Is/Os - Consider additional Lasix dosing if clinically appropriate Assessment & Plan (03/12/2023 1:10 PM CDT): Patient is at risk for hypervolemia. Net positive approx 8 L since admission. - Continue to monitor Is/Os - Consider additional Lasix dosing if clinically appropriate Assessment & Plan (03/11/2023 7:31 AM CDT): Patient is at risk for hypervolemia. Net positive approx 7 L since admission. S/p Lasix x1 03/08, will admin second dose 03/10 and continue to monitor fluid status. - Continue to monitor Is/Os - Consider Lasix dosing if clinically appropriate Assessment & Plan (03/10/2023 10:28 AM CDT): Patient is at risk for hypervolemia. Net positive approx 7 L since admission. S/p Lasix x1 03/08, will admin second dose 03/10 and continue to monitor fluid status. - Continue to monitor Is/Os - 20 mg IV Lasix 03/10 Assessment & Plan (03/09/2023 1:56 PM CDT): Patient is at risk for hypervolemia. Net positive approx 6 L since admission. S/p Lasix x1 03/08. - Continue to monitor Is/Os - Consider further Lasix dosing if needed Assessment & Plan (03/08/2023 11:16 AM CDT): Patient is at risk for hypervolemia. Weight today is up by 3.8 kg since admission and she is net positive about 5 L - Lasix x1 today - Will obtain urinalysis Other constipation 03/08/2023 Assessment & Plan (03/24/2023 7:28 AM CDT): Miralax daily and docusate PRN. Assessment & Plan (03/23/2023 7:42 AM CDT): Miralax daily and docusate PRN. Assessment & Plan (03/22/2023 12:19 PM CDT): Monitor for constipation. Last stool 03/18 - Miralax daily and docusate PRN Assessment & Plan (03/21/2023 7:47 AM CDT): Monitor for constipation. - Miralax daily and docusate PRN Assessment & Plan (03/20/2023 8:24 AM CDT): Monitor for constipation. - Miralax daily and docusate PRN Assessment & Plan (03/19/2023 11:08 AM CDT): Monitor for constipation. - Miralax daily and docusate PRN Assessment & Plan (03/18/2023 7:31 AM CDT): Monitor for constipation. - Miralax daily and docusate PRN Assessment & Plan (03/17/2023 7:34 AM CDT): Monitor for constipation. - Miralax daily and docusate PRN Assessment & Plan (03/16/2023 7:21 AM CDT): Monitor for constipation. - Miralax daily and docusate PRN Assessment & Plan (03/15/2023 12:28 PM CDT): Monitor for constipation. - Miralax daily and docusate PRN Assessment & Plan (03/14/2023 7:46 AM CDT): Monitor for constipation. - Miralax daily and docusate PRN Assessment & Plan (03/13/2023 8:13 AM CDT): Monitor for constipation. - Miralax daily and docusate PRN Assessment & Plan (03/12/2023 1:10 PM CDT): No stool since admission - Will start miralax daily and docusate PRN Assessment & Plan (03/08/2023 11:16 AM CDT): No stool since admission - Will start miralax daily and docusate PRN Erythema nodosum 03/06/2023 10/27/2023 Assessment & Plan (04/12/2023 10:11 AM CDT): See above. Assessment & Plan (04/04/2023 9:48 AM CDT): See above. Assessment & Plan (04/03/2023 7:04 PM CDT): See above. Assessment & Plan (04/02/2023 2:09 PM CDT): See above. Assessment & Plan (04/01/2023 11:16 AM CDT): See above. Assessment & Plan (03/31/2023 11:16 AM CDT): See above. Assessment & Plan (03/30/2023 11:29 AM CDT): See above. Assessment & Plan (03/29/2023 11:45 AM CDT): See above. Assessment & Plan (03/28/2023 7:10 AM CDT): See above. Assessment & Plan (03/27/2023 7:41 AM CDT): See above. Assessment & Plan (03/26/2023 7:49 AM CDT): See above. Assessment & Plan (03/25/2023 7:11 AM CDT): See above. Assessment & Plan (03/24/2023 7:28 AM CDT): See above. Assessment & Plan (03/23/2023 7:40 AM CDT): See above. Assessment & Plan (03/22/2023 10:03 AM CDT): See above. Assessment & Plan (03/21/2023 7:45 AM CDT): See above. Assessment & Plan (03/20/2023 8:24 AM CDT): See above. Assessment & Plan (03/19/2023 11:07 AM CDT): Presentation of rash most concerning for erythroderma nodosum. Although no petechial hemorrhaging appreciated, high suspicion remains for underlying neoplastic etiology. Plan: - F/u infectious w/u - See workup plan for leukocytosis Assessment & Plan (03/18/2023 7:30 AM CDT): Presentation of rash most concerning for erythroderma nodosum. Although no petechial hemorrhaging appreciated, high suspicion remains for underlying neoplastic etiology. Plan: - F/u infectious w/u - See workup plan for leukocytosis Assessment & Plan (03/17/2023 7:33 AM CDT): Presentation of rash most concerning for erythroderma nodosum. Although no petechial hemorrhaging appreciated, high suspicion remains for underlying neoplastic etiology. Plan: - F/u infectious w/u - See workup plan for leukocytosis Assessment & Plan (03/16/2023 7:20 AM CDT): Presentation of rash most concerning for erythroderma nodosum. Although no petechial hemorrhaging appreciated, high suspicion remains for underlying neoplastic etiology. Plan: - F/u infectious w/u - See workup plan for leukocytosis Assessment & Plan (03/15/2023 12:24 PM CDT): Presentation of rash most concerning for erythroderma nodosum. Although no petechial hemorrhaging appreciated, high suspicion remains for underlying neoplastic etiology. 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 Although no petechial hemorrhaging appreciated, high suspicion remains for underlying neoplastic etiology. 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 Although no petechial hemorrhaging appreciated, high suspicion remains for underlying neoplastic etiology. 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 Although no petechial hemorrhaging appreciated, high suspicion remains for underlying neoplastic etiology. 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 Although no petechial hemorrhaging appreciated, high suspicion remains for underlying neoplastic etiology. 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 Although no petechial hemorrhaging appreciated, high suspicion remains for underlying neoplastic etiology. 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 Although no petechial hemorrhaging appreciated, high suspicion remains for underlying neoplastic etiology. 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 Although no petechial hemorrhaging appreciated, high suspicion remains for underlying neoplastic etiology. 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 Although no petechial hemorrhaging appreciated, high suspicion remains for underlying neoplastic etiology. At this time, will admit the patient to Heme/Onc service for ongoing workup. PLAN: -see plan for leukocytosis ALL (acute lymphoblastic leukemia) 03/06/2023 04/05/2023 Assessment & Plan (04/05/2023 9:40 AM CDT): Suyapa English is a 17 y.o. 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 Undergoing induction chemotherapy via [id number] protocol. Day 1 was 03/12. CSF x3 without blasts. Peripheral blood without blasts 03/20. Neuro: - Pain team following - Continue morphine 2mg q8h and prn - PACT c/s, appreciate recs - Increase Gabapentin 300mg TID - Diclofenac gel prn - Tylenol PRN - Robaxin - Hydroxyzine prn Resp: JANNETH CV: HDS FEN/GI: - Reg diet as tolerated - Did not tolerate NG placement - Fluid goal of 1.5L/m2/d, titrate IV fluids as needed - Encourage PO salt packets - Miralax daily/docusate PRN - PRN zofran, benadryl/reglan PRN, ativan PRN - Pepcid BID Heme: - Transfuse to keep Hgb > 7, plt > 10; consider until of blood if symptomatic - S/p 2 units pRBCs 04/03 with improved counts - Orthostatic hypotension/POTS; adjust fluid management as above - R subclavian DVT; Continue Lovenox dosing at 100mg BID (goal 0.6-1.0) (if plt <50, give 0.5 mg/kg, if plt < 25 HOLD) - Restart Lovenox today ID: - Pentamidine ppx (last dose 03/14) - Encourage PO Bactrim when due - If febrile, obtain blood cx and start CTX (cefepime if ANC <500) - Consider C diff testing if diarrhea persists : - Menstrual suppression with leuprolide (Lupron) 11.25 mg q12w (last dose 03/13) - Consider adding Agestin if periods persist despite Lupron - Needs UPT prior to all chemo Onc: Induction per [id number], Day 1=8 - Port placed 04/03 - Day 1: VCR, Dauno with Zinecard, prednisone x 56 doses - Day 4: Calasparagase - Days 8, 15, 22: VCR, Dauno with Zinecard - Day 29: IT MTX - LP x3 with CSF clear: 03/16, 03/19, 03/24 - Prednisone IV q12h (3 missed doses to be made up at end of induction) Lines: Single Lumen Broviac Labs: Daily AM CBC, qMon RFP, qThurs CMP Assessment & Plan (04/04/2023 9:44 AM CDT): Suyapa English is a 17 y.o. 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 Undergoing induction chemotherapy via [id number] protocol. Day 1 was 03/12. CSF x3 without blasts. Peripheral blood without blasts 03/20. Neuro: - Pain team following - Continue morphine 2mg q8h and prn - PACT c/s, appreciate recs - Increase Gabapentin 300mg TID - Diclofenac gel prn - Tylenol PRN - Robaxin - Hydroxyzine prn Resp: JANNETH CV: HDS FEN/GI: - Reg diet as tolerated - Did not tolerate NG placement - Fluid goal of 1.5L/m2/d, titrate IV fluids as needed - Encourage PO salt packets - Miralax daily/docusate PRN - PRN zofran, benadryl/reglan PRN, ativan PRN - Pepcid BID Heme: - Transfuse to keep Hgb > 7, plt > 10; consider until of blood if symptomatic - S/p 2 units pRBCs 04/03 with improved counts - Orthostatic hypotension/POTS; adjust fluid management as above - R subclavian DVT; Continue Lovenox dosing at 100mg BID (goal 0.6-1.0) (if plt <50, give 0.5 mg/kg, if plt < 25 HOLD) - Restart Lovenox today ID: - Pentamidine ppx (last dose 03/14) - Encourage PO Bactrim when due - If febrile, obtain blood cx and start CTX (cefepime if ANC <500) - Consider C diff testing if diarrhea persists : - Menstrual suppression with leuprolide (Lupron) 11.25 mg q12w (last dose 03/13) - Consider adding Agestin if periods persist despite Lupron - Needs UPT prior to all chemo Onc: Induction per [id number], Day 1=03/12 - Port placed 04/03 - Day 1: VCR, Dauno with Zinecard, prednisone x 56 doses - Day 4: Calasparagase - Days 8, 15, 22: VCR, Dauno with Zinecard - Day 29: IT MTX - LP x3 with CSF clear: 03/16, 03/19, 03/24 - Prednisone IV q12h (3 missed doses to be made up at end of induction) Lines: Single Lumen Broviac Labs: Daily AM CBC, qMon RFP, qThurs CMP Assessment & Plan (04/03/2023 7:03 PM CDT): Suyapa English is a 17 y.o. 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 Undergoing induction chemotherapy via [id number] protocol. Day 1 was 03/12. CSF x3 without blasts. Peripheral blood without blasts 03/20. Neuro: - Pain team following - Continue morphine 2mg q8h and prn - PACT c/s appreciate recs - Continue Gabapentin 300mg BID 04/02 given neuropathic pain - Diclofenac gel prn - Tylenol PRN - Robaxin - Hydroxyzine prn Resp: JANNETH CV: HDS FEN/GI: - Reg diet as tolerated - Did not tolerate NG placement - Fluid goal of 1.5L/m2/d, titrate IV fluids as needed - Encourage PO salt packets - Miralax daily/docusate PRN - PRN zofran, benadryl/reglan PRN, ativan PRN - Pepcid BID Heme: - Transfuse to keep Hgb > 7, plt > 10; consider until of blood if symptomatic - Transfuse 2 units pRBCs 04/03 given symptomatic anemia - Orthostatic hypotension/POTS; adjust fluid management as above - R subclavian DVT; Continue Lovenox dosing at 100mg BID (goal 0.6-1.0) (if plt <50, give 0.5 mg/kg, if plt < 25 HOLD) - Hold lovenox until 04/04 am ID: - Pentamidine ppx (last dose 03/14) - Encourage PO Bactrim when due - If febrile, obtain blood cx and start CTX (cefepime if ANC <500) - Consider C diff testing if diarrhea persists : - Menstrual suppression with leuprolide (Lupron) 11.25 mg q12w (last dose 03/13) - Consider adding Agestin if periods persist despite Lupron - Needs UPT prior to all chemo Onc: Induction per [id number], Day 1=03/12 - Port placement in OR 04/03 - Day 1: VCR, Dauno with Zinecard, prednisone x 56 doses - Day 4: Calasparagase - Days 8, 15, 22: VCR, Dauno with Zinecard - Day 29: IT MTX - LP x3 with CSF clear: 03/16, 03/19, 03/24 - Prednisone IV q12h (3 missed doses to be made up at end of induction) Lines: RUE PICC Labs: Daily AM CBC, qMon RFP, qThurs CMP Assessment & Plan (04/02/2023 2:09 PM CDT): Suyapa English is a 17 y.o. 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 Undergoing induction chemotherapy via [id number] protocol. Day 1 was 03/12. CSF x3 without blasts. Peripheral blood without blasts 03/20. Neuro: - Pain team following - Continue morphine 2mg q8h and prn - PACT c/s appreciate recs - Start Gabapentin 300mg BID 04/02 given neuropathic pain - Diclofenac gel prn - Tylenol PRN - Robaxin - Hydroxyzine prn Resp: JANNETH CV: HDS FEN/GI: - NPO at [place] for port placement 04/03 - Reg diet as tolerated - Did not tolerate NG placement - Fluid goal of 1.5L/m2/d, titrate IV fluids as needed - Encourage PO salt packets - Miralax daily/docusate PRN - PRN zofran, benadryl/reglan PRN, ativan PRN - Pepcid BID Heme: - Transfuse to keep Hgb > 7, plt > 10; consider until of blood if symptomatic - Orthostatic hypotension/POTS; adjust fluid management as above - R subclavian DVT; Continue Lovenox dosing at 100mg BID (goal 0.6-1.0) (if plt <50, give 0.5 mg/kg, if plt < 25 HOLD) - Anti-Xa now therapeutic, no need for further checks ID: - Pentamidine ppx (last dose 03/14) - Encourage PO Bactrim when due - If febrile, obtain blood cx and start CTX (cefepime if ANC <500) - Consider C diff testing if diarrhea persists : - Menstrual suppression with leuprolide (Lupron) 11.25 mg q12w (last dose 03/13) - Consider adding Agestin if periods persist despite Lupron - Needs UPT prior to all chemo Onc: Induction per [id number], Day 1=03/12 - Port placement in OR 04/03 - Day 1: VCR, Dauno with Zinecard, prednisone x 56 doses - Day 4: Calasparagase - Days 8, 15, 22: VCR, Dauno with Zinecard - Day 29: IT MTX - LP x3 with CSF clear: 03/16, 03/19, 03/24 - Prednisone IV q12h (3 missed doses to be made up at end of induction) Lines: RUE PICC Labs: Daily AM CBC, qMon RFP, qThurs CMP Assessment & Plan (04/01/2023 11:15 AM CDT): Suyapa English is a 17 y.o. 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 Undergoing induction chemotherapy via [id number] protocol. Day 1 was 03/12. CSF x3 without blasts. Peripheral blood without blasts 03/20. Neuro: - Pain team following - Continue morphine 2mg q8h and prn - Consult PACT 04/01 for additional help with chronic pain - Tylenol PRN - Robaxin - Hydroxyzine prn - Consider adding gabapentin if concerned for neuropathic pain Resp: JANNETH CV: HDS FEN/GI: - Reg diet as tolerated - Did not tolerate NG placement - Fluid goal of 1.5L/m2/d, titrate IV fluids as needed - Encourage PO salt packets - Miralax daily/docusate PRN - PRN zofran, benadryl/reglan PRN, ativan PRN - Pepcid BID - D/c lasix Heme: - Transfuse to keep Hgb > 7, plt > 10; consider until of blood if symptomatic - Orthostatic hypotension/POTS; adjust fluid management as above - R subclavian DVT; Continue Lovenox dosing at 100mg BID (goal 0.6-1.0) (if plt <50, give 0.5 mg/kg, if plt < 25 HOLD) - Anti-Xa now therapeutic, no need for further checks ID: - Pentamidine ppx (last dose 03/14) - Encourage PO Bactrim when due - If febrile, obtain blood cx and start CTX (cefepime if ANC <500) - Consider C diff testing if diarrhea persists : - Menstrual suppression with leuprolide (Lupron) 11.25 mg q12w (last dose 03/13) - Consider adding Agestin if periods persist despite Lupron - Needs UPT prior to all chemo Onc: Induction per [id number], Day 1=03/12 - Day 1: VCR, Dauno with Zinecard, prednisone x 56 doses - Day 4: Calasparagase - Days 8, 15, 22: VCR, Dauno with Zinecard - Day 29: IT MTX - LP x3 with CSF clear: 03/16, 03/19, 03/24 - Prednisone IV q12h (3 missed doses to be made up at end of induction) Lines: RUE PICC Labs: Daily AM CBC, qMon RFP, qThurs CMP Assessment & Plan (03/31/2023 11:15 AM CDT): Suyapa English is a 17 y.o. 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 Undergoing induction chemotherapy via [id number] protocol. Day 1 was 03/12. CSF x3 without blasts. Peripheral blood without blasts 03/20. Neuro: - Pain team following - Wean morphine to 2mg q8h scheduled and prn - Tylenol PRN - Robaxin - Hydroxyzine prn - Consider adding gabapentin if concerned for neuropathic pain Resp: JANNETH CV: HDS FEN/GI: - Reg diet as tolerated - Did not tolerate NG placement - KVO fluids, Monitor fluid status - Encourage PO salt packets - Miralax daily/docusate PRN - PRN zofran, benadryl/reglan PRN, ativan PRN - Pepcid BID - Due to persistent swelling/fluid overload, will schedule Lasix q24h; continue to monitor fluid status Heme: - Transfuse to keep Hgb > 7, plt > 10; consider until of blood if symptomatic - Orthostatic vitals 03/31 - R subclavian DVT; Continue Lovenox dosing at 100mg BID (goal 0.6-1.0) (if plt <50, give 0.5 mg/kg, if plt < 25 HOLD) - Anti-Xa now therapeutic, no need for further checks ID: - Pentamidine ppx (last dose 03/14) - Encourage PO Bactrim when due - If febrile, obtain blood cx and start CTX (cefepime if ANC <500) - Consider C diff testing if diarrhea persists : - Menstrual suppression with leuprolide (Lupron) 11.25 mg q12w (last dose 03/13) - Consider adding Agestin if periods persist despite Lupron - Needs UPT prior to all chemo Onc: Induction per [id number], Day 1=03/12 - Day 1: VCR, Dauno with Zinecard, prednisone x 56 doses - Day 4: Calasparagase - Days 8, 15, 22: VCR, Dauno with Zinecard - Day 29: IT MTX - LP x3 with CSF clear: 03/16, 03/19, 03/24 - Prednisone IV q12h (3 missed doses to be made up at end of induction) Lines: RUE PICC Labs: Daily AM CBC, qMon RFP, qThurs CMP Assessment & Plan (03/30/2023 11:34 AM CDT): Suyapa English is a 17 y.o. 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 Undergoing induction chemotherapy via [id number] protocol. Day 1 was 03/12. CSF x3 without blasts. Peripheral blood without blasts 03/20. Neuro: - Pain team following - Continue scheduled morphine q6h + prn. Consider weaning 03/31 if pain well controlled - Tylenol PRN - Robaxin - Hydroxyzine prn - Consider adding gabapentin if concerned for neuropathic pain Resp: JANNETH CV: HDS FEN/GI: - Reg diet as tolerated - Did not tolerate NG placement - KVO fluids, Monitor fluid status - Encourage PO salt packets 03/30 given mild hyponatremia/hypochloremia - Miralax daily/docusate PRN - PRN zofran, benadryl/reglan PRN, ativan PRN - Pepcid BID - Due to persistent swelling/fluid overload, will schedule Lasix q24h; continue to monitor fluid status Heme: - Transfuse to keep Hgb > 7, plt > 10 - R subclavian DVT; Continue Lovenox dosing at 100mg BID (goal 0.6-1.0) (if plt <50, give 0.5 mg/kg, if plt < 25 HOLD) - Anti-Xa now therapeutic, no need for further checks ID: - Pentamidine ppx (last dose 03/14) - Encourage PO Bactrim when due - If febrile, obtain blood cx and start CTX (cefepime if ANC <500) - Consider C diff testing if diarrhea persists : - Menstrual suppression with leuprolide (Lupron) 11.25 mg q12w (last dose 03/13) - Consider adding Agestin if periods persist despite Lupron - Needs UPT prior to all chemo Onc: Induction per [id number], Day 1=03/12 - Day 1: VCR, Dauno with Zinecard, prednisone x 56 doses - Day 4: Calasparagase - Days 8, 15, 22: VCR, Dauno with Zinecard - Day 29: IT MTX - LP x3 with CSF clear: 03/16, 03/19, 03/24 - Prednisone IV q12h (3 missed doses to be made up at end of induction) Lines: RUE PICC Labs: Daily AM CBC, qMon RFP, qThurs CMP Assessment & Plan (03/29/2023 11:51 AM CDT): Suyapa English is a 17 y.o. 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 Undergoing induction chemotherapy via [id number] protocol. Day 1 was 03/12. CSF x3 without blasts. Peripheral blood without blasts 03/20. Neuro: - Pain team following - Transition to scheduled morphine q6h + prn 03/29 - Tylenol PRN - Robaxin - Hydroxyzine prn - Consider adding gabapentin if concerned for neuropathic pain Resp: JANNETH CV: HDS FEN/GI: - Reg diet as tolerated - Did not tolerate NG placement - D5NS 2L/m2/day - Monitor fluid status - Miralax daily/docusate PRN - PRN zofran, benadryl/reglan PRN, ativan PRN - Pepcid BID - Due to persistent swelling/fluid overload, will schedule Lasix q24h; continue to monitor fluid status Heme: - Transfuse to keep Hgb > 7, plt > 10 - R subclavian DVT; Increase Lovenox to 100mg BID per pharmacy for subtherapeutic Anti-Xa level (goal 0.6-1.0) (if plt <50, give 0.5 mg/kg, if plt < 25 HOLD) - Anti-Xa level 4 hours after 2nd dose of dose change until therapeutic ID: - Pentamidine ppx (last dose 03/14) - Encourage PO Bactrim when due - If febrile, obtain blood cx and start CTX (cefepime if ANC <500) - Consider C diff testing if diarrhea persists : - Menstrual suppression with leuprolide (Lupron) 11.25 mg q12w (last dose 03/13) - Needs UPT prior to all chemo Onc: Induction per [id number], Day 1=03/12 - Day 1: VCR, Dauno with Zinecard, prednisone x 56 doses - Day 4: Calasparagase - Days 8, 15, 22: VCR, Dauno with Zinecard - Day 29: IT MTX - LP x3 with CSF clear: 03/16, 03/19, 03/24 - Prednisone IV q12h (3 missed doses to be made up at end of induction) Lines: KARSONE PICC Labs: Daily AM CBC, qMon RFP, qThurs CMP Assessment & Plan (03/28/2023 10:05 AM CDT): Suyapa English is a 17 y.o. 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 Undergoing induction chemotherapy via [id number] protocol. Day 1 was 03/12. CSF x3 without blasts. Peripheral blood without blasts 03/20. Neuro: - Pain team following - Morphine q4h robles + PRN for breakthrough pain - Tylenol PRN - Robaxin - Hydroxyzine prn - Consider adding gabapentin if concerned for neuropathic pain Resp: JANNETH CV: HDS FEN/GI: - Reg diet as tolerated - Did not tolerate NG placement - D5NS 2L/m2/day - Monitor fluid status - Miralax daily/docusate PRN - PRN zofran, benadryl/reglan PRN, ativan PRN - Pepcid BID - Due to persistent swelling/fluid overload, will schedule Lasix q24h; continue to monitor fluid status Heme: - Transfuse to keep Hgb > 7, plt > 10 - R subclavian DVT; Lovenox 1 mg/kg q12h if plt >50 (if plt <50, give 0.5 mg/kg, if plt < 25 HOLD) ID: - Pentamidine ppx (last dose 03/14) - Encourage PO Bactrim when due - If febrile, obtain blood cx and start CTX (cefepime if ANC <500) - Consider C diff testing if diarrhea persists : - Menstrual suppression with leuprolide (Lupron) 11.25 mg q12w (last dose 03/13) - Needs UPT prior to all chemo Onc: Induction per [id number], Day 1=03/12 - Day 1: VCR, Dauno with Zinecard, prednisone x 56 doses - Day 4: Calasparagase - Days 8, 15, 22: VCR, Dauno with Zinecard - Day 29: IT MTX - LP x3 with CSF clear: 03/16, 03/19, 03/24 - Prednisone IV q12h (3 missed doses to be made up at end of induction) Lines: WILFREDO PICC Labs: Daily AM CBC, qMon RFP, qThurs CMP Assessment & Plan (03/27/2023 10:43 AM CDT): Suyapa Luke English is a 17 y.o. 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 Undergoing induction chemotherapy via [id number] protocol. Day 1 was 03/12. CSF x3 without blasts. Peripheral blood without blasts 03/20. Neuro: - Pain team following - Morphine q4h robles + PRN for breakthrough pain - Tylenol PRN - Robaxin - Hydroxyzine prn - Consider adding gabapentin if concerned for neuropathic pain Resp: JANNETH CV: HDS FEN/GI: - Reg diet as tolerated - Did not tolerate NG placement - D5NS 2L/m2/day - Monitor fluid status - Miralax daily/docusate PRN - Scheduled zofran, benadryl/reglan PRN, ativan PRN - Pepcid BID - Due to persistent swelling/fluid overload, will schedule Lasix q24h Heme: - Transfuse to keep Hgb > 7, plt > 10 ID: - Pentamidine ppx (last dose 03/14) - Encourage PO Bactrim when due - If febrile, obtain blood cx and start CTX (cefepime if ANC <500) - Consider C diff testing if diarrhea persists : - Menstrual suppression with leuprolide (Lupron) 11.25 mg q12w (last dose 03/13) - Needs UPT prior to all chemo Onc: Induction per [id number], Day 1=03/12 - Day 1: VCR, Dauno with Zinecard, prednisone x 56 doses - Day 4: Calasparagase - Days 8, 15, 22: VCR, Dauno with Zinecard - Day 29: IT MTX - LP x3 with CSF clear: 03/16, 03/19, 03/24 - Prednisone IV q12h (3 missed doses to be made up at end of induction) Lines: WILFREDO PICC Labs: Daily AM CBC, qMon RFP, qThurs CMP Assessment & Plan (03/26/2023 10:03 AM CDT): Suyapa English is a 17 y.o. 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 Undergoing induction chemotherapy via [id number] protocol. Day 1 was 03/12. CSF from LP on 03/16 without blasts. Peripheral blood without blasts 03/20. Neuro: - Pain team following - Morphine q4h robles + PRN for breakthrough pain - Tylenol chewable robles - Robaxin - Hydroxyzine prn Resp: JANNETH CV: HDS FEN/GI: - Reg diet as tolerated - Did not tolerate NG placement - D5NS 2L/m2/day - Monitor fluid status - Miralax daily/docusate PRN - Scheduled zofran, benadryl/reglan PRN, ativan PRN - Increase Pepcid to BID dosing 03/26 due to GERD sx - Consider lasix if clinically appropriate for fluid overload Heme: - CBC q24h ID: - Pentamidine ppx (last dose 03/14) - Encourage PO Bactrim when due - If febrile, obtain blood cx and start CTX (cefepime if ANC <500) - Consider C diff testing if diarrhea persists : - Menstrual suppression with leuprolide (Lupron) 11.25 mg q12w (last dose 03/13) - Needs UPT prior to all chemo Onc: Induction per [id number], Day 1=03/12 - Day 1: VCR, Dauno with Zinecard, prednisone x 56 doses - Day 4: Calasparagase - Days 8, 15, 22: VCR, Dauno with Zinecard - Day 29: IT MTX - LP x3 with CSF clear: 03/16, 03/19, 03/24 - Prednisone IV q12h (3 missed doses to be made up at end of induction) Lines: RUE PICC Labs: Daily AM CBC, qMon RFP, qThurs CMP Assessment & Plan (03/25/2023 11:28 AM CDT): Suyapa English is a 17 y.o. 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 Undergoing induction chemotherapy via [id number] protocol. Day 1 was 03/12. CSF from LP on 03/16 without blasts. Peripheral blood without blasts 03/20. Plan: - Chemotherapy per protocol - D5NS 2L/m2/day - RFP/Mag qMon, CMP qThurs - CBC qAM - S/p PICC placement - Pain team following - Pt expresses interest in working with [facility] to practice swallowing PO meds Assessment & Plan (03/24/2023 11:33 AM CDT): Suyapa English is a 17 y.o. 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 Undergoing induction chemotherapy via [id number] protocol. Day 1 was 8. CSF from LP on 03/16 without blasts. Peripheral blood without blasts 03/20. Plan: - Chemotherapy per protocol - D5NS 2L/m2/day - TLL CBC qAM - Pt not on allopurinol due to itching; if AM labs with uric acid >8, will give rasburicase (if level <8, day team will discuss) - S/p PICC placement - Plan to optimize pain regimen with IV meds as needed to get ahead of pt's pain - Consider pain team Assessment & Plan (03/23/2023 4:18 PM CDT): Suyapa English is a 17 y.o. 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 Undergoing induction chemotherapy via [id number] protocol. Day 1 was 8. CSF from LP on 03/16 without blasts. Peripheral blood without blasts 03/20. Plan: - Chemotherapy per protocol - D5NS 2L/m2/day - TLL CBC qAM - Pt not on allopurinol due to itching; if AM labs with uric acid >8, will give rasburicase (if level <8, day team will discuss) - S/p PICC placement - Plan to optimize pain regimen with IV meds as needed to get ahead of pt's pain - Consider pain team consult Assessment & Plan (03/22/2023 12:13 PM CDT): Suyapa English is a 17 y.o. 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 Undergoing induction chemotherapy via [id number] protocol. Day 1 was 8. CSF from LP on 03/16 without blasts. Peripheral blood without blasts 03/20. Plan: - Chemotherapy per protocol - D5NS 2L/m2/day - TLL CBC qAM - Pt not on allopurinol due to itching; if AM labs with uric acid >8, will give rasburicase (if level <8, day team will discuss) - S/p PICC placement - Consider NG placement for enteral mediation administration if patient inclined to. Assessment & Plan (03/21/2023 11:30 AM CDT): Suyapa English is a 17 y.o. 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 Undergoing induction chemotherapy via [id number] protocol. Day 1 was 8. CSF from LP on 03/16 without blasts. Peripheral blood without blasts 03/20. Plan: - Chemotherapy per protocol - D5NS 2L/m2/day - TLL CBC qAM - Pt not on allopurinol due to itching; if AM labs with uric acid >8, will give rasburicase (if level <8, day team will discuss) - S/p PICC placement - Plan to discuss possibility of NG placement for enteral mediation adminstration Assessment & Plan (03/20/2023 8:24 AM CDT): 17 yo previously healthy F presenting with a few weeks of fatigue, weight loss, night sweats and 4 days of rash and bruising. CBC w/ diff notable for WBC 24.7, 71.1% blasts with presence of blasts on peripheral smear concerning for leukemia. Being admitted for further evaluation and management. 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 On treatment per [id number] protocol; LPs twice weekly until CSF is clear. CSF from LP on 03/16 without blasts. Plan: - CXR no mediastinal mass - EKG, Echo wnl - D5NS 2L/m2/day - TLL q12h, CBC q12h - Pt not on allopurinol due to itching; if AM labs with uric acid >8, will give rasburicase (if level <8, day team will discuss) - S/p PICC placement - Follow up bone marrow aspirate - Continue chemotherapy per treatment plan - Will continue to encourage compliance with PO medications; can give IV steroids if necessary Assessment & Plan (03/19/2023 11:08 AM CDT): 17 yo previously healthy F presenting with a few weeks of fatigue, weight loss, night sweats and 4 days of rash and bruising. CBC w/ diff notable for WBC 24.7, 71.1% blasts with presence of blasts on peripheral smear concerning for leukemia. Being admitted for further evaluation and management. 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 On treatment per [id number] protocol; LPs twice weekly until CSF is clear. CSF from LP on 03/16 without blasts. Plan: - CXR no mediastinal mass - EKG, Echo wnl - D5NS 2L/m2/day - TLL q12h, CBC q12h - Pt not on allopurinol due to itching; if AM labs with uric acid >8, will give rasburicase (if level <8, day team will discuss) - S/p PICC placement - Follow up bone marrow aspirate - Continue chemotherapy per treatment plan - Will continue to encourage compliance with PO medications; can give IV steroids if necessary Assessment & Plan (03/18/2023 7:30 AM CDT): 17 yo previously healthy F presenting with a few weeks of fatigue, weight loss, night sweats and 4 days of rash and bruising. CBC w/ diff notable for WBC 24.7, 71.1% blasts with presence of blasts on peripheral smear concerning for leukemia. Being admitted for further evaluation and management. 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 On treatment per [id number] protocol; LPs twice weekly until CSF is clear. CSF from LP on 03/16 without blasts. Plan: - CXR no mediastinal mass - EKG, Echo wnl - D5NS 2L/m2/day - TLL q12h, CBC q12h - Pt not on allopurinol due to itching; if AM labs with uric acid >8, will give rasburicase (if level <8, day team will discuss) - S/p PICC placement - Follow up bone marrow aspirate - Continue chemotherapy per treatment plan Assessment & Plan (03/17/2023 7:34 AM CDT): 17 yo previously healthy F presenting with a few weeks of fatigue, weight loss, night sweats and 4 days of rash and bruising. CBC w/ diff notable for WBC 24.7, 71.1% blasts with presence of blasts on peripheral smear concerning for leukemia. Being admitted for further evaluation and management. 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 On treatment per [id number] protocol; LPs twice weekly until CSF is clear. CSF from LP on 03/16 without blasts. Plan: - CXR no mediastinal mass - EKG, Echo wnl - D5NS 2L/m2/day - TLL q12h, CBC q12h - Pt not on allopurinol due to itching; if AM labs with uric acid >8, will give rasburicase (if level <8, day team will discuss) - S/p PICC placement - Follow up bone marrow aspirate - Continue chemotherapy per treatment plan Assessment & Plan (03/16/2023 9:52 AM CDT): 17 yo previously healthy F presenting with a few weeks of fatigue, weight loss, night sweats and 4 days of rash and bruising. CBC w/ diff notable for WBC 24.7, 71.1% blasts with presence of blasts on peripheral smear concerning for leukemia. Being admitted for further evaluation and management. 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 On treatment per [id number] protocol; LPs twice weekly until CSF is clear. Plan: - CXR no mediastinal mass - EKG, Echo wnl - D5NS 2L/m2/day - TLL q12h, CBC q12h - Pt not on allopurinol due to itching; if AM labs with uric acid >8, will give rasburicase (if level <8, day team will discuss) - S/p PICC placement - Follow up bone marrow aspirate - Continue chemotherapy per treatment plan - Consider re-engaging child life for support with swallowing pills Assessment & Plan (03/15/2023 12:31 PM CDT): 17 yo previously healthy F presenting with a few weeks of fatigue, weight loss, night sweats and 4 days of rash and bruising. CBC w/ diff notable for WBC 24.7, 71.1% blasts with presence of blasts on peripheral smear concerning for leukemia. Being admitted for further evaluation and management. 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 Will follow up bone marrow aspirate. Plan: - CXR no mediastinal mass - EKG, Echo wnl - D5NS 2L/m2/day - TLL q8, CBC q8 - S/p PICC placement - Follow up bone marrow aspirate - Continue chemotherapy per treatment plan Assessment & Plan (03/14/2023 7:46 AM CDT): 17 yo previously healthy F presenting with a few weeks of fatigue, weight loss, night sweats and 4 days of rash and bruising. CBC w/ diff notable for WBC 24.7, 71.1% blasts with presence of blasts on peripheral smear concerning for leukemia. Being admitted for further evaluation and management. 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 Will follow up bone marrow aspirate. Plan: - CXR no mediastinal mass - EKG, Echo wnl - D5NS 2L/m2/day - TLL q8h, CBC qD - S/p PICC placement - Follow up bone marrow aspirate - Continue chemotherapy per treatment plan Assessment & Plan (03/13/2023 8:14 AM CDT): 17 yo previously healthy F presenting with a few weeks of fatigue, weight loss, night sweats and 4 days of rash and bruising. CBC w/ diff notable for WBC 24.7, 71.1% blasts with presence of blasts on peripheral smear concerning for leukemia. Being admitted for further evaluation and management. 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 Will follow up bone marrow aspirate. Plan: - CXR no mediastinal mass - EKG, Echo wnl - D5NS 2L/m2/day - TLL q8h, CBC qD - S/p PICC placement - Follow up bone marrow aspirate - Continue chemotherapy per treatment plan Assessment & Plan (03/12/2023 1:11 PM CDT): 17 yo previously healthy F presenting with a few weeks of fatigue, weight loss, night sweats and 4 days of rash and bruising. CBC w/ diff notable for WBC 24.7, 71.1% blasts with presence of blasts on peripheral smear concerning for leukemia. Being admitted for further evaluation and management. 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 Will follow up bone marrow aspirate. Plan: - CXR no mediastinal mass - EKG, Echo wnl - D5NS 2L/m2/day - TLL, CBC qD - S/p PICC placement - Follow up bone marrow aspirate - Continue chemotherapy per treatment plan Assessment & Plan (03/11/2023 11:30 AM CDT): 17 yo previously healthy F presenting with a few weeks of fatigue, weight loss, night sweats and 4 days of rash and bruising. CBC w/ diff notable for WBC 24.7, 71.1% blasts with presence of blasts on peripheral smear concerning for leukemia. Being admitted for further evaluation and management. 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 Will follow up bone marrow aspirate. Plan: - CXR no mediastinal mass - EKG, Echo wnl - D5NS 2L/m2/day - Allopurinol TID - TLL, CBC qD - S/p PICC placement - Follow up bone marrow aspirate - IR LP today, 03/11 for intrathecal MTX Assessment & Plan (03/10/2023 10:26 AM CDT): 17 yo previously healthy F presenting with a few weeks of fatigue, weight loss, night sweats and 4 days of rash and bruising. CBC w/ diff notable for WBC 24.7, 71.1% blasts with presence of blasts on peripheral smear concerning for leukemia. Being admitted for further evaluation and management. 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 Will follow up bone marrow aspirate. Plan: - CXR no mediastinal mass - EKG, Echo wnl - D5NS 2L/m2/day - Allopurinol TID - TLL, CBC qD - S/p PICC placement - Follow up bone marrow aspirate - Reschedule LP Assessment & Plan (03/09/2023 1:50 PM CDT): 17 yo previously healthy F presenting with a few weeks of fatigue, weight loss, night sweats and 4 days of rash and bruising. CBC w/ diff notable for WBC 24.7, 71.1% blasts with presence of blasts on peripheral smear concerning for leukemia. Being admitted for further evaluation and management. Final path shows undifferentiated leukemia. Plan: - CXR no mediastinal mass - EKG, Echo wnl - D5NS 2L/m2/day - Allopurinol TID - TLL, CBC qD - F/u flowcytometry - 03/09: bone marrow biopsy, PICC placement Assessment & Plan (03/08/2023 11:14 AM CDT): 17 yo previously healthy F presenting with a few weeks of fatigue, weight loss, night sweats and 4 days of rash and bruising. CBC w/ diff notable for WBC 24.7, 71.1% blasts with presence of blasts on peripheral smear concerning for leukemia. Being admitted for further evaluation and management. Plan: - CXR no mediastinal mass - EKG, Echo wnl - D5NS 2L/m2/day - Allopurinol TID - TLL, CBC qD - F/u flowcytometry - 03/09: LP w IT ARAC and BMA/bx in APC 14:30 Assessment & Plan (03/07/2023 11:12 AM CDT): 17 yo previously healthy F presenting with a few weeks of fatigue, weight loss, night sweats and 4 days of rash and bruising. CBC w/ diff notable for WBC 24.7, 71.1% blasts with presence of blasts on peripheral smear concerning for leukemia. Will admitit for further evaluation and management. Plan: -CXR no mediastinal mass -EKG, Echo wnl - D5NS 2L/m2/day - Allopurinol TID - TLL, CBC qD - F/u flowcytometry - 03/09: LP w IT ARAC and BMA/bx in APC 14:30 Assessment & Plan (03/06/2023 6:24 PM CDT): In accordance with physical exam and peripheral smear, leukocytosis most concerning for underlying neoplastic process. Given the demographic and presentation of the patient, largest concern for AML versus ALL. Could consider infectious versus rheumatologic etiologies for leukocytosis, although unlikely given negative testing. At this time, patient will be admitted to the Heme/Onc service for ongoing investigation of neoplasm. PLAN: - Daily Tumor Lysis Labs - Echo, EKG, and CXR - start mIVF at 2xL/m2/hr with D5NS - start allopurinol tid
--- OUTSIDE RECORDS SUMMARY | 2025-07-11 03:35 | XMS_ITS | Encounter Summary ---
Author Organization [facility] Healthcare Address [address] [place] [address] Care Team Providers Care Global Project Manager Name Role Phone Marycarmen Garibay Unavailable Unavailable Gracy Stevens MD Unavailable Donna Dyson NP Unavailable + Jessica Ayers NP Primary Care Provi natan April Morataya PhD Unavailable [phone] Encounter Details Date Type Department Care Team (Late st Contact Info) Description 07/04/2025 Social Work [facility] [place] [address] Radha Fisher LCSW Social History Tobacco Use Types Packs/Day Years Used Date Smoking Tobacco: Never Smokeless Tobacco: Never [facility] Utilities Answer Date Recorded In the past 12 months has [facility] electric, gas, oil, or water company threatened to shut off services in your home? Yes 05/19/2024 Humiliation, Afraid, Rape, and Kick questionnair e [...] often do you have a drink containing alc ohol? Never 05/19/2024 Average Number of Drinks Not on file 024 Frequency of Binge Drinking Not on file 05/10 Overall Financial Resource Strain (CARDIA) Answe r Date Recorded How hard is it for you to pa y for the very basics like food, housing, medical care, and heating? Hard 05/19/2024 Hunger Vital Sign Answer Date Recorded Within the past 12 months, y ou worried that your food would run out before you got the money to buy more. Sometimes true Within the past 12 months, t he food you bought just didn't last and you didn't have money to get more. Often true 05/2024 PRAPARE - Transportation Answer Date Re corded In the past 12 months, has l ack of transportation kept you from medical appointments or from getting medications? Yes 05/10 In the past 12 months, has l ack of transportation kept you from meetings, work, or from getting things needed for daily living? Yes 05/19/2024 Housing Stability Vital Sign Answer Grzegorz e [...] place to sleep or slept in a group home (including now)? No 06/01/2023 Housing Stability Vital Sign Answer Grzegorz e Recorded In the last 12 months, was t here a time when you were not able to pay the mortgage or rent on time? Yes 05/19/2024 Number of Times Moved in the Last Year Not on fi le 05/19/2024 At any time in the past [address] [facility], were you homeless or living in a group home (including now)? Yes 05/19/2024 Adolescent Education Answer Date Record ed Getting School Help Needed Yes 03/06 Adolescent Substance Use Answer Date Re corded Problems with Alcohol or Marijuana No 03/06/2023 Use of Non-Prescription Medicines No 03/06/2023 Tobacco or E-Cigarette Use No 03/06 Personal Safety Answer Date Recorded Have you ever been in or are you currently in a harmful physical or emotional relationship or is someone making you feel afraid or unsafe? Denies 06/19/2025 Comments No Sex and Gender Information Value Date Recorded Sex Assigned at Not on file Legal Sex Female 7:37 PM [employer] Gender Identity Female 05/09/2024 4:50 PM CDT Sexual Orientation Straight 05/09/2024 4: 50 PM CDT documented as of this encounter Progress Notes * Radha Fisher LCSW - 07/04/2025 4:34 PM CST 07/04/25 [id number] Patient Information Information Obtained From Patient Does Pt have Legal Guardian, Surrogate Decision Maker or Healthcare Agent? No Marital Status Not Employment Status Unemployed;Disabled Payor Source Medicaid Race Black or -Lebanese Ethnicity Non- Support Systems and Spirituality Support System Friends/neighbors;Parent;Other family members;Judaism/nick community Other Family Member Name/Contact Information Paternal grandma (Beryl English- [phone]) Current Situation Living Arrangements Alone Type of Residence Apartment Income Food stamps;SSD/SSI How do you Pay for Medication insurance Current Transportation Family/friends;Other (Comment) (MTM) Plan/Action Arranged transportation, Assisted with family care fund resource: Legal [employer] transportation (Amount $32.96), Resource provision meets [facility] exception: Promotes access to care, Financial need based, and Local transportation, Will continue to provide ongoing support to the patient and family and will make referrals as needed, Will continue to collaborate with the multidisciplinary team, and Other: provided coats from [employer] This SW received a text message from Ramesh sharing that the [employer] this SW previously set up randomlynotified her that it was canceled. This SW offered to work on requesting a new [employer] and Ramesh expressed appreciation. This SW set up another ride, but it was immediately canceled (Trip# [id number], 17.66 miles). Ramesh updated this SW by text message that Sylvester informed her that it was due to her phone number. This SW's [employer] system crashed and KAHLIL Bridgett Jeanne [facility] [place] a new round trip (Trip# [id number], 17.66 miles) using this SW's cell number. Ramesh confirmed that she was able to get a ride. This SW met with Ramesh in the Hem/Onc clinic and provided her coats. This SW then requested the return ride home as it went to this SW's number. Ramesh expressed appreciation of the assistance. ENRICO Damon, FACING [employer] CRE[employer]BER documented in this encounter Plan of Treatment Not on file documented as of this encounter Visit Diagnoses Not on filedocumented in this encounter Care Teams Global Project Manager Relationship Specialty [place] [address] [address] [place], [place] [id number] PCP - General Pediatrics 04/21/24 Marycarmen Garibay Registered Nurse 07/17/23 Gracy Stevens MD [address] [facility] [address] [place], [place] [phone] Fellow Pediatric Hematology and Oncology 07/17/23 Donna Dyson NP [address] [facility] [address] [place] [address] Nurse Practitioner Pediatric Hematology and Oncology 10/06/23 April Morataya, PhD [address] [facility] [id number] [place], [place] [phone] Psychologist Psychology 12/07/24 documented as of this encounter
--- OUTSIDE RECORDS SUMMARY | 2025-07-11 03:35 | XMS_ITS | Continuity of Care Document ---
Author Organization [facility] Address [address] [place] [address] Assessment No assessment recorded. Plan of Treatment Reminders Order Date Submit Date Provider Last Modified By Organization Details Last Modified Time Details Appointments None recorded. Lab hsv (1+2) igm, serum 2024 [facility] (Lab), [address], [place], [address], 5 04:03:58 hsv-1 igg Ab, serum 2024 025 [facility] (Lab), [address], [place], [address], 5 13:39:49 hsv-2 igg Ab, serum 2024 025 [facility] (Lab), [address] [place], [address], 5 13:39:49 hbcab (hepatitis B core Ab) igm, serum 2024 025 [facility] (Lab), [address] [place], [address], 5 13:39:48 HBsAg (hepatitis B surface Ag), serum 2024 025 [facility] (Lab), [address] [place], [address], 13:39:47 hepatitis C virus Ab, serum 2024 [facility] (Lab), [address], [place], [address], 13:39:47 HIV 1+2 AB + HIV 1 p24 Ag, qualitative immunoassay , serum 2024 [facility] (Lab), [address], [place], [address], 13:39:46 RPR (rapid plasma reagin), serum 2024 [facility] (Lab), [address], [place], [address], 13:39:48 CT + NG + TV, RNA, unspecified specimen 2024 [facility] (Lab), [address], [place], [address], 13:39:50 Referral None recorded. Procedures None recorded. Surgeries None recorded. Imaging None recorded. Medication Orders None recorded. Patient TargetsNo targets recorded. Patient InstructionsNo instructions recorded. Reason for Referral None Reported. Results Created Date Observation Date Name Description Value Unit Range Abnormal Flag Note LastModifiedBy Organization Detail LastModifiedTime 06/05/2006/05/2025 HIV 1/2 ANTIG EN/AN TIBOD Y, REFLE X CONFI RMATI ON HIV antigen/anti body Nonrea ctive nonrea ctive HIV-1 antig en and HIV-1 /HIV- 2 antib odies were not detec ese. No labor atory evide nce of HIV infec tion. Not Available [facility] (Lab) [address], [place], [address], 06/06/2025 13:39:46 06/05/2006/05/2025 HEPAT ITIS B SURFA CE ANTIG EN hepatitis B surface antigen Non-re active non-re active This assay was perfo rmed using [employer] ratio n reage nts and test kits. Value s obtai nhan with other assay metho ds or kits canno t be used inter salcedo eably . Not Available [facility] (Lab) [address], [place], [address], 06/06/2025 13:39:47 06/05/2006/05/2025 HEPAT ITIS C ANTIB CHUYITA SCREE N, REFLE X TO CONFI RMATI ON hepatitis C antibody Non-re active non-re active Antib odies to HCV Not Detec ese, does not exclu de the possi bilit y of expos ure to HCV. Not Available [facility] (Lab) [address], [place], [address], 06/06/2025 13:39:47 06/05/2006/05/2025 HEPAT ITIS B CORE, IGM hepatitis B core IgM antibody Non-re active non-re active Antib odies to Hepat itis B Core IgM not detec ese. Does not exclu de the possi bilit y of expos ure to or infec tion with HBV. Corre late with other Hepat itis B serol ogies . Not Available [facility] (Lab) [address], [place], [address], 06/06/2025 13:39:48 06/05/2006/05/2025 RPR SCREE N, REFLE X TITER /CONF IRMAT ION RPR qualitative Nonrea ctive nonrea ctive Not Available [facility] (Lab) [address] [place], [address], 06/06/2025 13:39:48 06/05/2006/05/2025 HERPE S SMPLE X VIRUS TYPE 1 SPECI FIC AB, IGG herpes simplex virus 1 IgG Negati ve negati ve Not Available [facility] (Lab) [address] [place], [address], 06/06/2025 13:39:49 10/06/05/2025 HERPE S SMPLE X VIRUS TYPE 1 SPECI FIC AB, IGG herpes simplex virus 1 IgG, quant <0.2 ai 0.0-0. [address] [facility] (Lab) [address], [place], [address], 06/06/2025 13:39:49 06/05/2006/05/2025 HERPE S SIMPL EX VIRUS TYPE 2 SPECI FIC AB, IGG herpes simplex virus 2 IgG Negati ve negati ve Not Available [facility] (Lab) [address], [place], [address], 06/06/2025 13:39:49 06/05/2006/05/2025 HERPE S SIMPL EX VIRUS TYPE 2 SPECI FIC AB, IGG herpes simples virus 2 IgG, quant <0.2 ai 0.0-0. [address] [facility] (Lab) [address], [place], [address], 06/06/2025 13:39:49 06/05/2006/05/2025 CT/GC AND TRICH OMONA S VAGIN DENEEN (RRNA ), URINE chlamydia trachomatis, PCR Negati ve negati ve Not Available [facility] (Lab) [address], [place], [address], 06/06/2025 13:39:50 06/05/2006/05/2025 CT/GC AND TRICH OMONA S VAGIN DENEEN (RRNA ), URINE neisseria gonorrhoeae, PCR Negati ve negati ve Not Available [facility] (Lab) [address], [place], [address], 06/06/2025 13:39:50 06/05/20 25 06/05/2025 CT/GC AND TRICH OMONA S VAGIN DENEEN (RRNA ), URINE trichomonas vaginalis ribosomal RNA (rrna) Negati ve negati ve Not Available [facility] (Lab) [address], [place], [address], 06/06/2025 13:39:50 Result Notes None recorded. Procedures Surgical History Date Name Laterality Status Provider Name and Address Organization Details Recorded Time central venous cannula insertion completed SCOOBY Little [address], [place], [address], [facility] 06/06/2025 10:14:13 insertion of gastrostomy tube completed SCOOBY Little [address], [place], [address], [facility] 06/06/2025 10:14:24 bone marrow aspiration procedure completed SCOOBY Little [address], [place], [address], [facility] 06/06/2025 10:14:34 Imaging Results None recorded. Procedure Notes None recorded. Medical Equipment None Reported. Allergies Allergen ID Allergen Name Allergen Category Reaction Reaction Severity Criticality Documentation Date Start Date Code Code System Note Provider Name and Address Organization Details Recorded Time 79424 oxycodone medicatio n itching rash Not available Not available Not available 06/05/[address] [facility] [place] [facility] 12:16:25 99975 vancomyci n medicatio n itching rash Not available Not available Not available 06/05/[address] [facility] 12:16:57 Medications Not known to be on any medication Vitals Date Recorded Body height Body mass index (BMI) Body mass index (BMI) [Percentile] Per age and sex Body weight Systolic And Diastolic Provider Name and Address Organization Details Last Updated DateTime 06/05/2025 157.48 cm 46.2 kg/m2 99 % 455557. 43 g 123/79 mm[Hg] [facility] 12:15:32 Social History Question Answer Notes LastModified by Organizat ion Details LastModified Time Do You Have An Advance Directive? No [email or web address] Information n ot available 06/05/2025 Are You Blind Or Do You Have Difficulty Seeing? No [email or web address] Information n ot available 06/05/2025 What Is Your Level Of Caffeine Consumption? Occasional [email or web address] Information not available 06/05/2025 In The 14 Days Before Symptom Onset, Have You Had Close Contact With A Laboratory-confirm ed COVID-19 While That Case Was Ill? No [email or web address] Information n ot available 06/05/2025 In The 14 Days Before Symptom Onset, Have You Had Close Contact With A Person Who Is Under Investigation For COVID-19 While That Person Was Ill? No [email or web address] Information not available 06/05/2025 Have You Been To An Area Known To Be High Risk For COVID-19? No [email or web address] Information not available 06/05/2025 Are You Deaf Or Do You Have Serious Difficulty Hearing? No [email or web address] Information not available 06/05/2025 What Is The Highest Grade Or Level Of School You Have Completed Or The Highest Degree You Have Received? [id number] [email or web address] Information not available 06/05/2025 Are There Any Guns Present In Your Home? No [email or web address] Information not available 06/05/2025 Do You Use Protection During Sex? No Information not available 06/05/2025 Do You Use Your Seat Belt Or Car Seat Routinely? Yes [email or web address] Information not available 06/05/2025 Are You Sexually Active? No [email or web address] Information not available 06/05/2025 Do You Have Smoke And Carbon Monoxide Detectors In Your Home? Yes [email or web address] Information not available 06/05/2025 How Much Tobacco Do You Smoke? No [email or web address] Information not available 06/05/2025 Do You Use Sunscreen Routinely? No [email or web address] Information not available 06/05/2025 Have You Used IV Drugs? No [email or web address] Information not available 06/05/2025 Do You Have Difficulty Walking Or Climbing Stairs? No Information not available 06/05/2025 Sex: Unknown Functional Status Question Answer Note LastModified by Organizat ion Details LastModified Time Do you use any illicit or recreational drugs? No Information not available 06/05/2025 What is your level of alcohol consumption? None Information not available 06/05/2025 Are you able to walk independently without assistance or assistive devices? YESWOREST [email or web address] Information not available 06/05/2025 Are you able to care for yourself independently? Yes [email or web address] Information not available 06/05/2025 Do you have difficulty dressing, bathing, grooming, or toileting? No [email or web address] Information not available 06/05/2025 What is your exercise level? Occasional Information not available 06/05/2025 Mental Status Question Answer Note LastModified by Organization D etails LastModified Time Do you feel stressed (tense, restless, nervous, or anxious, or unable to sleep at night)? [id number] [email or web address] Information not available 06/05/2025 Family History Relationship Description Onset Age of this Age Resolved Age Notes LastModified by Organization Details LastModified Time Maternal Uncle Heart disease [email or web address] Not available 2024 12:01:39 Paternal Grandmother Asthma [email or web address] Not available 05/11 12:01:39 Mother Diabetes mellitus [email or web address] Not available 2024 12:01:39 Maternal Aunt Anemia [email or web address] Not nilesh ilable 06/05/2025 12:01:39 Maternal Aunt Heart disease [email or web address] Not available 2024 12:01:39 Paternal Aunt Anemia Not nilesh ilable 06/05/2025 12:01:39 Maternal Grandmother Heart disease [email or web address] Not available 2024 12:01:39 Sister Asthma [email or web address] Not available 06/05/2025 12:01:39 Medical History Condition Response Allergies (Food, seasonal, environmental ) N Other Y Drug/Latex Allergies/Reactions N Blood Transfusion N Breast Cancer N Dermatologic Disorders N Lung Disease N Defects or Inherited Disease N Breast Problem N Gestational Diabetes N Hematologic disorders N Anesthesia Complications N History of STI N Deep Vein Thrombosis N Polycystic ovary syndrome N Anxiety Disorder N Autoimmune disease N Arthritis N Polyps N Infertility N Acid Reflux (GERD) N History of abnormal pap N Cancer Y Varicosities N Stroke N Neurologic/Epilepsy N Endometriosis N High Cholesterol N Fibromyalgia N Headaches N Kidney Disease N Heart Problems N Thyroid Problems N Kidney or Bladder Problems N GI Problems N Eating Disorder N Anemia Y Art (IVF or FET) N Psychiatric Illness N Ovarian Cancer N Diabetes N Pulmonary (TB, Asthma) N Hepatitis/Liver Disease N No Past Medical History N Eczema N Urinary Tract Infection N Abuse/Domestic Violence N Asthma N Trauma/Violence N Depression/ depression N Heart Disease N Pre-Eclampsia N Hypertension N Osteoporosis N Thrombophilias N Gynecological History Statement/Question Response Frequency of Cycle (Q days) 0 Date of LMP Sexually Active? N N STIs/STDs N HPV Vaccine N Sexual Problems? N Duration of Flow (days) 0 LMP Unknown N Obstetrics History GPAL:G 0 P 0 0 0 0 Past Encounters Encounter ID Performer Location Encounter Start Date Encounter Closed Date Diagnosis/Indication Diagnosis SNOMED-CT Code Diagnosis ICD10 Code Diagnosis IMO Codes Diagnosis Note [id number] SCOOBY Little [place] [address] [address] 06/05/2025 11:50:32 06/06/2025 10:42:24 Venereal disease screening 675220532 Z11.3 17471 Gc/ct/tric h urine testing sentSerum STI screen orderedDis cussed the various types of STIs, related symptoms and the potential consequenc es (including effects on fertility) of STI infections . Reviewed ways to limit exposure and prevention techniques .Will update pt with results when availableP ap smear due next yr at 21Question s answered, precaution s reviewed Time spent in visit is a total of 25 mins with at least 50% of visit consisting of counseling and review of plan of care. Sexually t ransmitted infectious disease 2029809 A64 Secondary amenorrhea 156 998983 N91.1 183015 Discussed amenorrhea expected while on Lupron for fertility preservati on during leukemia treatment Health Concerns Section Related Observation LastModified by Organization Detai ls LastModified Time None Recorded Concern Status LastModified by Organization Details LastModified Time None Recorded Payers Encounter Date Sequence Insurance Name Policy Number Policy Brown Covered Member ID Brown Member ID Guarantor Name 06/05/2025 1 [facility] (MEDICAID REPLACEMENT - HMO) Suyapa English [id number] Suyapa English Notes Date Note Type Note Provider Name and Address Organization Details Recorded Time 06/05/2025 text/html 20yo G0Here today for STI testing. She would like full STI testing today including HSV testing. No symptoms. Not currently SA. 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 On Lupron injections for fertility preservation. Has had amenorrhea since starting. SCOOBY Little [address], [place], [address], [facility] 06/06/2025 10:19:55 OBGyn Episode No OBEpisode recorded.
--- OUTSIDE RECORDS SUMMARY | 2025-07-11 03:35 | XMS_ITS | Encounter Summary ---
Author Organization [facility] Address [address] [place] [address] Phone Care Team Providers Care Needle Maker Name Role Phone Marycarmen Garibay Unavailable Unavailable Gracy Stevens MD Unavailable Donna Dyson NET TRAINER Unavailable + Jessica Ayers NP Primary Care Provi natan April Morataya PhD Unavailable [phone] Encounter Details Date Type Department Care Team (Late st Contact Info) Description 04/25/2024 Telephone [facility] Medicine Pediatrics Hematology and Oncology One [address] [phone] Gracy Stevens MD [address] [place] [address] [address] [place], [place] [id number] Social History Tobacco Use Types Packs/Day Years [...] place to sleep or slept in a halfway (including now)? No 06/01/2023 Adolescent Education Answer [...] making you feel afraid or unsafe? Denies 02/08/2024 Comments No Sex and Gender Information Value Date Recorded Sex Assigned at Not on file Legal Sex Female 7:37 PM HAND DEVELOPER Gender Identity Female 05/09/2024 4:50 PM CDT Sexual Orientation Straight 05/09/2024 4: 50 PM CDT documented as of this encounter Functional Status documented as of this encounter Ordered Prescriptions Prescription Sig Dispense Quantity Refills Last Filled Start Date End Date diphenhydrAMINE (BENADRYL) elixir 12.5 mg/5 mL Take 10 mL (25 mg total) by mouth every 6 (six) hours as needed for itching (Take 30 minutes prior to Reglan) 300 mL 1 04/25/2024 documented in this encounter Plan of Treatment Not on file documented as of this encounter Visit Diagnoses Not on filedocumented in this encounter Discontinued Medications Medication Sig Discontinue Reason Start Date End Da te diphenhydrAMINE (BENADRYL) elixir 12.5 mg/5 mL Take 10 mL (25 mg total) by mouth every 6 (six) hours as needed for itching (Take 30 minutes prior to Reglan) Reorder 02/22/2024 04/25/2024 documented as of this encounter Additional Health Concerns Infection Onset Date Last Indicated Resolved Time COVID: Suspected 09/15/2024 09/15/2024 09/15/2024 1:05 PM HAND DEVELOPER Influenza, adult 09/15/2024 09/15/2024 09/22/2024 3:05 AM HAND DEVELOPER documented as of this encounter Care Teams Needle Maker Relationship Specialty [place] [address] [place] [address] PCP - General Pediatrics 04/21/24 Marycarmen Garibay Registered Nurse 07/17/23 Gracy Stevens MD [address] [facility] [address] [place] [address] Fellow Pediatric Hematology and Oncology 07/17/23 Donna Dyson NP [address] [facility] [address] [place] [address] Nurse Practitioner Pediatric Hematology and Oncology 10/06/23 April Morataya, PhD [address] [facility] [id number] [place] [address] Psychologist Psychology 12/07/24 documented as of this encounter
--- OUTSIDE RECORDS SUMMARY | 2025-07-11 03:36 | XMS_ITS | Encounter Summary ---
Author Organization [facility] Healthcare Address [address] [place] [address] Care Team Providers Care Sensitized Paper Tester Name Role Phone Marycarmen Garibay Unavailable Unavailable Gracy Stevens MD Unavailable Donna Dyson NP Unavailable + Jessica Ayers NP Primary Care Provi natan April Morataya PhD Unavailable [phone] Encounter Details Date Type Department Care Team (Late st Contact Info) Description 06/02/2024 Social Work [facility] [place] [address] Kiarra Stanley BSW Social History Tobacco Use Types Packs/Day Years Used Date Smoking Tobacco: Never Smokeless Tobacco: Never [facility] Utilities Answer Date Recorded In the past 12 months has [facility] [employer], gas, oil, or water [place] threatened to shut off services in your [...] in a fdc (including now)? No 06/01/2023 Housing Stability Vital Sign Answer Grzegorz e Recorded In the last 12 months, was t here a time when you were not able to pay the mortgage or rent on time? Yes 05/19/2024 Number of Times Moved in the Last Year Not on fi le 05/19/2024 At any time in the past 12 m [facility], were you homeless or living in a fdc (including now)? Yes 05/19/2024 Adolescent Education Answer [...] making you feel afraid or unsafe? Denies 05/19/2024 Comments No Sex and Gender Information Value Date Recorded Sex Assigned at Not on file Legal Sex Female 7:37 PM PARCEL CONTRACTOR Gender Identity Female 05/09/2024 4:50 PM CDT Sexual Orientation Straight 05/09/2024 4: 50 PM CDT documented as of this encounter Miscellaneous Notes * Plan of Care - Kiarra Stanley BSW - 06/02/2024 11:41 AM CDT 06/02/24 1778 Patient Information Information Obtained From Patient Does Pt have Legal Guardian, Surrogate Decision Maker or Healthcare Agent? No Marital Status Not Employment Status Unemployed Payor Source Medicaid ([place]) Race Black or -Bulgarian Ethnicity Non- Support Systems and Spirituality Support System Friends/neighbors;Other family members;Parent;Moravian/nick community Other Family Member Name/Contact Information Paternal Grandmother (Beryl English- [phone]) Current Situation Living Arrangements Alone Type of Residence Apartment Income Food stamps How do you Pay for Medication Insurance covers the cost of medications Current Transportation Family/friends;Other (Comment) (MTM transportation) This SW Student scheduled MTM ride for Ramesh for her appointments on Thursday (06/06/24) starting at 10am. Confirmed that the ride will be a will-call pickup. The trip # is [id number]. This SW Student remains available for ongoing support at this time, as her primary SW Radha Fisher LCSW remains out ofoffice. ALEXUS Gonzales Social Work Student [phone] documented in this encounter Plan of Treatment Not on file documented as of this encounter Visit Diagnoses Not on filedocumented in this encounter Additional Health Concerns Infection Onset Date Last Indicated Resolved Time COVID: Suspected 09/15/2024 09/15/2024 09/15/2024 1:05 PM PARCEL CONTRACTOR Influenza, adult 09/15/2024 09/15/2024 09/22/2024 3:05 AM PARCEL CONTRACTOR documented as of this encounter Care Teams Sensitized Paper Tester Relationship Specialty [place] [address] [place] [address] PCP - General Pediatrics 04/21/24 Marycarmen Garibay Registered Nurse 07/17/23 Gracy Stevens MD [address] [facility] [address] [place] [address] Fellow Pediatric Hematology and Oncology 07/17/23 Donna Dyson NP 1 [facility] [address] [place] [address] Nurse Practitioner Pediatric Hematology and Oncology 10/06/23 April Morataya, PhD [address] [facility] [id number] [place], [place] [id number] Psychologist Psychology 12/07/24 documented as of this encounter
--- OUTSIDE RECORDS SUMMARY | 2025-07-11 03:36 | XMS_ITS | Encounter Summary ---
Author Organization [facility] Healthcare Address [address] [place] [address] Care Team Providers Care Acid Remover Name Role Phone Marycarmen Garibay Unavailable Unavailable Gracy Stevens MD Unavailable Donna Dyson NP Unavailable + Jessica Ayers NP Primary Care Provi natan April Morataya PhD Unavailable [phone] Encounter Details Date Type Department Care Team (Late st Contact Info) Description 07/01/2024 Telephone [facility] Interventional [place] [address] Kirti Soriano, RN Social History Tobacco Use Types Packs/Day Years Used Date Smoking Tobacco: Never Smokeless Tobacco: Never [facility] Utilities Answer Date Recorded In the past 12 months has [facility] electric, gas, oil, or water [place] threatened to shut off services in your [...] any time in the past 12 m [facility], were you homeless or living in [...] on file Legal Sex Female 7:37 PM BIOPHYSICS PROFESSOR Gender Identity Female 05/09/2024 4:50 PM CDT Sexual Orientation Straight 05/09/2024 4: 50 PM CDT documented as of this encounter Functional Status documented as of this encounter Mental Status * Question Answer Entry Date Author Level of Consciousness Awake 2:05 PM BIOPHYSICS PROFESSOR Kirti Soriano, RN Orientation Oriented X4 (person, place, time, situation) 07/04/2024 2:05 PM BIOPHYSICS PROFESSOR Kirti Soriano, RN documented in this encounter Plan of Treatment Not on file documented as of this encounter Visit Diagnoses Not on filedocumented in this encounter Additional Health Concerns Infection Onset Date Last Indicated Resolved Time COVID: Suspected 09/15/2024 09/15/2024 09/15/2024 1:05 PM BIOPHYSICS PROFESSOR Influenza, adult 09/15/2024 09/15/2024 09/22/2024 3:05 AM BIOPHYSICS PROFESSOR documented as of this encounter Care Teams Acid Remover Relationship Specialty [place] [address] [place] [address] PCP - General Pediatrics 04/21/24 Marycarmen Garibay Registered Nurse 07/17/23 Gracy Stevens MD [address] [facility] [address] [place] [address] Fellow Pediatric Hematology and Oncology 07/17/23 Donna Dyson NP [address] [place] [address] Nurse Practitioner Pediatric Hematology and Oncology 10/06/23 April Morataya, PhD [address] [facility] [phone] [place] [address] Psychologist Psychology 12/07/24 documented as of this encounter
--- OUTSIDE RECORDS SUMMARY | 2025-07-11 03:36 | XMS_ITS | Data Portability ---
Author Organization [facility] Address [address] [place] [address] Assessment No assessment recorded. Plan of Treatment Reminders Order Date Submit Date Provider Last Modified By Organization Details Last Modified Time Details Appointments None recorded. Lab hsv (1+2) igm, serum 2024 [facility] (Lab), [address], [place], [address], 5 04:03:58 hsv-1 igg Ab, serum 2024 025 [facility] (Lab), [address] [place], [address], 5 13:39:49 hsv-2 igg Ab, serum 2024 025 [facility] (Lab), [address] [place], [address], 5 13:39:49 hbcab (hepatitis B core Ab) igm, serum 2024 025 [facility] (Lab), [address] [place], [address], 5 13:39:48 HBsAg (hepatitis B surface Ag), serum 2024 025 [facility] (Lab), [address] [place], [address], 13:39:47 hepatitis C virus Ab, serum 2024 [facility] (Lab), [address], [place], [address], 13:39:47 HIV 1+2 AB + HIV 1 p24 Ag, qualitative immunoassay , serum 2024 [facility] (Lab), [address], [place], [address], 13:39:46 RPR (rapid plasma reagin), serum 2024 [facility] (Lab), [address], [place], [address], 13:39:48 CT + NG + TV, RNA, unspecified specimen 2024 [facility] (Lab), [address], [place], [address], 13:39:50 Referral None recorded. Procedures None recorded. [...] nce of HIV infec tion. Not Available [facility] (Lab) [address], [place], [address], 06/06/2025 13:39:46 06/05/2006/05/2025 HEPAT ITIS B SURFA CE ANTIG EN hepatitis B surface antigen Non-re active non-re active This assay was perfo rmed using [employer] ratio n reage nts and test kits. Value s obtai nhan with other assay metho ds or kits canno t be used inter salcedo eably . Not Available [facility] (Lab) [address], [place], [address], 06/06/2025 13:39:47 06/05/2006/05/2025 HEPAT ITIS C ANTIB CHUYITA SCREE N, REFLE X TO CONFI RMATI ON hepatitis C antibody Non-re active non-re active Antib odies to HCV Not Detec ese, does not exclu de the possi bilit y of expos ure to HCV. Not Available [facility] (Lab) [address], [place], [address], 06/06/2025 13:39:47 06/05/2006/05/2025 HEPAT ITIS B CORE, IGM hepatitis B core IgM antibody Non-re active non-re active Antib odies to Hepat itis B Core IgM not detec ese. Does not exclu de the possi bilit y of expos ure to or infec tion with HBV. Corre late with other Hepat itis B serol ogies . Not Available [facility] (Lab) [address], [place], [address], 06/06/2025 13:39:48 06/05/2006/05/2025 RPR SCREE N, REFLE X TITER /CONF IRMAT ION RPR qualitative Nonrea ctive nonrea ctive Not Available [facility] (Lab) [address], [place], [address], 06/06/2025 13:39:48 06/05/2006/05/2025 HERPE S SMPLE X VIRUS TYPE 1 SPECI FIC AB, IGG herpes simplex virus 1 IgG Negati ve negati ve Not Available [facility] (Lab) [address], [place], [address], 06/06/2025 13:39:49 06/05/2006/05/2025 HERPE S SMPLE X VIRUS TYPE 1 SPECI FIC AB, IGG herpes simplex virus 1 IgG, quant <0.2 ai 0.0-0. 8 Not Available [facility] (Lab) [address], [place], [address], 06/06/2025 13:39:49 06/05/20 25 06/05/2025 HERPE S SIMPL EX VIRUS TYPE 2 SPECI FIC AB, IGG herpes simplex virus 2 IgG Negati ve negati ve Not Available [facility] (Lab) [address], [place], [address], 06/06/2025 13:39:49 06/05/2006/05/2025 HERPE S SIMPL EX VIRUS TYPE 2 SPECI FIC AB, IGG herpes simples virus 2 IgG, quant <0.2 ai 0.0-0. 8 Not Available [facility] (Lab) [address], [place], [address], 06/06/2025 13:39:49 06/05/2006/05/2025 CT/GC AND TRICH OMONA S VAGIN DENEEN (RRNA ), URINE chlamydia trachomatis, PCR Negati ve negati ve Not Available [facility] (Lab) [address], [place], [address], 06/06/2025 13:39:50 06/05/2006/05/2025 CT/GC AND TRICH OMONA S VAGIN DENEEN (RRNA ), URINE neisseria gonorrhoeae, PCR Negati ve negati ve Not Available [facility] (Lab) [address], [place], [address], 06/06/2025 13:39:50 06/05/20 25 06/05/2025 CT/GC AND TRICH OMONA S VAGIN DENEEN (RRNA ), URINE trichomonas vaginalis ribosomal RNA (rrna) Negati ve negati ve Not Available [facility] (Lab) [address], [place], [address], 06/06/2025 13:39:50 Result Notes None recorded. Procedures Surgical History Date Name Laterality Status Provider Name and Address Organization Details Recorded Time central venous cannula insertion completed SCOOBY Little [address], [place], [address], [facility] 06/06/2025 10:14:13 insertion of gastrostomy tube completed SCOOBY Little [address], [place], [address], [facility] 06/06/2025 10:14:24 bone marrow aspiration procedure completed SCOOBY Little [address], [place], [address], [facility] 06/06/2025 10:14:34 Imaging Results None recorded. Procedure Notes None recorded. Medical Equipment None Reported. Allergies Allergen ID Allergen Name Allergen Category Reaction Reaction Severity Criticality Documentation Date Start Date Code Code System Note Provider Name and Address Organization Details Recorded Time 98566 oxycodone medicatio n itching rash Not available Not available Not available 06/05/2025 7804 RxNorm [facility] 12:16:25 57858 vancomyci n medicatio n itching rash Not available Not available Not available 06/05/2025 34229 RxNorm [facility] 12:16:57 Medications Not known to be on any medication Vitals Date Recorded Body height Body mass index (BMI) Body mass index (BMI) [Percentile] Per age and sex Body weight Systolic And Diastolic Provider Name and Address Organization Details Last Updated DateTime 06/05/2025 157.48 cm 46.2 kg/m2 99 % 191313. 43 g 123/79 mm[Hg] [facility] 12:15:32 Social History Question Answer Notes LastModified by Organizat ion Details LastModified Time Do You Have An Advance Directive? No [email or web address] Information n ot available 06/05/2025 Are You Blind Or Do You Have Difficulty Seeing? No [email or web address] Information n ot available 06/05/2025 What Is Your Level Of Caffeine Consumption? Occasional [email or web address] Information not available 06/05/2025 In The 14 Days Before Symptom Onset, Have You Had Close Contact With A Laboratory-confirm ed COVID-19 While That Case Was Ill? No [email or web address] Information n ot available 06/05/2025 In The 14 Days Before Symptom Onset, Have You Had Close Contact With A Person Who Is Under Investigation For COVID-19 While That Person Was Ill? No [email or web address] Information not available 06/05/2025 Have You Been To An Area Known To Be High Risk For COVID-19? No [email or web address] Information not available 06/05/2025 Are You Deaf Or Do You Have Serious Difficulty Hearing? No [email or web address] Information not available 06/05/2025 What Is The Highest Grade Or Level Of School You Have Completed Or The Highest Degree You Have Received? BE80291-2 Information not available 06/05/2025 Are There Any Guns Present In Your Home? No [email or web address] Information not available 06/05/2025 Do You Use Protection During Sex? No [email or web address] Information not available 06/05/2025 Do You Use Your Seat Belt Or Car Seat Routinely? Yes Information not available 06/05/2025 Are You Sexually Active? No Information not available 06/05/2025 Do You Have Smoke And Carbon Monoxide Detectors In Your Home? Yes [email or web address] Information not available 06/05/2025 How Much Tobacco Do You Smoke? No [email or web address] Information not available 06/05/2025 Do You Use Sunscreen Routinely? No [email or web address] Information not available 06/05/2025 Have You Used IV Drugs? No [email or web address] Information not available 06/05/2025 Do You Have Difficulty Walking Or Climbing Stairs? No [email or web address] Information not available 06/05/2025 Sex: Unknown Functional Status Question Answer Note LastModified by Organizat ion Details LastModified Time Do you use any illicit or recreational drugs? No [email or web address] Information not available 06/05/2025 What is your level of alcohol consumption? None [email or web address] Information not available 06/05/2025 Are you able to walk independently without assistance or assistive devices? YESWOREST [email or web address] Information not available 06/05/2025 Are you able to care for yourself independently? Yes [email or web address] Information not available 06/05/2025 Do you have difficulty dressing, bathing, grooming, or toileting? No [email or web address] Information not available 06/05/2025 What is your exercise level? Occasional [email or web address] Information not available 06/05/2025 Mental Status Question Answer Note LastModified by Organization D etails LastModified Time Do you feel stressed (tense, restless, nervous, or anxious, or unable to sleep at night)? [id number] [email or web address] Information not available 06/05/2025 Family History Relationship Description Onset Age of this Age Resolved Age Notes LastModified by Organization Details LastModified Time Maternal Uncle Heart disease [email or web address] Not available 2024 12:01:39 Paternal Grandmother Asthma Not available 05/11 12:01:39 Mother Diabetes mellitus [email or web address] Not available 2024 12:01:39 Maternal Aunt Anemia [email or web address] Not nilesh ilable 06/05/2025 12:01:39 Maternal Aunt Heart disease [email or web address] Not available 2024 12:01:39 Paternal Aunt Anemia [email or web address] Not nilesh ilable 06/05/2025 12:01:39 Maternal Grandmother Heart disease [email or web address] Not available 2024 12:01:39 Sister Asthma [email or web address] Not available 06/05/2025 12:01:39 Medical History Condition Response Allergies (Food, seasonal, environmental ) N Other Y Breast Cancer N Drug/Latex Allergies/Reactions N Blood Transfusion N Dermatologic Disorders N Lung Disease N Defects or Inherited Disease N Breast Problem N Gestational Diabetes N Hematologic disorders N Anesthesia Complications N History of STI N Deep Vein Thrombosis N Polycystic ovary syndrome N Anxiety Disorder N Autoimmune disease N Arthritis N Infertility N Polyps N Acid Reflux (GERD) N History of abnormal pap N Cancer Y Stroke N Varicosities N Neurologic/Epilepsy N Endometriosis N High Cholesterol N Headaches N Fibromyalgia N Kidney Disease N Heart Problems N Kidney or Bladder Problems N Thyroid Problems N GI Problems N Eating Disorder [...] ICD10 Code Diagnosis IMO Codes Diagnosis Note [id number] SCOOBY Little [place] [address] [address] 06/05/2025 11:50:32 06/06/2025 10:42:24 Venereal disease screening 273389860 Z11.3 23343 Gc/ct/tric h urine testing sentSerum STI screen [...] of care. 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.] Has had amenorrhea since starting. SCOOBY Little [address], [place], [address], [place] [facility] 06/06/2025 10:19:55 OBGyn Episode No OBEpisode recorded.
--- OUTSIDE RECORDS SUMMARY | 2025-07-11 03:36 | XMS_ITS | Encounter Summary ---
Author Organization [facility] Healthcare Address [address] [place] [address] Care Team Providers Care Director Reactor Projects Name Role Phone Marycarmen Garibay Unavailable Unavailable Gracy Stevens MD Unavailable Donna Dyson NP Unavailable + Jessica Ayers NP Primary Care Provi natan April Morataya PhD Unavailable [phone] Encounter Details Date Type Department Care Team (Late st Contact Info) Description 04/26/[address] [facility] [place] [address] Radha Fisher LCSW Social History Tobacco Use Types Packs/Day Years Used Date Smoking Tobacco: Never Smokeless Tobacco: Never [facility] Utilities Answer Date Recorded In the past 12 months has [facility] electric, gas, oil, or water company threatened [...] place to sleep or slept in a m[facility]p (including now)? No 06/01/2023 Housing Stability Vital Sign Answer Grzegorz e Recorded In the last 12 months, was t here a time when you were not able to pay the mortgage or rent on time? Yes 05/19/2024 Number of Times Moved in the Last Year Not on fi le 05/19/2024 At any time in the past 12 m [facility], were you homeless or living in a mcfp (including now)? Yes 05/19/2024 Adolescent Education Answer [...] making you feel afraid or unsafe? Denies 04/26/2025 Comments No Sex and Gender Information Value Date Recorded Sex Assigned at Not on file Legal Sex Female 7:37 PM [employer] Gender Identity Female 05/09/2024 4:50 PM CDT Sexual Orientation Straight 05/09/2024 4: 50 PM CDT documented as of this encounter Functional Status documented as of this encounter Progress Notes * Radha Fisher LCSW - 04/26/2025 10:17 AM CDT 04/26/25 1017 Patient Information Information Obtained From Patient Does Pt have Legal Guardian, Surrogate Decision Maker or Healthcare Agent? No Marital Status Not Employment Status Unemployed;Disabled Payor Source Medicaid Race Black or -Guine[place] Ethnicity Non- Support Systems and Spirituality Support System Friends/neighbors;Parent;Other family members;Confucianism/nick community Other Family Member Name/Contact Information Paternal grandma (Beryl English- [phone]) Current Situation Living Arrangements Alone Type of Residence Apartment Income Food stamps;SSD/SSI How do you Pay for Medication insurance Current Transportation Family/friends;Other (Comment) (Medicaid) Plan/Action Collaborated with community agency, Arranged transportation, Assisted with family care fund resource: [employer] transportation (Amount unknown), Resource provision meets [facility] exception: Promotes access to care, Financial need based, and Local transportation, Will continue to provide ongoing support to the patient and family and will make referrals as needed, and Will continue to collaborate with the multidisciplinary team This SW received a text message from Ramesh inquiring about her moss picker time for her appointment today. This SW checked the [employer] site and notified Ramesh that the residential driver was on the way. This SW provided the residential driver contact information. Ramesh expressed appreciation of the assistance. A few minutes later, this SW received an e-mail that the [employer] ride was cancelled due to no show. This SW informed Ramesh that this SW would set up a new roundtrip ride (Trip# [id number]) with immediatepick up. Ramesh expressed appreciation of the assistance and was agreeable to the plan. Later, Ramesh stated that she was not able to request a return ride. This SW set a new [employer] ride to home (Trip # [id number]) and Ramesh expressed appreciation of the assistance. ENRICO Damon, MECHANICAL DESIGN TECHNICIAN documented in this encounter Plan of Treatment Not on file documented as of this encounter Visit Diagnoses Not on filedocumented in this encounter Care Teams Director Reactor Projects Relationship Specialty [place] [address] [address] [place], [place] [id number] PCP - General Pediatrics 04/21/24 Marycarmen Garibay Registered Nurse 07/17/23 Gracy Stevens MD [address] [place] [address] Fellow Pediatric Hematology and Oncology 07/17/23 Donna Dyson NP [address] [place] [address] Nurse Practitioner Pediatric Hematology and Oncology 10/06/23 April Morataya, PhD [phone] [place], [place] [id number] Psychologist Psychology 12/07/24 documented as of this encounter
--- OUTSIDE RECORDS SUMMARY | 2025-07-11 03:36 | XMS_ITS | Clinical Summary ---
Author Organization [facility] Address [address] [place] [address] Care Team Providers Care Rad Technologist Name Role Phone Marycarmen Garibay Unavailable Unavailable Gracy Stevens MD Unavailable Donna Dyson NP Unavailable + Jessica Ayers NP Primary Care Provi natan April Morataya PhD Unavailable [phone] Allergies Active Allergy Reactions Criticality Noted Date Comments Adhesive Itching Low 04/12/2024 IV 3000. Ok for short periods of application but not for manager intermediate use Oxycodone Itching Medium 10/12/2024 Per mom and patient, Premed with benadryl if necessary Vancomycin Itching,Redness Medium 06/15/2023 Premed with benadryl and run over 120 minutes Medications miscellaneous medical supply (Cut N Crush) [facility] 1 each as needed (crushing tablets) 1 each 11/09/19 24 Active leuprolide, 3 month, (LUPRON) 11.25 mg injection Inject 11.25 mg into the muscle as instructed every 3 (three) months 1 each 09/26/19 25 026 Active acetaminophen (TYLENOL) solution 160 mg/5 mL Take 20 mL (640 mg total) by mouth every 6 (six) hours as needed for pain or fever 473 mL 10/24/19 25 Active melatonin 1 mg/4 mL drops Take 3 mg by mouth nightly as needed (take 30 minutes prior to bedtime as needed) 360 mL 1 02/21/20 25 Active nystatin powder Apply topically 4 (four) times a day To G-button site when it is red 15 g 1 02/21/20 25 026 Active pentamidine (PENTAM) 300 mg inhalation solutionIndicatio ns:Pneumocystis Jiroveci Pneumonia Prevention Inhale 6 mL (300 mg total) every 30 (thirty) days Last given 03/2004/21/20 25 Active allopurinol (ZYLOPRIM) 20 mg/mL suspensionIndicat ions: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 150 mL 2 05/29/20 25 Active cyanocobalamin, vitamin B-12, 1,000 mcg/mL drops Take 1 mL by mouth daily 1000 mL 2 06/20/20 25 025 Active mercaptopurine 20 mg/mLIndications: See associated oncology diagnosis Take 2 mL (40 mg total) by mouth daily for 28 doses And as needed for re-dosing up to two additional doses. Take with Allopurinol daily. 60 mL 05/29/20 25 025 methotrexate (Xatmep) 2.5 mg/mLIndications: See associated oncology diagnosis Take 17.5 mL (43.75 mg total) by mouth once a week for 4 doses And as needed for re-dosing up to one additional dose. Take weekly on Mondays on non-LP weeks. 88 mL 05/29/20 25 025 Active Problems Problem Noted Date Diagnosed Date Elevated TSH 06/20/2025 Assessment & Plan (06/20/2025 1:30 PM BELT MACHINE OPERATOR): Suyapa has been experiencing weight gain, decreased [...] 06/20/2025 Assessment & Plan (06/20/2025 1:33 PM BELT MACHINE OPERATOR): Today Suyapa was found to have low [...] 09/02/2024 Assessment & Plan (10/03/2024 11:53 AM BELT MACHINE OPERATOR): Suyapa's port is not longer functioning and will be taken out. All her chemotherapy will be given through IV. Scheduled for Port Removal on October 19, 2024. Assessment & Plan (09/02/2024 3:08 PM BELT MACHINE OPERATOR): Luiss port is not giving blood return today. 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 Vitamin D obtained 07/05 = 19. Suyapa reports that she is not taking the prescribed Vitamin D supplementation. Continue to encourage vitamin D supplementation Recheck level in 3-4 months Assessment & Plan (08/05/2024 3:26 PM BELT MACHINE OPERATOR): Suyapa has evidence of osteopenia on MRI of left knee. Vitamin D obtained 07/05 = 19. Suyapa reports that she is not taking the prescribed Vitamin D supplementation. Continue to encourage vitamin D supplementation Recheck level in 3-4 months Assessment & Plan (08/02/2024 7:04 AM BELT MACHINE OPERATOR): Suyapa has evidence of osteopenia on MRI of left knee. Vitamin D obtained 07/05 = 19. Continue vitamin D supplementation Recheck level in 3-4 months Assessment & Plan (07/05/2024 11:40 AM BELT MACHINE OPERATOR): Suyapa has evidence of osteopenia on MRI of left knee. Vitamin D obtained today, which = 19. Will start vitamin D supplementation Recheck level in 3-4 months Osteopenia 07/05/2024 Assessment & Plan (08/05/2024 3:33 PM BELT MACHINE OPERATOR): MRI of left knee shows evidence of osteopenia. Vitamin D low at 19. Continue Vitamin D supplementation Encouraged increasing calcium in diet Assessment & Plan (08/05/2024 11:55 AM BELT MACHINE OPERATOR): MRI of left knee shows evidence of osteopenia. Vitamin D low at 19. Continue Vitamin D supplementation Encouraged increasing calcium in diet Assessment & Plan (07/05/2024 11:41 AM BELT MACHINE OPERATOR): MRI of left knee shows evidence of osteopenia. Vitamin D low at 19. Started Vitamin D supplementation Encouraged increasing calcium in diet Left knee pain 06/17/2024 Assessment & Plan (09/02/2024 2:57 PM BELT MACHINE OPERATOR): Suyapa has reported continued intermittent pain to [...] worsens Assessment & Plan (08/05/2024 3:33 PM BELT MACHINE OPERATOR): Suyapa has reported continued intermittent pain to [...] worsens Assessment & Plan (08/02/2024 7:26 AM BELT MACHINE OPERATOR): Suyapa has reported continued intermittent pain to [...] worsens Assessment & Plan (07/05/2024 11:36 AM BELT MACHINE OPERATOR): Suyapa has reported continued intermittent pain to [...] worsens Assessment & Plan (06/17/2024 4:11 PM BELT MACHINE OPERATOR): Suyapa reports continued intermittent pain to her [...] 11/06/2023 Assessment & Plan (06/17/2024 3:02 PM BELT MACHINE OPERATOR): Suyapa has a hx of generalized pain. [...] Assessment & Plan (12/07/2023 4:44 PM CDT): Ramesh is a 18 yo [...] and generalized pain. G-tube evaluated by PAWS QUAL RESEARCH MANAGER; no signs of infection. Exam is reassuring [...] 10/27/2023 Assessment & Plan (06/20/2025 1:33 PM BELT MACHINE OPERATOR): Suyapa has a hx of poor medication [...] team Assessment & Plan (10/03/2024 11:39 AM BELT MACHINE OPERATOR): Suyapa has a hx of poor medication [...] team Assessment & Plan (09/02/2024 2:52 PM BELT MACHINE OPERATOR): Suyapa has a hx of poor medication [...] team Assessment & Plan (08/05/2024 3:28 PM BELT MACHINE OPERATOR): Suyapa has a hx of poor medication [...] team Assessment & Plan (08/02/2024 7:04 AM BELT MACHINE OPERATOR): Suyapa has a hx of poor medication [...] team Assessment & Plan (07/05/2024 11:03 AM BELT MACHINE OPERATOR): Suyapa has a hx of poor medication [...] team Assessment & Plan (06/17/2024 2:10 PM BELT MACHINE OPERATOR): Suyapa has a hx of poor medication compliance. G-tube was placed 10/08/23 to assist with medication administration throughout her treatment course. Tube was recently converted to a g-button. She reports some itching at the site. Site is clean/dry/intact and without drainage but with a small area of skin irritation. I called MATT, who recommended a thin Mepilex to the [...] 10/12/2023 Assessment & Plan (10/13/2023 12:47 PM BELT MACHINE OPERATOR): Ramesh states that she is having trouble rolling over in bed due to weakness and is concerned that she will need more assistance than available to her once she goes home. - Continue PT/OT - Consult PMNR for evaluation and recommendation of any assistive devices needed for home Assessment & Plan (10/12/2023 2:37 PM BELT MACHINE OPERATOR): Ramesh states that she is having trouble [...] CSF studies have not been concerning for MASTER OCEAN YACHT relapse. Given the recurrent nature of these [...] pain. Assessment & Plan (10/07/2023 11:47 AM BELT MACHINE OPERATOR): Ramesh presents today with a one-week hx of headaches with + photophobia/phonophobia. She also endorses abdominal pain and sleepiness. Differential includes migraine (likely given the presence of photophobia and phonophobia), anemia (Hgb is stable at 9.1), dehydration. Need to also consider possible MASTER OCEAN YACHT relapse but less concerned about this currently, [...] 07/15/2023 Assessment & Plan (06/20/2025 1:39 PM BELT MACHINE OPERATOR): Suyapa is followed by our Psychology team (Dr. Morataya) for a hx of depression and anxiety. Care team has previously discussed possibility of a SSRI, which Suyapa has refused. Today, she denied any suicidal ideation. Continue to appreciate psychology involvement and recommendations Assessment & Plan (09/02/2024 2:57 PM BELT MACHINE OPERATOR): Suyapa is followed by our Psychology team (Dr. Morataya) for a hx of depression and anxiety. Care team has previously discussed possibility of a SSRI, which Suyapa has refused. Continue to appreciate psychology involvement and recommendations Assessment & Plan (08/05/2024 3:32 PM BELT MACHINE OPERATOR): Suyapa is followed by our Psychology team (Dr. Morataya) for a hx of depression and anxiety. Care team has previously discussed possibility of a SSRI, which Rameshanae has refused. Continue to appreciate psychology involvement and recommendations Assessment & Plan (08/02/2024 7:17 AM BELT MACHINE OPERATOR): Suyapa is followed by our Psychology team (Dr. Morataya) for a hx of depression and anxiety. Care team has previously discussed possibility of a SSRI, which Suyapa has refused. Continue to appreciate psychology involvement and recommendations Assessment & Plan (07/05/2024 11:25 AM BELT MACHINE OPERATOR): Suyapa is followed by our Psychology team (Dr. Morataya) for a hx of depression and anxiety. Care team has previously discussed possibility of a SSRI, which Suyapa has refused. Continue to appreciate psychology involvement and recommendations Assessment & Plan (06/17/2024 2:54 PM BELT MACHINE OPERATOR): Suyapa is followed by our Psychology team [...] 06/15/2023 Assessment & Plan (08/05/2024 12:00 PM BELT MACHINE OPERATOR): Suyapa reported a painful lump noted under her left axilla while taking a shower earlier this week. Denies any redness. She reports that it is now resolved. She denies any other painful lumps. On exam, no palpable lump/bump. Likely a reactive lymph node. Continue to monitor Poor compliance with medication 04/21/2023 Assessment & Plan (06/20/2025 1:24 PM BELT MACHINE OPERATOR): Suyapa has struggled significantly with taking oral [...] not taking her PO 6MP and MTX. Rmaesh continues to note poor compliance with taking [...] prescribed Assessment & Plan (10/03/2024 11:43 AM BELT MACHINE OPERATOR): Suyapa has struggled significantly with taking oral [...] chemotherapy Assessment & Plan (09/02/2024 2:51 PM BELT MACHINE OPERATOR): Suyapa has struggled significantly with taking oral [...] chemotherapy Assessment & Plan (08/05/2024 3:25 PM BELT MACHINE OPERATOR): Suyapa has struggled significantly with taking oral [...] chemotherapy Assessment & Plan (08/02/2024 7:02 AM BELT MACHINE OPERATOR): Suyapa has struggled significantly with taking oral [...] prescribed Assessment & Plan (07/05/2024 10:57 AM BELT MACHINE OPERATOR): Suyapa has struggled significantly with taking oral [...] prescribed Assessment & Plan (06/17/2024 2:03 PM BELT MACHINE OPERATOR): Suyapa has struggled significantly with taking oral [...] life and psychology in the past. Today, Suypaa has discussed with her primary team that [...] psychology Assessment & Plan (10/13/2023 12:45 PM BELT MACHINE OPERATOR): Ramesh has had difficulty with medication compliance [...] discharge Assessment & Plan (10/12/2023 2:25 PM BELT MACHINE OPERATOR): Ramesh has had difficulty with medication compliance [...] discharge Assessment & Plan (10/11/2023 11:57 AM BELT MACHINE OPERATOR): Ramesh has had difficulty with medication compliance [...] discharge Assessment & Plan (10/10/2023 2:06 PM BELT MACHINE OPERATOR): Ramesh has had difficulty with medication compliance since diagnosis. Given the prolonged requirement for oral chemotherapy, a peg tube was placed yesterday. - Regular diet - mIVF - Oxy Q4h PRN pain - Morphine Q2h PRN breakthrough pain - Appreciate surgery recs Assessment & Plan (10/09/2023 3:25 PM BELT MACHINE OPERATOR): Ramesh has had difficulty with medication compliance since diagnosis. Given the prolonged requirement for oral chemotherapy, a g-tube was placed yesterday. - Regular diet - mIVF - Oxy Q4h PRN pain - Morphine Q2h PRN breakthrough pain - Appreciate surgery recs Assessment & Plan (10/08/2023 2:10 PM BELT MACHINE OPERATOR): Ramesh has had difficulty with medication compliance since diagnosis. Given the prolonged requirement for oral chemotherapy, a g-tube was placed today. - NPO - mIVF - Oxy Q4h PRN pain - Morphine Q2h PRN breakthrough pain - Appreciate surgery recs Assessment & Plan (10/06/2023 2:52 PM BELT MACHINE OPERATOR): Suyapa has struggled significantly with taking oral [...] surgery Assessment & Plan (08/27/2023 6:12 PM BELT MACHINE OPERATOR): Suyapa has struggled significantly with taking oral [...] medication Assessment & Plan (08/26/2023 1:44 PM BELT MACHINE OPERATOR): Suyapa has struggled significantly with taking oral [...] medication Assessment & Plan (08/25/2023 2:01 PM BELT MACHINE OPERATOR): Suyapa has struggled significantly with taking oral [...] medication Assessment & Plan (08/24/2023 11:37 AM BELT MACHINE OPERATOR): Suyapa has struggled significantly with taking oral [...] medication Assessment & Plan (08/22/2023 10:26 PM BELT MACHINE OPERATOR): Suyapa has struggled significantly with taking oral [...] medication Assessment & Plan (08/06/2023 10:56 AM BELT MACHINE OPERATOR): Suyapa has struggled significantly with taking oral [...] 04/08/2023 Assessment & Plan (06/20/2025 1:38 PM BELT MACHINE OPERATOR): There has been significant concern for Suyapa's [...] support and assistance [facility]; appreciate their recommendations Primary oncology team [...] work continues to remain involved in [facility] care; appreciate their support and assistance Psychology remains involved in [facility]; appreciate their recommendations Primary oncology team [...] Social work continues to remain involved in [facility]; appreciate their support and assistance Psychology remains involved in [facility] care; appreciate their recommendations Primary oncology team [...] support and assistance Psychology remains involved in [facility]; appreciate their recommendations Primary oncology team to remain active and involved in patient's care Assessment & Plan (10/03/2024 11:41 AM BELT MACHINE OPERATOR): There is significant concern for Suyapa's ability [...] Social work continues to remain involved in [facility]; appreciate their support and assistance Psychology remains involved in [facility]; appreciate their recommendations Primary oncology team to remain active and involved in patient's care Assessment & Plan (09/02/2024 2:56 PM BELT MACHINE OPERATOR): There is significant concern for Suyapa's ability [...] Social work continues to remain involved in [facility]; appreciate their support and assistance Psychology remains involved in [facility] care; appreciate their recommendations Primary oncology team to remain active and involved in patient's care Assessment & Plan (08/05/2024 3:31 PM BELT MACHINE OPERATOR): There is significant concern for Suyapa's ability [...] Social work continues to remain involved in [facility]; appreciate their support and assistance Psychology remains involved in [facility] care; appreciate their recommendations Primary oncology team to remain active and involved in patient's care Assessment & Plan (08/02/2024 7:16 AM BELT MACHINE OPERATOR): There is significant concern for Suyapa's ability [...] Social work continues to remain involved in [facility]; appreciate their support and assistance Psychology remains involved in [facility]; appreciate their recommendations Primary oncology team to remain active and involved in patient's care Assessment & Plan (07/05/2024 11:25 AM BELT MACHINE OPERATOR): There is significant concern for Suyapa's ability [...] care Assessment & Plan (06/17/2024 2:53 PM BELT MACHINE OPERATOR): There is significant concern for Suyapa's ability [...] Social work continues to remain [facility]; appreciate their support and assistance Psychology [...] Social work continues to remain involved in [facility] care; appreciate their support and assistance Psychology [...] support and assistance Psychology remains involved in [facility]; appreciate their recommendations Primary oncology team [...] Social work continues to remain involved in [facility]; appreciate their support and assistance Psychology remains involved in [facility]; appreciate their recommendations Gift cards given [...] support and assistance Psychology remains involved in [facility]; appreciate their recommendations Primary oncology team [...] Plan (05/16/2023 8:10 AM CDT): Concern for Suyapa's ability [...] to immediately return to work. Due to uSyapa's chemotherapy regimen, she also will require sick [...] Assessment & Plan (11/19/2023 3:08 PM CDT): RULorri venous US on 03/27 revealed deep vein [...] ultrasound Assessment & Plan (10/13/2023 12:45 PM BELT MACHINE OPERATOR): Suyapa reports being non-compliant with Lovenox at home. The last dose she received was during hospitalization for chemotherapy. Repeat US obtained 10/08 that showed unchanged right subclavian nonocclusive thrombus. - Lovenox discontinued per primary team. Assessment & Plan (10/12/2023 2:24 PM BELT MACHINE OPERATOR): Suyapa reports being non-compliant with Lovenox at home. The last dose she received was during hospitalization for chemotherapy. Repeat US obtained 10/08 that showed unchanged right subclavian nonocclusive thrombus. - Lovenox discontinued per primary team. Assessment & Plan (10/11/2023 11:57 AM BELT MACHINE OPERATOR): Suyapa reports being non-compliant with Lovenox at home. The last dose she received was during hospitalization for chemotherapy. Repeat US obtained 10/08 that showed unchanged right subclavian nonocclusive thrombus. - Lovenox discontinued per primary team. Assessment & Plan (10/10/2023 2:05 PM BELT MACHINE OPERATOR): Suyapa reports being non-compliant with Lovenox at home. The last dose she received was during hospitalization for chemotherapy. Repeat US obtained this AM. - Will discontinue lovenox per primary team Assessment & Plan (10/09/2023 3:24 PM BELT MACHINE OPERATOR): Suyapa reports being non-compliant with Lovenox at home. The last dose she received was during hospitalization for chemotherapy. Repeat US obtained this AM. - Will discontinue lovenox per primary team Assessment & Plan (10/08/2023 2:06 PM BELT MACHINE OPERATOR): Suyapa reports being non-compliant with Lovenox at home. The last dose she received was during hospitalization for chemotherapy. - Hold Lovenox for 24h post tube placement - Will discuss non-compliance with primary team Assessment & Plan (10/07/2023 10:37 AM BELT MACHINE OPERATOR): Hx of a right subclavian thrombus. Ultrasound was last done 08/06, which still showed evidence of thrombus. Currently asymptomatic. Ramesh notes that she has not been doing Lovenox at home. Continue Lovenox 80mg BID with the exception of surgery's instructions for holding prior to G-tube surgery Will plan to repeat ultrasound during G-tube placement Assessment & Plan (09/25/2023 2:02 PM BELT MACHINE OPERATOR): Hx of. Currently asymptomatic. - Lovenox 80mg BID Assessment & Plan (09/24/2023 5:41 PM BELT MACHINE OPERATOR): Hx of. Currently asymptomatic. - Lovenox 80mg BID Assessment & Plan (09/23/2023 3:18 PM BELT MACHINE OPERATOR): Hx of. Currently asymptomatic. - Lovenox 80mg BID Assessment & Plan (09/22/2023 10:16 AM BELT MACHINE OPERATOR): Hx of. Lovenox has been held for thrombocytopenia. - Restart Lovenox 80mg BID Assessment & Plan (09/21/2023 2:19 PM BELT MACHINE OPERATOR): Hx of. Lovenox has been held for thrombocytopenia. - Restart Lovenox 80mg BID Assessment & Plan (08/27/2023 6:12 PM BELT MACHINE OPERATOR): - hx of R subclavian venous thrombus - Continue Lovenox (hold when plts <25; 1/2 dose when 25-50) - level confirmed to be therapeutic on 08/26/23 - intermittent compliance with lovenox at home Assessment & Plan (08/26/2023 1:44 PM BELT MACHINE OPERATOR): - hx of R subclavian venous thrombus - Continue holding Lovenox for LP on 08/25/23 (hold when plts <25; 1/2 dose when 25-50) - intermittent compliance with lovenox at home - Will obtain anti-Xa after evening dose d/t single lumen when methotrexate finished Assessment & Plan (08/25/2023 1:59 PM BELT MACHINE OPERATOR): - hx of R subclavian venous thrombus - Continue holding Lovenox for LP on 08/25/23 (hold when plts <25; 1/2 dose when 25-50) - intermittent compliance with lovenox at home Assessment & Plan (08/24/2023 11:37 AM BELT MACHINE OPERATOR): - hx of R subclavian venous thrombus - Continue holding Lovenox for LP on 08/25/23 (hold when plts <25; 1/2 dose when 25-50) - intermittent compliance with lovenox at home Assessment & Plan (08/22/2023 10:07 PM BELT MACHINE OPERATOR): - hx of R subclavian venous thrombus - discuss restarting Lovenox 08/23 given plts >50. (hold when plts <25; 1/2 dose when 25-50) - intermittent compliance with lovenox at home Assessment & Plan (08/14/2023 1:26 PM BELT MACHINE OPERATOR): Hx of. - Lovenox 80mg BID; held around LP Assessment & Plan (08/09/2023 1:31 PM BELT MACHINE OPERATOR): Hx of. Rameshanae only took 2 doses of Lovenox the last 2 weeks at home. No signs or redness, pain, or swelling to site. US RUE obtained yesterday with no changes to thrombus from previous imaging on 06/04. - Continue Lovenox 80mg BID and continue at home, platelets have remained above 50k Assessment & Plan (08/08/2023 10:40 AM BELT MACHINE OPERATOR): Hx of. Rameshanae only took 2 doses of Lovenox the last 2 weeks at home. No signs or redness, pain, or swelling to site. US RUE obtained yesterday with no changes to thrombus from previous imaging on 06/04. - Continue Lovenox 80mg BID and continue at home, platelets have remained above 50k Assessment & Plan (08/07/2023 12:04 PM BELT MACHINE OPERATOR): Hx of. Rajanae only took 2 doses of Lovenox the last 2 weeks at home. No signs or redness, pain, or swelling to site. US RUE obtained yesterday with no changes to thrombus from previous imaging on 06/04. - Continue Lovenox 80mg BID and continue at home Assessment & Plan (08/06/2023 11:13 AM BELT MACHINE OPERATOR): Hx of. Rajanae only took 2 doses of Lovenox the last 2 weeks at home. No signs or redness, pain, or swelling to site. - Continue Lovenox 80mg BID and continue at home - Discuss with Hematology team regarding next ultrasound of RUE. Last on 06/04. Assessment & Plan (08/06/2023 11:04 AM BELT MACHINE OPERATOR): RUE venous US on 03/27 revealed deep [...] thrombus Assessment & Plan (08/05/2023 12:33 PM BELT MACHINE OPERATOR): Hx of. Dale only took 2 doses of Lovenox the last 2 weeks at home. No signs or redness, pain, or swelling to site. - Restart Lovenox 80mg BID today and continue at home Assessment & Plan (07/15/2023 4:14 PM BELT MACHINE OPERATOR): Hx of. Dale did not take her Lovenox while at home. Anti Xa level on 07/09 at 0100 was 1.05 prompting no interventions or changes. Platelets 13 today. - HOLD Lovenox when plts <25, 1/2 dose when plts 25-50, full dose >/=50 - HOLD Lovenox today due to plt count of 13 - Daily CBC w/ diff Assessment & Plan (07/14/2023 12:33 PM BELT MACHINE OPERATOR): Hx of. Dale did not take her [...] diff Assessment & Plan (07/13/2023 5:41 PM BELT MACHINE OPERATOR): Hx of. Dale did not take her Lovenox while at home. Anti Xa level on 07/09 at 0100 was 1.05 prompting no interventions or changes. Platelets 31 today. - Resumed Lovenox 07/07 PM - HOLD Lovenox when plts <25, 1/2 dose when plts 25-50, full dose >/=50 - Lovenox at 1/2 dose d/t platelet count Assessment & Plan (07/12/2023 2:29 PM BELT MACHINE OPERATOR): Hx ofBridgette Dale did not take her Lovenox while at home. Anti Xa level on 07/09 at 0100 was 1.05 prompting no interventions or changes. Plts on 07/12 59. - Resumed Lovenox 07/07 PM - HOLD Lovenox when plts <25, 1/2 dose when plts 25-50, full dose >/=50 Assessment & Plan (07/11/2023 4:34 PM BELT MACHINE OPERATOR): Hx ofBridgette Dale did not take her Lovenox while at home. Anti Xa level on 07/09 at 0100 was 1.05 prompting no interventions or changes. - Resumed Lovenox 07/07 PM - HOLD Lovenox when plts <25, 1/2 dose when plts 25-50, full dose >/=50 - Obtain CBC on Thursday or prior to DC Assessment & Plan (07/10/2023 1:24 PM BELT MACHINE OPERATOR): Hx ofBridgette Dale did not take her Lovenox while at home. Anti Xa level on 07/09 at 0100 was 1.05 prompting no interventions or changes. - Resumed Lovenox 07/07 PM - HOLD Lovenox when plts <25, 1/2 dose when plts 25-50, full dose >/=50 - Obtain CBC on Thursday or prior to DC Assessment & Plan (07/09/2023 1:03 PM BELT MACHINE OPERATOR): Hx of. Dale did not take her [...] 6MP Assessment & Plan (07/08/2023 11:17 AM BELT MACHINE OPERATOR): Hx ofBridgette Dale did not take her [...] 0100) Assessment & Plan (07/07/2023 1:22 PM BELT MACHINE OPERATOR): Hx ofBridgette Dale did not take her [...] discharge Assessment & Plan (07/06/2023 5:28 PM BELT MACHINE OPERATOR): Hx of. Dale did not take her Lovenox while at home. - Will resume Lovenox 07/07 PM d/t procedure today - HOLD Lovenox when plts <25, 1/2 dose when plts 25-50, full dose >/=50 Assessment & Plan (06/22/2023 12:45 PM BELT MACHINE OPERATOR): Hx of. Lovenox currently held due to current platelet of 15. - HOLD Lovenox when plts <25, 1/2 dose when plts 25-50, full dose >/=50 - Daily CBC w/ diff Assessment & Plan (06/21/2023 11:15 AM BELT MACHINE OPERATOR): Hx of. Lovenox currently held due to current platelet of 7. Plan: - HOLD Lovenox when plts <25, 1/2 dose when plts 25-50, full dose >/=50 - Daily CBC w/ diff Assessment & Plan (06/20/2023 11:24 AM BELT MACHINE OPERATOR): Hx of. Lovenox currently held due to current platelet of 11. Plan: - HOLD Lovenox when plts <25, 1/2 dose when plts 25-50, full dose >/=50 - Daily CBC w/ diff Assessment & Plan (06/19/2023 10:13 AM BELT MACHINE OPERATOR): Hx of. Lovenox currently held. - HOLD Lovenox when plts <25, 1/2 dose when plts 25-50, full dose >/=50 - Daily CBC w/ diff Assessment & Plan (06/18/2023 12:01 PM BELT MACHINE OPERATOR): Hx of. Lovenox currently held. - HOLD Lovenox when plts <25, 1/2 dose when plts 25-50, full dose >/=50 - Daily CBC w/ diff Assessment & Plan (06/17/2023 11:36 AM BELT MACHINE OPERATOR): Hx of. Lovenox currently held. - HOLD Lovenox when plts <25, 1/2 dose when plts 25-50, full dose >/=50 - Daily CBC w/ diff Assessment & Plan (06/16/2023 2:15 PM BELT MACHINE OPERATOR): Hx of. Lovenox currently held. - HOLD Lovenox when plts <25, 1/2 dose when plts 25-50, full dose >/=50 - Daily CBC w/ diff Assessment & Plan (06/15/2023 3:45 PM BELT MACHINE OPERATOR): Hx of. Lovenox currently held. - HOLD Lovenox when plts <25, 1/2 dose when plts 25-50, full dose >/=50 - Daily CBC w/ diff Assessment & Plan (06/15/2023 8:18 AM BELT MACHINE OPERATOR): Hx of. - HOLD Lovenox when plts [...] hold Thursday 05/10 for LP on Thursday - Lovenox at [...] count <50; will plan to hold Thursday 05/10 for LP on Alex morning - If platelets <50, give Lovenox [...] <25, hold Lovenox - Hold Lovenox after 05/03 AM dose in preparation for LP on [...] <25, hold Lovenox - Hold Lovenox after 05/03 AM dose in preparation for LP on [...] Xa level in AM 4 hours after 9/21 PM dose Assessment & Plan (04/29/2023 1:30 [...] Xa level in AM 4 hours after 04/29 PM dose Assessment & Plan (04/28/2023 2:09 [...] <25, hold Lovenox - Hold Lovenox after 9/16 PM dose for scheduled LP on 918 AM Assessment & Plan (04/24/2023 1:11 PM [...] appropriately today. 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 Lovenox held for procedure today. - Lovenox 100mg q12hr; Restart 912 AM. - If platelets <50, give Lovenox [...] 03/14/2023 Assessment & Plan (06/20/2025 1:25 PM BELT MACHINE OPERATOR): At risk for excessive bleeding due to [...] 10/03) Assessment & Plan (10/03/2024 11:38 AM BELT MACHINE OPERATOR): At risk for excessive bleeding due to extended periods of thrombocytopenia. Suyapa had previously reported hot flashes and increased sweatiness, which may be related to Lupron. None noted currently. Will continue to evaluate symptoms. Continue Lupron q3 months (Given today 10/03) Assessment & Plan (09/02/2024 2:52 PM BELT MACHINE OPERATOR): At risk for excessive bleeding due to extended periods of thrombocytopenia. Suyapa had previously reported hot flashes and increased sweatiness, which may be related to Lupron. None noted currently. Will continue to evaluate symptoms. Continue Lupron q3 months Assessment & Plan (08/05/2024 3:28 PM BELT MACHINE OPERATOR): At risk for excessive bleeding due to extended periods of thrombocytopenia. Suyapa reports some recent hot flashes and increased sweatiness, which may be related to Lupron. Will continue to evaluate symptoms. Continue Lupron q3 months Assessment & Plan (08/02/2024 7:05 AM BELT MACHINE OPERATOR): At risk for excessive bleeding due to extended periods of thrombocytopenia. Suyapa reports some recent hot flashes and increased sweatiness, which may be related to Lupron. Will continue to evaluate symptoms. Continue Lupron q3 months Assessment & Plan (07/05/2024 11:14 AM BELT MACHINE OPERATOR): At risk for excessive bleeding due to extended periods of thrombocytopenia. Suyapa reports some recent hot flashes, which may be related to Lupron. Will continue to evaluate symptoms. Continue Lupron q3 months (will give today) Assessment & Plan (06/17/2024 2:10 PM BELT MACHINE OPERATOR): At risk for excessive bleeding due to [...] 09/22 Assessment & Plan (10/06/2023 3:12 PM BELT MACHINE OPERATOR): At risk for excessive bleeding due to anticipated frequent periods of thrombocytopenia. No recent bleeding/spotting. Lupron Q3 months; last given on 09/22 Assessment & Plan (09/25/2023 2:02 PM BELT MACHINE OPERATOR): At risk for excessive bleeding due to anticipated frequent periods of thrombocytopenia, none at this time. - Lupron Q3 months; last given on 09/22 Assessment & Plan (09/24/2023 5:42 PM BELT MACHINE OPERATOR): At risk for excessive bleeding due to anticipated frequent periods of thrombocytopenia, none at this time. - Lupron Q3 months; last given on 09/22 Assessment & Plan (09/23/2023 3:32 PM BELT MACHINE OPERATOR): At risk for excessive bleeding due to anticipated frequent periods of thrombocytopenia, none at this time. - Lupron Q3 months; last given on 09/22 Assessment & Plan (09/22/2023 10:15 AM BELT MACHINE OPERATOR): At risk for excessive bleeding due to anticipated frequent periods of thrombocytopenia, none at this time. - Lupron Q3 months; last given on 06/18. Will administer today. Assessment & Plan (09/21/2023 2:18 PM BELT MACHINE OPERATOR): At risk for excessive bleeding due to anticipated frequent periods of thrombocytopenia, none at this time. - Lupron Q3 months; last given on 06/18. Will administer today. Assessment & Plan (08/27/2023 6:11 PM BELT MACHINE OPERATOR): At risk for excessive bleeding due to anticipated frequent periods of thrombocytopenia, none at this time. - Lupron Q3 months; last given on 06/18 Assessment & Plan (08/26/2023 1:43 PM BELT MACHINE OPERATOR): At risk for excessive bleeding due to anticipated frequent periods of thrombocytopenia, none at this time. - Lupron Q3 months; last given on 06/18 Assessment & Plan (08/25/2023 1:59 PM BELT MACHINE OPERATOR): At risk for excessive bleeding due to anticipated frequent periods of thrombocytopenia, none at this time. - Lupron Q3 months; last given on 06/18 Assessment & Plan (08/24/2023 11:35 AM BELT MACHINE OPERATOR): At risk for excessive bleeding due to anticipated frequent periods of thrombocytopenia, none at this time. - Lupron Q3 months; last given on 06/18 Assessment & Plan (08/22/2023 10:05 PM BELT MACHINE OPERATOR): At risk for excessive bleeding due to anticipated frequent periods of thrombocytopenia, none at this time. Lupron Q3 months; last given on 06/18 Assessment & Plan (08/06/2023 11:07 AM BELT MACHINE OPERATOR): At risk for excessive bleeding due to anticipated frequent periods of thrombocytopenia, none at this time. Lupron Q3 months; last given on 06/18 Assessment & Plan (07/15/2023 4:19 PM BELT MACHINE OPERATOR): At risk for excessive bleeding due to anticipated frequent periods of thrombocytopenia, none at this time. - Lupron Q3 months; last given on 06/18 - Consider Aygestin for breakthrough bleeding Assessment & Plan (07/14/2023 12:30 PM BELT MACHINE OPERATOR): At risk for excessive bleeding due to anticipated frequent periods of thrombocytopenia, none at this time. - Lupron Q3 months; last given on 06/18 - Consider Aygestin for breakthrough bleeding Assessment & Plan (07/13/2023 5:40 PM BELT MACHINE OPERATOR): At risk for excessive bleeding due to anticipated frequent periods of thrombocytopenia, none at this time. - Lupron Q3 months; last given on 06/18 - Consider Aygestin for breakthrough bleeding Assessment & Plan (07/12/2023 2:31 PM BELT MACHINE OPERATOR): At risk for excessive bleeding due to anticipated frequent periods of thrombocytopenia, none at this time. - Lupron Q3 months; last given on 06/18 - Consider Aygestin for breakthrough bleeding Assessment & Plan (07/11/2023 4:34 PM BELT MACHINE OPERATOR): At risk for excessive bleeding due to anticipated frequent periods of thrombocytopenia, none at this time. - Lupron Q3 months; last given on 06/18 - Consider Aygestin for breakthrough bleeding Assessment & Plan (07/10/2023 1:22 PM BELT MACHINE OPERATOR): At risk for excessive bleeding due to anticipated frequent periods of thrombocytopenia, none at this time. - Lupron Q3 months; last given on 06/18 - Consider Aygestin for breakthrough bleeding Assessment & Plan (07/09/2023 1:05 PM BELT MACHINE OPERATOR): At risk for excessive bleeding due to anticipated frequent periods of thrombocytopenia, none at this time. - Lupron Q3 months; last given on 06/18 - Consider Aygestin for breakthrough bleeding Assessment & Plan (07/08/2023 11:19 AM BELT MACHINE OPERATOR): At risk for excessive bleeding due to anticipated frequent periods of thrombocytopenia, none at this time. - Lupron Q3 months; last given on 06/18 - Consider Aygestin for breakthrough bleeding Assessment & Plan (07/07/2023 1:17 PM BELT MACHINE OPERATOR): At risk for excessive bleeding due to anticipated frequent periods of thrombocytopenia, none at this time. - Lupron Q3 months; last given on 06/18 - Consider Aygestin for breakthrough bleeding Assessment & Plan (07/06/2023 5:27 PM BELT MACHINE OPERATOR): At risk for excessive bleeding due to anticipated frequent periods of thrombocytopenia, none at this time. - Lupron Q3 months; last given on 06/18 - Consider Aygestin for breakthrough bleeding Assessment & Plan (06/29/2023 10:36 AM BELT MACHINE OPERATOR): At risk for excessive bleeding due to anticipated frequent periods of thrombocytopenia, none at this time. - Lupron Q3 months ( 09/18) - Consider Aygestin for breakthrough bleeding Assessment & Plan (06/22/2023 12:47 PM BELT MACHINE OPERATOR): At risk for excessive bleeding due to anticipated frequent periods of thrombocytopenia, none at this time. - Lupron Q3 months; last given on 06/18 - Consider Aygestin for breakthrough bleeding Assessment & Plan (06/21/2023 11:14 AM BELT MACHINE OPERATOR): At risk for excessive bleeding due to anticipated frequent periods of thrombocytopenia, none at this time. - Lupron Q3 months; last given on 06/18 - Consider Aygestin for breakthrough bleeding Assessment & Plan (06/20/2023 11:16 AM BELT MACHINE OPERATOR): At risk for excessive bleeding due to anticipated frequent periods of thrombocytopenia, none at this time. - Lupron Q3 months; last given on 06/18 - Consider Aygestin for breakthrough bleeding Assessment & Plan (06/19/2023 10:15 AM BELT MACHINE OPERATOR): At risk for excessive bleeding due to anticipated frequent periods of thrombocytopenia, none at this time. - Lupron Q3 months; last given on 06/18 - Consider Aygestin for breakthrough bleeding Assessment & Plan (06/18/2023 12:01 PM BELT MACHINE OPERATOR): At risk for excessive bleeding due to anticipated frequent periods of thrombocytopenia, none at this time. - Lupron Q3 months - Give Lupron injection today - Consider Aygestin for breakthrough bleeding Assessment & Plan (06/17/2023 11:46 AM BELT MACHINE OPERATOR): At risk for excessive bleeding due to anticipated frequent periods of thrombocytopenia, none at this time. - Lupron Q3 months (last given 03/13) - Consider Aygestin for breakthrough bleeding - Will plan to give Lupron injection 06/18 while platelets transfusing Assessment & Plan (06/16/2023 2:20 PM BELT MACHINE OPERATOR): At risk for excessive bleeding due to anticipated frequent periods of thrombocytopenia, none at this time. - Lupron Q3 months (last given 03/13) - Consider Aygestin for breakthrough bleeding Assessment & Plan (06/15/2023 3:44 PM BELT MACHINE OPERATOR): At risk for excessive bleeding due to [...] while on chemotherapy. Started Lupron 11.25 mg [id number]. Last dose given 8. Lupron does not effectively prevent , therefore pt will need POC urine tests prior to all chemo treatments. Assessment & Plan (03/24/2023 7:28 AM CDT): Menstrual suppression while on chemotherapy. Started Lupron 11.25 mg [id number]. Last dose given 03/13. Lupron does not effectively prevent , therefore pt will need POC urine tests prior to all chemo treatments. Assessment & Plan (03/23/2023 7:42 AM CDT): Menstrual suppression while on chemotherapy. Started Lupron 11.25 mg [id number]. Last dose given 03/13. Lupron does not effectively prevent , therefore pt will need POC urine tests prior to all chemo treatments. Assessment & Plan (03/22/2023 12:18 PM CDT): Menstrual suppression while on chemotherapy. Started Lupron 11.25 mg [id number]. Last dose given 03/13. Lupron does not effectively prevent , therefore pt will need POC urine tests prior to all chemo treatments. Assessment & Plan (03/21/2023 7:47 AM CDT): Menstrual suppression while on chemotherapy. Started Lupron 11.25 mg [id number]. Last dose given 8. Lupron does not effectively prevent , therefore pt will need POC urine tests prior to all chemo treatments. Assessment & Plan (03/20/2023 8:24 AM CDT): Menstrual suppression while on chemotherapy. Started Lupron 11.25 mg [id number]. Last dose given 8. Lupron does not effectively prevent , therefore pt will need POC urine tests prior to all chemo treatments. Assessment & Plan (03/19/2023 11:08 AM CDT): Menstrual suppression while on chemotherapy. Started Lupron 11.25 mg [id number]. Last dose given 03/13. Lupron does not effectively prevent , therefore pt will need POC urine tests prior to all chemo treatments. Assessment & Plan (03/18/2023 7:31 AM CDT): Menstrual suppression while on chemotherapy. Started Lupron 11.25 mg [id number]. Last dose given 03/13. Lupron does not effectively prevent , therefore pt will need POC urine tests prior to all chemo treatments. Assessment & Plan (03/17/2023 7:35 AM CDT): Menstrual suppression while on chemotherapy. Started Lupron 11.25 mg [id number]. Last dose given 03/13. Lupron does not effectively prevent , therefore pt will need POC urine tests prior to all chemo treatments. Assessment & Plan (03/16/2023 9:52 AM CDT): Menstrual suppression while on chemotherapy. Started Lupron 11.25 mg [id number]. Last dose given 03/13. Lupron does not effectively prevent , therefore pt will need POC urine tests prior to all chemo treatments. Assessment & Plan (03/15/2023 12:29 PM CDT): Menstrual suppression while on chemotherapy. Started Lupron 11.25 mg [id number]. Last dose given 03/13. Assessment & Plan (03/14/2023 11:02 AM CDT): Menstrual suppression while on chemotherapy. Started Lupron 11.25 mg [id number]. Last dose given 03/13. Need for pneumocystis prophylaxis 03/14/2023 Assessment & Plan (06/20/2025 1:36 PM BELT MACHINE OPERATOR): Suyapa is at risk for PJP due [...] today) Assessment & Plan (10/03/2024 11:38 AM BELT MACHINE OPERATOR): Suyapa is at risk for PJP due to immunosuppressive chemotherapy. No signs of PJP on exam. Pentamidine monthly (received today) Assessment & Plan (09/02/2024 2:56 PM BELT MACHINE OPERATOR): Suyapa is at risk for PJP due to immunosuppressive chemotherapy. No signs of PJP on exam. Pentamidine monthly (received today) Assessment & Plan (08/05/2024 3:30 PM BELT MACHINE OPERATOR): Suyapa is at risk for PJP due to immunosuppressive chemotherapy. No signs of PJP on exam. Pentamidine monthly (received today) Assessment & Plan (08/02/2024 7:17 AM BELT MACHINE OPERATOR): Suyapa is at risk for PJP due to immunosuppressive chemotherapy. No signs of PJP on exam. Pentamidine monthly (last received 07/05/24) Assessment & Plan (07/05/2024 11:24 AM BELT MACHINE OPERATOR): Suyapa is at risk for PJP due to immunosuppressive chemotherapy. No signs of PJP on exam. Pentamidine monthly (will receive today) Assessment & Plan (06/17/2024 2:52 PM BELT MACHINE OPERATOR): Suyapa is at risk for PJP due [...] (12/07/2023 4:44 PM CDT): Continue home bactrim Thursday/Thursday Assessment & Plan (12/06/2023 10:39 AM CDT): Continue home bactrim Thursday/Thursday Assessment & Plan (12/05/2023 11:25 AM CDT): Continue home bactrim Thursday/Thursday Assessment & Plan (12/04/2023 2:21 PM CDT): Continue home bactrim Thursday/Thursday Assessment & Plan (12/03/2023 6:05 PM CDT): Continue home bactrim Thursday/Thursday Assessment & Plan (12/02/2023 5:22 PM CDT): Continue home bactrim Thursday/Thursday Assessment & Plan (12/01/2023 3:12 PM CDT): Continue home bactrim Thursday/Thursday Assessment & Plan (11/30/2023 11:08 AM CDT): Continue home bactrim Thursday/Thursday Assessment & Plan (11/29/2023 10:50 AM CDT): Continue home bactrim Thursday/Oscar Assessment & Plan (11/28/2023 11:56 AM CDT): Continue home bactrim Thursday/Thursday Assessment & Plan (11/27/2023 11:14 AM CDT): Continue home bactrim Thursday/Thursday Assessment & Plan (11/26/2023 10:43 AM CDT): [...] Sundays Assessment & Plan (10/13/2023 12:44 PM BELT MACHINE OPERATOR): Due to receiving immunosuppressive therapy - Continue monthly pentamidine - Next due on 10/21 Assessment & Plan (10/12/2023 2:24 PM BELT MACHINE OPERATOR): Due to receiving immunosuppressive therapy - Continue monthly pentamidine - Next due on 10/21 Assessment & Plan (10/11/2023 7:55 AM BELT MACHINE OPERATOR): Due to receiving immunosuppressive therapy - Continue monthly pentamidine - Next due on 10/21 Assessment & Plan (10/10/2023 2:05 PM BELT MACHINE OPERATOR): Receiving immunosuppressive therapy - Continue monthly pentamidine - Next due on 10/21 Assessment & Plan (10/09/2023 3:24 PM BELT MACHINE OPERATOR): Receiving immunosuppressive therapy - Continue monthly pentamidine - Next due on 10/21 Assessment & Plan (10/08/2023 2:05 PM BELT MACHINE OPERATOR): Receiving immunosuppressive therapy - Continue monthly pentamidine - Next due on 10/21 Assessment & Plan (10/07/2023 10:45 AM BELT MACHINE OPERATOR): No signs/symptoms on ROS or physical exam. Remains at increased risk due to immunosuppressed status. Continue pentamidine monthly (last given 09/23) Assessment & Plan (09/25/2023 2:02 PM BELT MACHINE OPERATOR): Receiving immunosuppressive chemotherapy. - Pentam monthly last given 09/23. Assessment & Plan (09/24/2023 5:42 PM BELT MACHINE OPERATOR): Receiving immunosuppressive chemotherapy. - Pentam monthly last given 09/23. Assessment & Plan (09/23/2023 3:32 PM BELT MACHINE OPERATOR): Receiving immunosuppressive chemotherapy. - Pentam monthly last given 08/24. Will administer prior to discharge. Assessment & Plan (09/22/2023 10:15 AM BELT MACHINE OPERATOR): Receiving immunosuppressive chemotherapy. - Pentam monthly last given 08/24. Will administer prior to discharge. Assessment & Plan (09/21/2023 2:18 PM BELT MACHINE OPERATOR): Receiving immunosuppressive chemotherapy. - Pentam monthly last given 08/24. Will administer prior to discharge. Assessment & Plan (08/27/2023 6:11 PM BELT MACHINE OPERATOR): Continue pentamidine monthly. Last received 08/25/23 Assessment & Plan (08/26/2023 1:43 PM BELT MACHINE OPERATOR): Continue pentamidine monthly. Last received 08/25/23 Assessment & Plan (08/25/2023 1:59 PM BELT MACHINE OPERATOR): Continue pentamidine monthly. Last received 08/25/23 Assessment & Plan (08/24/2023 11:35 AM BELT MACHINE OPERATOR): Continue pentamidine monthly. Last received 07/14, will receive injection today Assessment & Plan (08/23/2023 12:10 AM BELT MACHINE OPERATOR): Continue pentamidine monthly. Last received 07/14 per chart review and should receive prior to discharge. Assessment & Plan (08/14/2023 1:25 PM BELT MACHINE OPERATOR): Receiving immunosuppressive chemotherapy. - Pentam due 08/17 Assessment & Plan (08/09/2023 1:31 PM BELT MACHINE OPERATOR): Receiving immunosuppressive chemotherapy. Continue monthly pentamidine - Last dose given on 07/14. Next dose due on 08/14. Will administer prior to discharge. Assessment & Plan (08/08/2023 10:40 AM BELT MACHINE OPERATOR): Receiving immunosuppressive chemotherapy. Continue monthly pentamidine - Last dose given on 07/14. Next dose due on 08/14. Will administer prior to discharge. Assessment & Plan (08/07/2023 12:04 PM BELT MACHINE OPERATOR): Receiving immunosuppressive chemotherapy. - Last dose given on 07/14. Next dose due on 08/14. Will administer prior to discharge. Assessment & Plan (08/06/2023 11:13 AM BELT MACHINE OPERATOR): Receiving immunosuppressive chemotherapy. - Last dose given on 07/14. Next dose due on 08/14. Assessment & Plan (08/06/2023 11:09 AM BELT MACHINE OPERATOR): No signs/symptoms on ROS or physical exam. Remains at increased risk due to immunosuppressed status. Continue pentamidine monthly. Next due 08/14. Will give prior to discharge. Assessment & Plan (08/05/2023 12:31 PM BELT MACHINE OPERATOR): Receiving immunosuppressive chemotherapy. - Last dose given on 07/14. Next dose due on 08/14. Assessment & Plan (07/15/2023 4:17 PM BELT MACHINE OPERATOR): Receiving immunosuppressive chemotherapy. - Pentamidine last dose given 07/14 - Give every 4 weeks Assessment & Plan (07/14/2023 12:30 PM BELT MACHINE OPERATOR): Receiving immunosuppressive chemotherapy. - Pentamidine last dose given 06/04 - Give every 4 weeks; Will give today Assessment & Plan (07/13/2023 5:40 PM BELT MACHINE OPERATOR): Receiving immunosuppressive chemotherapy. - Pentamidine last dose given 06/04 - Give every 4 weeks; Will plan to give after clears MTX prior to discharge after MTX clears. Assessment & Plan (07/12/2023 2:30 PM BELT MACHINE OPERATOR): Receiving immunosuppressive chemotherapy. - Last dose given 06/04 - Give every 4 weeks; Will plan to give after clears MTX prior to discharge after MTX clears. Assessment & Plan (07/11/2023 4:34 PM BELT MACHINE OPERATOR): Receiving immunosuppressive chemotherapy. - Last dose given 06/04. - Give every 4 weeks; Will plan to give after clears MTX prior to discharge after MTX clears. Assessment & Plan (07/10/2023 1:22 PM BELT MACHINE OPERATOR): Receiving immunosuppressive chemotherapy. - Last dose given 06/04. - Give every 4 weeks; Will plan to give after clears MTX prior to discharge after MTX clears. Assessment & Plan (07/09/2023 1:05 PM BELT MACHINE OPERATOR): Receiving immunosuppressive chemotherapy. - Last dose given 06/04. - Give every 4 weeks; Will plan to give after clears MTX prior to discharge after MTX clears. Assessment & Plan (07/08/2023 11:19 AM BELT MACHINE OPERATOR): Receiving immunosuppressive chemotherapy. - Last dose given 06/04. - Give every 4 weeks; Will plan to give after clears MTX prior to discharge after MTX clears. Assessment & Plan (07/07/2023 1:17 PM BELT MACHINE OPERATOR): Receiving immunosuppressive chemotherapy. - Last dose given 06/04. - Give every 4 weeks; Will plan to give after clears MTX prior to discharge after MTX clears. Assessment & Plan (07/06/2023 5:27 PM BELT MACHINE OPERATOR): Receiving immunosuppressive chemotherapy. - Last dose given 06/04. - Give every 4 weeks; Will plan to give after clears MTX prior to discharge Assessment & Plan (06/22/2023 12:45 PM BELT MACHINE OPERATOR): Receiving immunosuppressive chemotherapy. - Last dose given 06/04. Next due 07/05. Assessment & Plan (06/21/2023 11:15 AM BELT MACHINE OPERATOR): Receiving immunosuppressive chemotherapy. - Last dose given 06/04. Next due 07/05. Assessment & Plan (06/20/2023 11:16 AM BELT MACHINE OPERATOR): Receiving immunosuppressive chemotherapy. - Last dose given 06/04. Next due 07/05. Assessment & Plan (06/19/2023 10:14 AM BELT MACHINE OPERATOR): Receiving immunosuppressive chemotherapy. - Last dose given 06/04. Next due 07/05. Assessment & Plan (06/18/2023 12:01 PM BELT MACHINE OPERATOR): Receiving immunosuppressive chemotherapy. - Last dose given 06/04. Next 07/05. Assessment & Plan (06/17/2023 11:36 AM BELT MACHINE OPERATOR): Receiving immunosuppressive chemotherapy. - Last dose given 06/04. Next 07/05. Assessment & Plan (06/16/2023 2:17 PM BELT MACHINE OPERATOR): Receiving immunosuppressive chemotherapy. - Last dose given 06/04. Next 07/05. Assessment & Plan (06/15/2023 3:44 PM BELT MACHINE OPERATOR): Receiving immunosuppressive chemotherapy. - Last dose given 06/04. Next 07/05. Assessment & Plan (06/15/2023 8:18 AM BELT MACHINE OPERATOR): Receiving immunosuppressive chemotherapy. - Last dose given 06/04. Next 07/05. Assessment & Plan (06/10/2023 1:07 PM CDT): Receiving immunosuppressive chemotherapy. - Last dose given 06/04. Next 07/05. Assessment & Plan (06/09/2023 11:47 AM CDT): Receiving immunosuppressive chemotherapy. - Last dose given 06/04. Next 07/05. Assessment & Plan (06/04/2023 3:40 PM CDT): Receiving immunosuppressive chemotherapy - Pentamidine u4uuhyf; Next 06/04 Assessment & Plan (06/03/2023 1:06 PM CDT): Receiving immunosuppressive chemotherapy - Pentamidine f0thrtn; Next due 06/04 Assessment & Plan (06/02/2023 1:42 PM CDT): Receiving immunosuppressive chemotherapy - Pentamidine j0wxjsd; Next due 06/04 Assessment & Plan (06/01/2023 11:13 AM CDT): Receiving immunosuppressive chemotherapy - Pentamidine v5wvekk; Next due 06/04 Assessment & Plan (05/28/2023 12:42 PM CDT): Receiving immunosuppressive chemotherapy - Pentamidine y6ocxrd; Next due 06/10 Assessment & Plan (05/27/2023 1:34 PM CDT): Receiving immunosuppressive chemotherapy - Pentamidine v9abbqs; Next due 06/10 Assessment & Plan (05/26/2023 12:07 PM CDT): Receiving immunosuppressive chemotherapy - Pentamidine b4usife; Next due 06/10 Assessment & Plan (05/25/2023 12:12 PM CDT): Receiving immunosuppressive chemotherapy - Pentamidine y4xjauw; Next due 06/10 Assessment & Plan (05/24/2023 4:59 AM CDT): Receiving immunosuppressive chemotherapy - Pentamidine o2xiqld; Next due 06/10 Assessment & Plan (05/23/2023 9:03 AM CDT): Receiving immunosuppressive chemotherapy - Pentamidine b9vxtvs; Next due 06/10 Assessment & Plan (05/22/2023 8:56 AM CDT): Receiving immunosuppressive chemotherapy - Pentamidine o1zgxfw; Next due 06/10 Assessment & Plan (05/21/2023 12:45 PM CDT): Receiving immunosuppressive chemotherapy - Pentamidine k7gtepx; Next due 06/10 Assessment & Plan (05/20/2023 1:46 PM CDT): Receiving immunosuppressive chemotherapy - Pentamidine a4vnetg; Next due 06/10 Assessment & Plan (05/19/2023 11:15 AM CDT): Receiving immunosuppressive chemotherapy - Pentamidine a7unkww; Next due 06/10 Assessment & Plan (05/18/2023 1:11 PM CDT): Receiving immunosuppressive chemotherapy - Pentamidine a5gnefu; Next due 06/10 Assessment & Plan (05/17/2023 11:11 AM CDT): Receiving immunosuppressive chemotherapy - Pentamidine r9inqtd; Next due 06/10 Assessment & Plan (05/16/2023 8:10 AM CDT): Receiving immunosuppressive chemotherapy - Pentamidine r2jgnth; Next due 06/10 Assessment & Plan (05/15/2023 10:52 AM CDT): Receiving immunosuppressive chemotherapy - Pentamidine b6lzyow; Next due 06/10 Assessment & Plan (05/14/2023 12:31 PM CDT): Receiving immunosuppressive chemotherapy - Pentamidine q7hcdcc; Next due 06/10 Assessment & Plan (05/13/2023 11:40 AM CDT): Receiving immunosuppressive chemotherapy - Pentamidine k7ssmuz; Next due 06/10 Assessment & Plan (05/12/2023 12:37 PM CDT): Receiving immunosuppressive chemotherapy - Pentamidine d4ynsgd; Next due 06/10 Assessment & Plan (05/11/2023 1:34 PM CDT): Receiving immunosuppressive chemotherapy - Pentamidine u0smgly; Next due 06/10 Assessment & Plan (05/10/2023 [...] did not tolerate PO TMP-SMX. S/p pentamidine 03/14. Will encourage pt adherence with PO meds. Assessment & Plan (03/24/2023 7:29 AM CDT): Pt did not tolerate PO TMP-SMX. S/p pentamidine /. Will encourage pt adherence with PO meds. [...] not tolerate PO TMP-SMX. Will administer pentamidine 03/14. 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 She is [...] ALL, previously treated off study according to [id number], now transitioned to [id number] Arm D for Maintenance therapy in conjunction with [facility] john standard of care updates. She is [...] ALL, previously treated off study according to [id number], now transitioned to [id number] Arm D for Maintenance therapy in conjunction with [facility] john standard of care updates. She is [...] ALL, previously treated off study according to [id number], now transitioned to [id number] Arm D [facility]. She is [...] ALL, previously treated off study according to [id number], now transitioned to [id number] Arm D for Maintenance therapy in conjunction with [facility] john standard of care updates. 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 She is [...] ALL, previously treated off study according to [id number], now transitioned to [id number] Arm D [facility]. She is [...] ALL, previously treated off study according to [id number], now transitioned to [id number] Arm D for Maintenance therapy in conjunction with [facility] standard of care updates. She is here today to begin Maintenance Cycle 1 Day 15. Suyapa has returned from a cruise trip to [facility], [place] and [place] which she took against medical advice. Suyapa verbalized her understanding of the risk of travel. She was given Maintenance 1, day 1 Vincristine 1.5mg/m2 and we delayed the initiation of oral chemotherapy, and IT Methotrexate until return from [facility]. Discussed the risk of delay in [...] ALL, previously treated off study according to [id number], now transitioned to [id number] Arm D for Maintenance therapy in conjunction with [facility] standard of care updates. She is here today to begin Maintenance Cycle 1 Day 1(delayed from 03/24 d/t counts and patient schedule). WBC 3.5, Hgb 8.7, Platelets 150K, ANC 2891 Suyapa discussed today her intent to travel on a cruise to [facility] from 04/17- 04/24. We discussed in [...] burst, and IT Methotrexate until return from [facility]. Discussed the risk of delay in therapy with Suyapa. She stated understanding of risk of relapsed disease. 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 She is [...] ALL, being treated off study according to [id number], presenting today for Interim Maintenance II Day [...] ALL, being treated off study according to [id number], presenting today for Interim Maintenance II Day [...] with VHR pre-B ALL receiving chemotherapy per [id number], currently in Maintenance. Today is Day 28. 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 - Due for Day [...] ALL, being treated off study according to [id number], presenting today for Interim Maintenance II Day 11. She is doing overall well today. Labs and clinical status OK to proceed with chemotherapy today Vincristine 1.5mg/m2 IV, Methotrexate 150mg/m2 IV Continue supportive care measures as needed Return to clinic tomorrow for IM II day 21 Assessment & Plan (01/27/2024 2:31 PM CDT): On [id number] off therapy on interim maintenance II. Last chemo was on 01/17. She is scheduled for chemo 01/27. This will be pushed back to at least 01/31, as platelet count is below 50k. Assessment & Plan (01/26/2024 11:31 AM CDT): On [id number] off therapy on interim maintenance II. Last chemo was on 01/17. Assessment & Plan (01/25/2024 2:24 PM CDT): On [id number] off therapy on interim maintenance II. Last chemo was on 01/17. Assessment & Plan (01/13/2024 2:12 AM CDT): On interim maintenance II per [id number] VHR arm. 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 Due for interim maintenance 12/28/23. - Follow daily CBC Assessment & Plan (12/23/2023 5:23 PM CDT): History of RICOR MAURICE who completed day 50 of delayed intensification on 12/20 being treated off study on AALL 1131. Due for interim maintenance 12/28/23. 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 Labs and clinical status OK to proceed with chemotherapy today Vincristine IV x 1, Quinn-asparaginase IV w/pre-meds prior Continue supportive care measures as needed Return to clinic in 1 week for labs and chemotherapy Assessment & Plan (12/07/2023 4:44 PM CDT): Currently receiving therapy per [id number]. She is in delayed intensification today is day 39. CBC with Hgb 7.4, Plt 67. ANC stable at 727. - Days 36-39: Abbi-C - Daily CBC - s/p x 1 RBC (11/19) Assessment & Plan (12/06/2023 10:38 AM CDT): Currently receiving therapy per [id number]. She is in delayed intensification today is day 38. CBC with Hgb 7.4, Plt 67. ANC stable at 727. - Days 36-39: Abbi-C - Daily CBC - s/p x 1 RBC (11/19) Assessment & Plan (12/05/2023 11:25 AM CDT): Currently receiving therapy per [id number]. She is in delayed intensification today is day 37. CBC with Hgb 7.4, Plt 67. ANC stable at 727. - Days 36-39: Abbi-C - Daily CBC - s/p x 1 RBC (11/19) Assessment & Plan (12/04/2023 2:20 PM CDT): Currently receiving therapy per [id number]. She is in delayed intensification today is day 36. CBC with stable Hgb 7.7 and Plt 78. ANC down-trending at 723. - Days 36-39: Abbi-C - Daily CBC - s/p x 1 RBC (11/19) Assessment & Plan (12/03/2023 6:05 PM CDT): Currently receiving therapy per [id number]. She is in delayed intensification today is day 35. CBC with down-trending Hgb 7.8 (from 8.4) and Plt 80 (from 90). ANC 920 - Day 31: Abbi-C, PO 6TG daily x 14 days - Daily CBC - s/p x 1 RBC (11/19) Assessment & Plan (12/02/2023 5:22 PM CDT): Currently receiving therapy per [id number]. She is in delayed intensification today is day 34. - Day 31: Abbi-C, PO 6TG daily x 14 days - Daily CBC - s/p x 1 RBC (11/19) Assessment & Plan (12/01/2023 3:11 PM CDT): Currently receiving therapy per [id number]. She is in delayed intensification today is day 33. CBC today with up-trending Hgb, Plt, and stable ANC. - Day 31: Abbi-C, PO 6TG daily x 14 days - Daily CBC - s/p x 1 RBC (11/19) Assessment & Plan (11/30/2023 11:10 AM CDT): Currently receiving therapy per [id number]. She is in delayed intensification today is day 32. CBC today with Hgb 8.8, Plt 79, WBC 2.1. Overall stable with up-trending ANC. - Day 31: Abbi-C, PO 6TG daily x 14 days - Daily CBC - s/p x 1 RBC (11/19) Assessment & Plan (11/29/2023 10:48 AM CDT): Currently receiving therapy per [id number]. She is in delayed intensification today is day 31. CBC today with Hgb 8.8, Plt 79, WBC 2.1. Overall stable with up-trending ANC. - Day 31: Abbi-C, PO 6TG daily x 14 days - Daily CBC - s/p x 1 RBC (11/19) Assessment & Plan (11/28/2023 11:57 AM CDT): Currently receiving therapy per [id number]. She is in delayed intensification today is [...] 11:10 AM CDT): Currently receiving therapy per [id number]. She is in delayed intensification today is [...] 10:43 AM CDT): Currently receiving therapy per [id number]. She is in delayed intensification today is [...] 3:10 PM CDT): Currently receiving therapy per [id number]. She is in delayed intensification today is [...] 11:01 AM CDT): Currently receiving therapy per [id number]. She is in delayed intensification today is [...] 2:27 PM CDT): Currently receiving therapy per [id number]. She is in delayed intensification today is day 29. CBC today with Hgb 8.4, Plt 46, WBC 1.1, ANC 400. Overall stable from yesterday. - Next scheduled chemo on day 11/08 - HELD - Must have ANC > 750, Plt >75 - Daily CBC - s/p x 1 RBC (11/19) Assessment & Plan (11/22/2023 7:48 AM CDT): Currently receiving therapy per [id number]. She is in delayed intensification today is day 28. CBC today with Hgb 8.3, Plt 41, WBC 1.2, ANC 300. Overall stable from yesterday. - Next scheduled chemo on day 11/22 - Must have ANC > 750, Plt >75 - Daily CBC - s/p x 1 RBC (11/19) Assessment & Plan (11/21/2023 5:07 PM CDT): Currently receiving therapy per [id number]. She is in delayed intensification today is day 27. CBC today with Hgb 8.5, Plt 33, WBC 0.9, ANC 200. Overall stable from yesterday. - Next scheduled chemo on day 11/22 - Must have ANC > 750, Plt >75 - Daily CBC - s/p x 1 RBC (11/19) Assessment & Plan (11/20/2023 1:02 PM CDT): Currently receiving therapy per [id number]. She is in delayed intensification today is [...] 11:01 AM CDT): Currently receiving therapy per [id number]. She is in delayed intensification today is day 26. - Next scheduled chemo on day 11/22 - Must have ANC > 750, Plt >75 - Daily CBC Assessment & Plan (11/19/2023 4:22 PM CDT): Currently receiving therapy per [id number]. She is in delayed intensification today is day 25. - Next scheduled chemo on day 29, 11/22 - Must have ANC > 750, Plt >75 - Daily CBC Assessment & Plan (11/19/2023 2:56 PM CDT): Suyapa English is a 18 year old with VHR pre B ALL currently receiving therapy per [id number], presenting today for a sick visit. She is currently Delayed Intensification day 25 of therapy. Will plan to delay Delayed Intensification day 29 of therapy admission until 11/26 pending counts (due to counts and logistics for Abbi-C/6TG administration) Assessment & Plan (11/19/2023 9:43 AM CDT): Suyapa English is a 18 year old with VHR pre B ALL currently receiving therapy per [id number], currently in Delayed Intensification Day 24. She [...] & Plan (10/27/2023 10:48 AM CDT): Suyapa Egnlish is a 18 year old with VHR pre B ALL currently receiving therapy per [id number], presenting today Delayed Intensification Day 1. Chemotherapy [...] (Calaspargase) Assessment & Plan (10/13/2023 12:44 PM BELT MACHINE OPERATOR): Suyapa has high risk pre B cell ALL and is being treated per [id number]. - DI has been delayed 2 weeks to allow healing post G-tube placement Assessment & Plan (10/12/2023 2:24 PM BELT MACHINE OPERATOR): Suyapa has high risk pre B cell ALL and is being treated per [id number]. - DI has been delayed 2 weeks to allow healing post G-tube placement Assessment & Plan (10/11/2023 7:55 AM BELT MACHINE OPERATOR): Suyapa has high risk pre B cell ALL and is being treated per [id number]. - DI has been delayed 2 weeks to allow healing post G-tube placement Assessment & Plan (10/10/2023 2:05 PM BELT MACHINE OPERATOR): Suyapa has high risk pre B cell ALL and is being treated per [id number] - DI has been delayed 2 weeks to allow healing post G-tube placement Assessment & Plan (10/09/2023 3:24 PM BELT MACHINE OPERATOR): Suyapa has high risk pre B cell ALL and is being treated per [id number] - DI has been delayed 2 weeks to allow healing post G-tube placement Assessment & Plan (10/08/2023 2:04 PM BELT MACHINE OPERATOR): Suyapa has high risk pre B cell ALL and is being treated per [id number] - DI has been delayed 2 weeks to allow healing post G-tube placement Assessment & Plan (10/06/2023 3:25 PM BELT MACHINE OPERATOR): Suyapa English is a 18 year old with VHR pre B ALL currently receiving therapy per [id number], recently completed Interim Maintenance I Day 43 (HD MTX). Ramesh was admitted 09/21- for HD MTX but also for fever rule out. She received CTX. Her RVP + coronavirus OC43 at the time. Ramesh stopped her 6MP as prescribed. She is scheduled to receive a g-tube on Thursday 2/29. She is scheduled to begin Delayed Intensification on 10/25. Supportive care as needed Return after pt recovers from g-tube placement for DI on 10/25 Assessment & Plan (09/25/2023 2:02 PM BELT MACHINE OPERATOR): Suyapa English is an 18 y.o. female with VHR pre-B ALL admitted for scheduled chemotherapy per [id number], Interim Maintenance I, HD MTX, Day 43, off study. She cleared at hour 48. - [id number], Interm Maintenance I, Day 43, HD MTX, off study (Day 1= 09/21) Day 43: VCR, HD MTX (+leucovorin starting @ hr 42) Days 43-56: 6MP - PT/OT consults - ECHO/EKG obtained - Will delay start of DI to 10/25 to allow healing after G-Tube placement Assessment & Plan (09/24/2023 5:44 PM BELT MACHINE OPERATOR): Suyapa English is an 18 y.o. female with VHR pre-B ALL admitted for scheduled chemotherapy per [id number], Interim Maintenance I, HD MTX, Day 43, off study. She cleared at hour 48. - [id number], Interm Maintenance I, Day 43, HD MTX, off study (Day 1= 09/21) Day 43: VCR, HD MTX (+leucovorin starting @ hr 42) Days 43-56: 6MP - PT/OT consults - ECHO/EKG obtained - Will delay start of DI to 10/25 to allow healing after G-Tube placement Assessment & Plan (09/23/2023 3:30 PM BELT MACHINE OPERATOR): Suyapa English is an 18 y.o. female with VHR pre-B ALL admitted for scheduled chemotherapy per [id number], Interim Maintenance I, HD MTX, Day 43, off study. She will have her 42 hour MTX level this afternoon. - [id number], Interm Maintenance I, Day 43, HD MTX, [...] obtained Assessment & Plan (09/22/2023 10:16 AM BELT MACHINE OPERATOR): Suyapa English is an 18 y.o. female with VHR pre-B ALL admitted for scheduled chemotherapy per [id number], Interim Maintenance I, HD MTX, Day 43, off study. She will have her 24 hour MTX level at 2115 tonight. - [id number], Interm Maintenance I, Day 43, HD MTX, [...] Intensification Assessment & Plan (09/21/2023 2:01 PM BELT MACHINE OPERATOR): Suyapa English is an 18 y.o. female with VHR pre-B ALL admitted for scheduled chemotherapy per [id number], Interim Maintenance I, HD MTX, Day 43, off study. - [id number], Interm Maintenance I, Day 43, HD MTX, [...] consults Assessment & Plan (08/23/2023 1:44 AM BELT MACHINE OPERATOR): See Oncology History for details. Assessment & Plan (08/06/2023 10:51 AM BELT MACHINE OPERATOR): Suyapa English is a 18 year old with VHR pre B ALL currently receiving therapy per [id number], presenting today for admission for Interim Maintenance [...] therapy Assessment & Plan (07/27/2023 3:58 PM BELT MACHINE OPERATOR): Ramesh English is an 18 y/o female diagnosed with VHR pre B ALL currently receiving chemotherapy per protocol [id number]. She was due to receive HD MTX Day 15 today; however, declined admission due to grandmother's out of town on Sunday 07/29. - Plan to delay chemotherapy to next Sunday 08/05 Assessment & Plan (07/15/2023 4:16 PM BELT MACHINE OPERATOR): Suyapa English is an 18 y.o. female with pre-B ALL admitted for scheduled chemotherapy per [id number], Interim Maintenance I, HD MTX, Day 1, off study. Hour 192 MTX level at was 0.08. - [id number], Interm Maintenance I, Day 1, HD MTX, [...] today Assessment & Plan (07/14/2023 12:30 PM BELT MACHINE OPERATOR): Suyapa English is an 18 y.o. female with pre-B ALL admitted for scheduled chemotherapy per [id number], Interim Maintenance I, HD MTX, Day 1, off study. Hour 180 MTX level at 0600 was 0.11. Her 192 hour level will be at 1800 tonight. She needs to be <0.1 to clear. - [id number], Interm Maintenance I, Day 1, HD MTX, [...] consults Assessment & Plan (07/13/2023 5:39 PM BELT MACHINE OPERATOR): Suyapa English is an 18 y.o. female with pre-B ALL admitted for scheduled chemotherapy per [id number], Interim Maintenance I, HD MTX, Day 1, off study. Hour 144 MTX level 0.16, creatinine 0.86, Hour 156 MTX 0.16, creatinine 0.87. She needs to be <0.1 to clear. - [id number], Interm Maintenance I, Day 1, HD MTX, [...] consults Assessment & Plan (07/12/2023 2:33 PM BELT MACHINE OPERATOR): Suyapa English is an 18 y.o. female with pre-B ALL admitted for scheduled chemotherapy per [id number], Interim Maintenance I, HD MTX, Day 1, off study. 120h MTX level 0.23, Cr 0.8. 132h MTX level 0.2, Cr 0.86. Ramesh will have her hour 144 MTX level at 1800 this evening. She needs to be <0.1 to clear. - [id number], Interm Maintenance I, Day 1, HD MTX, [...] consults Assessment & Plan (07/11/2023 7:07 PM BELT MACHINE OPERATOR): Suyapa English is an 18 y.o. female with pre-B ALL admitted for scheduled chemotherapy per [id number], Interim Maintenance I, HD MTX, Day 1, off study. Hour 72 level 0.78 and hour 84 level 0.55. 96 hour level was .36 and 108 hour level was .30. She needs to be <0.1 to clear. - [id number], Interm Maintenance I, Day 1, HD MTX, [...] consults Assessment & Plan (07/10/2023 1:22 PM BELT MACHINE OPERATOR): Suyapa English is an 18 y.o. female with pre-B ALL admitted for scheduled chemotherapy per [id number], Interim Maintenance I, HD MTX, Day 1, off study. Hour 72 level 0.78 and hour 84 level 0.55. She will have hour 96 level this evening at 1800. She needs to be <0.1 to clear. - [id number], Interm Maintenance I, Day 1, HD MTX, [...] consults Assessment & Plan (07/09/2023 1:04 PM BELT MACHINE OPERATOR): Suyapa English is an 18 y.o. female with pre-B ALL admitted for scheduled chemotherapy per [id number], Interim Maintenance I, HD MTX, Day 1, off study. Her 60 hour MTX level at 0600 this morning was 1.03, Cr 0.98. No changes were made. She will have a 72 hour MTX level with BMP at 1800 this evening. She needs to be <0.1 to clear. 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 Her 24h MTX level was 120, Cr 0.75. 36h MTX level was 10.8, Cr 1. She will have her 42h level at ~1200 and 48h level at ~1800. 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 She will have a 24 hour MTX level at 1810 tonight. 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 Today is Day 1. - Labs & Exam OK to proceed with chemotherapy today - [id number], Interm Maintenance I, Day 1, HD MTX, [...] consults Assessment & Plan (06/22/2023 12:45 PM BELT MACHINE OPERATOR): Today is day 57 of consolidation per [id number], off study. - Next chemotherapy due 06/22, IM 1 Day 1; Delay one week to 06/29, will need to meet count parameters Assessment & Plan (06/21/2023 11:13 AM BELT MACHINE OPERATOR): Today is day 55 of consolidation per [id number], off study. - Next chemotherapy due 06/22, IM 1 Day 1; Delay one week to 06/29, will need to meet count parameters Assessment & Plan (06/20/2023 7:50 PM BELT MACHINE OPERATOR): Suyapa English is VHR MUNIRA who presente Assessment & Plan (06/20/2023 11:14 AM BELT MACHINE OPERATOR): Today is day 54 of consolidation per [id number], off study. - Next chemotherapy due 06/22, IM 1 Day 1; Delay one week to 06/29, will need to meet count parameters Assessment & Plan (06/19/2023 10:13 AM BELT MACHINE OPERATOR): Today is day 54 of consolidation per [id number], off study. - Next chemotherapy due 06/22, IM 1 Day 1; Delay one week to 06/29, will need to meet count parameters Assessment & Plan (06/18/2023 11:59 AM BELT MACHINE OPERATOR): Today is day 53 of consolidation per [id number], off study. - Next chemotherapy due 06/22, IM 1 Day 1; Delay one week to 06/29, will need to meet count parameters Assessment & Plan (06/17/2023 11:35 AM BELT MACHINE OPERATOR): Today is day 52 of consolidation per [id number], off study. - Next chemotherapy due 06/22, IM 1 Day 1; Delay one week to 06/29, will need to meet count parameters Assessment & Plan (06/16/2023 2:16 PM BELT MACHINE OPERATOR): Today is day 51 of consolidation per [id number], off study. - Next chemotherapy due 06/22, IM 1 Day 1; Will need to meet count parameters Assessment & Plan (06/15/2023 3:43 PM BELT MACHINE OPERATOR): Today is day 50 of consolidation per [id number], off study. - Next chemotherapy due 06/22, IM 1 Day 1; Will need to meet count parameters Assessment & Plan (06/15/2023 8:18 AM BELT MACHINE OPERATOR): Today is day 46 of consolidation per [id number] - Continue nightly 6MP through day 46 to make up for missed doses. - Next chemotherapy due Day 50 VCR on Friday 06/15. Assessment & Plan (06/10/2023 1:07 PM CDT): Today is day 45 of consolidation per [id number] - Continue nightly 6MP through day 46 to make up for missed doses. - Next chemotherapy due Day 50 VCR on Friday 06/15. Assessment & Plan (06/09/2023 11:40 AM CDT): Today is day 44 of consolidation per [id number] - Continue nightly 6MP through day 46 to make up for missed doses. - Next chemotherapy due Day 50 VCR on Friday 06/15. Assessment & Plan (06/08/2023 2:29 PM CDT): Today is day 43 of consolidation per [id number] - Continue nightly 6MP through day 46 to make up for missed doses. 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 Undergoing induction chemotherapy via [id number] protocol. Day 1 was 03/12. CSF x3 [...] Reg diet as tolerated - NPO at IA for chemo; run MIVF overnight - Monitor [...] prior to all chemo Onc: Induction per [id number], Day 1=03/12 - Day 29 IT Methotrexate [...] risk b-cell ALL. Undergoing induction chemotherapy via [id number] protocol. Day 1 was 03/12. CSF x3 [...] prior to all chemo Onc: Induction per [id number], Day 1=03/12 - Day 29 IT Methotrexate rescheduled for 04/15/23 - Port placed 04/03 - Day 1: VCR, Dauno with Zinecard, prednisone x 56 doses - Day 4: Calasparagase - Days 8, 15, 22: VCR, Dauno with Zinecard - Day 29: IT MTX - LP x3 with CSF clear: 8/7, 03/19, 03/24 - Prednisone IV q12h (3 missed doses to be made up at end of induction) (completed) Lines: Single Lumen Broviac Labs: Daily AM CBC, qMon RFP, qThurs CMP Assessment & Plan (04/12/2023 10:12 AM CDT): Suyapa English is a 17 y.o. 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 Undergoing induction chemotherapy via [id number] protocol. Day 1 was 03/12. CSF x3 [...] prior to all chemo Onc: Induction per [id number], Day 1=03/12 - Day 29 IT Methotrexate [...] risk b-cell ALL. Undergoing induction chemotherapy via [id number] protocol. Day 1 was 03/12. CSF x3 [...] prior to all chemo Onc: Induction per [id number], Day 1=03/12 - Day 29 IT Methotrexate [...] risk b-cell ALL. Undergoing induction chemotherapy via [id number] protocol. Day 1 was 03/12. CSF x3 [...] - Monitor symptoms of hyponatremia, recheck electrolytes 9 am - Encourage PO salt packets - [...] prior to all chemo Onc: Induction per [id number], Day 1=03/12 - Day 29 IT Methotrexate [...] risk b-cell ALL. Undergoing induction chemotherapy via [id number] protocol. Day 1 was 03/12. CSF x3 [...] prior to all chemo Onc: Induction per [id number], Day 1=03/12 - Day 29 IT Methotrexate [...] risk b-cell ALL. Undergoing induction chemotherapy via HQQA0961 protocol. Day 1 was 03/12. CSF x3 [...] prior to all chemo Onc: Induction per [id number], Day 1=03/12 - Declining day 29 IT [...] risk b-cell ALL. Undergoing induction chemotherapy via [id number] protocol. Day 1 was 03/12. CSF x3 [...] prior to all chemo Onc: Induction per [id number], Day 1=03/12 - Port placed 04/03 - [...] Assessment & Plan (04/06/2023 10:30 AM CDT): Suyapa English is a 17 y.o. 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 Undergoing induction chemotherapy via RANH1630 protocol. Day 1 was 03/12. CSF x3 [...] prior to all chemo Onc: Induction per QTFR1392, Day 1=03/12 - Port placed 04/03 - [...] risk b-cell ALL. Undergoing induction chemotherapy via [id number] protocol. Day 1 was 03/12. CSF x3 [...] prior to all chemo Onc: Induction per [id number], Day 1=03/12 - Port placed 04/03 - [...] risk b-cell ALL. Undergoing induction chemotherapy via YLED1785 protocol. Day 1 was 03/12. CSF x3 [...] prior to all chemo Onc: Induction per [id number], Day 1=03/12 - Port placed 04/03 - [...] (04/04/2023 9:41 AM CDT): On treatment per [id number] protocol. Day 03/12. Assessment & Plan (04/03/2023 7:00 PM CDT): On treatment per [id number] protocol. Day 03/12. Assessment & Plan (04/02/2023 1:50 PM CDT): On treatment per GWYB2440 protocol. Day 03/12. Assessment & Plan (04/01/2023 11:13 AM CDT): On treatment per [id number] protocol. Day 03/12. Assessment & Plan (03/31/2023 11:14 AM CDT): On treatment per [id number] protocol. Day 03/12. Assessment & Plan (03/30/2023 11:34 AM CDT): On treatment per [id number] protocol. Day 1 8/3. Assessment & Plan (03/29/2023 11:51 AM CDT): On treatment per [id number] protocol. 03/12. Assessment & Plan (03/28/2023 7:13 AM CDT): On treatment per [id number] protocol. 03/12. Assessment & Plan (03/27/2023 7:41 AM CDT): On treatment per GTOB2365 protocol. 03/12. Assessment & Plan (03/26/2023 7:49 AM CDT): On treatment per [id number] protocol. 03/12. Assessment & Plan (03/25/2023 7:12 AM CDT): On treatment per EJEW1595 protocol. 03/12. Assessment & Plan (03/24/2023 7:28 AM CDT): On treatment per RFRH4118 protocol. 03/12. Assessment & Plan (03/21/2023 7:47 AM CDT): On treatment per DXRH1021 protocol. 03/12. Assessment & Plan (03/20/2023 8:24 AM CDT): On treatment per [id number] protocol. 03/12. Assessment & Plan (03/18/2023 7:31 AM CDT): On treatment per CREQ0362 protocol. 03/12. Assessment & Plan (03/17/2023 7:34 AM CDT): On treatment per [id number] protocol. 03/12. Assessment & Plan (03/16/2023 7:21 AM CDT): On treatment per LZUM0947 protocol. 03/12. Assessment & Plan (03/15/2023 12:29 PM CDT): On treatment per [id number] protocol. Day 03/12. Assessment & Plan (03/14/2023 7:47 AM CDT): On treatment per GTJU2158 protocol. Day 03/12. Assessment & Plan (03/13/2023 8:12 AM CDT): On day 1 of treatment per [id number] protocol. Assessment & Plan (03/12/2023 1:10 PM CDT): See leukocytosis. Assessment & Plan (03/11/2023 7:31 AM CDT): See leukocytosis. Assessment & Plan (03/10/2023 8:05 AM CDT): See leukocytosis. Assessment & Plan (03/09/2023 1:57 PM CDT): See leukocytosis. 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 She is [...] ALL, previously treated off study according to [id number], now transitioned to [id number] Arm D for Maintenance therapy in conjunction with [facility] [place] [facility] john standard of care updates. 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 Woke from sleep with 10/10 lower back pain. No red flag symptoms, such as fever, numbness/tingling, or lack of control of bowel/bladder. Radiographs of the spine, hips, and pelvis negative for fractures. Did have a self reported fever on 612 that has resolved. 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 Woke from sleep with 10/10 lower back pain. No red flag symptoms, such as fever, numbness/tingling, or lack of control of bowel/bladder. Radiographs of the spine, hips, and pelvis negative for fractures. Did have a self reported fever on 612 that has resolved. Appears to be acute [...] Urology Assessment & Plan (10/13/2023 12:47 PM BELT MACHINE OPERATOR): Ramesh is complaining of urinary urgency, not [...] exercises Assessment & Plan (10/12/2023 2:35 PM BELT MACHINE OPERATOR): Ramesh is complaining of urinary urgency, not [...] 02/26/2024 Assessment & Plan (10/07/2023 11:47 AM BELT MACHINE OPERATOR): Ramesh endorses one week of abdominal pain [...] 10/27/2023 Assessment & Plan (09/25/2023 2:02 PM BELT MACHINE OPERATOR): New runny nose and congestion with fever. Viral panel positive for corono virus OC43 - Supportive care - Contact and droplet isolation Assessment & Plan (09/24/2023 5:43 PM BELT MACHINE OPERATOR): New runny nose and congestion with fever. Viral panel positive for corono virus OC43 - Supportive care - Contact and droplet isolation Pre B-cell acute lymphoblastic leukemia (ALL) 09/21/19 24 09/21/2023 Varicella exposure 08/25/2023 Assessment & Plan (08/26/2023 1:47 PM BELT MACHINE OPERATOR): Patient was potentially exposed to Varicella in [...] admitted Assessment & Plan (08/25/2023 11:51 AM BELT MACHINE OPERATOR): Patient was potentially exposed to Varicella in [...] 10/07/2023 Assessment & Plan (08/27/2023 6:18 PM BELT MACHINE OPERATOR): Ramesh is an 18 year old F [...] port Assessment & Plan (08/26/2023 1:47 PM BELT MACHINE OPERATOR): Ramesh is an 18 year old F [...] port Assessment & Plan (08/25/2023 2:04 PM BELT MACHINE OPERATOR): Ramesh is an 18 year old F [...] port Assessment & Plan (08/24/2023 11:53 AM BELT MACHINE OPERATOR): Ramesh is an 18 year old F [...] port Assessment & Plan (08/23/2023 12:18 AM BELT MACHINE OPERATOR): Ramesh is an 18 year old F [...] 10/07/2023 Assessment & Plan (09/25/2023 2:03 PM BELT MACHINE OPERATOR): Resolved Plan for discharge home when safe transportation has been obtained. Assessment & Plan (09/24/2023 5:42 PM BELT MACHINE OPERATOR): T Max 38.5 - F/U blood cultures - Ceftriaxone Q24h Assessment & Plan (08/22/2023 10:08 PM BELT MACHINE OPERATOR): As above Facial swelling 08/08/2023 08/09/2023 Assessment & Plan (08/08/2023 10:44 AM BELT MACHINE OPERATOR): Symmetric facial swelling without airway edema. Unclear [...] Plan (11/08/2023 1:24 PM CDT): Patient on [id number], Post-Induction. - last received dexrazoxane, doxorubicin, vincristine 25 - next: 4/1 doxorubicin, vincristine, 7 day dexamethasone (CMP 4/1, monitor stool before giving vincristine) - Bactrim Sat/Sun - Lovenox prophylaxis while admitted Assessment & Plan (11/07/2023 1:19 PM CDT): Patient on [id number], Post-Induction. - last received dexrazoxane, doxorubicin, vincristine 25 - next: 4/1 doxorubicin, vincristine, 7 day dexamethasone (CMP 4/1, monitor stool before giving vincristine) - Bactrim Sat/Sun - Lovenox prophylaxis while admitted Assessment & Plan (11/06/2023 11:12 AM CDT): Patient on [id number], Post-Induction. - last received dexrazoxane, doxorubicin, vincristine 11/01 - next: 4/1 doxorubicin, vincristine, 7 day dexamethasone (CMP 4/1, monitor stool before giving vincristine) - Bactrim Sat/Sun - Lovenox prophylaxis while admitted Acute kidney injury 07/09/2023 10/06/19 24 Assessment & Plan (07/15/2023 4:24 PM BELT MACHINE OPERATOR): Due to chemotherapy. Peak 1.0 on 07/08. Creatinine improving at 0.78. - Continue mIVF - Strict I/Os - Daily weights Assessment & Plan (07/14/2023 12:32 PM BELT MACHINE OPERATOR): Due to chemotherapy. Peak 1.0 on 07/08. Her hyperhydration IVFs were increased at hour 24 given a 31% increase from her creatinine baseline. Most recent level this morning 0.79. UOP 3.4ml/kg/hr. - Continue hyperhydration IVFs at 200ml/m2/hr - Continue Leucovorin 15mg/m2 Q3h - Strict I/Os - Daily weights Assessment & Plan (07/13/2023 5:45 PM BELT MACHINE OPERATOR): Due to chemotherapy. Peak 1.0 on 07/08. Her hyperhydration IVFs were increased at hour 24 given a 31% increase from her creatinine baseline. Most recent level this morning 0.87. UOP 3ml/kg/hr. - Continue hyperhydration IVFs at 200ml/m2/hr - Continue Leucovorin 15mg/m2 Q3h - Strict I/Os - Daily weights Assessment & Plan (07/12/2023 2:33 PM BELT MACHINE OPERATOR): Due to chemotherapy. Peak 1.0 on 07/08. Her hyperhydration IVFs were increased at hour 24 given a 31% increase from her creatinine baseline. Most recent level this morning 0.86. UOP 2.8ml/kg. - Continue hyperhydration IVFs at 200ml/m2/hr - Continue Leucovorin 15mg/m2 Q3h - Strict I/Os - Daily weights Assessment & Plan (07/11/2023 7:10 PM BELT MACHINE OPERATOR): Due to chemotherapy. Peak 1.0 on 07/08. Her hyperhydration IVFs were increased at hour 24 given a 31% increase from her creatinine baseline. Most recent level this morning 0.91. UOP adequate at 3.09ml/kg/hr. - Continue hyperhydration IVFs at 200ml/m2/hr - Continue Leucovorin 15mg/m2 Q3h - Strict I/Os - Daily weights Assessment & Plan (07/10/2023 1:27 PM BELT MACHINE OPERATOR): Due to chemotherapy. Peak 1.0 on 07/08. Her hyperhydration IVFs were increased at hour 24 given a 31% increase from her creatinine baseline. Most recent level this morning 0.55. UOP adequate at 4.89ml/kg/hr. - Continue hyperhydration IVFs at 200ml/m2/hr - Continue Leucovorin 15mg/m2 Q3h - Strict I/Os - Daily weights Assessment & Plan (07/09/2023 1:07 PM BELT MACHINE OPERATOR): Due to chemotherapy. Peak 1.0 on 07/08. Her hyperhydration IVFs were increased at hour 24 given a 31% increase from her creatinine baseline. Most recent level this morning 0.98. UOP adequate at 3.9ml/kg/hr. - Continue hyperhydration IVFs at 200ml/m2/hr - Continue Leucovorin 15mg/m2 Q3h - Strict I/Os - Daily weights Fever 07/09/2023 10/27/2023 Assessment & Plan (10/13/2023 12:45 PM BELT MACHINE OPERATOR): Ramesh spiked a fever yesterday morning to 101.3F in the setting of abdominal pain and new G-tube. Abdomen tender, KUB without free air or focality. Has been afebrile x24 hours. Fever was likely post-surgical and she has no other signs of infection. - S/p cefepime (10/09-10/10) - Follow blood cultures from 10/09 - NGTD Assessment & Plan (10/12/2023 2:32 PM BELT MACHINE OPERATOR): Ramesh spiked a fever yesterday morning to 101.3F in the setting of abdominal pain and new G-tube. Abdomen tender, KUB without free air or focality. Has been afebrile x24 hours. Fever was likely post-surgical and she has no other signs of infection. - S/p cefepime (10/09-10/10) - Follow blood cultures from 10/09 - NGTD Assessment & Plan (10/11/2023 11:55 AM BELT MACHINE OPERATOR): Ramesh spiked a fever yesterday morning to 101.3F in the setting of abdominal pain and new G-tube. Abdomen tender, KUB without free air or focality. Has been afebrile x24 hours. Fever was likely post-surgical and she has no other signs of infection. Will d/c cefepime today. - Stop cefepime (10/09-10/10) - Follow blood cultures from 10/09. Assessment & Plan (10/10/2023 2:07 PM BELT MACHINE OPERATOR): Ramesh spiked a fever in the setting of abdominal pain and new peg tube. Abdomen tender, KUB without free air or focality. Ped surg following [] FU blood cultures - ped surg consulted, appreciate recs Assessment & Plan (07/15/2023 4:21 PM BELT MACHINE OPERATOR): Ramesh was febrile overnight on 07/08-07/09 to 38.2 and 38.1. She was tachycardic with fevers but otherwise well-appearing on exam, BPs WNL. Blood cultures were drawn from her PAC and peripherally and Cefepime was started. She has been afebrile since 07/09 at 7:29 pm. - Cefepime (07/09--5) - blood cultures no growth - Tylenol PRN for fevers Assessment & Plan (07/14/2023 12:31 PM BELT MACHINE OPERATOR): Ramesh was febrile overnight on 07/08-07/09 to [...] fevers Assessment & Plan (07/13/2023 5:45 PM BELT MACHINE OPERATOR): Ramesh was febrile overnight on 07/08-07/09 to [...] fevers Assessment & Plan (07/12/2023 2:32 PM BELT MACHINE OPERATOR): Ramesh was febrile overnight on 07/08-07/09 to [...] fevers Assessment & Plan (07/11/2023 7:11 PM BELT MACHINE OPERATOR): Ramesh was febrile overnight on 07/08-07/09 to [...] fevers Assessment & Plan (07/10/2023 1:27 PM BELT MACHINE OPERATOR): Ramesh was febrile overnight on 07/08-07/09 to [...] fevers Assessment & Plan (07/09/2023 1:09 PM BELT MACHINE OPERATOR): Ramesh was febrile overnight on 07/08-07/09 to [...] 07/14/2023 Assessment & Plan (07/14/2023 12:32 PM BELT MACHINE OPERATOR): Hgb 8.5 today. - Cbc in am d/t dropping plt count Assessment & Plan (07/13/2023 5:44 PM BELT MACHINE OPERATOR): Hgb 8.5 today. - Cbc in am d/t dropping plt count Assessment & Plan (07/12/2023 2:33 PM BELT MACHINE OPERATOR): Hgb 6.7 on 07/08. This AM CBC Hgb 6.1. - Transfuse 2 units CBCs today - Do not obtain another CBC until 1 week from now or if symptomatic Assessment & Plan (07/11/2023 7:09 PM BELT MACHINE OPERATOR): Hgb 6.7 on 07/08. Will check CBC and blood culture in the AM 07/12. - Plan to transfuse PRBCs prior to discharge or sooner if symptomatic. -CBC daily -blood cultures Assessment & Plan (07/10/2023 1:26 PM BELT MACHINE OPERATOR): Hgb 6.7 on 07/08. - Plan to transfuse PRBCs prior to discharge or sooner if symptomatic. Assessment & Plan (07/09/2023 1:06 PM BELT MACHINE OPERATOR): Hgb 6.7 on 07/08. - Plan to transfuse PRBCs prior to discharge or sooner if symptomatic. Assessment & Plan (07/08/2023 11:21 AM BELT MACHINE OPERATOR): Hgb 6.7 on 07/08. - Plan to transfuse PRBCs prior to discharge Hemorrhoid 07/08/2023 10/07/2023 Assessment & Plan (07/15/2023 4:21 PM BELT MACHINE OPERATOR): Continues to have pain from hemorrhoid. - Ensure Ramesh is having regular, normal Bms - currently having loose stools - Symptom management (hydrocortisone 2.5% no more than BID, lidocaine cream, sitz bath, witch ronn) Assessment & Plan (07/14/2023 12:30 PM BELT MACHINE OPERATOR): Continues to have pain from hemorrhoid. - Ensure Ramesh is having regular, normal Bms - currently having loose stools - Symptom management (hydrocortisone 2.5% no more than BID, lidocaine cream, sitz bath, witch ronn) Assessment & Plan (07/13/2023 5:45 PM BELT MACHINE OPERATOR): Continues to have pain from hemorrhoid. - Ensure Ramesh is having regular, normal Bms - currently having loose stools - Symptom management (hydrocortisone 2.5% no more than BID, lidocaine cream, sitz bath, witch ronn) Assessment & Plan (07/12/2023 2:31 PM BELT MACHINE OPERATOR): Continues to have pain from hemorrhoid. - Ensure Ramesh is having regular, normal BMs - Symptom management (hydrocortison 2.5% no more than BID, lidocaine cream, sitz bath, witch ronn) - Added Lidocaine 4% external solution today Assessment & Plan (07/11/2023 7:09 PM BELT MACHINE OPERATOR): Continues to have pain from hemorrhoid. - Ensure Ramesh is having regular, normal BMs - Symptom management (hydrocortison 2.5% no more than BID, lidocaine cream, sitz bath, witch ronn) Assessment & Plan (07/10/2023 1:27 PM BELT MACHINE OPERATOR): Small hemorrhoid noted to on rectal exam 07/07. No fissures or bleeding noted. Could be related to small bloody stool on 07/07. Increase pain overnight. - Ensure Ramesh is having regular, normal BMs - Symptom management (hydrocortison 2.5% no more than BID, lidocaine cream, sitz bath, witch ronn) Assessment & Plan (07/09/2023 1:05 PM BELT MACHINE OPERATOR): Small hemorrhoid noted to on rectal exam 07/07. No fissures or bleeding noted. Could be related to small bloody stool on 07/07. Some pain overnight. - Ensure Ramesh is having regular, normal BMs - Symptom management Assessment & Plan (07/08/2023 11:22 AM BELT MACHINE OPERATOR): Small hemorrhoid noted to on rectal exam 07/07. No fissures or bleeding noted. Could be related to small bloody stool on 07/07. No current complains of pain. - Ensure Ramesh is having regular, normal BMs - Symptom management Hematochezia 07/07/2023 07/12/2023 Assessment & Plan (07/12/2023 2:31 PM BELT MACHINE OPERATOR): No recent hematochezia. Pain with passing stool. [...] ordered Assessment & Plan (07/11/2023 7:08 PM BELT MACHINE OPERATOR): No recent hematochezia. Pain with passing stool. [...] ordered Assessment & Plan (07/10/2023 1:26 PM BELT MACHINE OPERATOR): Ramesh had one loose, bright red, bloody [...] ordered Assessment & Plan (07/09/2023 1:05 PM BELT MACHINE OPERATOR): Ramesh had one loose, bright red, bloody [...] discharge Assessment & Plan (07/08/2023 11:19 AM BELT MACHINE OPERATOR): Ramesh had one loose, bright red, bloody stool overnight 07/07 accompanied by generalized abdominal cramping. KUB obtained and normal. Small external hemorrhoid on exam today. No fissures or bleeding present. - 07/08 F/U stool samples: c diff, noro, rotavirus, guaiac stool - Begin Pepcid after MTX has cleared prior to discharge Assessment & Plan (07/07/2023 1:20 PM BELT MACHINE OPERATOR): Ramesh had one loose, bright red, bloody [...] 07/07/202308/10 Assessment & Plan (07/15/2023 4:22 PM BELT MACHINE OPERATOR): Potassium normalized. Likely related to hyperhydration with bicarb containing IVF. - continue KCL in IVFs Assessment & Plan (07/14/2023 12:31 PM BELT MACHINE OPERATOR): Potassium normalized. - continue KCL in IVFs - Obtain BMP with each MTX level Assessment & Plan (07/13/2023 5:42 PM BELT MACHINE OPERATOR): Potassium normalized - continue KCL in IVFs - Obtain BMP with each MTX level Assessment & Plan (07/12/2023 2:32 PM BELT MACHINE OPERATOR): Potassium normalized today. - continue KCL in IVFs - Obtain BMP with each MTX level Assessment & Plan (07/11/2023 7:08 PM BELT MACHINE OPERATOR): Potassium normalized today. - continue KCL in IVFs - Obtain BMP with each MTX level Assessment & Plan (07/10/2023 1:26 PM BELT MACHINE OPERATOR): K 2.8 this morning. - increase KCL to IVFs today - Obtain BMP with each MTX level Assessment & Plan (07/09/2023 1:06 PM BELT MACHINE OPERATOR): K 2.8 this morning. - Add KCL to IVFs today - Obtain BMP with each MTX level Assessment & Plan (07/08/2023 11:20 AM BELT MACHINE OPERATOR): K 2.9 again this morning. Na 147. - Oral KCL 20mEq today - Obtain BMP with each MTX level Assessment & Plan (07/07/2023 1:21 PM BELT MACHINE OPERATOR): K 2.9 this morning. - Oral KCL [...] patch Assessment & Plan (08/14/2023 1:25 PM BELT MACHINE OPERATOR): Hx of. - Schedule Zofran and Scopolamine patch while admitted and receiving chemotherapy - Benadryl/Reglan PRN - May titrate anti-emetic regimen to efficacy Assessment & Plan (08/09/2023 1:32 PM BELT MACHINE OPERATOR): Hx of. - Schedule Zofran and Scopolamine patch while admitted and receiving chemotherapy - Benadryl/Reglan PRN - May titrate anti-emetic regimen to efficacy Assessment & Plan (08/08/2023 10:40 AM BELT MACHINE OPERATOR): Hx of. - Schedule Zofran and Scopolamine patch while admitted and receiving chemotherapy - Benadryl/Reglan PRN - May titrate anti-emetic regimen to efficacy Assessment & Plan (08/07/2023 12:03 PM BELT MACHINE OPERATOR): Hx of. - Schedule Zofran and Scopolamine patch while admitted and receiving chemotherapy - Benadryl/Reglan PRN - May titrate anti-emetic regimen to efficacy Assessment & Plan (08/06/2023 11:13 AM BELT MACHINE OPERATOR): Hx of. - Schedule Zofran and Scopolamine patch while admitted and receiving chemotherapy - Benadryl/Reglan PRN - May titrate anti-emetic regimen to efficacy Assessment & Plan (08/05/2023 12:32 PM BELT MACHINE OPERATOR): Hx of. 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 Blood cultures obtained and started on [...] continue Cefe/Flagyl for appendicitis through at least Alex 10/9 - Follow-up urine culture results - NGTD - Obtain blood cultures every 24 hours with fevers - RFP daily while receiving Vancomycin - Consult ICID, appreciate recommendations and follow-up labwork from 05/15 [] Vanc trough Friday 05/18 prior to 0200 dose Assessment & Plan (05/14/2023 12:33 PM CDT): Initially febrile on 04/29 AM. [...] (05/12/2023 12:40 PM CDT): Initially febrile on 04/29 AM. [...] (05/11/2023 1:52 PM CDT): Initially febrile on 04/29 AM. [...] (05/09/2023 8:06 AM CDT): Initially febrile on 920 AM. [...] (05/05/2023 11:14 AM CDT): Initially febrile on 920 AM. [...] (05/04/2023 7:00 PM CDT): Initially febrile on 920 AM. [...] (05/03/2023 11:00 AM CDT): Initially febrile on 920 AM. [...] (05/02/2023 10:33 AM CDT): Initially febrile on 920 AM. [...] (05/01/2023 12:22 PM CDT): Initially febrile on 04/29 AM. [...] (04/30/2023 1:42 PM CDT): Initially febrile on 04/29 AM. Blood cultures obtained and started on Ceftriaxone. Febrile overnight, Tmax 38.4. ANC 1766 today. - Obtain blood cultures every 24 hours with fever and give Ceftriaxone if ANC >500 and Cefepime if <500 - Ceftriaxone q24hr - Follow-up blood cultures Assessment & Plan (04/29/2023 1:29 PM CDT): Initially febrile on 04/29 AM. [...] Assessment & Plan (05/24/2023 5:00 AM CDT): Suyaap reports a dry cough that started on [...] Remains admitted to receive Consolidation chemotherapy per [id number], off study. Today is Day 39. - Labs & Exam OK to proceed with proceed with chemotherapy today - [id number], Consolidation, off study (Day 36= 06/01) Day [...] Remains admitted to receive Consolidation chemotherapy per [id number], off study. Today is Day 38. - Labs & Exam OK to proceed with proceed with chemotherapy today - [id number], Consolidation, off study (Day 36= 06/01) Day [...] Remains admitted to receive Consolidation chemotherapy per [id number], off study. Today is Day 37. - Labs & Exam OK to proceed with proceed with chemotherapy today - [id number], Consolidation, off study (Day 36= 06/01) Day [...] Remains admitted to receive Consolidation chemotherapy per [id number], off study. Today is Day 36. - Labs & Exam OK to proceed with proceed with chemotherapy today - [id number], Consolidation, off study (Day 36= 06/01) Day [...] pre-B ALL admitted for Consolidation chemotherapy per [id number], off study. Received IT MTX on 04/21 upon admit; cytoxan and cytarabine delayed one day due to acute pancreatitis. Today is Day 32. Delayed one week due to not meeting counts and acute illness. - Labs & Exam OK to proceed with proceed with chemotherapy today - [id number], Consolidation, off study (Day 29= 05/25) Day [...] pre-B ALL admitted for Consolidation chemotherapy per [id number], off study. Received IT MTX on 04/21 upon admit; cytoxan and cytarabine delayed one day due to acute pancreatitis. Today is Day 31. Delayed one week due to not meeting counts and acute illness. - Labs & Exam OK to proceed with proceed with chemotherapy today - [id number], Consolidation, off study (Day 29= 05/25) Day [...] pre-B ALL admitted for Consolidation chemotherapy per [id number], off study. Received IT MTX on 04/21 upon admit; cytoxan and cytarabine delayed one day due to acute pancreatitis. Today is Day 30. Delayed one week due to not meeting counts and acute illness. - Labs & Exam OK to proceed with proceed with chemotherapy today - [id number], Consolidation, off study (Day 29= 05/25) Day [...] pre-B ALL admitted for Consolidation chemotherapy per [id number], off study. Received IT MTX on 04/21 upon admit; cytoxan and cytarabine delayed one day due to acute pancreatitis. Today is Day 29. Delayed one week due to not meeting counts and acute illness. - Labs & Exam OK to proceed with proceed with chemotherapy today - [id number], Consolidation, off study (Day 29= 05/25) Day [...] pre-B ALL admitted for Consolidation chemotherapy per [id number], off study. Received IT MTX on 04/21 upon admit; cytoxan and cytarabine held due to acute pancreatitis. Today is Day 34. - [id number], s/p Consolidation Part 1 - Due for [...] pre-B ALL admitted for Consolidation chemotherapy per [id number], off study. Received IT MTX on 04/21 upon admit; cytoxan and cytarabine held due to acute pancreatitis. Today is Day 33. - [id number], s/p Consolidation Part 1 - Due for Day 29 Consolidation on Friday 05/18; will delay 1 week to Friday 05/25 due to not meeting count parameters and current medical complications. 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 Received IT MTX on 04/21 upon admit; cytoxan and cytarabine held due to acute pancreatitis. Today is Day 32. - [id number], s/p Consolidation Part 1 - Due for [...] pre-B ALL admitted for Consolidation chemotherapy per [id number], off study. Received IT MTX on 04/21 upon admit; cytoxan and cytarabine held due to acute pancreatitis. Today is Day 32. - [id number], s/p Consolidation Part 1 - Due for [...] pre-B ALL admitted for Consolidation chemotherapy per [id number], off study. Received IT MTX on 04/21 upon admit; cytoxan and cytarabine held due to acute pancreatitis. Today is Day 31. - [id number], s/p Consolidation Part 1 - Due for [...] pre-B ALL admitted for Consolidation chemotherapy per [id number], off study. Received IT MTX on 04/21 upon admit; cytoxan and cytarabine held due to acute pancreatitis. Today is Day 30. - [id number], s/p Consolidation Part 1 - Due for [...] pre-B ALL admitted for Consolidation chemotherapy per [id number], off study. Received IT MTX on 04/21 upon admit; cytoxan and cytarabine held due to acute pancreatitis. Today is Day 29. - [id number], Consolidation, off study (Day 1= 04/21) Admit [...] pre-B ALL admitted for Consolidation chemotherapy per [id number], off study. Received IT MTX on 04/21 upon admit; cytoxan and cytarabine held due to acute pancreatitis. Today is Day 28. - [id number], Consolidation, off study (Day 1= 04/21) Admit [...] pre-B ALL admitted for Consolidation chemotherapy per [id number], off study. Received IT MTX on 04/21 upon admit; cytoxan and cytarabine held due to acute pancreatitis. Today is Day 27. - [id number], Consolidation, off study (Day 1= 04/21) Admit [...] pre-B ALL admitted for Consolidation chemotherapy per [id number], off study. Received IT MTX on 04/21 upon admit; cytoxan and cytarabine held due to acute pancreatitis. Today is Day 26. - [id number], Consolidation, off study (Day 1= 04/21) Admit [...] pre-B ALL admitted for Consolidation chemotherapy per [id number], off study. Received IT MTX on 04/21 upon admit; cytoxan and cytarabine held due to acute pancreatitis. Today is Day 25. - [id number], Consolidation, off study (Day 1= 04/21) Admit [...] pre-B ALL admitted for Consolidation chemotherapy per [id number], off study. Received IT MTX on 04/21 upon admit; cytoxan and cytarabine held due to acute pancreatitis. Today is Day 24. 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 Received IT MTX on 04/21 upon admit; cytoxan and cytarabine held due to acute pancreatitis. Today is Day 23. - [id number], Consolidation, off study (Day 1= 04/21) Admit [...] pre-B ALL admitted for Consolidation chemotherapy per [id number], off study. Received IT MTX on 04/21 upon admit; cytoxan and cytarabine held due to acute pancreatitis. Today is Day 22. - [id number], Consolidation, off study (Day 1= 04/21) Admit [...] pre-B ALL admitted for Consolidation chemotherapy per [id number], off study. Received IT MTX on 04/21 upon admit; cytoxan and cytarabine held due to acute pancreatitis. Today is Day 21. - [id number], Consolidation, off study (Day 1= 04/21) Admit [...] pre-B ALL admitted for Consolidation chemotherapy per [id number], off study. Received IT MTX on 04/21 upon admit; cytoxan and cytarabine held due to acute pancreatitis. Today is Day 20. - [id number], Consolidation, off study (Day 1= 04/21) Admit [...] pre-B ALL admitted for Consolidation chemotherapy per [id number], off study. Received IT MTX on 04/21 upon admit; cytoxan and cytarabine held due to acute pancreatitis. Today is Day 19. - [id number], Consolidation, off study (Day 1= 04/21) Admit [...] pre-B ALL admitted for Consolidation chemotherapy per [id number], off study. Received IT MTX on 04/21 upon admit; cytoxan and cytarabine held due to acute pancreatitis. Today is Day 18. - [id number], Consolidation, off study (Day 1= 04/21) Admit [...] pre-B ALL admitted for Consolidation chemotherapy per [id number], off study. Received IT MTX on 04/21 upon admit; cytoxan and cytarabine held due to acute pancreatitis - now resolving. Today is Day 17. - [id number], Consolidation, off study (Day 1= 04/21) Admit [...] pre-B ALL admitted for Consolidation chemotherapy per [id number], off study. Received IT MTX on 04/21 upon admit; cytoxan and cytarabine held due to acute pancreatitis - now resolving. Today is Day 16. - [id number], Consolidation, off study (Day 1= 04/21) Admit [...] pre-B ALL admitted for Consolidation chemotherapy per [id number], off study. Received IT MTX on 04/21 upon admit; cytoxan and cytarabine held due to acute pancreatitis - now resolving. Today is Day 15. - Labs & Exam OK to proceed with chemotherapy - [id number], Consolidation, off study (Day 1= 04/21) Admit [...] pre-B ALL admitted for Consolidation chemotherapy per [id number], off study. Received IT MTX on 04/21 upon admit; cytoxan and cytarabine held due to acute pancreatitis - now resolving. Today is Day 14. - Labs & Exam OK to proceed with chemotherapy - [id number], Consolidation, off study (Day 1= 04/21) Admit [...] pre-B ALL admitted for Consolidation chemotherapy per [id number], off study. Received IT MTX on 04/21 upon admit; cytoxan and cytarabine held due to acute pancreatitis - now resolving. Today is Day 13. - Labs & Exam OK to proceed with chemotherapy - [id number], Consolidation, off study (Day 1= 04/21) Admit [...] pre-B ALL admitted for Consolidation chemotherapy per [id number], off study. Received IT MTX on 04/21 upon admit; cytoxan and cytarabine held due to acute pancreatitis - now resolving. Today is Day 12. - Labs & Exam OK to proceed with chemotherapy - [id number], Consolidation, off study (Day 1= 04/21) Admit [...] pre-B ALL admitted for Consolidation chemotherapy per [id number], off study. Received IT MTX on 04/21 upon admit; cytoxan and cytarabine held due to acute pancreatitis - now resolving. Today is Day 11. - Labs & Exam OK to proceed with chemotherapy - [id number], Consolidation, off study (Day 1= 04/21) Admit [...] pre-B ALL admitted for Consolidation chemotherapy per [id number], off study. Received IT MTX on 04/21 upon admit; cytoxan and cytarabine held due to acute pancreatitis - now resolving. Today is Day 10. - Labs & Exam OK to proceed with chemotherapy - [id number], Consolidation, off study (Day 1= 04/21) Admit [...] pre-B ALL admitted for Consolidation chemotherapy per [id number], off study. Received IT MTX on 04/21 upon admit; cytoxan and cytarabine held due to acute pancreatitis - now resolving. Today is Day 9. - Labs & Exam OK to proceed with chemotherapy - [id number], Consolidation, off study (Day 1= 04/21) Admit [...] pre-B ALL admitted for Consolidation chemotherapy per [id number], off study. Received IT MTX on 04/21 upon admit; cytoxan and cytarabine held due to acute pancreatitis - now resolving. Today is Day 8. - Labs & Exam OK to proceed with chemotherapy - [id number], Consolidation, off study (Day 1= 04/21) Admit [...] pre-B ALL admitted for Consolidation chemotherapy per [id number], off study. Received IT MTX on 04/21 upon admit; cytoxan and cytarabine held due to acute pancreatitis - now resolving. Today is Day 7. - Labs & Exam OK to proceed with chemotherapy - [id number], Consolidation, off study (Day 1= 04/21) Admit [...] pre-B ALL admitted for Consolidation chemotherapy per [id number], off study. Received IT MTX on 04/21 upon admit; cytoxan and cytarabine held due to acute pancreatitis - now resolving. Today is Day 5. - Labs & Exam OK to proceed with chemotherapy - [id number], Consolidation, off study (Day 1= 04/21) Admit [...] pre-B ALL admitted for Consolidation chemotherapy per [id number], off study. Received IT MTX on 04/21 upon admit; cytoxan and cytarabine held due to acute pancreatitis - now resolving. Today is Day 4. - Labs & Exam OK to proceed with chemotherapy - [id number], Consolidation, off study (Day 1= 04/21) Admit [...] pre-B ALL admitted for Consolidation chemotherapy per [id number], off study. Received IT MTX on 04/21 upon admit; cytoxan and cytarabine held due to acute pancreatitis - now resolving. Today is Day 3. - Labs & Exam OK to proceed with chemotherapy - [id number], Consolidation, off study (Day 1= 04/21) Admit [...] pre-B ALL admitted for Consolidation chemotherapy per [id number], off study. Received IT MTX on 04/21 upon admit; cytoxan and cytarabine held due to acute pancreatitis - now resolving. Today is Day 2. - Labs & Exam OK to proceed with chemotherapy - [id number], Consolidation, off study (Day 1= 04/21) Admit [...] pre-B ALL admitted for Consolidation chemotherapy per [id number], off study. Received IT MTX on 04/21 upon admit; cytoxan and cytarabine held due to acute pancreatitis - now resolving. Today is Day 1. - OK to proceed with chemotherapy today 04/21 as pt's GI symptoms have significantly improved - [id number], Consolidation, off study (Day 1= 04/21) Admit [...] pre-B ALL admitted for Consolidation chemotherapy per [id number], off study. Today is Day 1. - [id number], Consolidation, off study (Day 1= 04/20) Day [...] continue Assessment & Plan (07/15/2023 4:24 PM BELT MACHINE OPERATOR): Suyapa has a history of numbness in [...] recs Assessment & Plan (07/14/2023 12:32 PM BELT MACHINE OPERATOR): Suyapa has a history of numbness in [...] recs Assessment & Plan (07/13/2023 5:41 PM BELT MACHINE OPERATOR): Suyapa has a history of numbness in [...] recs Assessment & Plan (07/12/2023 2:32 PM BELT MACHINE OPERATOR): Suyapa has a history of numbness in [...] recs Assessment & Plan (07/11/2023 4:37 PM BELT MACHINE OPERATOR): Suyapa has a history of numbness in [...] recs Assessment & Plan (07/10/2023 1:25 PM BELT MACHINE OPERATOR): Suyapa has a history of numbness in [...] recs Assessment & Plan (07/09/2023 1:06 PM BELT MACHINE OPERATOR): Suyapa has a history of numbness in her hands and feet. She denies any current numbness/ tingling. She did not take her prescribed gabapentin while at home and will sometimes refuse here as well. - Gabapentin 600mg TID - May titrate to efficacy - Appreciate PT/OT/Psych recs Assessment & Plan (07/08/2023 11:20 AM BELT MACHINE OPERATOR): Suyapa has a history of numbness in her hands and feet. She denies any current numbness/ tingling. She did not take her prescribed gabapentin while at home and will sometimes refuse here as well. - Gabapentin 600mg TID - May titrate to efficacy - Appreciate PT/OT/Psych recs Assessment & Plan (07/07/2023 1:17 PM BELT MACHINE OPERATOR): Suyapa has a history of numbness in her hands and feet. She denies any current numbness/ tingling. She did not take her prescribed gabapentin while at home and will sometimes refuse here as well. - Gabapentin 600mg TID - May titrate to efficacy - Appreciate PT/OT/Psych recs Assessment & Plan (07/06/2023 5:31 PM BELT MACHINE OPERATOR): Suyapa has a history of numbness in her hands and feet. She denies any current numbness/ tingling. She did not take her prescribed gabapentin while at home and will sometimes refuse here as well. - Gabapentin 600mg TID - May titrate to efficacy - Appreciate PT/OT/Psych recs Assessment & Plan (06/29/2023 10:36 AM BELT MACHINE OPERATOR): Suyapa endorses numbness in her hands and feet. She did not take her prescribed gabapentin while at home - Gabapentin 600mg TID - May titrate to efficacy Assessment & Plan (06/22/2023 12:48 PM BELT MACHINE OPERATOR): Suyapa reports numbness in her hands and feet. She did not take her prescribed gabapentin while at home and will sometimes refuse here as well. - Gabapentin 600mg TID - May titrate to efficacy - Appreciate PT/OT/Psych recs Assessment & Plan (06/21/2023 11:16 AM BELT MACHINE OPERATOR): Suyapa reports numbness in her hands and feet. She did not take her prescribed gabapentin while at home and will sometimes refuse here as well. - Gabapentin 600mg TID - May titrate to efficacy - Appreciate PT/OT/Psych recs Assessment & Plan (06/20/2023 11:19 AM BELT MACHINE OPERATOR): Suyapa reports numbness in her hands and feet. She did not take her prescribed gabapentin while at home and will sometimes refuse here as well. - Gabapentin 600mg TID - May titrate to efficacy - Appreciate PT/OT/Psych recs Assessment & Plan (06/19/2023 10:21 AM BELT MACHINE OPERATOR): Suyapa reports numbness in her hands and feet. She did not take her prescribed gabapentin while at home and will sometimes refuse here as well. - Gabapentin 600mg TID - May titrate to efficacy Assessment & Plan (06/18/2023 12:03 PM BELT MACHINE OPERATOR): Suyapa reports numbness in her hands and feet. She did not take her prescribed gabapentin while at home and will sometimes refuse here as well. - Gabapentin 600mg TID - May titrate to efficacy Assessment & Plan (06/17/2023 11:36 AM BELT MACHINE OPERATOR): Suyapa reports numbness in her hands and feet. She did not take her prescribed gabapentin while at home and will sometimes refuse here as well. - Gabapentin 600mg TID - May titrate to efficacy Assessment & Plan (06/16/2023 2:20 PM BELT MACHINE OPERATOR): Suyapa reports numbness in her hands and feet. She did not take her prescribed gabapentin while at home and will sometimes refuse here as well. - Gabapentin 600mg TID - May titrate to efficacy Assessment & Plan (06/15/2023 3:46 PM BELT MACHINE OPERATOR): Suyapa reports numbness in her hands and [...] 08/23/2023 Assessment & Plan (06/22/2023 12:45 PM BELT MACHINE OPERATOR): Due to chemotherapy. See CBC. No transfusions required today. - Daily CBC w/ diff - Transfuse for Plts<10, Hgb<7, or if symptomatic Assessment & Plan (06/21/2023 11:16 AM BELT MACHINE OPERATOR): Due to chemotherapy. See CBC. She had 1 unit of platelet transfusion this morning for platelet of 7. Plan: - Daily CBC w/ diff - Transfuse for Plts<10, Hgb<7, or if symptomatic Assessment & Plan (06/20/2023 11:17 AM BELT MACHINE OPERATOR): Due to chemotherapy. See CBC. No transfusions needed today. Plan: - Daily CBC w/ diff - Transfuse for Plts<10, Hgb<7, or if symptomatic Assessment & Plan (06/19/2023 10:14 AM BELT MACHINE OPERATOR): Due to chemotherapy. See CBC. No transfusions needed today. - Daily CBC w/ diff - Transfuse for Plts<10, Hgb<7, or if symptomatic Assessment & Plan (06/18/2023 12:03 PM BELT MACHINE OPERATOR): Due to chemotherapy. See CBC. Dale received a unit of platelets today for a platelet count of 18 in preparation for an IM injection. - Transfuse for Plts<10, Hgb<7, or if symptomatic Assessment & Plan (06/17/2023 11:45 AM BELT MACHINE OPERATOR): Due to chemotherapy. See CBCBridgette Dale received a unit of platelets today for a platelet count of 6. - Transfuse for Plts<10, Hgb<7, or if symptomatic - Will plan to infuse platelets tomorrow while receiving IM Lupron injection Assessment & Plan (06/16/2023 2:16 PM BELT MACHINE OPERATOR): Due to chemotherapy. See CBCBridgette Dale received a unit of platelets today for a platelet count of 5. - Transfuse for Plts<10, Hgb<7, or if symptomatic Assessment & Plan (06/15/2023 3:45 PM BELT MACHINE OPERATOR): Due to chemotherapy. See CBCBridgette Dale received a unit of platelets today for a platelet count of 2. - Transfuse for Plts<10, Hgb<7, or if symptomatic Assessment & Plan (06/15/2023 8:18 AM BELT MACHINE OPERATOR): Due to chemotherapy. See CBC. - Transfuse [...] 04/03. - Daily CBC Assessment & Plan (04/06/2023 [...] 10/07/2023 Assessment & Plan (08/22/2023 10:07 PM BELT MACHINE OPERATOR): As above Assessment & Plan (04/14/2023 3:49 [...] risk b-cell ALL. Undergoing induction chemotherapy via [id number] protocol. Day 1 was 03/12. CSF x3 [...] prior to all chemo Onc: Induction per [id number], Day 1=03/12 - Port placed 04/03 - [...] risk b-cell ALL. Undergoing induction chemotherapy via [id number] protocol. Day 1 was 03/12. CSF x3 [...] prior to all chemo Onc: Induction per [id number], Day 1=03/12 - Port placed 04/03 - [...] risk b-cell ALL. Undergoing induction chemotherapy via [id number] protocol. Day 1 was 03/12. CSF x3 [...] prior to all chemo Onc: Induction per [id number], Day 1=03/12 - Port placement in OR [...] risk b-cell ALL. Undergoing induction chemotherapy via [id number] protocol. Day 1 was 03/12. CSF x3 without blasts. Peripheral blood without blasts 03/20. Neuro: - Pain team following - Continue morphine 2mg q8h and prn - PACT c/s appreciate recs - Start Gabapentin 300mg BID 04/02 given neuropathic pain - Diclofenac gel prn - Tylenol PRN - Robaxin - Hydroxyzine prn Resp: JANNETH CV: HDS FEN/GI: - NPO at [facility] for port placement 04/03 - Reg diet [...] prior to all chemo Onc: Induction per [id number], Day 1=03/12 - Port placement in OR [...] risk b-cell ALL. Undergoing induction chemotherapy via [id number] protocol. Day 1 was 03/12. CSF x3 [...] prior to all chemo Onc: Induction per [id number], Day 1=03/12 - Day 1: VCR, Dauno [...] risk b-cell ALL. Undergoing induction chemotherapy via [id number] protocol. Day 1 was 03/12. CSF x3 [...] prior to all chemo Onc: Induction per [id number], Day 1=03/12 - Day 1: VCR, Dauno [...] risk b-cell ALL. Undergoing induction chemotherapy via [id number] protocol. Day 1 was 03/12. CSF x3 [...] prior to all chemo Onc: Induction per [id number], Day 1=03/12 - Day 1: VCR, Dauno [...] risk b-cell ALL. Undergoing induction chemotherapy via [id number] protocol. Day 1 was 03/12. CSF x3 [...] prior to all chemo Onc: Induction per [id number], Day 1=03/12 - Day 1: VCR, Dauno [...] risk b-cell ALL. Undergoing induction chemotherapy via [id number] protocol. Day 1 was 03/12. CSF x3 [...] prior to all chemo Onc: Induction per [id number], Day 1=03/12 - Day 1: VCR, Dauno [...] & Plan (03/27/2023 10:43 AM CDT): Suyapa English is a 17 y.o. 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 Undergoing induction chemotherapy via [id number] protocol. Day 1 was 8. CSF x3 without blasts. Peripheral blood without [...] prior to all chemo Onc: Induction per [id number], Day 1=03/12 - Day 1: VCR, Dauno [...] risk b-cell ALL. Undergoing induction chemotherapy via [id number] protocol. Day 1 was 03/12. CSF from [...] prior to all chemo Onc: Induction per [id number], Day 1=03/12 - Day 1: VCR, Dauno [...] risk b-cell ALL. Undergoing induction chemotherapy via [id number] protocol. Day 1 was 03/12. CSF from [...] risk b-cell ALL. Undergoing induction chemotherapy via [id number] protocol. Day 1 was 03/12. CSF from [...] risk b-cell ALL. Undergoing induction chemotherapy via IVVS8195 protocol. Day 1 was 03/12. CSF from [...] risk b-cell ALL. Undergoing induction chemotherapy via [id number] protocol. Day 1 was 03/12. CSF from [...] risk b-cell ALL. Undergoing induction chemotherapy via OROT3110 protocol. Day 1 was 03/12. CSF from [...] shows likely B-cell ALL. On treatment per [id number] protocol; LPs twice weekly until CSF is [...] shows likely B-cell ALL. On treatment per ITQH3978 protocol; LPs twice weekly until CSF is [...] shows likely B-cell ALL. On treatment per [id number] protocol; LPs twice weekly until CSF is [...] shows likely B-cell ALL. On treatment per [id number] protocol; LPs twice weekly until CSF is [...] shows likely B-cell ALL. On treatment per RWBW2353 protocol; LPs twice weekly until CSF is [...] TLL, CBC qD - F/u flowcytometry - Mon 03/09: LP w IT ARAC and BMA/bx [...] 2xL/m2/hr with D5NS - start allopurinol tid Encounters Date Type Department Care Team Description 07/05/2025 12:00 PM BELT MACHINE OPERATOR Telemedicine [facility] Department of Psychology [facility] [address] [place] [phone] April Morataya, PhD Major depressive disorder, recurrent episode, moderate with anxious distress (HCC) (Primary Dx) 07/04/2025 Social Work [facility] [place] [address] Radha Fisher LCSW 07/04/2025 Documentation [facility] Pediatric Surgery [facility] 2nd [place] [address] [place] [address] Kenna Parker Gastrostomy 07/03/2025 Social Work [facility] [place] [address] Radha Fisher LCSW 07/03/2025 Social Work [facility] [place] [address] Radha Fisher LCSW 06/29/2025 4:00 PM BELT MACHINE OPERATOR Telemedicine [facility] Department of Psychology [facility] [address] [place] [phone] April Morataya, PhD Major depressive disorder, recurrent episode, moderate with anxious distress (HCC) (Primary Dx) 06/25/2025 Telephone [facility] [address] [place] [address] Carlos Pandey MD 06/22/2025 12:00 PM BELT MACHINE OPERATOR Telemedicine [facility] Department of Psychology [facility] [address] [place] [address] April Morataya, Major depressive disorder, recurrent episode, moderate with anxious distress (HCC) (Primary Dx) 06/21/2025 Social Work [facility] [place] [address] Radha Fisher LCSW 06/19/2025 12:17 PM BELT MACHINE OPERATOR Anesthesia Event [facility] Interventional [place] [address] Laurent Brooke MD [facility], Jaz Hylton MD 06/19/2025 12:05 PM BELT MACHINE OPERATOR - 06/19/2025 11:59 PM BELT MACHINE OPERATOR Hospital Encounter [facility] Interventional [place] [address] Laurent Brooke MD 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); Acute lymphoblastic leukemia (ALL) in remission (HCC) Discharge Disposition: Discharge to home or self care 06/19/2025 10:30 AM BELT MACHINE OPERATOR Office Visit [facility] [place] [place] [facility] Hematology and Oncology [facility] [address] [place] [address] Gracy Stevens MD Other fatigue (Primary Dx) 06/19/2025 9:00 AM BELT MACHINE OPERATOR Infusion [facility] Infusion Center [facility], [address] [place] [address] 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); Need for pneumocystis prophylaxis 06/19/2025 Critical Access Hospital Work [facility] [place] [address] Radha Fisher LCSW 06/16/2025 Telephone [facility] Interventional [place] [address] Cecy Bryan, NAMAN 06/15/2025 12:00 PM BELT MACHINE OPERATOR Telemedicine [facility] Department of Psychology [facility] [address] [place] [phone] April Morataya, PhD Major depressive disorder, recurrent episode, moderate with anxious distress (HCC) (Primary Dx) 06/13/2025 Orders Only [facility], [address] [place] [address] Marycarmen Garibay 06/08/2025 12:00 PM CDT Telemedicine [facility] Department of Psychology [facility] [address] [place] [phone] April Morataya, PhD Major depressive disorder, recurrent episode, moderate with anxious distress (HCC) (Primary Dx) 06/08/2025 Critical Access [facility] Work [facility] [place] [address] Radha Fisher LCSW 06/07/2025 [facility] [place] [address] Radha Fisher LCSW 05/31/2025 3:00 PM CDT Telemedicine [facility] Department of Psychology [facility] [address] [place] [phone] April Morataya, PhD Major depressive disorder, recurrent episode, moderate with anxious distress (HCC) (Primary Dx) 05/29/2025 Telephone [facility] [place] [place] [facility] Hematology and Oncology [address] [address] AgustínCammy 05/29/2025 Orders Only [facility], [address] [place] [address] Marycarmen Garibay 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) 05/25/2025 Telephone [facility] [place] [place] [facility] Hematology and Oncology [address] [address] AgustínCammy 05/22/2025 11:30 AM CDT Office Visit [facility] [place] [place] [facility] Hematology and Oncology [address] [address] Donna Dyson NP 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); Poor compliance with medication; Vitamin D deficiency; Gastrostomy tube in place (HCC); Menstrual suppression; Need for pneumocystis prophylaxis; High risk social situation 05/22/2025 11:00 AM CDT Infusion [facility], [address] [place] [address] 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); Need for pneumocystis prophylaxis; Need for immunization against influenza 05/22/2025 Documentation [facility] [place] [address] 05/22/2025 Documentation [facility] Department of Psychology [facility] [address] [address] April Morataya, PhD Depression 05/22/2025 Social Work [facility] [place] [address] Chelo Walker MSW 05/18/2025 12:00 PM CDT Telemedicine [facility] Department of Psychology [facility] [address] [address] April Morataya, PhD Major depressive disorder, recurrent episode, moderate with anxious distress (HCC) (Primary Dx) 05/18/2025 Orders Only [facility] [place] [place] [facility] Hematology and Oncology [address] [address] Claire Cueva MD 05/18/2025 Orders Only [facility], [address] [place] [address] Marycarmen Garibay 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) 05/11/2025 12:00 PM CDT Telemedicine [facility] Department of Psychology [facility] [address] [place] [phone] April Morataya, PhD Major depressive disorder, recurrent episode, moderate with anxious distress (HCC) (Primary Dx) 05/04/2025 12:00 PM CDT Telemedicine [facility] Department of Psychology [facility] [address] [place] [address] April Morataya, PhD Major depressive disorder, recurrent episode, moderate with anxious distress (HCC) (Primary Dx) 04/27/2025 12:00 PM CDT Telemedicine [facility] Department of Psychology [facility] [address] [place] [phone] April Morataya, PhD Major depressive disorder, recurrent episode, moderate with anxious distress (HCC) (Primary Dx) 04/26/2025 11:30 AM CDT Infusion [facility], [address] [place] [address] Need for pneumocystis prophylaxis (Primary Dx); 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) 04/26/2025 11:30 AM CDT Office Visit [facility] [place] [place] [facility] Hematology and Oncology [facility] [address] [place] [address] Donna Dyson NP 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); Poor compliance with medication; Gastrostomy tube in place (HCC); Need for pneumocystis prophylaxis; High risk social situation 04/26/2025 Social Work [facility] [place] [address] Radha Fisher LCSW 04/24/2025 Social Work [facility] [place] [address] Radha Fisher LCSW 04/24/2025 Telephone [facility] Infusion [facility], [address] [place] [address] Yamileth Guerra RN 04/20/2025 Orders Only [facility], [address] [place] [address] Marycarmen Garibay 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) 04/13/2025 12:00 PM CDT Telemedicine [facility] Department of Psychology [facility] [address] [place] [address] April Morataya, PhD Major depressive disorder, recurrent episode, moderate with anxious distress (HCC) (Primary Dx) from Last 3 Months Immunizations Immunization Administration Dates Next Due HPV9 10/20/2018 Influenza, Trivalent, Preservative Free, Intramu scular 05/22/2025,06/06/2024 Meningococcal MCV4P (Menactra) 10/20/2018 Tdap 10/20/2018 Surgical History Surgery Date Site/Laterality Comments MEDIPORT INSERTION, SINGLE 04/03/2023 Left left internal jugular by Dr. Levin NG TUBE PLACEMENT 05/11/2023 N/A ENTERIC TUBE INJECTION 10/26/2023 N/A LUMBAR PUNCTURE several LP with chemo, last 10/2023 GASTROSTOMY TUBE PLACEMENT 10/08/2023 Medical History Medical History Date Comments Urinary tract infection 06/10/2023 Localized edema due to fluid overload 03/08/2023 Fluid overload 05/05/2023 Suprapubic pain 05/08/2023 Diarrhea 05/16/2023 Febrile neutropenia 04/29/2023 Productive cough 04/24/2023 Appendicitis 05/13/2023 Drug-induced pancreatitis 04/20/2023 B-cell acute lymphoblastic leukemia 03/06/2023 Hematochezia 07/07/2023 Anemia due to antineoplastic chemotherapy 2022 Uses feeding tube Gbutton for me ds only Major depressive disorder Family History Medical History Relation Name Comments Diabetes Mother Diabetes Paternal Grandmother Relation Name Status Comments Mother Paternal Grandmother Social History Tobacco Use Types Packs/Day Years Used Date Smoking Tobacco: Never Smokeless Tobacco: Never [facility] Answer Date Recorded In the past 12 months has th e [employer], gas, oil, or water [employer] threatened to shut off services in your [...] any time in the past 12 m [facility], were you homeless or living [...] on file Legal Sex Female 7:37 PM BELT MACHINE OPERATOR Gender Identity Female 05/09/2024 4:50 PM CDT Sexual Orientation Straight 05/09/2024 4: 50 PM CDT Last Filed Vital Signs Vital Sign Reading Time Taken Comments Blood Pressure 98/50 06/19/2025 1:00 PM BELT MACHINE OPERATOR Pulse 70 06/19/2025 1:00 PM BELT MACHINE OPERATOR Temperature 36.5 C (97.7 F) 06/19/2025 1:00 PM BELT MACHINE OPERATOR Respiratory Rate 18 06/19/2025 1:00 PM BELT MACHINE OPERATOR Oxygen Saturation 94% 06/19/2025 1:00 PM BELT MACHINE OPERATOR Inhaled Oxygen Concentration - - Weight 114.5 kg (252 lb 6.8 oz) 06/19/2025 9:47 AM BELT MACHINE OPERATOR Height 159 cm (5' 2.6) 06/19/2025 9:47 AM BELT MACHINE OPERATOR Body Mass Index 45.29 06/19/2025 9:47 AM BELT MACHINE OPERATOR Plan of Treatment Health Maintenance Due Date Last Done Comments Depression Screening 2005 Pneumococcal vaccine <65 (1 of 2 - PPSV23, PCV20, or PCV21) 03/10/2008 01/14/2008, 11/19/2007, 2005 HPV Vaccines (2 - 2-dose series) 04/22/2019 10/20/2018 Meningococcal B Vaccine (1 of 2 - Standard) 2021 Covid-19 Vaccine (3 - Pfizer risk series) 11/30/2021 11/02/2021, 09/24/2021 Regular Well Visit/Exam 18-64 2023 Zoster Vaccine (1 of 2) 2024 DTaP/Tdap/Td Vaccine (6 - Td or Tdap) 10/20/2028 10/20/2018, 04/20/2009, 01/14/2008, Additional history exists Hepatitis B Screening Completed 11/19/2007, 005 Varicella Vaccines Completed 04/20/2009, 11/19/2007 Meningococcal Vaccine Aged Out 10/20/2018 No farida alvarez eligible based on patient's age to complete this topic Hepatitis C Screening Completed 05/15/2023 Influenza Vaccine Completed 05/22/2025, 06/06/2024 Medical Devices Implanted Type Area Television Installer Helper Device Identifier Shelf Expiration Date Model / Serial / Lot [employer] Powerport Airguard 8fr 1 Lumen Attachable Catheter Intermediate Latex Free [id number] - [id number] Implanted:Qty: 1 on 04/03/2023 by Cyril Levin MD at [facility] Left: Chest Wall [employer] [id number] 06/09/2024 [id number] / / [id number] Explanted Type Area Television Installer Helper Device Identifier Shelf Expiration Date Model / Serial / Lot [employer] Peel-Apart 10fr 15cm Sheath Long T Handle Lock Luer Collar Hub [id number] - [id number] Explanted:Qty : 1 on 04/03/2023 at [facility] Left: Chest Wall [employer] [id number] 11/07/2026 [id number] / / [id number] Description:Supply Procedures Procedure Name Priority Date/Time Associated Diagnosis Comments TSH Routine 06/19/2025 12:50 PM BELT MACHINE OPERATOR CELL DIFFERENTIAL, CSF Routine 06/19/2025 12:29 PM BELT MACHINE OPERATOR CELL COUNT W REFLEX DIFFERENTIAL, CSF Routine 06/19/2025 12:29 PM BELT MACHINE OPERATOR PED ONC CELL COUNT AND DIFFERENTIAL, CSF Routine 06/19/2025 12:29 PM BELT MACHINE OPERATOR LUMBAR PUNCTURE W CHEMO INJECTION Schedule Routine, Read Routine (OP Routine) 06/19/2025 12:24 PM BELT MACHINE OPERATOR Acute lymphoblastic leukemia (ALL) in remission (HCC) HCG, URINE, QUALITATIVE Routine 06/19/2025 10:46 AM BELT MACHINE OPERATOR 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) T4, FREE Routine 06/19/2025 9:59 AM BELT MACHINE OPERATOR 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) VITAMIN B12 Routine 06/19/2025 9:59 AM BELT MACHINE OPERATOR EGFR Routine 06/19/2025 9:59 AM BELT MACHINE OPERATOR 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) DIFFERENTIAL AUTO Routine 06/19/2025 9:5 9 AM BELT MACHINE OPERATOR 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) CBC WITH AUTO DIFFERENTIAL Routine 06/19/2025 9:59 AM BELT MACHINE OPERATOR 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) COMPREHENSIVE METABOLIC PANEL Routine 06/19/2025 9:59 AM BELT MACHINE OPERATOR 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) DIFFERENTIAL AUTO Routine 05/22/2025 12:14 PM CDT 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20 mcIUnit/mL Blood 06/19/2025 12:5 0 PM BELT MACHINE OPERATOR 06/19/2025 2:35 PM BELT MACHINE OPERATOR us Jessica Ayers QUAL RESEARCH MANAGER LAB BLOOD ORDERABLE S Final Result [facility] Department [place] [address] * (ABNORMAL) Cell Differential, CSF (06/19/2025 12:29 PM BELT MACHINE OPERATOR) Total cells diffed 26 cells Comment: Interpretive Data Unless otherwise specified, the reference range and other method performance specifications have not been established for CSF/Body Fluid tests. The test results should be integrated into the clinical context for interpretation. Current interpretive data was last revised on 2019. Neutrophils, CSF 0 0 - 6 % [facility] Lymphs, CSF 96(H) 40 - 80 % [facility] Monos, CSF 4(L) 15 - 45 % [facility] Eosinophil, CSF 0 0 - 0 % [facility] Basophils, CSF 0 % [facility] Blasts, CSF 0 0 - 0 % [facility] Macrophages, CSF 0 0 - 0 % [facility] CSF 06/19/2025 12:2 9 PM BELT MACHINE OPERATOR 06/19/2025 1:01 PM BELT MACHINE OPERATOR Donna Dyson QUAL RESEARCH MANAGER LAB BODY FLUIDS AN D STOOLS ORDERABLES Final Result Performing Organization Address [facility] [place] [address] * (ABNORMAL) Cell count w/reflex diff, CSF (06/19/2025 12:29 PM BELT MACHINE OPERATOR) Tube Number, CSF Tube 4 Color, CSF Colorless Colorless [facility] Clarity, CSF Clear Clear [facility] Xanthochromia , CSF Absent Absent [facility] Nucleated cells, CSF <5 0 - 5 /cumm [facility] RBC, CSF 557(H) 0 - 0 /cumm [facility] CSF 06/19/2025 12:2 9 PM BELT MACHINE OPERATOR 06/19/2025 1:01 PM BELT MACHINE OPERATOR Donna Dyson QUAL RESEARCH MANAGER LAB BODY FLUIDS AN D STOOLS ORDERABLES Final Result Performing Organization Address [facility] [place] [address] * IR Lumbar Puncture W Chemo Injection (06/19/2025 12:24 PM BELT MACHINE OPERATOR) Anatomical Region Laterality Modality Spine N/A X-Ray Angiograph y 06/19/2025 2:19 PM BELT MACHINE OPERATOR Impressions 06/19/2025 6:12 PM BELT MACHINE OPERATOR Successful lumbar puncture under fluoroscopic guidance with injection of chemotherapeutic agents listed above. Dictated by: Cali Botello M.D. The radiology attending physician has personally reviewed this study, and had reviewed and/or edited this written report and agrees with it. Electronically signed by: Dharmesh Bullock M.D. Narrative 06/19/2025 6:12 PM BELT MACHINE OPERATOR EXAMINATION: Fluoroscopically guided lumbar puncture and intrathecal chemotherapy injection HISTORY: ALL TECHNIQUE: The risks and benefits of the lumbar puncture including, but not limited to infection, bleeding, spinal headache, cerebrospinal fluid (CSF) leak requiring blood patch procedure, and irritation or damage to nerves causing pain or permanent injury were discussed with the patient. The patient was given the opportunity to ask questions. The patient acknowledged understanding, gave verbal and written consent, and wished to proceed. A time-out was performed prior to the procedure. Attending physician: Dr. Dharmesh Bullock M.D. was present for the entire procedure. The L3-L4 level was localized with fluoroscopy. The ribs were counted and this level confirmed. The skin overlying this level was sterilely prepped, draped, and infiltrated with 1% lidocaine for local anesthesia. Under intermittent fluoroscopic guidance, a 22 gauge 5 inch Quincke spinal needle was inserted into the thecal sac at this level. Clear CSF was identified. A total of 2 ml of CSF was removed and placed into 1 specimen tube. The chemotherapeutic agents including methotrexate (PF) 15 mg in sodium chloride 0.9% 5 mL preservative free intrathecal were then injected into the thecal sac. The patient was then transferred to the nursing area for further observation and 1 hour of bedrest. Procedure Note Dharmesh Bullock MD PhD - 06/19/2025 EXAMINATION: Fluoroscopically guided lumbar puncture and intrathecal chemotherapy injection HISTORY: ALL TECHNIQUE: The risks and benefits of the lumbar puncture including, but not limited to infection, bleeding, spinal headache, cerebrospinal fluid (CSF) leak requiring blood patch procedure, and irritation or damage to nerves causing pain or permanent injury were discussed with the patient. The patient was given the opportunity to ask questions. The patient acknowledged understanding, gave verbal and written consent, and wished to proceed. A time-out was performed prior to the procedure. Attending physician: Dr. Dharmesh Bullock M.D. was present for the entire procedure. The L3-L4 level was localized with fluoroscopy. The ribs were counted and this level confirmed. The skin overlying this level was sterilely prepped, draped, and infiltrated with 1% lidocaine for local anesthesia. Under intermittent fluoroscopic guidance, a 22 gauge 5 inch Quincke spinal needle was inserted into the thecal sac at this level. Clear CSF was identified. A total of 2 ml of CSF was removed and placed into 1 specimen tube. The chemotherapeutic agents including methotrexate (PF) 15 mg in sodium chloride 0.9% 5 mL preservative free intrathecal were then injected into the thecal sac. The patient was then transferred to the nursing area for further observation and 1 hour of bedrest. IMPRESSION: Successful lumbar puncture under fluoroscopic guidance with injection of chemotherapeutic agents listed above. Dictated by: Cali Botello M.D. The radiology attending physician has personally reviewed this study, and had reviewed and/or edited this written report and agrees with it. Electronically signed by: Dharmesh Bullock M.D. us Claire Cueva MD IMG IR PROCEDURES Fi nal Result * hCG, urine, qualitative (06/19/2025 10:46 AM BELT MACHINE OPERATOR) HCG, ur Negative Negative Urine 06/19/2025 10:4 6 AM BELT MACHINE OPERATOR 06/19/2025 10:52 AM BELT MACHINE OPERATOR Donna Dyson NP LAB URINE ORDERABL ES Final Result [facility] Department [place] [address] * eGFR (06/19/2025 9:59 AM BELT MACHINE OPERATOR) eGFR >90 >=60 mL/min/1. 73 m2 Comment: Interpretive Data Reference Interval Normal >/= 90 mL/min/1.73m2 Mildly decreased* 60 - 89 mL/min/1.73m2 Mildly to moderately decreased 45 - 59 mL/min/1.73m2 Moderately to severely decreased 30 - 44 mL/min/1.73m2 Severely decreased 15 - 29 mL/min/1.73m2 Kidney Failure < 15 mL/min/1.73m2 *Relative to young adult level Estimated glomerular filtration rate is determined by the 2020 CKD-EPI equation recommended by the National Kidney Foundation (A Unifying Approach to GFR Estimation: Recommendations of the NKF-ASK Task Force on Reassessing the Inclusion of Race in Diagnosing Kidney Disease, JASN 2020). The CKD-EPI equation should not be used for patients with unstable renal function and has not been validated in children and those over 70. Current interpretive data was last reviewed 2021. Blood 06/19/2025 9:59 AM BELT MACHINE OPERATOR 06/19/2025 10:05 AM BELT MACHINE OPERATOR Donna Dyson QUAL RESEARCH MANAGER LAB BLOOD ORDERABL ES Final Result [facility] Department [place] [address] * Differential, auto (06/19/2025 9:59 AM BELT MACHINE OPERATOR) Neutrophil abs 3.71 1.50 - 6.50 K/cumm Imm gran abs 0.02 0.00 - 0.10 K/cumm [facility] Lymphocyte abs 1.74 0.80 - 3.30 K/cumm [facility] Monocyte abs 0.48 0.20 - 0.80 K/cumm [facility] Eosinophil abs 0.13 0.00 - 0.50 K/cumm [facility] Basophil abs 0.01 0.00 - 0.10 K/cumm [facility] Neutrophil pct 60.9 % [facility] Comment: Interpretive Data Percent cell count reference ranges are not reported, since discordance with absolute values may lead to misinterpretation of CBC data. Current Interpretive Data was last revised on 2017. Imm gran pct 0.3 % [facility] Comment: Interpretive Data Percent cell count reference ranges are not reported, since discordance with absolute values may lead to misinterpretation of CBC data. Current Interpretive Data was last revised on 2017. Lymphocyte pct 28.6 % [facility] Comment: Interpretive Data Percent cell count reference ranges are not reported, since discordance with absolute values may lead to misinterpretation of CBC data. Current Interpretive Data was last revised on 2017. Monocyte pct 7.9 % [facility] Comment: Interpretive Data Percent cell count reference ranges are not reported, since discordance with absolute values may lead to misinterpretation of CBC data. Current Interpretive Data was last revised on 2017. Eosinophil pct 2.1 % [facility] Comment: Interpretive Data Percent cell count reference ranges are not reported, since discordance with absolute values may lead to misinterpretation of CBC data. Current Interpretive Data was last revised on 2017. Basophil pct 0.2 % [facility] Comment: Interpretive Data Percent cell count reference ranges are not reported, since discordance with absolute values may lead to misinterpretation of CBC data. Current Interpretive Data was last revised on 2017. Blood 06/19/2025 9:59 AM BELT MACHINE OPERATOR 06/19/2025 10:05 AM BELT MACHINE OPERATOR Donna Dyson NP LAB BLOOD ORDERABL ES Final Result Performing Organization Address City/[facility] Co de Phone Number [facility] Department [place] [address] * CBC with auto differential (06/19/2025 9:59 AM BELT MACHINE OPERATOR) WBC 6.09 3.80 - 9.90 K/cumm Hgb 12.2 11.9 - 15.5 g/dL [facility] Hct 36.8 35.6 - 45.5 % [facility] Plt 185 150 - 400 K/cumm [facility] MPV 11.4 9.1 - 12.3 fL [facility] RBC 4.24 3.90 - 5.20 M/cumm [facility] MCV 86.8 81.3 - 96.4 fL [facility] MCH 28.8 27.1 - 33.3 pg [facility] MCHC 33.2 32.3 - 35.7 g/dL [facility] RDW CV 12.6 11.1 - 14.9 % [facility] RDW SD 40.2 35.7 - 48.1 fL [facility] NRBC abs 0.00 0.00 - 0.01 K/cumm [facility] Blood 06/19/2025 9:59 AM BELT MACHINE OPERATOR 06/19/2025 10:05 AM BELT MACHINE OPERATOR Donna Dyson NP LAB BLOOD ORDERABL ES Final Result Performing Organization Address City/[facility] [place] [address] * T4, free (06/19/2025 9:59 AM BELT MACHINE OPERATOR) [facility] Free T4 1.43 0.90 - 1.70 ng/dL Blood 06/19/2025 9:59 AM BELT MACHINE OPERATOR 06/19/2025 10:05 AM BELT MACHINE OPERATOR Jessica Ayers QUAL RESEARCH MANAGER LAB BLOOD ORDERABLE S Final Result Performing Organization Address [facility] [place] [address] * (ABNORMAL) Vitamin B12 (06/19/2025 9:59 AM BELT MACHINE OPERATOR) [facility] Vitamin B12 161(L) 230 - 1,250 pg/mL Comment:Testing performed by : [facility] [place], [address] [place]., [address] Blood 06/19/2025 9:59 AM BELT MACHINE OPERATOR 06/19/2025 12:34 PM BELT MACHINE OPERATOR Jessica Ayers QUAL RESEARCH MANAGER LAB BLOOD ORDERABLE S Final Result Performing Organization Address [facility] [place] [address] * (ABNORMAL) Comprehensive metabolic panel (06/19/2025 9:59 AM BELT MACHINE OPERATOR) [facility] Sodium 138 135 - 145 mmol/L Potassium, pl 4.2 3.3 - 4.9 mmol/L [facility] Chloride 109 97 - 110 mmol/L [facility] CO2 25 22 - 32 mmol/L [facility] Anion gap 4 2 - 15 mmol/L [facility] BUN 13 6 - 25 mg/dL [facility] Creatinine 0.56(L) 0.60 - 1.10 mg/dL [facility] Glucose 96 70 - 199 mg/dL [facility] Comment: Interpretive Data Fasting glucose >/= 126 mg/dl is diagnostic for diabetes. Fasting is defined as no caloric intake for at least 8 hours. Fasting glucose between 100 mg/dl to 125 mg/dl is diagnostic of prediabetes. In a patient with classic symptoms of hyperglycemia or hyperglycemic crisis, a random glucose >/= 200 mg/dl is diagnostic for diabetes. In the absence of unequivocal hyperglycemia, results should be confirmed by repeat testing. The classification and Diagnosis of Diabetes Diabetes Care 2021; 46: S19-S40. Current interpretive data was last revised 2022. Calcium 9.7 8.5 - 10.3 mg/dL [facility] Bilirubin, total 0.5 0.1 - 1.2 mg/dL [facility] Protein, pl 8.2 6.5 - 8.5 g/dL [facility] Albumin 4.4 3.5 - 5.0 g/dL [facility] Alk phos 104 40 - 130 Units/L [facility] ALT 15 7 - 45 Units/L [facility] AST 21 10 - 45 Units/L [facility] Blood 06/19/2025 9:59 AM BELT MACHINE OPERATOR 06/19/2025 10:05 AM BELT MACHINE OPERATOR Donna Dyson QUAL RESEARCH MANAGER LAB BLOOD ORDERABL ES Final Result [facility] Department [place] [address] * Differential, auto (05/22/2025 12:14 PM CDT) Neutrophil abs 3.43 1.50 - 6.50 K/cumm Imm gran abs 0.02 0.00 - 0.10 K/cumm [facility] Lymphocyte abs 1.57 0.80 - 3.30 K/cumm [facility] Monocyte abs 0.47 0.20 - 0.80 K/cumm [facility] Eosinophil abs 0.13 0.00 - 0.50 K/cumm [facility] Basophil abs 0.02 0.00 - 0.10 K/cumm [facility] Neutrophil pct 60.8 % [facility] Comment: Interpretive Data Percent cell count reference ranges are not reported, since discordance with absolute values may lead to misinterpretation of CBC data. Current Interpretive Data was last revised on 2017. Imm gran pct 0.4 % [facility] Comment: Interpretive Data Percent cell count reference ranges are not reported, since discordance with absolute values may lead to misinterpretation of CBC data. Current Interpretive Data was last revised on 2017. Lymphocyte pct 27.8 % [facility] Comment: Interpretive Data Percent cell count reference ranges are not reported, since discordance with absolute values may lead to misinterpretation of CBC data. Current Interpretive Data was last revised on 2017. Monocyte pct 8.3 % [facility] Comment: Interpretive Data Percent cell count reference ranges are not reported, since discordance with absolute values may lead to misinterpretation of CBC data. Current Interpretive Data was last revised on 2017. Eosinophil pct 2.3 % [facility] Comment: Interpretive Data Percent cell count reference ranges are not reported, since discordance with absolute values may lead to misinterpretation of CBC data. Current Interpretive Data was last revised on 2017. Basophil pct 0.4 % [facility] Comment: Interpretive Data Percent cell count reference ranges are not reported, since discordance with absolute values may lead to misinterpretation of CBC data. Current Interpretive Data was last revised on 2017. Blood 05/22/2025 12:1 4 PM CDT 05/22/2025 12:49 PM CDT Donna Dyson NP LAB BLOOD ORDERABL ES Final Result [facility] Department [place] [address] * (ABNORMAL) CBC with auto differential (05/22/2025 12:14 PM CDT) WBC 5.64 3.80 - 9.90 K/cumm Hgb 11.9 11.9 - 15.5 g/dL [facility] Hct 38.6 35.6 - 45.5 % [facility] Plt 191 150 - 400 K/cumm [facility] MPV 11.5 9.1 - 12.3 fL [facility] RBC 4.33 3.90 - 5.20 M/cumm [facility] MCV 89.1 81.3 - 96.4 fL [facility] MCH 27.5 27.1 - 33.3 pg [facility] MCHC 30.8(L) 32.3 - 35.7 g/dL [facility] RDW CV 12.3 11.1 - 14.9 % [facility] RDW SD 40.5 35.7 - 48.1 fL [facility] NRBC abs 0.00 0.00 - 0.01 K/cumm [facility] Blood 05/22/2025 12:1 4 PM CDT 05/22/2025 12:49 PM CDT Donna Dyson QUAL RESEARCH MANAGER LAB BLOOD ORDERABL ES Final Result [facility] Department [place] [address] * Differential, auto (04/26/2025 11:35 AM CDT) Neutrophil abs 3.66 1.50 - 6.50 K/cumm Imm gran abs 0.03 0.00 - 0.10 K/cumm [facility] Lymphocyte abs 1.35 0.80 - 3.30 K/cumm [facility] Monocyte abs 0.21 0.20 - 0.80 K/cumm [facility] Eosinophil abs 0.11 0.00 - 0.50 K/cumm [facility] Basophil abs 0.02 0.00 - 0.10 K/cumm [facility] Neutrophil pct 68.0 % [facility] Comment: Interpretive Data Percent cell count reference ranges are not reported, since discordance with absolute values may lead to misinterpretation of CBC data. Current Interpretive Data was last revised on 2017. Imm gran pct 0.6 % [facility] Comment: Interpretive Data Percent cell count reference ranges are not reported, since discordance with absolute values may lead to misinterpretation of CBC data. Current Interpretive Data was last revised on 2017. Lymphocyte pct 25.1 % [facility] Comment: Interpretive Data Percent cell count reference ranges are not reported, since discordance with absolute values may lead to misinterpretation of CBC data. Current Interpretive Data was last revised on 2017. Monocyte pct 3.9 % [facility] Comment: Interpretive Data Percent cell count reference ranges are not reported, since discordance with absolute values may lead to misinterpretation of CBC data. Current Interpretive Data was last revised on 2017. Eosinophil pct 2.0 % [facility] Comment: Interpretive Data Percent cell count reference ranges are not reported, since discordance with absolute values may lead to misinterpretation of CBC data. Current Interpretive Data was last revised on 2017. Basophil pct 0.4 % [facility] Comment: Interpretive Data Percent cell count reference ranges are not reported, since discordance with absolute values may lead to misinterpretation of CBC data. Current Interpretive Data was last revised on 2017. Blood 04/26/2025 11:3 5 AM CDT 04/26/2025 11:47 AM CDT Donna Dyson NP LAB BLOOD ORDERABL ES Final Result [facility] Department [place] [address] * (ABNORMAL) CBC with auto differential (04/26/2025 11:35 AM CDT) WBC 5.38 3.80 - 9.90 K/cumm Hgb 12.0 11.9 - 15.5 g/dL [facility] Hct 37.4 35.6 - 45.5 % [facility] Plt 183 150 - 400 K/cumm [facility] MPV 11.0 9.1 - 12.3 fL [facility] RBC 4.26 3.90 - 5.20 M/cumm [facility] MCV 87.8 81.3 - 96.4 fL [facility] MCH 28.2 27.1 - 33.3 pg [facility] MCHC 32.1(L) 32.3 - 35.7 g/dL [facility] RDW CV 12.9 11.1 - 14.9 % [facility] RDW SD 41.4 35.7 - 48.1 fL [facility] NRBC abs 0.00 0.00 - 0.01 K/cumm [facility] Blood 04/26/2025 11:3 5 AM CDT 04/26/2025 11:47 AM CDT us Donna Dyson QUAL RESEARCH MANAGER LAB BLOOD ORDERABL ES Final Result Performing Organization Address City/[facility]/[place] [address] * Hepatitis panel, acute Blood (05/15/2023 3:41 AM CDT) Hep A IgM Nonreactive Nonreactive Comment:Testing performed by : [facility] [place], [address] [place] [address]., [id number] Hep B core IgM Nonreactive Nonreactive [facility] Comment:Testing performed by : [facility] [place], [address] [place] [address]., [id number] Hep C Ab Nonreactive Nonreactive [facility] Comment: Antibodies to HCV not detected. Does NOT exclude the possibility of recent exposure to HCV. Current interpretive data was last revised on 22 Testing performed by: [facility] [place], [address] [place] [address]., [id number] HepBsAg Nonreactive Nonreactive [facility] Comment:Testing performed by : [facility] [place], [address] [place] [address]., [id number] Blood 05/15/2023 3:41 AM CDT 05/15/2023 4:07 AM CDT us Winter Springer QUAL RESEARCH MANAGER LAB MICROBIOLOGY - GENERAL OR DERABLES Final Result [facility] [place] [address] from Last 3 Months or Most Recently Relevant to Health Maintenance Insurance [facility] Advance Directives For more information, please contact: [phone] Documents on File Type Date Recorded Patient Beautician Apprentice Expl anation Advance Directives and Livin g Will 10/08/2023 9:10 AM * Full Code (Latest Code Status on File) Date Activated Date Inactivated Comments 05/19/2024 12:12 PM 05/20/2024 5:55 PM * Full Code Date Activated Date Inactivated Comments 02/08/2024 1:15 PM 02/13/2024 3:44 PM * Full Code Date Activated Date Inactivated Comments 02/05/2024 5:24 PM 02/06/2024 11:45 PM * Full Code Date Activated Date Inactivated Comments 01/25/2024 2:39 PM 01/29/2024 2:38 AM * Full Code Date Activated Date Inactivated Comments 12/23/2023 6:03 PM 12/26/2023 10:53 PM Care Teams Rad Technologist Relationship Specialty [place] [address] [place] [address] PCP - General Pediatrics 04/21/24 Marycarmen Garibay Registered Nurse 07/17/23 Gracy Steevns MD [address] [place] [address] Fellow Pediatric Hematology and Oncology 07/17/23 Donna Dyson, ROSALIE [address] [facility] [address] [place] [address] Nurse Practitioner Pediatric Hematology and Oncology 10/06/23 April Morataya, PhD [address] [facility] [id number] [place] [address] Psychologist Psychology 12/07/24
--- OUTSIDE RECORDS SUMMARY | 2025-07-11 03:36 | XMS_ITS | Encounter Summary ---
Author Organization [facility] Healthcare Address [address] [place] [address] Care Team Providers Care Survey Director Name Role Phone Marycarmen Garibay Unavailable Unavailable Gracy Stevens MD Unavailable Donna Dyson NP Unavailable + Jessica Ayers NP Primary Care Provi natan April Morataya PhD Unavailable [phone] Encounter Details Date Type Department Care Team (Late st Contact Info) Description 05/26/2024 Social Work [facility] [place] [address] Kiarra Stanley BSW Social History Tobacco Use Types Packs/Day Years Used Date Smoking Tobacco: Never Smokeless Tobacco: Never [facility] Utilities Answer Date Recorded In the past 12 months has [facility] [employer], gas, oil, or water [facility] threatened to shut off services in your [...] place to sleep or slept in a snf (including now)? No 06/01/2023 Housing Stability Vital Sign Answer Grzegorz e Recorded In the last 12 months, was t here a time when you were not able to pay the mortgage or rent on time? Yes 05/19/2024 Number of Times Moved in the Last Year Not on fi le 05/19/2024 At any time in the past 12 m [facility], were you homeless or living in a snf (including now)? 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 No Marital Status Not Employment Status Unemployed Payor Source Medicaid Race Black or -Emirati Ethnicity Non- Support Systems and Spirituality Support System Friends/neighbors;Other family members;Confucianism/nick community;Parent Other Family Member Name/Contact Information Paternal Grandmother (Beryl English- [phone]) Current Situation Living Arrangements Alone Type of Residence Apartment Income Food stamps How do you Pay for Medication Insurance covers the cost of medications Current Transportation Family/friends;Other (Comment) (Medicaid transportation) This SW Student set up trip through Medicaid for Ramesh's appointment for labs tomorrow at 12:30pm. Confirmed that appointment will be a will-call pick-up for the ride back home. remains available for ongoing support and assistance while Ramesh's primary SW, Radha Fisher LCSW, is out of the office. ALEXUS Gonzales Social Work Student [phone] documented in this encounter Plan of Treatment Not on file documented as of this encounter Visit Diagnoses Not on filedocumented in this encounter Additional Health Concerns Infection Onset Date Last Indicated Resolved Time COVID: Suspected 09/15/2024 09/15/2024 09/15/2024 1:05 PM ASTRONOMY TEACHER Influenza, adult 09/15/2024 09/15/2024 09/22/2024 3:05 AM ASTRONOMY TEACHER documented as of this encounter Care Teams Survey Director Relationship Specialty Start Date End Date Jessica Ayers [employer] [address] [place] [address] PCP - General Pediatrics 04/21/24 Marycarmen Garibay Registered Nurse 07/17/23 Gracy Stevens MD [address] [place] [address] Fellow Pediatric Hematology and Oncology 07/17/23 Donna Dyson, ROSALIE [address] [place] [address] Nurse Practitioner Pediatric Hematology and Oncology 10/06/23 April Morataya, PhD [address] [facility] [id number] [place], [place] [id number] Psychologist Psychology 12/07/24 documented as of this encounter
[2025-07-11] MEDS: SODIUM CHLORIDE 0.9% IV 1,000 ML 999 ML IV CONT (04:02)
[2025-07-11] MEDS: ONDANSETRON INJ 4 MG/2 ML VIAL IV PUSH (04:02)
[2025-07-11 04:03] LABS: Hematocrit 40.0 % (37.0-47.0); Hemoglobin 12.5 g/dL (12.0-15.0); Immature Granulocyte Percent A 0.5 % (0-0.5); Lymphocytes Absolute Auto 0.94 K/mm3 (0.9-3.2); Mean Corpuscular HGB Conc 31.3 g/dl (32-36); Mean Corpuscular Hemoglobin 28.0 pg (26-34); Mean Corpuscular Volume 89.5 fl (80-100); Nucleated Red Blood Cells Absolute Auto 0.000 K/mm3 (0.0-0.012); Nucleated Red Blood Cells Perc 0.0 % (0.0-0.2); Platelet Count Result 200 k/mm3 (150-375); Red Blood Count 4.47 M/mm3 (4.2-5.4); White Blood Count 6.0 K/mm3 (4.5-10.0)
[2025-07-11] MEDS: PROCHLORPERAZINE EDISYLATE 10 MG/2 ML VIAL IV PUSH (04:03)
[2025-07-11 04:18] LABS: Alanine Aminotransferase 19 U/L (6-35); Albumin Level 4.8 g/dL (3.5-5.1); Alkaline Phosphatase 94 U/L (38-126); Anion Gap 6 mmol/L (4-12); Aspartate Amino Transferase 25 U/L (14-36); Bilirubin,Total 0.5 mg/dL (0.2-1.3); Blood Urea Nitrogen 11 mg/dL (7-17); Calcium 9.8 mg/dL (8.4-10.2); Carbon Dioxide 24 mmol/L (22-30); Chloride 108 mmol/L (98-107); Estimated CRCL calculation 138 ml/min; Estimated Glomerular Filt Rate > 60; Glucose 99 mg/dL (65-110); Lipase 111 U/L (23-300); Magnesium 2.1 mg/dL (1.6-2.3); Potassium 4.5 mmol/L (3.4-5.0); Sodium 138 mmol/L (137-145); Total Protein 9.2 g/dL (6.3-8.2)
[2025-07-11 04:46] LABS: Influenza A QL RT-PCR Negative (Negative); Influenza B QL RT-PCR Negative (Negative); RSV RNA, RT-PCR Negative (Negative); SARS-CoV-2 RNA PCR Negative (Negative)
[2025-07-11 05:01] LABS: Thyroid Stimulating Hormone Reflex 3.210 uIU/mL (0.465-4.68)
[2025-07-11 05:22] VITALS: BP 117/86; PULSE 72; RESP 18; O2SAT 100
[2025-07-11 05:24] LABS: BEDSIDEPREGUCG Negative (Negative)
[2025-07-11 05:43] LABS: Add Urine Microscopic? YES; Appearance Urine Cloudy (Clear); Glucose Urine UA Negative (Negative); Leukocyte Esterase Ur Negative LEU/UL (Negative); Nitrate Urine Negative (Negative); Non Pathogenic Casts 0-2; Specific Grav Ur 1.021 (1.001-1.035)
[2025-07-11 06:22] VITALS: BP 121/84; PULSE 66; RESP 17; O2SAT 100
[2025-07-11 06:23] VITALS: BP 121/84; PULSE 66; RESP 17; O2SAT 100
== END 2025-07-11 06:28 | disposition home or self-care (01) ==
PROVIDERS: Emergency Provider Student in an Organized Health Care Education/Training Program
DX: K52.9 Noninfective gastroenteritis and colitis, unspecified (principal); Z20.822 Contact with and (suspected) exposure to COVID-19; C92.00 Acute myeloblastic leukemia, not having achieved remission; Z92.21 Personal history of antineoplastic chemotherapy
CPT/HCPCS: 36415; 80053; 81001; 81025; 83605; 83690; 83735; 84443; 85025; 87637; 96361; 96374; 96375; 99284; J0780; J1200; J2405; J7030